=== PATIENT | male | born 1940 | race Caucasian/White ===

== ENCOUNTER → 2025-02-07 | Outpatient (CLI) | payer MEDICARE, SELFPAY ==
--- NOTE | 2025-02-07 06:45 | ECHOCS_ITS ---
Reason For Study Reason For Study: Syncope Procedure This was a 2D Doppler, Color Flow transthoracic echocardiogram. The study was technically difficult. Contrast injection was performed. Exam performed in department. Left Ventricle Normal LV size. Mild concentric left ventricular hypertrophy. The LV systolic function is normal. EF is 70 %. Stage 1 diastolic dysfunction. Right Ventricle Normal right ventricle. Atria The left and right atria are normal. Hypermobile interatrial septum. Bubble contrast study negative for PFO/ASD. Mitral Valve Trivial mitral valve insufficiency. Tricuspid Valve Trivial tricuspid valve insufficiency. Right ventricular systolic pressure estimated to be 39 mmHg. Aortic Valve Trileaflet aortic valve. Mildly calcified leaflets. 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 Trivial aortic valve insufficiency. Pulmonic Valve The pulmonic valve is not well visualized. Great Vessels The aortic root is not well visualized. Pericardium/Pleural No pericardial effusion. Medication 22 gauge I.V. with prn adaptor inserted into right arm. Diluted definity 2ml given slow IV push to enhance endocardial definition. Performed a rapid injection of agitated mix of 9 cc saline and 1cc air to assess for atrial septal defect. MMode/2D Measurements & Calculations LVIDd: 4.0 cm IVSd: 1.4 cm LVOT diam: 1.9 cm LVIDs: 2.4 cm LVPWd: 0.95 cm RVDd: 3.5 cm FS: 40.1 % LVOT area: 3.0 cm2 LAV(MOD-bp): 41.7 ml LVAd ap4: 29.4 cm2 SV(MOD-sp4): 63.6 ml LAV(MOD-bp) Indexed: 23.2 ml/m2 LVLd ap4: 8.4 cm SI(MOD-sp4): 35.4 ml/m2 LAV(MOD-sp2): 40.2 ml EDV(MOD-sp4): 86.0 ml LAV(MOD-sp4): 38.7 ml EDV(sp4-el): 87.8 ml LVAs ap4: 13.2 cm2 LVLs ap4: 6.3 cm ESV(MOD-sp4): 22.4 ml ESV(sp4-el): 23.5 ml EF(MOD-sp4): 74.0 % EF(sp4-el): 73.2 % SV(sp4-el): 64.3 ml LA A4 area: 15.9 cm2 LA dimension(2D): 3.5 cm RA A4 area: 14.6 cm2 TAPSE: 2.2 cm Time Measurements MV dec time: 0.21 sec Doppler Measurements & Calculations MV E max george: 64.6 cm/sec Lat Peak E' George: 9.4 cm/sec Med Peak E' George: 11.5 cm/sec MV A max george: 115.8 cm/sec E/E' lat: 6.9 E/E' med: 5.6 MV E/A: 0.56 MV V2 max: 131.5 cm/sec MV P1/2t max george: 76.7 cm/sec Ao V2 max: 157.2 cm/sec MV max P.9 mmHg MV P1/2t: 70.6 msec Ao max P.9 mmHg MV V2 mean: 67.4 cm/sec MV dec slope: 318.0 cm/sec2 Ao V2 mean: 102.6 cm/sec MV mean P.2 mmHg MVA(P1/2t): 3.1 cm2 Ao mean P.8 mmHg MV V2 VTI: 19.8 cm Ao V2 VTI: 30.2 cm MVA(VTI): 3.0 cm2 AV (velocity ratio): 0.66 SENAIT(I,D): 2.0 cm2 SENAIT(V,D): 2.0 cm2 LV V1 max: 104.5 cm/sec SV(LVOT): 59.5 ml PA V2 max: 125.6 cm/sec LV V1 max P.4 mmHg LV V1 mean P.1 mmHg LV V1 mean: 66.0 cm/sec LV V1 VTI: 20.0 cm TR max george: 289.8 cm/sec TR max P.6 mmHg ECHO/Echo Complete W/ Contrast Interpretation Summary Mild concentric left ventricular hypertrophy. The LV systolic function is normal. EF is 70 %. Stage 1 diastolic dysfunction. Hypermobile interatrial septum. Bubble contrast study negative for PFO/ASD. 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 Right ventricular systolic pressure estimated to be 39 mmHg. Ordering Physician: Francois Pittman Referring Physician: Francois Pittman Performed By: Aidan Flores RCS
--- NOTE | 2025-02-07 15:46 | STRESSREP ---
Stress Test Report Date: 02/07/2025 Procedure: Pharmacologic stress nuclear imaging study Indications: Dyspnea Consent: Per the patient Procedure: The patient underwent pharmacologic (Regadenoson 0.4mg ) evaluation with a peak heart rate of 101 beats per minute (73%predicted maximal heart rate) and a peak blood pressure of 172/95 mmHg. The baseline ECG demonstrated sinus rhythm. The peak pharmacologic ECG did not show any ischemic changes. There were no cardiac dysrhythmias pretest, during pharmacologic infusion, or recovery. There was no complaint of chest discomfort during pharmacologic infusion or recovery. The patient was injected with 11.2 millicuries of technetium 99m Cardiolite and subsequently rest SPECT Cardiolite nuclear imaging was obtained in the horizontal long, vertical long, and short axis views. The patient underwent pharmacologic (Regadenoson) evaluation. The patient was injected with 35.6 millicuries of technetium 99m Cardiolite and subsequently stress SPECT Cardiolite nuclear imaging was obtained in the horizontal long, vertical long, and short axis views. A gated Cardiolite study at peak stress was obtained. The examination was stopped secondary to completion of protocol. Rest and stress SPECT Cardiolite nuclear imaging status post realignment, normalization, and attenuation correction demonstrate no fixed or reversible perfusion defects. There is end systolic thickening and brightening. The gated Cardiolite study demonstrates myocardial thickening and inward wall motion. The reported LVEF is 91%. Impression: 1. Pharmacologic (Regadenoson) evaluation 2. Peak pharmacologic ECG with no ischemic changes. 3. There were no cardiac dysrhythmias pretest, during pharmacologic infusion, or recovery. 5. Rest and stress SPECT Cardiolite nuclear imaging demonstrate relative uniform tracer uptake and myocardial perfusion appearing within normal limits. 6. The gated Cardiolite study reports an LVEF of 91%. This note was generated with [employer] software. It may contain incorrect words, spelling, and punctuation that were not noted in checking the note before signing.
== END | disposition home or self-care (01) ==
PROVIDERS: Referring Provider Internal Medicine Cardiovascular Disease; Visit Provider Internal Medicine Cardiovascular Disease
DX: R06.00 Dyspnea, unspecified (principal); N18.30 Chronic kidney disease, stage 3 unspecified; I95.1 Orthostatic hypotension; I12.9 Hypertensive chronic kidney disease with stage 1 through stage 4 chronic kidney disease, or unspecified chronic kidney disease; I49.3 Ventricular premature depolarization
CPT/HCPCS: 78452; 93017; 93306; A9500; Q9957; A4216; C8929; J2785

== ENCOUNTER 2025-04-26 08:04 | Inpatient (IN) | payer MEDICARE, SELFPAY ==
[2025-04-26] VITALS (20 sets, daily range): BP systolic 140–177; BP diastolic 71–108; PULSE 78–98; RESP 13–27; TEMP 35.5–36.7; O2SAT 91–98; BMI 19.9; BMI 18.8
--- NOTE | 2025-04-26 08:06 | ED.RN ---
cancel; stroke alert
--- NOTE | 2025-04-26 08:08 | EKG12_ITS ---
Test Reason : ALT LOC Blood Pressure : */* mmHG Vent. Rate : 86 BPM Atrial Rate : 86 BPM P-R Int : 148 ms QRS Dur : 76 ms QT Int : 364 ms P-R-T Axes : 64 -12 53 degrees QTcB Int : 435 ms Normal sinus rhythm Nonspecific ST abnormality Abnormal ECG Confirmed by STEVE CHENG MD ([id number]), field map editor YANCY GIL ([id number]) on 04/29/2025 9:13:57 AM Referred By: Confirmed By: STEVE CHENG MD
--- NOTE | 2025-04-26 08:08 | RAD_ITS ---
PROCEDURE: CHEST 1 VIEW (PORTABLE) 04/26/2025 REASON FOR EXAM: TACHYPNEA TECHNIQUE: Frontal view of the chest. COMPARISON: None FINDINGS: Hardware: EKG electrodes are seen. Heart: The heart size is upper limits of normal. Lungs: The lungs are clear. Bones: Degenerative changes are identified within the thoracic spine. Other: RAD/Chest 1 View (Portable) IMPRESSION: No Acute Findings. Reading Location: [place] [address]
--- NOTE | 2025-04-26 08:09 | CT_ITS ---
PROCEDURE: BRAIN/HEAD WITHOUT CONTRAST 04/26/2025 REASON FOR EXAM: ALTERED MENTAL STATUS, QUESTION SEIZURE ACTIVITY TECHNIQUE: BRAIN/HEAD WITHOUT CONTRAST Coronal and Sagittal reconstruction series were provided. One or more dose reduction techniques were used (e.g., Automated exposure control, adjustment of the mA and/or kV according to patient size, use of iterative reconstruction technique. RADIATION DOSE SUMMARY: CTDlvol: 44.99 mGy DLP: 616 mGycm COMPARISON: None FINDINGS: Brain: Low density in the periventricular white matter suggests mild chronic small vessel ischemic changes. Atherosclerotic calcification of the cavernous portions of the internal carotid arteries bilaterally. CSF Spaces: Mild generalized cerebral atrophy Sinuses/Mastoids: Clear at visualized levels Bones: CT/Brain/Head without Contrast IMPRESSION: CHRONIC CHANGES. NO ACUTE FINDINGS. Reading Location: [place] [id number]
[2025-04-26] MEDS: 0.9% Normal Saline (1000mL) 1,000 ML 1000 ML IV (08:18)
--- NOTE | 2025-04-26 08:22 | EX.ED.CRITCA ---
HPI History of Present Illness Chief Complaint: Alt LOC Detail of Chief Complaint: Prehospital stroke alert. Informant: patient, spouse/S.O. and EMS Onset/Context/Timing Onset: - (Last known well 2199April 25) Context: - (Detailed in the HPI narrative) Timing: - (Uncertain) Quality: Detailed HPI narrative Location: Detailed HPI narrative Mechanism/Context: Yes blunt trauma, Yes fall and Yes same level fall Current Severity: Difficult to determine because of dry mouth and difficulty speaking Maximum Severity: Difficult to determine because patient mouth is dry and his tongue is a lit Worsened by: Possibly head trauma Relieved by: Nothing Associated Symptoms Length of loss of consciousness: Unknown Narrative Narrative: Patient is an 84-year-old male. He lives with his . He has been having problems with dizziness since October. He had a cardiac workup which was negative and included a 30-day Holter monitor and echo. He had an MRI which apparently revealed 2 strokes. They believe this was the cause of his falls in October and November. Last evening he went to use the restroom. He fell. When entered the room he told her that he messed the floor. She informed him that they would clean it up in the morning. This morning he is less responsive. She states he has been eating well. Patient was asked yes/no questions and he answered no to all of the following, headache, change in vision, chest pain, shortness of breath, abdominal pain, nausea or vomiting. He also answered no to urologic symptoms. He denies pain in his back, neck, and extremities. Patient is presently on cholesterol medication and metoprolol for. The metoprolol is for blood pressure not rhythm. He used a scopolamine patch for the first time yesterday. He was placed on a scopolamine patch because of excessive drooling. Prior similar symptoms: No Recent Illness/Hospitalization: No PFSH [facility] Medical History (Updated 04/26/25 @ 10:[address] Wing Simmons MD) CVA (cerebral vascular accident) Medical History unable to obtain unable to obtain Allergy/AdvReac Type Severity Reaction Status Date / Time doxycycline Allergy Unknown PT UNABLE Verified 04/26/25 08:08 TO RESPOND-NEEDS F/U oxycodone Allergy Unknown PT UNABLE Verified 04/26/25 08:08 TO RESPOND-NEEDS F/U Social History (Updated 04/26/25 @ 08:[address] Wing Simmons MD) household members: spouse Smoking Status: Never smoker ROS ROS ED Constitutional Constitutional ED: Denies chills or fever(s) Eyes Eyes: Denies blurry vision or change in vision ENT ENT ED: Denies rhinorrhea or sore throat Cardiovascular Cardiovascular: Denies chest pain or palpitations Respiratory/Chest Respiratory/Chest: Denies cough or dyspnea Gastrointestinal Gastrointestinal: Denies abdominal pain, melena or vomiting Musculoskeletal Musculoskeletal: Denies back pain Neurologic Neurologic: Denies headache(s) Hematologic/Lymphatic Hematologic/Lymphatic: Denies easy bleeding or easy bruising EXAM Physical Exam Const Vital Signs: 04/26/25 08:04 04/26/25 08:12 04/26/25 08:30 Temperature 97.7 F L 97.7 F L Temperature Source Axillary Axillary Pulse Rate 86 86 Respiratory Rate 20 H 16 Blood Pressure 161/91 H 164/97 H Blood Pressure Mean 114 115 Pulse Ox 96 95 Oxygen Delivery Method Room Air Room Air 04/26/25 08:30 04/26/25 08:45 04/26/25 08:45 Temperature 95.9 F L 96.4 F L Temperature Source Core Core Pulse Rate 84 86 Respiratory Rate 13 25 H Blood Pressure 164/97 H 168/87 H 168/87 H Blood Pressure Mean 115 107 107 Pulse Ox 96 93 Oxygen Delivery Method 04/26/25 09:00 04/26/25 09:12 04/26/25 09:15 Temperature 96.8 F L 96.8 F L 96.9 F L Temperature Source Core Core Core Pulse Rate 84 86 88 Respiratory Rate 18 16 20 H Blood Pressure 140/84 H 163/87 H Blood Pressure Mean 91 112 Pulse Ox 93 98 92 Oxygen Delivery Method Room Air 04/26/25 09:16 04/26/25 09:30 04/26/25 09:45 Temperature 96.9 F L 97.0 F L 97.2 F L Temperature Source Core Core Core Pulse Rate 85 80 83 Respiratory Rate 16 15 27 H Blood Pressure 163/87 H 155/87 H 151/99 H Blood Pressure Mean 108 107 117 Pulse Ox 91 91 92 Oxygen Delivery Method 04/26/25 10:00 04/26/25 10:00 Temperature 97.4 F L 97.7 F L Temperature Source Core Core Pulse Rate 79 89 Respiratory Rate 14 18 Blood Pressure 160/71 H 166/81 H Blood Pressure Mean 98 109 Pulse Ox 92 93 Oxygen Delivery Method Room Air Positive well developed; Negative for well nourished Constitutional Narrative: Patient appears ill. Patient vitals indicated normal heart rate, respiratory rate and pulse ox. Blood pressure is pending. Axillary temperature was 97.7. I was told by nurse that temperature was 95.7. She was asked to place a warm blanket on him. General Appearance ED: well developed, NAD and pallor HEENT normocephalic and atraumatic; Negative for cyanosis of lips/distal nose or tenderness Eyes PERRL and EOMs intact bilaterally Eyes Narrative: There is no subconjunctival hemorrhage. General Eye ED: Negative for pale conjunctiva or scleral icterus Neck full ROM, no lymphadenopathy, supple and no JVD Neck Narrative: There is no posterior midline pain. Chest Wall Chest Narrative: Appears normal without evidence of trauma. There is no crepitus. Resp Resp Narrative: Patient respiratory rate is slightly elevated. Breath sounds are diminished bilaterally. There is bibasilar rales. This may be due to poor inspiratory volume. There is no rhonchi or wheezing noted. Cardio regular rate, regular rhythm, S1 normal heart sound, S2 normal heart sound and no murmurs GI non-tender, non-distended and no masses Auscultation: hypoactive bowel sounds Palpation: soft Narrative: External normal Neuro oriented x3, CN's II-XII intact bilaterally and no sensory deficits noted Neuro Narrative: He is awake but not alert. He has a very soft voice and is having difficulty phonating. I suspect this is due to the fact that his oral mucosa is very dry and this may be due to the scopolamine patch. Gait was not assessed. When patient was met in the ambulance bay. Since patient is following commands has no obvious focal neurologic symptoms and the fact that he has dry mouth and what may have been twitching versus seizure-like activity the stroke team was canceled because in my opinion this is a metabolic infectious or head bleed due to fall earlier this morning when he was in the restroom. Skin General Skin Exam: pallor Lesions: no lesions Rashes: no rashes MDM MDM MDM Narrative Medical decision making narrative: Concern patient may have had a seizure based on 's description of the stiffness of his arms with movement and abnormal movement of his legs. This occurred earlier this morning. This was not relayed to the EMS. He may have a metabolic cause need to assess electrolytes specifically sodium and calcium. Also need to consider infectious workup. Because of the head trauma CT of the head was obtained. He may have had a seizure due to his prior strokes which were felt to have occurred in October and November of this year. History & Record Review Discussion w/independent historian: Significant other (Informed of results and concern this is all due to the scopolamine patch. Since he is agitated he did receive IV Ativan. Hospitalist was paged for admission) Lab Data Attestation: I reviewed the patient's lab results. Lab results narrative: White count is normal. Comprehensive metabolic panel reveals an elevated BUN/creatinine at 37 and 1.72 with an estimated GFR of 39 and a BUN to creatinine ratio of 21:1. Glucose slightly elevated 113 with a normal CO2 anion gap. Liver enzymes are normal. UA is unremarkable. Macro was positive for protein and blood. Micro was negative. There are no prior labs for comparison. Labs: Laboratory Results - last 24 hr 04/26/25 04/26/25 08:15 08:24 WBC 7.9 RBC 4.84 Hgb 14.4 Hct 42.3 MCV 87.4 MCH 29.8 MCHC 34.0 RDW Std Deviation 41.0 RDW Coeff of Tim 12.9 Plt Count 217 MPV 10.4 Immature Gran % (Auto) 0.400 Neut % (Auto) 64.0 Lymph % (Auto) 21.8 [place] % (Auto) 11.0 H Eos % (Auto) 2.3 Baso % (Auto) 0.5 Absolute Neuts (auto) 5.1 Absolute Lymphs (auto) 1.73 Nucleated RBC % 0 PT 14.2 INR 1.1 APTT 24.5 Sodium 140 Potassium 4.1 Chloride 104 Carbon Dioxide 23.3 Anion Gap 13 BUN 37 H Creatinine 1.72 H Estim Creat Clear Calc 29.55 L Est GFR (MDRD) Non-Af 39 L BUN/Creatinine Ratio 21.4 H Glucose 113 H Lactic Acid 1.1 Calcium 9.7 Total Bilirubin 0.60 AST 24 ALT 19 Alkaline Phosphatase 71 Total Protein 7.2 Albumin 4.1 Globulin 3.2 Albumin/Globulin Ratio 1.3 Urine Color Yellow Urine Clarity Clear Urine pH 6.5 Ur Specific [place] 1.015 Urine Protein 30 H Urine Glucose (UA) Normal Urine Ketones Negative Urine Occult Blood 10 H Urine Nitrite Negative Urine Bilirubin Negative Urine Urobilinogen Normal Ur Leukocyte Esterase Negative Urine RBC 0 SEEN Urine WBC 0 SEEN Ur Squamous Epith Cells 0 SEEN Urine Bacteria 0 SEEN Urine Mucus 0 SEEN ABG Data ABG results: ABG 04/26/25 08:19 Specimen Type ART Sample Site L Brach pH 7.48 H Bicarbonate Actual 28.6 H Total CO2 30 Base Excess 5 H O2 Saturation 95 O2 % 2.0 ABG pCO2 38.2 ABG pO2 70 L O2 Delivery Device Cannula Vent Mode Not entered Radiography Chest X-Ray - ED: 1 View and Read by ED Physician (There are no acute findings. Cardiac silhouette and size normal. Lung parenchyma reveals chronic changes. Osseous structures reveal no obvious acute abnormality. There is evidence of degenerative disc disease.) Diagnostic Testing: Clinical Impression(s) from Imaging Studies Chest X-Ray 04/26/25 08:08 IMPRESSION: No Acute Findings. Reading Location: [facility]--[address] 04/26/25 08:09 IMPRESSION: CHRONIC CHANGES. NO ACUTE FINDINGS. Reading Location: [facility]--1 CT was reviewed by me after interpretation by radiologist. There is no acute findings i.e. subdural hematoma, epidural hematoma, traumatic subarachnoid hemorrhage or intraparenchymal contusion. There is no obvious stroke noted either. There is no air-fluid levels noted in the sinuses or evidence of fracture. Management Discussion w/another healthcare provider: Hospitalist (I spoke with Dr. Rachel the hospitalist. PCU admit. He will see patient on the unit.) Discharge Plan Triage Chief Complaint: Alt LOC ED Provider: Wing Simmons Dx/Rx/DC Orders Clinical Impression: Acute alteration in mental status, Anticholinergic syndrome, Elevated blood pressure reading with diagnosis of hypertension, Agitation, Metabolic alkalemia, Chronic kidney insufficiency, History of stroke in adulthood Primary Care Provider: Chaitanya Hdez Referrals: Chaitanya Hdez DO [Primary Care Provider] - Print Language: Vietnamese Disposition Disposition: [facility]
[2025-04-26 08:23] LABS: Base Excess 5 mmol/L (-2 to +2); FI02 2.0; PO2 70 mmHG (75-100); SITE L Brach; SO2 95 % (95-99)
[2025-04-26 08:30] LABS: Hematocrit 42.3 % (40-54); Hemoglobin 14.4 g/dL (13.0-16.5); Immature Granulocytes Count 0.030 X10^3/uL (0.0-0.0); Mean Corp Hgb Conc 34.0 g/dL (32-36); Mean Corpuscular Volume 87.4 fL (80-94); Mean Platelet Vol. 10.4 fl (6.2-12.0); NRBC Flagged by Analyzer 0 % (0-5); Platelet Count 217 K/mm3 (150-450); RBC Distribution Width CV 12.9 % (11.6-14.6); RBC Distribution Width SD 41.0 fl (35.1-43.9); Red Blood Count 4.84 M/mm3 (4.6-6.2); White Blood Count 7.9 K/mm3 (4.4-11.0)
[2025-04-26 08:30] LABS: Mucous, Urine 0 SEEN /hpf (<or=2+); Red Blood Cells-Urine 0 SEEN /hpf (0-5); Squamous Epithelial Cells - UA 0 SEEN /hpf (0-5)
[2025-04-26 08:33] LABS: Color, Urine Yellow (Yellow); Glucose, Dipstick Normal (Normal); Ketone-Dipstick Negative (Negative); Leukocyte Esterase-Dipstick Negative /ul (Negative); Nitrite-Dipstick Negative (Negative); Occult Blood-Urine 10 /ul (Negative); Protein-Dipstick 30 mg/dl (Negative); Specific Gravity, Urine 1.015 (1.002-1.030); Urine Bilirubin Dipstick Negative (Negative)
[2025-04-26 08:38] LABS: Prothrombin Time (Protime)PT. 14.2 SECONDS (11.7-14.9)
[2025-04-26 08:39] LABS: Partial Thromboplast Time 24.5 Seconds (24.1-36.2)
[2025-04-26 09:10] LABS: AST(SGOT) 24 U/L (<=37); Alanine Aminotransfer ALT/SGPT 19 U/L (<=46); Albumin, Serum 4.1 g/dL (3.4-4.8); Alkaline Phosphatase 71 U/L (40-129); Anion Gap 13 (5-15); BUN 37 mg/dL (4-19); BUN/Creat Ratio 21.4 RATIO (10-20); Calcium,Total 9.7 mg/dL (7.6-11.0); Carbon Dioxide 23.3 mmol/L (21.0-32.0); Chloride 104 mmol/L (98-108); Estimated Creatinine Clearance 29.55 ml/min (50-250); Globulin 3.2 g/dL (2.2-4.2); Glucose 113 mg/dL (70-99); Potassium 4.1 mmol/L (3.3-5.1)
--- NOTE | 2025-04-26 10:43 | PCM.HP.STD ---
HPI - General General Date of Admission: 04/26/25 Date of Service: 04/26/25 Chief Complaint: Altered mental status/speech abnormality today in the morning HPI Narrative JAZLYN CHRISTINE, is a 84 M who is brought to ED with prehospital stroke for altered mental status, unable to speak, incoherent and snoring respirations since morning. Patient has been dizzy since October and prescribed scopolamine patch reported last night. Patient could not understand speech, could not verbalize/vocalize, insensible/incomprehensible words. He also restless. Last night he went to the restroom, had accident/incontinent and fell down. In the morning he was also less responsive. As per he had 1 CT scan in February and 1 MRI in December which did not in our system. MRI revealed 2 strokes probably the cause of his fall in November/December. He said no headache change in vision chest pain shortness of breath abdominal pain or vomiting. He is not able to follow command regarding lifting the hands or legs or answered question of NIHSS but a stroke alert was called off. [facility] Medical History CVA (cerebral vascular accident) Medical History unable to obtain Allergy/AdvReac Type Severity Reaction Status Date / Time doxycycline Allergy Unknown PT UNABLE Verified 04/26/25 08:08 TO RESPOND-NEEDS F/U oxycodone Allergy Unknown PT UNABLE Verified 04/26/25 08:08 TO RESPOND-NEEDS F/U Social History household members: spouse Smoking Status: Never smoker ROS ROS Narrative 14 system ROS unobtainable due to altered mental status Review of Systems ROS Unobtainable: due to encephalopathy and due to mental status Vital Signs Vital Signs Vital Signs: 04/26/25 08:04 04/26/25 08:12 04/26/25 08:30 Temperature 97.7 F L 97.7 F L Temperature Source Axillary Axillary Pulse Rate 86 86 Respiratory Rate 20 H 16 Blood Pressure 161/91 H 164/97 H Blood Pressure Mean 114 115 Pulse Ox 96 95 Oxygen Delivery Method Room Air Room Air 04/26/25 08:30 04/26/25 08:45 04/26/25 08:45 Temperature 95.9 F L 96.4 F L Temperature Source Core Core Pulse Rate 84 86 Respiratory Rate 13 25 H Blood Pressure 164/97 H 168/87 H 168/87 H Blood Pressure Mean 115 107 107 Pulse Ox 96 93 Oxygen Delivery Method 04/26/25 09:00 04/26/25 09:12 04/26/25 09:15 Temperature 96.8 F L 96.8 F L 96.9 F L Temperature Source Core Core Core Pulse Rate 84 86 88 Respiratory Rate 18 16 20 H Blood Pressure 140/84 H 163/87 H Blood Pressure Mean 91 112 Pulse Ox 93 98 92 Oxygen Delivery Method Room Air 04/26/25 09:16 04/26/25 09:30 04/26/25 09:45 Temperature 96.9 F L 97.0 F L 97.2 F L Temperature Source Core Core Core Pulse Rate 85 80 83 Respiratory Rate 16 15 27 H Blood Pressure 163/87 H 155/87 H 151/99 H Blood Pressure Mean 108 107 117 Pulse Ox 91 91 92 Oxygen Delivery Method 04/26/25 10:00 04/26/25 10:00 Temperature 97.4 F L 97.7 F L Temperature Source Core Core Pulse Rate 79 89 Respiratory Rate 14 18 Blood Pressure 160/71 H 166/81 H Blood Pressure Mean 98 109 Pulse Ox 92 93 Oxygen Delivery Method Room Air Weight Weight: 139 lb 1.787 oz Body Mass Index (BMI) 19.9 Physical Exam Narrative General: Awake, restless, disoriented to time place and person. Mildly agitated HEENT: Atraumatic, PERRLA, EOMI, Normocephalic. Oral: Oral mucosa very dry. Neck: Supple, No JVD, Negative Carotid Bruits Chest wall/Lungs: Air entry diminished in bilateral lung bases. Mild coarse crepitations Cardiovascular: Regular rate and rhythm, Normal S1,S2, No M/G/R Abdomen: Bowel Sounds Present, Soft, Non Tender, Non-Distended : No dysuria. No renal angle tenderness. No suprapubic tenderness. Extremities: No edema, Capillary Refill Less than 3 Seconds Skin: No rashes, No breakdown Musculoskeletal: No Tenderness to Palpation of Joints or Extremities. 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 Detailed neuroexam unobtainable. Language deficits. Dysarthria Psych/Mental Status: Flat affect Results Lab / Micro Data 04/26/25 08:15 04/26/25 08:15 Labs: Laboratory Results - last 24 hr 04/26/25 08:15: WBC 7.9, RBC 4.84, Hgb 14.4, Hct 42.3, MCV 87.4, MCH 29.8, MCHC 34.0, RDW Std Deviation 41.0, RDW Coeff of Tim 12.9, Plt Count 217, MPV 10.4, Immature Gran % (Auto) 0.400, Neut % (Auto) 64.0, Lymph % (Auto) 21.8, Pierce % (Auto) 11.0 H, Eos % (Auto) 2.3, Baso % (Auto) 0.5, Absolute Neuts (auto) 5.1, Absolute Lymphs (auto) 1.73, Nucleated RBC % 0, PT 14.2, INR 1.1, APTT 24.5, Sodium 140, Potassium 4.1, Chloride 104, Carbon Dioxide 23.3, Anion Gap 13, BUN 37 H, Creatinine 1.72 H, Estim Creat Clear Calc 29.55 L, Est GFR (MDRD) Non-Af 39 L, BUN/Creatinine Ratio 21.4 H, Glucose 113 H, Lactic Acid 1.1, Calcium 9.7, Total Bilirubin 0.60, AST 24, ALT 19, Alkaline Phosphatase 71, Total Protein 7.2, Albumin 4.1, Globulin 3.2, Albumin/Globulin Ratio 1.3 04/26/25 08:24: Urine Color Yellow, Urine Clarity Clear, Urine pH 6.5, Ur Specific [place] 1.015, Urine Protein 30 H, Urine Glucose (UA) Normal, Urine Ketones Negative, Urine Occult Blood 10 H, Urine Nitrite Negative, Urine Bilirubin Negative, Urine Urobilinogen Normal, Ur Leukocyte Esterase Negative, Urine RBC 0 SEEN, Urine WBC 0 SEEN, Ur Squamous Epith Cells 0 SEEN, Urine Bacteria 0 SEEN, Urine Mucus 0 SEEN ABG Data ABG results: ABG 04/26/25 08:19 Specimen Type ART Sample Site L Brach pH 7.48 H Bicarbonate Actual 28.6 H Total CO2 30 Base Excess 5 H O2 Saturation 95 O2 % 2.0 ABG pCO2 38.2 ABG pO2 70 L O2 Delivery Device Cannula Vent Mode Not entered Imaging Radiology Impression Chest X-Ray 04/26/25 08:08 IMPRESSION: No Acute Findings. Reading Location: [facility] 04/26/25 08:09 IMPRESSION: CHRONIC CHANGES. NO ACUTE FINDINGS. Reading Location: [facility] Assessment & Plan Assessment/Plan (1) Altered mental status: PLAN: Plan This is a 84-year-old gentleman being admitted chiefly for altered mental status/language deficit and dysarthria 1. Mental status/language deficit both receptive and motor and dysarthria: Exact etiology unclear but possible metabolic encephalopathy/seizure or stroke. CT head does not show acute change. Usually he does not think it is stroke but most likely due to scopolamine adverse effect. MRI brain ordered. NIH stroke scale until MRI rules out a stroke. PT OT and speech evaluation. Twelve-lead EKG shows NSR 86 bpm. QTc 435 ms. TSH and A1c ordered for tomorrow a.m. 2. Hypertension: Patient's showed me metoprolol succinate, midodrine. 3. Dyslipidemia: Atorvastatin 40 mg daily. Fasting lipid profile tomorrow. 4. Recently stroke in January 04: Surprisingly, patient not on aspirin or Plavix with history of stroke in December 2024. Rectal aspirin and statin ordered. 5. Kidney dysfunction: BUN/creatinine 37/1.72, estimated creatinine clearance about 30 mL/min. Unclear whether it is acute or chronic. 6. Hyperglycemia: Glucose 130. A1c tomorrow a.m. DVT prophylaxis: Lovenox 30 mg subcu daily Living will/advanced directive/end of life care: Patient does have living will or advanced directive. His , blossom is power of trust and estates attorney for healthcare. After discussion of benefits/risks procedures involved with full code, DNR CC arrest and DNR CC, the patient side opted for DNR CC arrest with no intubation. Patient doesn't want artificial life support including intubation, tube feed, ventilator and/chest compression, central venous catheter, vasopressor and DC shock if needed Total time spent in [id number] encounter in discussion of advanced directive 17 minutes. Laboratory Results 04/26/25 08:15: WBC 7.9, RBC 4.84, Hgb 14.4, Hct 42.3, MCV 87.4, MCH 29.8, MCHC 34.0, RDW Std Deviation 41.0, RDW Coeff of Tim 12.9, Plt Count 217, MPV 10.4, Immature Gran % (Auto) 0.400, Neut % (Auto) 64.0, Lymph % (Auto) 21.8, Pierce % (Auto) 11.0 H, Eos % (Auto) 2.3, Baso % (Auto) 0.5, Absolute Neuts (auto) 5.1, Absolute Lymphs (auto) 1.73, Nucleated RBC % 0, PT 14.2, INR 1.1, APTT 24.5, Sodium 140, Potassium 4.1, Chloride 104, Carbon Dioxide 23.3, Anion Gap 13, BUN 37 H, Creatinine 1.72 H, Estim Creat Clear Calc 29.55 L, Est GFR (MDRD) Non-Af 39 L, BUN/Creatinine Ratio 21.4 H, Glucose 113 H, Lactic Acid 1.1, Calcium 9.7, Magnesium Pending, Total Bilirubin 0.60, AST 24, ALT 19, Alkaline Phosphatase 71, Total Protein 7.2, Albumin 4.1, Globulin 3.2, Albumin/Globulin Ratio 1.3 04/26/25 08:19: Specimen Type ART, Sample Site L Brach, pH 7.48 H, Bicarbonate Actual 28.6 H, Total CO2 30, Base Excess 5 H, O2 Saturation 95, O2 % 2.0, ABG pCO2 38.2, ABG pO2 70 L, O2 Delivery Device Cannula, Vent Mode Not entered 04/26/25 08:24: Urine Color Yellow, Urine Clarity Clear, Urine pH 6.5, Ur Specific [place] 1.015, Urine Protein 30 H, Urine Glucose (UA) Normal, Urine Ketones Negative, Urine Occult Blood 10 H, Urine Nitrite Negative, Urine Bilirubin Negative, Urine Urobilinogen Normal, Ur Leukocyte Esterase Negative, Urine RBC 0 SEEN, Urine WBC 0 SEEN, Ur Squamous Epith Cells 0 SEEN, Urine Bacteria 0 SEEN, Urine Mucus 0 SEEN Charges/Coding Visit Charges Inpatient E&M: 52805 Init Hosp L3 Procedures Hospitalists Procedures: 45116 Advncd Care Plan 30 Min
--- NOTE | 2025-04-26 11:28 | MRI_ITS ---
PROCEDURE: BRAIN WITHOUT CONTRAST 04/26/2025 REASON FOR EXAM: CHANGE IN MENTAL STATUS/SPEECH ABNORMALITY TECHNIQUE: BRAIN WITHOUT CONTRAST Multiplanar and multisequence images were obtained. COMPARISON: April 26, 2025 CT FINDINGS: Several of the sequences show severe motion artifact. Brain: Grossly, no hemorrhage identified. T2 prolongation in the periventricular white matter of the frontal and parietal lobes. No restricted diffusion seen. No extra-axial fluid collection, midline shift or mass effect. Ventricles: Vdys-ix-hoxrxgof volume loss. Major Intracranial Vessels: Limited by motion. No gross abnormality. Sinuses: Clear. Mastoids: Clear Lens implants are present. MRI/Brain without Contrast IMPRESSION: Motion artifact. No evidence of ischemia at this time. Chronic microvascular ischemic changes, volume loss. Reading Location: [id number]
[2025-04-26] MEDS: Lorazepam 2 MG/ML WCH Syringe 0.5 MG IV (11:31)
--- NOTE | 2025-04-26 11:43 | CDU_ITS ---
Reason For Study Reason For Study: CVA Rt. Velocities/BP Lt. Velocities/BP Prox CCA 94.1/12.7 cm/sec. Prox CCA 93.0/12.7 cm/sec. Mid CCA 77.6/11.7 cm/sec. Mid CCA 91.9/14.9 cm/sec. Dist CCA 61.1/10.6 cm/sec. Dist CCA 68.8/14.9 cm/sec. Prox ICA 52.3/11.7 cm/sec. Prox ICA 67.7/17.1 cm/sec. Mid ICA 39.9/12.2 cm/sec. Mid ICA 61.1/18.2 cm/sec. Dist ICA 43.5/9.5 cm/sec. Dist ICA 52.3/14.9 cm/sec. Rt. ICA/CCA = 0.7. Lt. ICA/CCA = 0.7. Prox ECA 87.5/9.5 cm/sec. Prox ECA 112.5/6.6 cm/sec. Rt. Vert. 22.5/4.8 cm/sec. Lt. Vert. 46.8/6.6 cm/sec. Right Extracranial There is intimal thickening but no significant atherosclerotic plaque noted in the right common carotid artery. There is heterogeneous, irregular atherosclerotic plaque noted in the right internal carotid artery. There is heterogeneous, irregular atherosclerotic plaque noted in the right external carotid artery. Antegrade flow is noted in the right vertebral artery. Non vascularized anechoic structures noted throughout muscle fascia of Rt Neck. Left Extracranial There is homogeneous, smooth atherosclerotic plaque noted in the left common carotid artery. There is heterogeneous, irregular atherosclerotic plaque noted in the left internal carotid artery. There is intimal thickening but no significant atherosclerotic plaque noted in the left external carotid artery. Antegrade flow is noted in the left vertebral artery. Procedure Carotid Duplex [id number]. This is a Carotid Duplex examination using B-mode, color flow and specral Doppler. The exam was of fair technical quality due to patient involuntary movement. Exam performed portable in patient room. VL/Carotid Duplex Ultrasound Interpretation Summary Mild (<50%) stenosis right extracranial internal carotid. Mild (<50%) stenosis left extracranial internal carotid. Flow within the vertebral arteries is antegrade bilaterally. Multiple, non-vascular, anechoic structures are noted in the muscle and fascia of the right neck. Clinical correlation is advised. Ordering Physician: Ugo Perera Referring Physician: Chaitanya Hdez Performed By: Jacobo Ventura RVT
[2025-04-26 11:54] LABS: Magnesium 2.1 mg/dL (1.5-2.2)
[2025-04-26] MEDS: 0.9% Normal Saline (1000mL) 1,000 ML 100 ML IV (15:57)
[2025-04-26] MEDS: 0.9% Saline Lock 10 ML Syringe IV (22:10)
[2025-04-27] VITALS (28 sets, daily range): BP systolic 63–174; BP diastolic 40–114; PULSE 52–115; RESP 10–28; TEMP 36.3–37.2; O2SAT 88–99; BMI 22.6
[2025-04-27 04:45] LABS: Hematocrit 43.1 % (40-54); Hemoglobin 14.8 g/dL (13.0-16.5); Immature Granulocytes Count 0.030 X10^3/uL (0.0-0.0); Mean Corp Hgb Conc 34.3 g/dL (32-36); Mean Corpuscular Volume 86.4 fL (80-94); Mean Platelet Vol. 10.7 fl (6.2-12.0); NRBC Flagged by Analyzer 0 % (0-5); Platelet Count 223 K/mm3 (150-450); RBC Distribution Width CV 12.7 % (11.6-14.6); RBC Distribution Width SD 39.7 fl (35.1-43.9); Red Blood Count 4.99 M/mm3 (4.6-6.2); White Blood Count 9.8 K/mm3 (4.4-11.0)
[2025-04-27 06:37] LABS: Cholesterol 134 mg/dL (<=200); Low Density Lipoprotein Calc. 59 mg/dL; Triglycerides 68 mg/dL; Very Low Density Lipoprotein 14 mg/dL (5-40); cholesterol:hdl ratio screen 2.20
[2025-04-27 07:30] LABS: Anion Gap 17 (5-15); BUN 24 mg/dL (4-19); BUN/Creat Ratio 16.5 RATIO (10-20); Calcium,Total 9.3 mg/dL (7.6-11.0); Carbon Dioxide 18.0 mmol/L (21.0-32.0); Chloride 104 mmol/L (98-108); Estimated Creatinine Clearance 36.70 ml/min (50-250); Glucose 133 mg/dL (70-99); Potassium 3.6 mmol/L (3.3-5.1)
--- NOTE | 2025-04-27 10:23 | NEURO.CONS ---
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 On history, symptoms very likely from the scopolamine as patient is improving. On history it seems that there may be a progressive movement issue that needs to be evaluated and use of the anticholinergic medication may have exacerbated this. Exam is largely non-focal without rigidity or signficiant tremor. Diagnosis: iatrogenic delirium from scopolamine Plan: continue delirium precautions can use 0.5mg BID of scheduled Klonopin to help with agitation I personally attended this patient and spent a total time of 45minutes evaluating this patient including clinical assessment, review of chart, medical history imaging, and determining appropriate treatment and workup. HPI Consult Data Date of Consult: 04/28/25 HPI Narrative HPI Narrative: LUL CHRISTINE, is a 84 M who is brought to ED with prehospital stroke for altered mental status, unable to speak, incoherent and snoring respirations since morning. Patient has been dizzy since October and prescribed scopolamine patch reported last night. Patient could not understand speech, could not verbalize/vocalize, insensible/incomprehensible words. He also restless. Last night he went to the restroom, had accident/incontinent and fell down. In the morning he was also less responsive. As per he had 1 CT scan in February and 1 MRI in December which did not in our system. MRI revealed 2 strokes probably the cause of his fall in November/December. He said no headache change in vision chest pain shortness of breath abdominal pain or vomiting. He is not able to follow command regarding lifting the hands or legs or answered question of NIHSS but a stroke alert was called off. Neurologic History Pt states he feels ok and not in any pain. Pt states he is not aware where he is right now. No dizziness right now but it will come and go and will feel like dysequilibrium. Patient still confused compared to normal. night he had difficulty having a bowel movement and patient had fallen. He slept for a while and was yelling and upset and his speech seemed garbled. He Unclear if he hit his head. Normally does not have issues in the bathroom. He shuffles and does walk slower. Had 2 falls in Oct and November. Patient tried using the patch night and it was the very first time that it happened. He tried the patch for drooling. Patient was agitated all night and had no sleep. Nurse who had him yesterday states he was nonverbal but wide awake and staring catatonic and was jerking and have myoclonic movements. Eyes stayed open during this time but able to follow commands during the event. Has been having visual hallucinations He has a ho r hip replacement and HTN/HLD. He has been having dizziness since Oct and have been working him up on that. No history of memory issues or dementia. Of note, patient snores a lot and talks in his sleep. Neurologic Exam -? NEURO: -? Mental Status: The patient is somnolent, .not aware to place or time, aware to and person. Normal fund of knowledge. Poor attention and difficulty following ocmplex multistep commands -? Language: speech is slurred .? Naming, repetition, fluency, and comprehension intact. -? Cranial Nerves: PERRL 4mm/brisk. EOMI, visual porras full, no facial asymmetry, facial sensation intact, hearing intact, tongue midline, no evidence of atrophy or fibrillations. Tremor in the LUE -? Motor: No pronator drift or satelliting. Upper and lower extremities equal bilaterally. -? Detailed strength exam as performed by the nurse/RONIT and witnessed by the physician: R L SA 5 5 EE EF WE WF Belt Repairer 5 5 HF KE KF DF PF -? Tone: high tone but no cogwheeling in b/l UE and LE -? Sensation- Intact to light touch bilaterally -? Coordination: No dysmetria on [id number]-laxbca b/l -? [facility]- [facility] Medical History CVA (cerebral vascular accident) Medical History unable to obtain Home Medications ?Medication ?Instructions ?Recorded ?Last Taken ?Type metoprolol succinate 25 mg 25 mg PO DAILY heart 04/26/25 04/25/25 History tablet,extended release 24 hr rosuvastatin 5 mg tablet 5 mg PO DAILY cholesterol 04/26/25 04/25/25 History Allergy/AdvReac Type Severity Reaction Status Date / Time doxycycline Allergy Unknown PT UNABLE Verified 04/26/25 08:08 TO RESPOND-NEEDS F/U oxycodone Allergy Unknown PT UNABLE Verified 04/26/25 08:08 TO RESPOND-NEEDS F/U Social History household members: spouse Smoking Status: Never smoker Vital Signs Vital Signs Vital Signs: 04/26/25 10:30 04/26/25 11:00 04/26/25 11:34 Temperature 97.6 F L 97.8 F 97.8 F Temperature Source Core Core Pulse Rate 82 85 85 Respiratory Rate 15 17 17 Respiratory Effort Respiratory Depth Respiratory Pattern Blood Pressure 166/81 H 165/84 H 165/84 H Blood Pressure Mean 106 111 111 Blood Pressure Source Blood Pressure Position Blood Pressure Location Pulse Ox 94 94 94 Oxygen Delivery Method 04/26/25 12:00 04/26/25 12:00 04/26/25 16:51 Temperature 97.0 F L Temperature Source Temporal Pulse Rate 82 Respiratory Rate 18 Respiratory Effort Non-Labored Respiratory Depth Normal Respiratory Pattern Normal Blood Pressure 168/83 H Blood Pressure Mean 111 Blood Pressure Source Monitor Blood Pressure Position Semi-Fowlers Blood Pressure Location Right Arm Pulse Ox 95 96 Oxygen Delivery Method Room Air Room Air 04/26/25 17:45 04/26/25 20:20 04/26/25 20:46 Temperature 97.6 F L 98.1 F Temperature Source Temporal Axillary Pulse Rate 78 89 Respiratory Rate 17 18 Respiratory Effort Normal Non-Labored Respiratory Depth Normal Respiratory Pattern Normal Blood Pressure 148/89 H 177/94 H Blood Pressure Mean 108 121 Blood Pressure Source Monitor Monitor Blood Pressure Position Semi-Fowlers Semi-Fowlers Blood Pressure Location Right Arm Right Arm Pulse Ox 96 93 Oxygen Delivery Method Room Air Room Air Room Air 04/26/25 20:57 04/26/25 22:09 04/26/25 22:10 Temperature Temperature Source Pulse Rate 98 98 Respiratory Rate Respiratory Effort Respiratory Depth Respiratory Pattern Blood Pressure 166/108 H 166/108 H Blood Pressure Mean 127 Blood Pressure Source Monitor Blood Pressure Position Semi-Fowlers Blood Pressure Location Right Arm Pulse Ox Oxygen Delivery Method Room Air 04/27/25 00:40 04/27/25 00:59 04/27/25 01:55 Temperature 98.1 F 97.4 F L Temperature Source Temporal Temporal Pulse Rate 97 97 89 Respiratory Rate 16 18 Respiratory Effort Respiratory Depth Respiratory Pattern Blood Pressure 174/81 H 174/81 H 174/84 H Blood Pressure Mean 112 114 Blood Pressure Source Monitor Monitor Blood Pressure Position Semi-Fowlers Semi-Fowlers Blood Pressure Location Right Arm Right Arm Pulse Ox 98 96 Oxygen Delivery Method Room Air Room Air 04/27/25 03:08 04/27/25 03:45 04/27/25 03:48 Temperature 97.5 F L Temperature Source Temporal Pulse Rate 89 93 Respiratory Rate 18 Respiratory Effort Normal Non-Labored Respiratory Depth Normal Respiratory Pattern Normal Blood Pressure 174/84 H 148/70 H Blood Pressure Mean 96 Blood Pressure Source Monitor Blood Pressure Position Semi-Fowlers Blood Pressure Location Right Arm Pulse Ox 96 Oxygen Delivery Method Room Air Room Air 04/27/25 08:00 04/27/25 09:38 Temperature Temperature Source Pulse Rate Respiratory Rate Respiratory Effort Normal Non-Labored Respiratory Depth Normal Respiratory Pattern Normal Blood Pressure Blood Pressure Mean Blood Pressure Source Blood Pressure Position Blood Pressure Location Pulse Ox 96 Oxygen Delivery Method Room Air Room Air Weight Weight: 65.6 kg Body Mass Index (BMI) 22.6 EEG Results Procedure Details EEG Procedure Details: LUL CHRISTINE is a 84 year old M with a past medical history of , who presents for evaluation of Electroencephalogram on DATE at TIME Lab / Micro Data 04/27/25 04:14 04/27/25 04:14 Labs: Laboratory Results - last 24 hr 04/26/25 08:15: Magnesium 2.1 04/27/25 00:29: POC Glucose 108 H 04/27/25 04:14: WBC 9.8, RBC 4.99, Hgb 14.8, Hct 43.1, MCV 86.4, MCH 29.7, MCHC 34.3, RDW Std Deviation 39.7, RDW Coeff of Tim 12.7, Plt Count 223, MPV 10.7, Immature Gran % (Auto) 0.300, Neut % (Auto) 78.4 H, Lymph % (Auto) 11.5 L, Cowley % (Auto) 9.4, Eos % (Auto) 0.1, Baso % (Auto) 0.3, Absolute Neuts (auto) 7.7, Absolute Lymphs (auto) 1.12, Nucleated RBC % 0, Sodium 139, Potassium 3.6, Chloride 104, Carbon Dioxide 18.0 L, Anion Gap 17 H, BUN 24 H, Creatinine 1.44 H, Estim Creat Clear Calc 36.70 L, Est GFR (MDRD) Non-Af 49 L, BUN/Creatinine Ratio 16.5, Glucose 133 H, Hemoglobin A1c 6.2 H, Calcium 9.3, Triglycerides 68, Cholesterol 134, LDL Cholesterol, Calc 59, VLDL Cholesterol 14, HDL Cholesterol 61, Cholesterol/HDL Ratio 2.20, TSH 0.374 04/27/25 06:16: POC Glucose 145 H Imaging Radiology Impression Brain MRI 04/26/25 11:28 IMPRESSION: Motion artifact. No evidence of ischemia at this time. Chronic microvascular ischemic changes, volume loss. Reading Location: [id number] Active Medications Active Medications Active Medications: Current Medications Generic Name Dose Route Start Last Admin Trade Name Freq PRN Reason Stop Dose Admin Acetaminophen 650 mg 04/26/25 13:48 Acetaminophen 325 Mg Tablet PO Q6H PRN PRN Pain 1-10 Or Fever>100.7 Atorvastatin Calcium 40 mg 04/26/25 22:00 04/26/25 20:54 Atorvastatin Calcium 40 Mg Tablet PO Not Given QHS EMMANUEL Enoxaparin Sodium 40 mg 04/27/25 10:00 Enoxaparin 40 Mg/0.4 Ml Syringe SC DAILY EMMANUEL Hydralazine HCl 5 mg 04/27/25 08:38 Hydralazine 20 Mg/Ml Vial IV Q4H PRN PRN SBP more than 160 mmHg Protocol Sodium Chloride 250 mls @ 15 mls/hr 04/26/25 12:10 IV .[id number] PRN Saline Flush Sodium Chloride 250 mls @ 15 mls/hr 04/26/25 12:10 IV .[id number] PRN Additional IVPB Infusion Labetalol HCl 20 mg 04/27/25 08:38 Labetalol 20 Mg/4 Ml Vial IV Q4H PRN PRN SBP>180 mmhg Ondansetron HCl 4 mg 04/26/25 13:48 Ondansetron 4 Mg/2 Ml Vial IV Q8H PRN PRN NAUSEA/VOMITING Risperidone 0.25 mg 04/27/25 10:00 Risperidone 0.25 Mg Tablet PO BID [facility] Protocol Senna/Docusate Sodium 2 tablet 04/26/25 22:00 04/26/25 20:54 Senna/Docusate Sodium 1 Tablet PO Not Given BID [facility] Sodium Chloride 10 - 40 ml 04/26/25 12:10 04/26/25 22:10 0.9% Saline Lock 10 Ml Syringe IV 10 ml UD PRN Administration SALINE FLUSH NIHSS NIHSS Nursing Documentation NIHSS Nursing Documentation: NIHSS: Ischemic Stroke/TIA Start: 04/26/25 11:44 Text: For ICU Patients: NIH sroke scale at Status: Complete presentation and every 2 hours or with change in RN caregiver Freq: [id number] Protocol: Activity Type Activity Date Activity User E-sign Co-sign Detail Recorded Client Recorded Date Recorded By Document 04/26/25 12:00 ML [id number] 04/26/25 12:47 ML 04/26/25 12:00 NIH Stroke Scale [NIHSS] A score of 0 is normal or asymptomatic . Total possible score is 42. Inpatient: RN or Physician to activate a stroke alert for onset of new stroke symptoms or with NIHSS increase >/= 3 points. Following change in neurological status, NIHSS will be performed per physician order or more frequently PRN. -1a. Level of Consciousness 0 - Alert; keenly responsive -1b. LOC Questions 2 - Answers NEITHER question correctly -1c. LOC Commands 2 - Performs NEITHER task correctly -2. Best Gaze 0 - Normal -3. Visual 0 - No visual loss -4. Facial Palsy 0 - Normal symmetrical movements -5a. Left Arm 3 - No effort against gravity ; arm falls -5b. Right Arm 3 - No effort against gravity ; arm falls -6a. Left Leg 3 - No effort against gravity ; leg falls to bed immediately -6b. Right Leg 3 - No effort against gravity ; leg falls to bed immediately -7. Limb Ataxia 2 - Present in 2 limbs -8. Sensory 2 - Severe to total sensory loss; -9. Best Language 2 - Severe aphasia; -10. Dysarthria 2 - Severe dysarthria; -11. Extinction and Inattention 1 - Visual, tactile, auditory, spatial, or personal inattention; -Total 25 Query Text:A score of 0 is normal or asymptomatic. Total possible score is 42 . ED: Notify Physician for NIHSS increase by > / = 3 points. Inpatient: RN or Physician to activate a stroke alert for NIHSS increase of > / = 3 points. Coma Scale [Assess] -Eye Opening Spontaneous -Motor Withdraws to Pain -Verbal Incomprehensibl e [Total] -Coma Scale Total 10
--- NOTE | 2025-04-27 10:50 | CASEMGMT ---
SHANICE MORAES Face to Face with patient for initial transition planning/care coordination assessment. SHANICE CM introduced self and role at [facility]. Patient lying in bed, alert and confused, at bedside. willing to participate in assessment and is able to answer all questions appropriately. Care providers, pharmacy, and demographics verified. Strata: 2 PCP: Lemuel Specialists: Dr. Cleary, farm truck driver [place]; Valerio, customs compliance analyst Preferred Pharmacy: [facility] [place] Insurance: [employer] Prescription Benefit: yes Living Will/HPOA: yes, Beth Ngo LNOK: Living Arrangements: Patient lives with in a single story home with 2 steps and railing to enter the home. Patient was independent at home. Transportation: self, DME/HHC: Patient has cane and walker at home. No previous HHC or SNF. Patient was attending outpatient therapy at [facility]. is unsure of needs at discharge. Therapy evals pending, patient hallucinating and unable to participate. RN ALEISHA discussed possible SNF vs HHC pending progress with therapy. states she has no further needs or concerns at this time. CM to follow for discharge planning needs that may arise. Disposition Plan: TBD, anticipate SNF vs HHC pending progress with therapy and course of treatment. Lia AGOSTO, RN, CM
[2025-04-27] MEDS: proMETHazine 25 MG/ML Syringe 12.5 MG IM (13:04)
--- NOTE | 2025-04-27 13:08 | CASEMGMT ---
Social Work Per physician, pt negative for stroke. PHQ9 not completed. Olaf Klein, DA
[2025-04-27] MEDS: dexMEDEtomidine 400 MCG in 0.9% Normal Saline (100mL Bag) 96 ML 8.2 MCG CONT INF (14:36)
--- OUTSIDE RECORDS SUMMARY | 2025-04-27 14:45 | XMS RPT_ITS | CCD ---
Author Organization [facility] Care Team Providers Care Licensing Engineer Name Role Phone EDWINA CHEN DO Primary Care Physician [phone] Prabha PT, Johana Unavailable Unavailable EDWINA CHEN DO Primary Care Unavailable EDWINA CHEN DO Attending Unavailable EDWINA CHEN DO Attending Unavailable EDWINA CHEN DO Primary Care Unavailable Lisandro Virk Attending Unavailable Iesha Lu Primary Care Unavailable Iesha Lu Primary Care Unavailable Carol Ann Sandoval Attending Unavailable Carol Ann Sandoval Referring Unavailable Dr. Carol Ann Sandoval MD Attending Provider [phone] Dr. Carol Ann Sandoval MD Referring Provider [phone] Dr. Iesha Lu DO Primary Care Provider Dr. Lisandro Virk MD Attending Provider IESHA LU DO Primary Care Physician Angel Villalobos DO Primary Care Provider Iesha Lu DO Unavailable IESHA LU DO Attending Unavailable EDWINA CHEN DO Primary Care Unavailable IESHA LU DO Primary Care Unavailable IESHA LU DO Attending Unavailable IESHA LU DO Attending Unavailable EDWINA CHEN DO Primary Care Unavailable EDWINA CHEN DO Attending Unavailable EDWINA CHEN DO Primary Care Unavailable EDWINA CHEN DO Attending Unavailable EDWINA CHEN DO Primary Care Unavailable EDWINA CHEN DO Primary Care Unavailable EDWINA CHEN DO Attending Unavailable EDWINA CHEN DO Attending Unavailable EDWINA CHEN DO Primary Care Unavailable JAIME SHAW, DR MAHARAJ Attending Unavailab le EDWINA CHEN DO Primary Care Unavailable IESHA LU DO Primary Care Unavailable IESHA LU DO Attending Unavailable Troy SHAW, Dr. Dimas Emergency Provider Trever SHAW, Dr. Arizmendi Admit Provider Trever SHAW, Dr. Arizmendi Attending Provider Allergies Allergy Classification Reported Allergen(s) Allergy Type Date of Onset Reaction(s) Facility (10 sources) Doxycycline; Translations: [doxycycline] Drug Allergy 5 PT UNABLE TO RESPOND-NEEDS F/U [facility] (9 sources) Tetracycline (class of antibiotic); Translations: [tetracyclines] Drug allergy Rash [facility] (1 source) oxyCODONE Drug Allergy 5 PT UNABLE TO RESPOND-NEEDS F/U [facility] Medications Current Medications Medication Drug Class(es) Dates Sig (Normalized) Sig (Original) amLODIPine 5 mg oral tablet (4 sources) Dihydropyridine Calcium Channel Sole Start: 07-05-2024 amLODIPine 5 mg oral tablet Dose : 5 mg = 1 tab(s), Oral, qDay, # 90 tab(s), 3 Refill(s), Pharmacy: [facility]/pharmacy #[id number], 169, cm, 07/05/24 14:31:00 EDT, Height, kg, 07/05/24 14:31:00 EDT, Dosing Weight Start Date: 07/05/24 Status: Ordered Start: 06-23-2023 amLODIPine 5 m g oral tablet Dose : 5 mg = 1 tab(s), Oral, qDay, # 90 tab(s), 3 Refill(s), Pharmacy: [facility]/pharmacy #[id number], 168, cm, 06/23/23 8:01:00 EDT, Height, kg, 06/23/23 8:01:00 EDT, Dosing Weight Start Date: 06/23/23 Status: Ordered Start: 03-08-2022 amLODIPine 5 m g oral tablet Dose : 5 mg = 1 tab(s), Oral, qDay, # 90 tab(s), 3 Refill(s), Pharmacy: [facility]/pharmacy #[id number], 170, cm, 03/08/22 8:38:00 EDT, Height, kg, 03/08/22 8:38:00 EDT, Dosing Weight Start Date: 03/08/22 Status: Ordered glycopyrrolate 1 mg oral tablet (1 source) Start: 12-22-2023 End: 03-21-2024 glycopyrrolate 1 mg oral tablet Dose : 1 mg = 1 tab(s), Oral, qDay, PRN drooling, X 30 day(s), # 30 tab(s), 2 Refill(s), 03/21/24 10:11:00 AM EDT, Pharmacy: [facility]/pharmacy #[id number], Drooling from left side of mouth, 170, cm, 12/22/23 9:30:00 EDT, Height, kg, 12/22/23 9:30:00 EDT, Dosing Weight Start Date: 12/22/23 Stop Date: 03/21/24 Status: Ordered hydroCHLOROthiazide 12.5 mg oral tablet (1 source) Thiazide Diuretic Start: 03-08-2022 hydroCHLOROthiazide 12.5 mg oral tablet Dose : 12.5 mg = 1 tab(s), Oral, qDay, # 90 tab(s), 3 Refill(s), Pharmacy: [facility]/pharmacy #[id number], 170, cm, 03/08/22 8:38:00 EDT, Height, kg, 03/08/22 8:38:00 EDT, Dosing Weight Start Date: 03/08/22 Status: Ordered losartan potassium 25 mg oral tablet (6 sources) Angiotensin 2 Receptor Sole Start: 01-02-2025 losartan 25 mg oral tablet Dose : 25 mg = 1 tab(s), Oral, qDay, # 30 tab(s), 0 Refill(s) Start Date: 01/02/25 Status: Ordered Quantity: 30.0 Unit: tab(s) Repeat number: 1 Start: 07-05-2024 losartan 25 mg oral tablet Dose : 25 mg = 1 tab(s), Oral, qDay, # 90 tab(s), 3 Refill(s), Pharmacy: [facility]/pharmacy #[id number], 169, cm, 07/05/24 14:31:00 EDT, Height, kg, 07/05/24 14:31:00 EDT, Dosing Weight Start Date: 07/05/24 Status: Ordered Quantity: 90.0 Unit: tab(s) Repeat number: 4 Start: 06-23-2023 losartan 50 mg oral tablet Dose : 50 mg = 1 tab(s), Oral, qDay, # 90 tab(s), 3 Refill(s), [id number] 168, cm, 06/23/23 8:01:00 EDT, Height, kg, 06/23/23 8:01:00 EDT, Dosing Weight Start Date: 06/23/23 Status: Ordered Start: 03-08-2022 losartan 50 mg oral tablet Dose : 50 mg = 1 tab(s), Oral, qDay, # 90 tab(s), 3 Refill(s), [id number], 170, cm, 03/08/22 8:38:00 EDT, Height, kg, 03/08/22 8:38:00 EDT, Dosing Weight Start Date: 03/08/22 Status: Ordered 24 hr metoprolol succinate 25 mg extended release oral tablet (3 sources) beta-Adrenergic Sole Start: 02-11-2025 metoprolol succinate 25 mg oral TABLET extended release Dose : 25 mg = 1 tab(s), Oral, qDay, Do not crush or chew (controlled release), # 90 tab(s), 1 Refill(s), [id number], 169, cm, 01/03/25 10:33:00 EDT, Height, kg, 01/03/25 10:33:00 EDT, Dosing Weight Start Date: 02/11/25 Status: Ordered Quantity: 90.0 Unit: tab(s) Repeat number: 2 midodrine hydrochloride 5 mg oral tablet (4 sources) alpha-Adrenergic Agonist Start: 01-02-2025 midodrine 5 mg oral tablet Dose : 5 mg = 1 tab(s), Oral, TID, PRN sBP Start Date: 01/02/25 Status: Ordered Quantity: 90.0 Unit: tab(s) Repeat number: 7 polyethylene glycol [id number] mg powder for oral solution (9 sources) Osmotic Laxative Start: 06-27-2020 take 17 doses by mouth twice daily as needed for constipation MiraLax oral powder for reconstitution Dose : 17 gram(s) =, Oral, BID, PRN Constipation, # 255 gram(s), 1 Refill(s), Pharmacy: [facility]/pharmacy #[id number], Constipation in male, 170.25, cm, 06/27/20 8:28:00 EDT, Height, kg, 06/27/20 8:28:00 EDT, Dosing Weight Start Date: 06/27/20 Status: Ordered Quantity: 255.0 Unit: g Repeat number: 2 Indications: Constipation, unspecified; potassium chloride 8 meq extended release oral tablet (5 sources) Start: 07-05-2024 potassium chloride 8 mEq (600 mg) oral tablet, extended release Dose : 8 mEq = 1 tab(s), Oral, qDay, # 90 tab(s), 3 Refill(s), [id number], 169, cm, 07/05/24 14:31:00 EDT, Height, kg, 07/05/24 14:31:00 EDT, Dosing Weight Start Date: 07/05/24 Status: Ordered Quantity: 90.0 Unit: tab(s) Repeat number: 4 Start: 06-23-2023 potassium chlo ride 8 mEq (600 mg) oral tablet, extended release Dose : 8 mEq = 1 tab(s), Oral, qDay, # 90 tab(s), 3 Refill(s), [id number], 168, cm, 06/23/23 8:01:00 EDT, Height, kg, 06/23/23 8:01:00 EDT, Dosing Weight Start Date: 06/23/23 Status: Ordered Start: 03-08-2022 potassium chlo ride 8 mEq (600 mg) oral tablet, extended release Dose : 8 mEq = 1 tab(s), Oral, qDay, # 90 tab(s), 3 Refill(s), Pharmacy: [facility] #[id number], 170, cm, 03/08/22 8:38:00 EDT, Height, kg, 03/08/22 8:38:00 EDT, Dosing Weight Start Date: 03/08/22 Status: Ordered rosuvastatin calcium 5 mg oral tablet (3 sources) HMG-CoA Reductase Inhibitor Start: 03-26-2025 rosuvastatin 5 mg oral tablet Dose : 5 mg = 1 tab(s), Oral, Daily, # 30 tab(s), 0 Refill(s), Pharmacy: [facility]/pharm[facility] #[id number], Cerebral ischemia, 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 2024 Pure hypercholesterolemia, 169, cm, 03/26/25 10:28:00 EDT, Height, kg, 03/26/25 10:28:00 EDT, Dosing Weight Start Date: 03/26/25 Status: Ordered Quantity: 30.0 Unit: tab(s) Repeat number: 1 Indications: Cerebral ischemia; Pure hypercholesterolemia, unspecified; sildenafil 20 mg oral tablet (9 sources) Phosphodiesterase 5 Inhibitor Start: 07-05-2024 sildenafil 20 mg oral tablet Dose : 60 mg = 3 tab(s), Oral, Daily, PRN for ED, # 40 tab(s), 2 Refill(s), Pharmacy: [facility] #[id number], 169, cm, 07/05/24 14:31:00 EDT, Height, kg, 07/05/24 14:31:00 EDT, Dosing Weight Start Date: 07/05/24 Status: Ordered Quantity: 40.0 Unit: tab(s) Repeat number: 3 Start: 06-23-2023 sildenafil 20 mg oral tablet Dose : 60 mg = 3 tab(s), Oral, Daily, PRN for ED, # 40 tab(s), 2 Refill(s), Pharmacy: [facility] #[id number], 168, cm, 06/23/23 8:01:00 EDT, Height, kg, 06/23/23 8:01:00 EDT, Dosing Weight Start Date: 06/23/23 Status: Ordered Start: 03-08-2022 sildenafil 20 mg oral tablet Dose : 60 mg = 3 tab(s), Oral, Daily, PRN for ED, # 40 tab(s), 2 Refill(s), Pharmacy: [facility] #[id number], 170, cm, 03/08/22 8:38:00 EDT, Height, kg, 03/08/22 8:38:00 EDT, Dosing Weight Start Date: 03/08/22 Status: Ordered Problems Active Problems Problem Classification Problem Date Documented Date Episodic/Chronic Cardiac dysrhythmias (10 sources) Multiple premature ventricular complexes; Translations: [Nonsustained ventricular tachycardia ] Onset: 01-02-2025 Chronic Chronic kidney disease (14 sources) Chronic kidney disease stage 4; Translations: [Chronic kidney disease stage 3] 2022 Chronic Chronic kidney disease (3 sources) Chronic kidney disease; Translations: [Chronic kidney disease, stage 3 unspecified] Onset: Conditions associated with dizziness or vertigo (8 sources) Lightheadedness; Translations: [Dizziness and giddiness] 04-03-2024 Episodic Congestive heart failure; nonhypertensive (3 sources) Chronic diastolic heart failure 03-29-2025 Chronic Disorders of lipid metabolism (2 sources) Hyperlipidemia 06-27-2020 Chronic Essential hypertension (13 sources) Hypertensive disorder; Translations: [Essential (primary) hypertension] Onset: 06-26-2019 Chronic Fluid and electrolyte disorders (2 sources) Metabolic alkalemia; Translations: [Alkalosis] 04-26-2025 Episodic Hypertension with complications and secondary hypertension (2 sources) Chronic kidney disease due to hypertension; Translations: [Hypertensive chronic kidney disease with stage 1 through stage 4 chronic kidney disease, or unspecified chronic kidney disease] Onset: 01-26-2021 Chronic Other and ill-defined cerebrovascular disease (3 sources) Chronic cerebral ischemia 03-26-2025 Chronic Other circulatory disease (1 source) Drug-induced hypotension 10-30-2024 Episodic Other circulatory disease (2 sources) History of cerebrovascular accident; Translations: [Personal history of transient ischemic attack (TIA), and cerebral infarction without residual deficits] 04-26-2025 Episodic Other connective tissue disease (9 sources) H/O: osteoarthritis 06-26-2019 Episodic Other connective tissue disease (4 sources) Poor posture 12-03-2024 Episodic Other connective tissue disease (4 sources) Recurrent falls 12-03-2024 Episodic Other connective tissue disease (3 sources) Muscle weakness of limb 03-26-2025 Episodic Other gastrointestinal disorders (9 sources) Constipation 06-27-2020 Episodic Other hereditary and degenerative nervous system conditions (3 sources) Resting tremor 03-26-2025 Chronic Other lower respiratory disease (1 source) Dyspnea, unspecified; Translations: [Dyspnea, unspecified] Onset: Episodic Other male genital disorders (9 sources) Impotence 06-26-2019 Chronic Other nervous system disorders (9 sources) Paresthesia of right lower limb 07-15-2020 Episodic Other nervous system disorders (5 sources) Shuffling gait; Translations: [Other abnormalities of gait and mobility] 03-26-2025 Episodic Other nervous system disorders (2 sources) Tremor; Translations: [Tremor, unspecified] 04-03-2025 Episodic Other upper respiratory disease (6 sources) Hoarse 04-03-2024 Episodic Poisoning by other medications and drugs (1 source) Poisoning by drug AND/OR medicinal substance; Translations: [Poisoning by other parasympatholytics [anticholinergics and antimuscarinics] and spasmolytics, accidental (unintentional), initial encounter] 04-26-2025 Episodic Residual codes; unclassified (2 sources) Restlessness and agitation; Translations: [Restlessness and agitation] 04-26-2025 Chronic Residual codes; unclassified (5 sources) Memory impairment 10-30-2024 Episodic Residual codes; unclassified (3 sources) Past history of procedure 03-26-2025 Episodic Residual codes; unclassified (1 source) Altered mental status; Translations: [Altered mental status, unspecified] 04-26-2025 Episodic Unclassified (9 sources) History of total replacement of right hip joint 01-07-2020 Unclassified (8 sources) Dribbling from left side of mouth 06-23-2023 Unclassified (5 sources) Patient encounter status 2022 Past or Other Problems Problem Classification Problem Date Documented Da te Episodic/Chronic Other circulatory disease (5 sources) Orthostatic hypotension; Translations: [Orthostatic hypotension] Onset: 01-03-2025 12-12-2024 Episodic Other circulatory disease (2 sources) Orthostatic hypotension; Translations: [Orthostatic hypotension] Onset: 01-03-2025 Episodic Syncope (8 sources) Syncope and collapse; Translations: [Syncope and collapse] Onset: 01-03-2025 10-30-2024 Episodic Results Test Name Value Interpretation Reference Range Facility Absolute lymphocyte countOrd ered By: Wing Simmons on 04-26-2025 Lymphocytes Auto (Unsp spec) [#/Vol] 1.73 10*3/uL 0.83-4.51 [facility] Absolute neutrophil countOrd ered By: Wing Simmons on 04-26-2025 Neutrophils (Bld) [#/Vol] 5.1 10*3/uL 2.0-7.7 [facility] Activated partial thrombopla stin time (aPTT) in platelet poor plasma by coagulation aOrdered By: Wing Simmons on 04-26-2025 aPTT Coag (PPP) [Time] 24.5 s 24.1-36.2 [facility] Anion gap in Serum or Plasma Ordered By: Wing Simmons on 04-26-2025 Anion gap [Moles/Vol] 13 mmol/L 5-15 [facility] Automated lymphocyte count a s percentage of total leukocytesOrdered By: Wing Simmons on 04-26-2025 Lymphocytes/100 WBC Auto (Unsp spec) 21.8 % 19-41 [facility] BUN/creatinine ratioOrdered By: Wingeliu Harrello on 04-26-2025 Urea nitrogen/Creatinine [Mass ratio] 21.4 mg/mg High 10-20 [facility] Basophil percentageOrdered B y: Wing Harrello on 04-26-2025 Basophils/100 WBC (Bld) 0.5 % 0-1 [facility] Bilirubin Test strip Ql (U)O rdered By: Wing Simmons on 04-26-2025 Bilirubin Ql (U) Negative Negative [facility] Bilirubin, totalOrdered By: Wingeliu Simmons on 04-26-2025 Bilirubin [Mass/Vol] 0.60 mg/dL 0.00-1.30 [facility] Blood base excess determinat ionOrdered By: Wing Simmons on 04-26-2025 Base excess Calc (BldV) [Moles/Vol] 5 mmol/L High -2-2 [facility] Blood bicarbonate measuremen tOrdered By: Wing Simmons on 04-26-2025 HCO3 (Bld) [Moles/Vol] 28.6 mmol/L High 22-26 [facility] Carbon dioxide, total [Moles /volume] in Central venous bloodOrdered By: Wing Simmons on 04-26-2025 CO2 [Moles/Vol] 23.3 mmol/L 21.0-32.0 [facility] Chloride assayOrdered By: Riley Simmons on 04-26-2025 Chloride [Moles/Vol] 104 mmol/L 98-108 [facility] Eosinophil percentageOrdered By: Wing Simmons on 04-26-2025 Eosinophils/100 WBC (Bld) 2.3 % 0-5 [facility] Erythrocyte distribution wid th ratioOrdered By: Wing Simmons on 04-26-2025 Erythrocyte distribution width (RBC) [Ratio] 12.9 % 11.6-14.6 [facility] Erythrocyte distribution wid th standard deviationOrdered By: Wingeliu Simmons on 04-26-2025 Erythrocyte distribution width (RBC) [Ratio] 41.0 fl 35.1-43.9 [facility] Glomerular filtration rate ( GFR) estimation/1.73 sq m using serum, plasma, or whole bOrdered By: Wingeliu Simmons on 04-26-2025 GFR/1.73 sq M.predicted among non-blacks MDRD (S/P/Bld) [Vol rate/Area] 39 mL/min/{1.73_m2} Low >60 [facility] Comment on above: mL/min/1.73m2 CKD-EP I Creatinine Equation (2020) Hematocrit Auto (Bld) [Volum e fraction]Ordered By: Wing Simmons on 04-26-2025 Hematocrit (Bld) [Volume fraction] 42.3 % 40-54 [facility] Hemoglobin measurementOrdere d By: Wing Simmons on 04-26-2025 Hemoglobin (Bld) [Mass/Vol] 14.4 g/dL 13.0-16.5 [facility] Immature granulocytes/100 WB C Auto (Bld)Ordered By: Wing Simmons on 04-26-2025 Immature granulocytes/100 WBC (Bld) 0.400 % 0.0-0.9 [facility] Comment on above: IG% - Immature Granu locytes (promyelocytes, myelocytes and metamyelocytes) > 1% indicates that a LEFT SHIFT is Present. International normalized rat io (INR) calculationOrdered By: Wingeliu Simmons on 04-26-2025 INR Coag (Bld) [Relative time] 1.1 {INR} [facility] Ketones Test strip Ql (U)Ord ered By: Wing Simmons 04-26-2025 Ketones Ql (U) Negative Negative [facility] Laboratory - Chemistry and C hemistry - challengeOrdered By: Wingeliu Simmons 04-26-2025 AST [Catalytic activity/Vol] 24 U/L <38 [facility] Lactic acid measurementOrder ed By: Wing Simmons on 04-26-2025 Lactate [Moles/Vol] 1.1 mmol/L 0.0-2.0 [facility] MCV (mean corpuscular volume ) determinationOrdered By: Wing Simmons on 04-26-2025 MCV (RBC) [Entitic vol] 87.4 fL 80-94 [facility] Mean corpuscular hemoglobin (MCH) determinationOrdered By: Wing Simmons on 04-26-2025 MCH (RBC) [Entitic mass] 29.8 pg 27.0-32.0 [facility] Mean corpuscular hemoglobin concentration (MCHC) determinationOrdered By: Wing Simmons on 04-26-2025 MCHC (RBC) [Mass/Vol] 34.0 g/dL 32-36 [facility] Mean platelet volume determi nationOrdered By: Wing Simmons on 04-26-2025 Platelet mean volume (Bld) [Entitic vol] 10.4 fL 6.2-12.0 [facility] Measurement, pHOrdered By: Xenia Simmons on 04-26-2025 pH (Unsp spec) 7.48 [pH] High 7.35-7.45 [facility] Microscopic analysis of urin e for red blood cells (RBC)Ordered By: Wing Simmons on 04-26-2025 Microscopic analysis of urine for red blood cells (RBC) 0 SEEN /hpf 0-5 [facility] Monocyte percentageOrdered B y: Wing Simmons on 04-26-2025 Monocytes/100 WBC (Bld) 11.0 % High 0-10 [facility] Mucus LM Ql (Urine sed)Order ed By: Wing Simmons on 04-26-2025 Mucus Ql (Urine sed) 0 SEEN /hpf [facility] Neutrophil percentageOrdered By: Wing Simmons on 04-26-2025 Neutrophils/100 WBC (Bld) 64.0 % 47-70 [facility] Nitrite Test strip Ql (U)Ord ered By: Wing Simmons on 04-26-2025 Nitrite Ql (U) Negative Negative [facility] No Panel InformationOrdered By: Wing Simmons on 04-26-2025 Blood Gas Sample Site L Brach [facility] Blood Gas Specimen Type ART [facility] Blood Gas Vent Mode Not entered [facility] Oxygen Delivery Device Cannula [facility] Nucleated red blood cell per centageOrdered By: Wing Simmons on 04-26-2025 Nucleated RBC/100 WBC (Bld) [Ratio] 0 % 0-5 [facility] Platelet countOrdered By: Riley Simmons on 04-26-2025 Platelets (Bld) [#/Vol] 217 10*3/uL 150-450 [facility] Potassium measurement (mass/ volume)Ordered By: Wing Simmons on 04-26-2025 Potassium (Unsp spec) [Mass/Vol] 4.1 mmol/L 3.3-5.1 [facility] Protein Test strip Ql (U)Ord ered By: Wing Simmons on 04-26-2025 Protein Ql (U) 30 mg/dl High Negative [facility] Prothrombin timeOrdered By: Wing Simmons on 04-26-2025 PT Coag (PPP) [Time] 14.2 s 11.7-14.9 [facility] RBC Auto (Bld) [#/Vol]Ordere d By: Wing Simmons on 04-26-2025 RBC (Bld) [#/Vol] 4.84 10*6/uL 4.6-6.2 [facility] Serum creatinine measurement (mass/volume)Ordered By: Wing Simmons on 04-26-2025 Creatinine [Mass/Vol] 1.72 mg/dL High 0.70-1.20 [facility] Serum globulin measurementOr dered By: Wing Simmons on 04-26-2025 Globulin (S) [Mass/Vol] 3.2 g/dL 2.2-4.2 [facility] Serum glucose measurement (m ass/volume)Ordered By: Wing Simmons on 04-26-2025 Glucose [Mass/Vol] 113 mg/dL High 70-99 [facility] Serum or plasma alanine yo otransferase (ALT) measurementOrdered By: Wing Simmons on 04-26-2025 ALT [Catalytic activity/Vol] 19 U/L <47 [facility] Serum or plasma albumin anna urement (mass/volume)Ordered By: Wing Simmons on 04-26-2025 Albumin [Mass/Vol] 4.1 g/dL 3.4-4.8 [facility] Serum or plasma albumin/glob ulin mass ratioOrdered By: Wing Simmons on 04-26-2025 Albumin/Globulin [Mass ratio] 1.3 {ratio} 0.9-2.4 [facility] Serum or plasma alkaline dutch sphatase measurementOrdered By: Wing Simmons on 04-26-2025 ALP [Catalytic activity/Vol] 71 U/L 40-129 [facility] Serum or plasma calcium anna urement (mass/volume)Ordered By: Wing Simmons on 04-26-2025 Calcium [Mass/Vol] 9.7 mg/dL 7.6-11.0 [facility] Serum or plasma urea nitroge n measurement (mass/volume)Ordered By: Wing Simmons on 04-26-2025 Urea nitrogen [Mass/Vol] 37 mg/dL High 4-19 [facility] Sodium levelOrdered By: Wing Simmons on 04-26-2025 Sodium [Moles/Vol] 140 mmol/L 133-145 [facility] Squamous epithelial cells de tection in urine sediment by light microscopyOrdered By: Wing Simmons 04-26-2025 Epithelial cells.squamous LM Ql (Urine sed) 0 SEEN /hpf 0-5 [facility] Total carbon dioxide measure mentOrdered By: Wing Simmons on 04-26-2025 CO2 [Moles/Vol] 30 mmol/L [facility] Total proteinOrdered By: Wing Simmons on 04-26-2025 Protein [Mass/Vol] 7.2 g/dL 5.9-8.4 [facility] Urine clarityOrdered By: Wing Simmons 04-26-2025 Clarity (U) Clear Clear [facility] Urine color determinationOrd ered By: Wing Simmons on 04-26-2025 Color (U) Yellow Yellow [facility] Urine glucose detectionOrder ed By: Wing Simmons on 04-26-2025 Glucose Ql (U) Normal mg/dl Normal [facility] Urine leukocyte esterase det ection by dipstickOrdered By: Wing Simmons on 04-26-2025 Leukocyte esterase Test strip Ql (U) Negative Negative [facility] Urine pHOrdered By: Wing nowak on 04-26-2025 pH (U) 6.5 [pH] 5.0 - 8.0 [facility] Urine sediment bacteria coun t by microscopy (number/high power field)Ordered By: Wing Simmons on 04-26-2025 Bacteria LM.HPF (Urine sed) [#/Area] 0 /[HPF] None Seen [facility] Urine specific gravity measu rementOrdered By: Wingeliu Simmons on 04-26-2025 Specific gravity (U) [Rel density] 1.015 1.002-1.030 [facility] Urine urobilinogen measureme ntOrdered By: Wingeliu Simmons on 04-26-2025 Urobilinogen Ql (U) Normal mg/dl Normal [facility] White blood cell (WBC) count Ordered By: Wingeliu Simmons on 04-26-2025 WBC (Bld) [#/Vol] 7.9 10*3/uL 4.4-11.0 [facility] White blood cell countOrdere d By: Wing Simmons on 04-26-2025 White blood cell count 0 SEEN /hpf 0-5 [facility] BD BONE DENSITY DEXA AXIAL S [facility] 04-01-2025 BD BONE DENSITY DEXA AXIAL [facility] ORIGINAL EXAMINATION: BONE DENSITOMETRY 04/01/2025 10:15 am TECHNIQUE: A bone density dual x-ray absorptiometry (DEXA) scan was performed of the axial (e.g. hips, spine) and/or appendicular (e.g. radius) skeleton as appropriate. COMPARISON: None HISTORY: ORDERING SYSTEM PROVIDED HISTORY: Reason for Exam: Osteoporosis Screening FINDINGS: T Score Left Femoral Neck: -2.8 Left Femoral Neck: 0.545 (g/cm2) T Score Left Hip: -1.7 Left Hip: 0.775 (g/cm2) T Score Lumbar Spine: -0.6 Lumbar Spine: 1.028 (g/cmd2) IMPRESSION: Osteoporosis by WHO criteria. World Health Organization criteria: (Comparing with young normal sex matched population) - Normal: T-score at or above -1 SD (standard deviation) - Osteopenia: T-score between -1 and -2.5 SD - Osteoporosis: T-score at or below -2.5 SD The NOF recommends that FDA-approved medical therapies be considered in post-menopausal women and men age >/= 50 years with a: * Hip or vertebral fracture, or * T-score of /= 20% for major osteoporotic fractures or * >/= 3% for hip fractures All treatment decisions require clinical judgement and consideration of individual patient factors, including patient preferences, comorbidities, previous drug use, risk factors not captured in the FRAX registered model (e.g., frailty, falls, vitamin D deficiency, increased bone turnover, interval significant decline in bone density) and possible under- or over-estimation of fracture risk by FRAX. Interpreted by: Radha Sharif DO Preliminary Report By: Radha Sharif DO Electronically signed By Radha Sharif DO Dictated Date: 04/01/2025 11:27:21 AM Prelim Date: 04/01/2025 11:27:47 AM Sign Date: 04/01/2025 11:27:47 AM Ordering Provider: IESHA LU [facility] CT SPINE CERVICAL W/ CONTRAS Ton 03-29-2025 CT SPINE CERVICAL W/ CONTRAST ORIGINAL EXAMINATION: CT OF THE CERVICAL SPINE WITH CONTRAST 03/29/2025 12:46 pm TECHNIQUE: CT of the cervical was performed with the administration of intravenous contrast. Multiplanar reformatted images are provided for review. Automated exposure control, iterative reconstruction, and/or weight based adjustment of the mA/kV was utilized to reduce the radiation dose to as low as reasonably achievable. COMPARISON: None. HISTORY: ORDERING SYSTEM PROVIDED HISTORY: Reason for Exam: Metastatic disease evaluation hoarseness, swelling rt submandibular area. Hx of skin ca FINDINGS: BONES/ALIGNMENT: There is normal alignment of the spine. The vertebral body heights are maintained. No destructive osseous lesion is seen. No lytic or blastic bone lesion. 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 No herniated disc or significant canal or foraminal narrowing. SOFT TISSUES: There is no prevertebral soft tissue swelling. Subcentimeter left thyroid nodules. No definite neck mass or adenopathy. No AA of abnormal contrast enhancement. IMPRESSION: Cervical spondylosis. No neck mass or adenopathy. Left thyroid nodules. The examination was not optimized for soft tissue evaluation. Interpreted by: Xiang Huff Preliminary Report By: Xiang Huff Electronically signed By Xiang Huff Dictated Date: 03/29/2025 12:56:54 PM Prelim Date: 03/29/2025 12:59:08 PM Sign Date: 03/29/2025 12:59:08 PM Ordering Provider: IESHA LU [facility] .GFRon 03-26-2025 Estimated Glomerular Filtration Rate 37 ml/min/1.73sqm [facility] Comment on above: Result Comment: Stages of Chronic Kidney Disease (CKD) Stage Description eGFR(ml/min/1.73 sq.m.) CKD 1 Normal kidney function or >=90 normal kindney function with possible kidney damage (ex. Proteinuria) CKD 2 Kidney damage with mild loss 60-89 of kidney function CKD 3a Mild to moderate loss of kidney 45-59 function CKD 3b Moderate to severe loss of 30-44 of kindey function CKD 4 Severe loss of kidney function 15-29 CKD 5 Kidney failure <15 Note: (go live 2024) the eGFR calculation was updated to the 2020 CKD-EPI creatinine equation without a race factor to calculate the eGFR results. Performed By: #### B MP, GFR #### [address] [address] BMPon 03-26-2025 BUN/Creatinine Ratio 19 ratio Normal 7-27 [facility] Comment on above: Performed By: #### B MP, GFR #### [address] [address] Calcium [Mass/Vol] 9.4 mg/dL Normal 8.4-10.2 [facility] Comment on above: Performed By: #### B MP, GFR #### [address] [address] Chloride [Moles/Vol] 103 mmol/L Normal 98-107 [facility] Comment on above: Performed By: #### B MP, GFR #### [address] [address] CO2 [Moles/Vol] 30 mmol/L Normal 23-31 [facility] Comment on above: Performed By: #### B MP, GFR #### [address] [address] Creatinine [Mass/Vol] 1.81 mg/dL High 0.67-1.17 [facility] Comment on above: Performed By: #### B MP, GFR #### [address] [address] Electrolyte Balance 6.0 mEq/L Normal 4.0-15.0 [facility] Comment on above: Performed By: #### B MP, GFR #### [address] [address] Glucose [Mass/Vol] 104 mg/dL Normal 83-110 [facility] Comment on above: Performed By: #### B MP, GFR #### [address] [address] Potassium [Moles/Vol] 4.3 mmol/L Normal 3.5-5.1 [facility] Comment on above: Performed By: #### B MP, GFR #### [address] [address] Sodium [Moles/Vol] 139 mmol/L Normal 136-145 [facility] Comment on above: Performed By: #### B MP, GFR #### [address] [address] Urea nitrogen [Mass/Vol] 34 mg/dL High 7-18 [facility] Comment on above: Performed By: #### B MP, GFR #### [address] [address] LABORATORYOrdered By: SYSTEM SYSTEM on 03-26-2025 Calcium [Mass/Vol] 9.4 mg/dL Normal 8.4 - 10. 2 mg/dL AO ADM SS Chloride [Moles/Vol] 103 mmol/L Normal 98 - 10 7 mmol/L AO ADM SS CO2 [Moles/Vol] 30 mmol/L Normal 23 - 31 mmol/L AO ADM SS Creatinine [Mass/Vol] 1.81 mg/dL High 0.67 - 1.17 mg/dL AO ADM SS Electrolyte Balance 6.0 mEq/L Normal 4.0 - 15 .0 mEq/L AO ADM SS Estimated Glomerular Filtration Rate 37 ml/min/1.73sqm Invalid Interpretation Code AO Chemistry S Comment on above: Interpretive Data: Stages of Chronic Kidney Disease (CKD) Stage Description eGFR(ml/min/1.73 sq.m.) CKD 1 Normal kidney function or >=90 normal kindney function with possible kidney damage (ex. Proteinuria) CKD 2 Kidney damage with mild loss 60-89 of kidney function CKD 3a Mild to moderate loss of kidney 45-59 function CKD 3b Moderate to severe loss of 30-44 of kindey function CKD 4 Severe loss of kidney function 15-29 CKD 5 Kidney failure <15 Note: (go live 2024) the eGFR calculation was updated to the 2020 CKD-EPI creatinine equation without a race factor to calculate the eGFR results. Glucose [Mass/Vol] 104 mg/dL Normal 83 - 110 mg/dL AO ADM SS Potassium [Moles/Vol] 4.3 mmol/L Normal 3.5 - 5.1 mmol/L AO ADM SS Sodium [Moles/Vol] 139 mmol/L Normal 136 - 145 mmol/L AO ADM SS Urea nitrogen [Mass/Vol] 34 mg/dL High 7 - 18 mg/d L AO ADM SS Urea nitrogen/Creatinine [Mass ratio] 19 ratio Normal 7 - 27 ratio AO ADM SS Cardiovascular stress test r eportOrdered By: Lisandro Virk on 02-07-[address] [facility] [address] [place] [address] MR#: [id number] Acct: [id number] Name: JAZLYN NGO Rep #: [id number] : 1940 84 From: Lisandro Virk MD Primary Care: Dr. Iesha Lu DO Statu s: REG CLI Referring Dr: Carol Ann Sandoval MD Sex: M C Stress Test Report Date: 02/07/2025 Procedure: Pharmacologic stress nuclear imaging study Indications: Dyspnea Consent: Per the patient Procedure: The patient underwent pharmacologic (Regadenoson 0.4mg ) evaluation with a peak heart rate of 101 beats per minute (73%predicted maximal heart rate) and a peak blood pressure of 172/95 mmHg. The baseline ECG demonstrated sinus rhythm. The peak pharmacologic ECG did not show any ischemic changes. There were no cardiac dysrhythmias pretest, during pharmacologic infusion, or recovery. There was no complaint of chest discomfort during pharmacologic infusion or recovery. The patient was injected with 11.2 millicuries of technetium 99m Cardiolite and subsequently rest SPECT Cardiolite nuclear imaging was obtained in the horizontal long, vertical long, and short axis views. The patient underwent pharmacologic (Regadenoson) evaluation. The patient was injected with 35.6 millicuries of technetium 99m Cardiolite and subsequently stress SPECT Cardiolite nuclear imaging was obtained in the horizontal long, vertical long, and short axis views. A gated Cardiolite study at peak stress was obtained. The examination was stopped secondary to completion of protocol. Rest and stress SPECT Cardiolite nuclear imaging status post realignment, normalization, and attenuation correction demonstrate no fixed or reversible perfusion defects. There is end systolic thickening and brightening. The gatedCardiolite study demonstrates myocardial thickening and inward wall motion. Thereported LVEF is 91%. Impression: 1. Pharmacologic (Regadenoson) evaluation 2. Peak pharmacologic ECG with no ischemic changes. 3. There were no cardiac dysrhythmias pretest, during pharmacologic infusion, or recovery. 5. Rest and stress SPECT Cardiolite nuclear imaging demonstrate relative uniform tracer uptake and myocardial perfusion appearing within normal limits. 6. The gated Cardiolite study reports an LVEF of 91%. This note was generated with Urban Ladderation software. It may contain incorrectwords, spelling, and punctuation that were not noted in checking the note beforesigning. 02/07/25 1557 Date _ Lisandro Virk MD CC: Dr. Carol Ann Sandoval MD; Dr. Iesha Lu, ~ Date Dictated: 02/07/251545 Date Transcribed: 02/07/251545 Juvenile Detention Officer: PARKER Zee [facility] Work Phone: Echo Complete W/ Contraston 02-07-2025 Echo Complete W/ Contrast [facility] [place] [address] Echo Complete W/ Contrast 02/07/25 0827 MR#: [id number] Acct: [id number] Name: JAZLYN NGO Rep #: [id number] : 1940 84 From: Lisandro Virk MD Attending Dr: Dr. Carol Ann Sandoval MD Status: R EG CLI Ordering Dr: Carol Ann Sandoval MD Date: 02/07/25 Location: CVS Sex: M C Admitted: Reason For Study Reason For Study: Syncope Procedure This was a 2D Doppler, Color Flow transthoracic echocardiogram. The study was technically difficult. Contrast injection was performed. Exam performed in department. Left Ventricle Normal LV size. Mild concentric left ventricular hypertrophy. The LV systolic function is normal. EF is 70 %. Stage 1 diastolic dysfunction. Right Ventricle Normal right ventricle. Atria The left and right atria are normal. Hypermobile interatrial septum. Bubble contrast study negative for PFO/ASD. Mitral Valve Trivial mitral valve insufficiency. Tricuspid Valve Trivial tricuspid valve insufficiency. Right ventricular systolic pressure estimated to be 39 mmHg. Aortic Valve Trileaflet aortic valve. Mildly calcified leaflets. 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 Trivial aortic valve insufficiency. Pulmonic Valve The pulmonic valve is not well visualized. Great Vessels The aortic root is not well visualized. Pericardium/Pleural No pericardial effusion. Medication 22 gauge I.V. with prn adaptor inserted into right arm. Diluted definity 2ml given slow IV push to enhance endocardial definition. Performed a rapid injection of agitated mix of 9 cc saline and 1cc air to assess for atrial septal defect. MMode/2D Measurements Calculations LVIDd: 4.0 cm IVSd: 1.4 cm LVOT diam: 1.9 cm LVIDs: 2.4 cm LVPWd: 0.95 cm RVDd: 3.5 cm FS: 40.1 % LVOT area: 3.0 cm2 __ LAV(MOD-bp): 41.7 ml LVAd ap4: 29.4 cm2 SV(MOD-sp4): 63.6 ml LAV(MOD-bp) Indexed: 23.2 ml/m2 LVLd ap4: 8.4 cm SI(MOD-sp4): 35.4 ml/m2 LAV(MOD-sp2): 40.2 ml EDV(MOD-sp4): 86.0 ml LAV(MOD-sp4): 38.7 ml EDV(sp4-el): 87.8 ml LVAs ap4: 13.2 cm2 LVLs ap4: 6.3 cm ESV(MOD-sp4): 22.4 ml ESV(sp4-el): 23.5 ml EF(MOD-sp4): 74.0 % EF(sp4-el): 73.2 % __ SV(sp4-el): 64.3 ml LA A4 area: 15.9 cm2 LA dimension(2D): 3.5 cm __ RA A4 area: 14.6 cm2 TAPSE: 2.2 cm Time Measurements MV dec time: 0.21 sec Doppler Measurements Calculations MV E max george: 64.6 cm/sec Lat Peak E' George: 9.4 cm/sec Med Peak E' George: 11.5 cm/sec MV A max george: 115.8 cm/sec E/E' lat: 6.9 E/E' med: 5.6 MV E/A: 0.56 __ MV V2 max: 131.5 cm/sec MV P1/2t max george: 76.7 cm/sec Ao V2 max: 157.2 cm/sec MV max P.9 mmHg MV P1/2t: 70.6 msec Ao max P.9 mmHg MV V2 mean: 67.4 cm/sec MV dec slope: 318.0 cm/sec2 Ao V2 mean: 102.6 cm/sec MV mean P.2 mmHg MVA(P1/2t): 3.1 cm2 Ao mean P.8 mmHg MV V2 VTI: 19.8 cm Ao V2 VTI: 30.2 cm MVA(VTI): 3.0 cm2 AV (velocity ratio): 0.66 SENAIT(I,D): 2.0 cm2 SENAIT(V,D): 2.0 cm2 __ LV V1 max: 104.5 cm/sec SV(LVOT): 59.5 ml PA V2 max: 125.6 cm/sec LV V1 max P.4 mmHg LV V1 mean P.1 mmHg LV V1 mean: 66.0 cm/sec LV V1 VTI: 20.0 cm __ TR max george: 289.8 cm/sec TR max P.6 mmHg ECHO/Echo Complete W/ Contrast Interpretation Summary Mild concentric left ventricular hypertrophy. The LV systolic function is normal. EF is 70 %. Stage 1 diastolic dysfunction. Hypermobile interatrial septum. Bubble contrast study negative for PFO/ASD. 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 Right ventricular systolic pressure estimated to be 39 mmHg. __ Ordering Physician: Carol Ann Sandoval Referring Physician: Carol Ann Sandoval Performed By: Aidan Flores RCS 02/07/25 1236 Date Lisandro Virk MD CC: Dr. Carol Ann Sandoval MD; Dr. Iesha Lu DO Date Dictated: 02/07/25826 Date Transcribed: 02/07/251235 Juvenile Detention Officer: Signed Normal [facility] Echocardiogram study reportO rdered By: Lisandro Virk on 02-07-2025 Study report [facility] [address] [place] [address] Echo Complete W/ Contrast 02/07/25826 MR#: [id number] Acct: [id number] Name: JAZLYN NGO Rep #:[id number] : 1940 84 From: Lisandro Virk MD Attending Dr: Dr. Carol Ann Sandoval MD Status: REG CLI Ordering Dr: Carol Ann Sandoval MD Date: 02/07/25 Location: [facility] Sex: M C Admitted: Reason For Study Reason For Study: Syncope Procedure This was a 2D Doppler, Color Flow transthoracic echocardiogram. The study was technically difficult. Contrast injection was performed. Exam performed in department. Left Ventricle Normal LV size. Mild concentric left ventricular hypertrophy. The LV systolic function is normal. EF is 70 %. Stage 1 diastolic dysfunction. Right Ventricle Normal right ventricle. Atria The left and right atria are normal. Hypermobile interatrial septum. Bubble contrast study negative for PFO/ASD. Mitral Valve Trivial mitral valve insufficiency. Tricuspid Valve Trivial tricuspid valve insufficiency. Right ventricular systolic pressure estimated to be 39 mmHg. Aortic Valve Trileaflet aortic valve. Mildly calcified leaflets. 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 Trivial aortic valve insufficiency. Pulmonic Valve The pulmonic valve is not well visualized. Great Vessels The aortic root is not well visualized. Pericardium/Pleural No pericardial effusion. Medication 22 gauge I.V. with prn adaptor inserted into right arm. Diluted definity 2ml given slow IV push to enhance endocardial definition. Performed a rapid injection of agitated mix of 9 cc saline and 1cc air to assess for atrial septal defect. MMode/2D Measurements & Calculations LVIDd: 4.0 cm IVSd: 1.4 cm LVOT diam: 1.9 cm LVIDs: 2.4 cm LVPWd: 0.95 cm RVDd: 3.5 cm FS: 40.1 % LVOT area: 3.0 cm2 ____ LAV(MOD-bp): 41.7 ml LVAd ap4: 29.4 cm2 SV(MOD-sp4): 63.6 ml LAV(MOD-bp) Indexed: 23.2 ml/m2 LVLd ap4: 8.4 cm SI(MOD-sp4): 35.4 ml/m2 LAV(MOD-sp2): 40.2 ml EDV(MOD-sp4): 86.0 ml LAV(MOD-sp4): 38.7 ml EDV(sp4-el): 87.8 ml LVAs ap4: 13.2 cm2 LVLs ap4: 6.3 cm ESV(MOD-sp4): 22.4 ml ESV(sp4-el): 23.5 ml EF(MOD-sp4): 74.0 % EF(sp4-el): 73.2 % __ SV(sp4-el): 64.3 ml LA A4 area: 15.9 cm2 LA dimension(2D): 3.5 cm RA A4 area: 14.6 cm2 TAPSE: 2.2 cm Time Measurements MV dec time: 0.21 sec Doppler Measurements & Calculations MV E max george: 64.6 cm/sec Lat Peak E' George: 9.4 cm/sec Med Peak E' George: 11.5 cm/sec MV A max george: 115.8 cm/sec E/E' lat: 6.9 E/E' med: 5.6 MV E/A: 0.56 ____ MV V2 max: 131.5 cm/sec MV P1/2t max george: 76.7 cm/sec Ao V2 max: 157.2 cm/sec MV max P.9 mmHg MV P1/2t: 70.6 msec Ao max P.9 mmHg MV V2 mean: 67.4 cm/sec MV dec slope: 318.0 cm/sec2 Ao V2 mean: 102.6 cm/sec MV mean P.2 mmHg MVA(P1/2t): 3.1 cm2 Ao mean P.8 mmHg MV V2 VTI: 19.8 cm Ao V2 VTI: 30.2 cm MVA(VTI): 3.0 cm2 AV (velocity ratio): 0.66 SENAIT(I,D): 2.0 cm2 SENAIT(V,D): 2.0 cm2 ____ LV V1 max: 104.5 cm/sec SV(LVOT): 59.5 ml PA V2 max: 125.6 cm/sec LV V1 max P.4 mmHg LV V1 mean P.1 mmHg LV V1 mean: 66.0 cm/sec LV V1 VTI: 20.0 cm ____ TR max george: 289.8 cm/sec TR max P.6 mmHg ECHO/Echo Complete W/ Contrast Interpretation Summary Mild concentric left ventricular hypertrophy. The LV systolic function is normal. EF is 70 %. Stage 1 diastolic dysfunction. Hypermobile interatrial septum. Bubble contrast study negative for PFO/ASD. 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 Right ventricular systolic pressure estimated to be 39 mmHg. __ Ordering Physician: Carol Ann Sandoval Referring Physician: Carol Ann Sandoval Performed By: Aidan Flores RCS 02/07/25 1236 Date _ Lisandro Virk MD CC: Dr. Carol Ann Sandoval MD; Dr. Iesha Lu DO ~ Date Dictated: 02/07/25826 Date Transcribed: 02/07/25 123 Juvenile Detention Officer: Signed [facility] Work Phone: Stress Reporton 02-07-[address] [facility] [address] [place] [address] MR#: [id number] Acct: [id number] Name: JAZLYN NGO Rep #: [id number] : 1940 84 From: Lisandro Virk MD Primary Care: Dr. Iesha Lu DO Status: REG CLI Referring Dr: Carol Ann Sandoval MD Sex: M C Stress Test Report Date: 02/07/2025 Procedure: Pharmacologic stress nuclear imaging study Indications: Dyspnea Consent: Per the patient Procedure: The patient underwent pharmacologic (Regadenoson 0.4mg ) evaluation with a peak heart rate of 101 beats per minute (73%predicted maximal heart rate) and a peak blood pressure of 172/95 mmHg. The baseline ECG demonstrated sinus rhythm. The peak pharmacologic ECG did not show any ischemic changes. There were no cardiac dysrhythmias pretest, during pharmacologic infusion, or recovery. There was no complaint of chest discomfort during pharmacologic infusion or recovery. The patient was injected with 11.2 millicuries of technetium 99m Cardiolite and subsequently rest SPECT Cardiolite nuclear imaging was obtained in the horizontal long, vertical long, and short axis views. The patient underwent pharmacologic (Regadenoson) evaluation. The patient was injected with 35.6 millicuries of technetium 99m Cardiolite and subsequently stress SPECT Cardiolite nuclear imaging was obtained in the horizontal long, vertical long, and short axis views. A gated Cardiolite study at peak stress was obtained. The examination was stopped secondary to completion of protocol. Rest and stress SPECT Cardiolite nuclear imaging status post realignment, normalization, and attenuation correction demonstrate no fixed or reversible perfusion defects. There is end systolic thickening and brightening. The gated Cardiolite study demonstrates myocardial thickening and inward wall motion. The reported LVEF is 91%. Impression: 1. Pharmacologic (Regadenoson) evaluation 2. Peak pharmacologic ECG with no ischemic changes. 3. There were no cardiac dysrhythmias pretest, during pharmacologic infusion, or recovery. 5. Rest and stress SPECT Cardiolite nuclear imaging demonstrate relative uniform tracer uptake and myocardial perfusion appearing within normal limits. 6. The gated Cardiolite study reports an LVEF of 91%. This note was generated with [employer] Ladderation software. It may contain incorrect words, spelling, and punctuation that were not noted in checking the note before signing. 02/07/25 1557 Date Lisandro Virk MD CC: Dr. Carol Ann Sandoval MD; Dr. Iesha Lu DO Date Dictated: 02/07/25 154 Date Transcribed: 02/07/251545 Juvenile Detention Officer: PARKER Signed [facility] .GFRon 01-03-2025 Estimated Glomerular Filtration Rate 34 ml/min/1.73sqm [facility] Comment on above: Result Comment: Stages of Chronic Kidney Disease (CKD) Stage Description eGFR(ml/min/1.73 sq.m.) CKD 1 Normal kidney function or >=90 normal kindney function with possible kidney damage (ex. Proteinuria) CKD 2 Kidney damage with mild loss 60-89 of kidney function CKD 3a Mild to moderate loss of kidney 45-59 function CKD 3b Moderate to severe loss of 30-44 of kindey function CKD 4 Severe loss of kidney function 15-29 CKD 5 Kidney failure <15 Note: (go live 2024) the eGFR calculation was updated to the 2020 CKD-EPI creatinine equation without a race factor to calculate the eGFR results. Performed By: #### B MP, GFR #### [address] [address] BMPon 01-03-2025 BUN/Creatinine Ratio 18 ratio Normal 7-27 [facility] Comment on above: Performed By: #### B MP, GFR #### [address] [address] Calcium [Mass/Vol] 9.3 mg/dL Normal 8.4-10.2 [facility] Comment on above: Performed By: #### B MP, GFR #### [address] [address] Chloride [Moles/Vol] 106 mmol/L Normal 98-107 [facility] Comment on above: Performed By: #### B MP, GFR #### [address] [address] CO2 [Moles/Vol] 26 mmol/L Normal 23-31 [facility] Comment on above: Performed By: #### B MP, GFR #### [address] [address] Creatinine [Mass/Vol] 1.95 mg/dL High 0.67-1.17 [facility] Comment on above: Performed By: #### B MP, GFR #### [address] [address] Electrolyte Balance 9.0 mEq/L Normal 4.0-15.0 [facility] Comment on above: Performed By: #### B MP, GFR #### [place] [address] [place], [place] [address] Glucose [Mass/Vol] 104 mg/dL Normal 83-110 [facility] Comment on above: Performed By: #### B MP, GFR #### [place] [address] [place], [place] [address] Potassium [Moles/Vol] 4.3 mmol/L Normal 3.5-5.1 [facility] Comment on above: Performed By: #### B MP, GFR #### [address] [address] Sodium [Moles/Vol] 141 mmol/L Normal 136-145 [facility] Comment on above: Performed By: #### B MP, GFR #### [address] [address] Urea nitrogen [Mass/Vol] 35 mg/dL High 7-18 [facility] Comment on above: Performed By: #### B MP, GFR #### [address] [address] CORTon 01-03-2025 Cortisol Level 23.5 mcg/dL Normal [facility] Comment on above: Result Comment: Rolando isol AM Reference Range 6.5-26.0 mcg/dL Cortisol PM Reference Range 3.5-15.0 mcg/dL Performed By: #### B MP, GFR #### [address] [address] LABORATORYOrdered By: SYSTEM SYSTEM on 01-03-2025 Calcium [Mass/Vol] 9.3 mg/dL Normal 8.4 - 10. 2 mg/dL AO ADM SS Chloride [Moles/Vol] 106 mmol/L Normal 98 - 10 7 mmol/L AO ADM SS CO2 [Moles/Vol] 26 mmol/L Normal 23 - 31 mmol/L AO ADM SS Cortisol [Mass/Vol] 23.5 ug/dL Invalid Interpretation Code AH ADM SS Comment on above: Interpretive Data: C ortisol AM Reference Range 6.5-26.0 mcg/dL Cortisol PM Reference Range 3.5-15.0 mcg/dL Creatinine [Mass/Vol] 1.95 mg/dL High 0.67 - 1.17 mg/dL AO ADM SS Electrolyte Balance 9.0 mEq/L Normal 4.0 - 15 .0 mEq/L AO ADM SS Estimated Glomerular Filtration Rate 34 ml/min/1.73sqm Invalid Interpretation Code AO Chemistry S Comment on above: Interpretive Data: Stages of Chronic Kidney Disease (CKD) Stage Description eGFR(ml/min/1.73 sq.m.) CKD 1 Normal kidney function or >=90 normal kindney function with possible kidney damage (ex. Proteinuria) CKD 2 Kidney damage with mild loss 60-89 of kidney function CKD 3a Mild to moderate loss of kidney 45-59 function CKD 3b Moderate to severe loss of 30-44 of kindey function CKD 4 Severe loss of kidney function 15-29 CKD 5 Kidney failure <15 Note: (go live 2024) the eGFR calculation was updated to the 2020 CKD-EPI creatinine equation without a race factor to calculate the eGFR results. Glucose [Mass/Vol] 104 mg/dL Normal 83 - 110 mg/dL AO ADM SS Magnesium [Mass/Vol] 2.0 mg/dL Normal 1.8 - 2 .4 mg/dL AO ADM SS Natriuretic peptide.B prohormone N-Terminal [Mass/Vol] 402 pg/mL Normal 0 - 450 pg/mL AO ADM SS Comment on above: Interpretive Data: N T-proBNP results of less than 300 pg/mL effectively rules out acute congestive heart failure with 99% negative predictive value. Potassium [Moles/Vol] 4.3 mmol/L Normal 3.5 - 5.1 mmol/L AO ADM SS Sodium [Moles/Vol] 141 mmol/L Normal 136 - 145 mmol/L AO ADM SS TSH Qn 0.50 m[IU]/L Normal 0.36 - 3.74 mcIU/mL AO ADM SS Urea nitrogen [Mass/Vol] 35 mg/dL High 7 - 18 mg/d L AO ADM SS Urea nitrogen/Creatinine [Mass ratio] 18 ratio Normal 7 - 27 ratio AO ADM SS LABORATORYOrdered By: Kathrine Casarez on 01-03-2025 Cholesterol [Mass/Vol] 219 mg/dL High 0 - 2 00 mg/dL AO ADM SS Comment on above: Interpretive Data: C holesterol Reference Interval: Less than 200 Desirable 200-239 Borderline high risk 240 and above High risk Cholesterol in HDL [Mass/Vol] 72 mg/dL High 40 - 60 mg/dL AO ADM SS Cholesterol in LDL [Mass/Vol] 131 mg/dL High 0 - 130 mg/dL AO ADM SS Triglyceride [Mass/Vol] 78 mg/dL Normal 0 - 150 mg/dL AO ADM SS Comment on above: Interpretive Data: T riglyceride Reference Interval: Less than 150 Normal 150-199 Borderline high risk 200-499 High risk 500 or higher Very high risk LIPIDon 01-03-2025 Cholesterol [Mass/Vol] 219 mg/dL High 0-200 [facility] Comment on above: Result Comment: Chol esterol Reference Interval: Less than 200 Desirable 200-239 Borderline high risk 240 and above High risk Performed By: #### B MP, GFR #### [address] [address] Cholesterol in HDL [Mass/Vol] 72 mg/dL High 40-60 [facility] Comment on above: Performed By: #### B MP, GFR #### [address] [address] Cholesterol in LDL [Mass/Vol] 131 mg/dL High 0-130 [facility] Comment on above: Performed By: #### B MP, GFR #### [address] [address] Triglyceride [Mass/Vol] 78 mg/dL Normal 0-150 [facility] Comment on above: Result Comment: Trig lyceride Reference Interval: Less than 150 Normal 150-199 Borderline high risk 200-499 High risk 500 or higher Very high risk Performed By: #### B MP, GFR #### [address] [address] MGon 01-03-2025 Magnesium [Mass/Vol] 2.0 mg/dL Normal 1.8-2.4 [facility] Comment on above: Performed By: #### B MP, GFR #### [address] [address] PBNPon 01-03-2025 Natriuretic peptide B (Bld) [Mass/Vol] 402 pg/mL Normal 0-450 [facility] Comment on above: Result Comment: NT-p roBNP results of less than 300 pg/mL effectively rules out acute congestive heart failure with 99% negative predictive value. Performed By: #### B MP, GFR #### [address] [address] TSHRon 01-03-2025 TSH Qn 0.50 m[IU]/L Normal 0.36-3.74 [facility] Comment on above: Performed By: #### B MP, GFR #### [place] [address] MRI BRAIN W/O CONTRASTon MRI BRAIN W/O CONTRAST ORIGINAL HISTORY: Memory impairment COMPARISON: Head CT 04 July 2020 TECHNIQUE: 1. Sagittal T1-weighted images. 2. Axial T2-weighted and T2*-weighted images. 3. Axial FLAIR images. 4. Axial diffusion-weighted images with ADC map. 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 The ventricles and sulci are otherwise mildly enlarged. There are no abnormal intra or extra-axial fluid collections. There are mild scattered punctate and nodular T2 hyperintensities in the cerebral white matter. There is no abnormal restriction of diffusion. The paranasal sinuses are clear. 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 Interpreted by: Umair Bob MD Preliminary Report By: Umair Bob MD Electronically signed By Umair Bob MD Dictated Date: 12/14/2024 2:24:39 PM Prelim Date: 12/14/2024 2:26:21 PM Sign Date: 12/14/2024 2:26:21 PM Ordering Provider: EDWINA Putnam [facility] Thomas 11-26-2024 U Ratio Alb/Cre 84 mg/G High 0-30 [facility] Comment on above: Performed By: #### B MP, GFR #### [address] [address] .Auto Diffon 10-31-2024 Basophil, Absolute 0.1 10 3/mcL Normal 0.0-0.2 [facility] Comment on above: Performed By: #### C MP, GFR, CBC, ADIFF, ANEU, VIDH, TSH #### [place] [address] #### B12 #### [address] [address] Basophils/100 WBC (Bld) 0.9 % Normal 0.0-2.5 [facility] Comment on above: Performed By: #### C MP, GFR, CBC, ADIFF, ANEU, VIDH, TSH #### [address] [address] #### B12 #### [address] [address] Eosinophil, Absolute 0.2 10 3/mcL Normal 0.0-0.7 [facility] Comment on above: Performed By: #### C MP, GFR, CBC, ADIFF, ANEU, VIDH, TSH #### [address] [address] #### B12 #### [address] [address] Eosinophils/100 WBC (Bld) 3.3 % Normal 0.0-7.0 [facility] Comment on above: Performed By: #### C MP, GFR, CBC, ADIFF, ANEU, VIDH, TSH #### [place] [address] #### B12 #### [address] [address] Lymphocyte, Absolute 1.7 10 3/mcL Normal 0.9-4.3 [facility] Comment on above: Performed By: #### C MP, GFR, CBC, ADIFF, ANEU, VIDH, TSH #### [place] [address] #### B12 #### [address] [address] Lymphocytes/100 WBC (Bld) 27.2 % Normal 20.0-40.0 [facility] Comment on above: Performed By: #### C MP, GFR, CBC, ADIFF, ANEU, VIDH, TSH #### [place] [address] #### B12 #### [address] [address] Monocyte, Absolute 0.9 10 3/mcL Normal 0.1-1.4 [facility] Comment on above: Performed By: #### C MP, GFR, CBC, ADIFF, ANEU, VIDH, TSH #### [address] [address] #### B12 #### [address] [address] Monocytes/100 WBC (Bld) 14.4 % High 2.0-13.0 [facility] Comment on above: Performed By: #### C MP, GFR, CBC, ADIFF, ANEU, VIDH, TSH #### [address] [address] #### B12 #### [address] [address] Neutrophils/100 WBC (Bld) 54.2 % Normal 50.0-75.0 [facility] Comment on above: Performed By: #### C MP, GFR, CBC, ADIFF, ANEU, VIDH, TSH #### [address] [address] #### B12 #### [address] [address] .GFRon 10-31-2024 Estimated Glomerular Filtration Rate 36 ml/min/1.73sqm Normal [facility] Comment on above: Result Comment: Stages of Chronic Kidney Disease (CKD) Stage Description eGFR(ml/min/1.73 sq.m.) CKD 1 Normal kidney function or >=90 normal kindney function with possible kidney damage (ex. Proteinuria) CKD 2 Kidney damage with mild loss 60-89 of kidney function CKD 3a Mild to moderate loss of kidney 45-59 function CKD 3b Moderate to severe loss of 30-44 of kindey function CKD 4 Severe loss of kidney function 15-29 CKD 5 Kidney failure <15 Note: (go live 2024) the eGFR calculation was updated to the 2020 CKD-EPI creatinine equation without a race factor to calculate the eGFR results. Performed By: #### C MP, GFR, CBC, ADIFF, ANEU, VIDH, TSH #### [address] [address] #### B12 #### [address] [address] .NEUABSon 10-31-2024 Neutrophil, Absolute 3.4 10 3/mcL Normal 2.3-8.1 [facility] Comment on above: Performed By: #### C MP, GFR, CBC, ADIFF, ANEU, VIDH, TSH #### [address] [address] #### B12 #### [address] [address] B12on 10-31-2024 Cobalamin (Vitamin B12) [Mass/Vol] 442 pg/mL Normal 211-911 [facility] Comment on above: Performed By: #### C MP, GFR, CBC, ADIFF, ANEU, VIDH, TSH #### [place] [address] #### B12 #### [place] [address] CBCon 10-31-2024 Erythrocyte distribution width (RBC) [Ratio] 13.7 % Normal 11.5-15.5 [facility] Comment on above: Performed By: #### C MP, GFR, CBC, ADIFF, ANEU, VIDH, TSH #### [address] [address] #### B12 #### [place] [address] Hematocrit (Bld) [Volume fraction] 47.4 % Normal 40.0-52.0 [facility] Comment on above: Performed By: #### C MP, GFR, CBC, ADIFF, ANEU, VIDH, TSH #### [address] [address] #### B12 #### [place] [address] Hgb 15.8 G/dL Normal 13.0-17.5 [facility] Comment on above: Performed By: #### C MP, GFR, CBC, ADIFF, ANEU, VIDH, TSH #### [place] [address] #### B12 #### [place] [address] MCH (RBC) [Entitic mass] 30.1 pg Normal 27.0-33.0 [facility] Comment on above: Performed By: #### C MP, GFR, CBC, ADIFF, ANEU, VIDH, TSH #### [place] [address] #### B12 #### [place] [address] MCHC 33.4 G/dL Normal 32.0-36.0 [facility] Comment on above: Performed By: #### C MP, GFR, CBC, ADIFF, ANEU, VIDH, TSH #### [place] [address] #### B12 #### [place] [address] MCV (RBC) [Entitic vol] 90.0 fL Normal 81.0-100.0 [facility] Comment on above: Performed By: #### C MP, GFR, CBC, ADIFF, ANEU, VIDH, TSH #### [place] [address] #### B12 #### [place] [address] Platelet 274 10 3/mcL Normal 150-450 [facility] Comment on above: Performed By: #### C MP, GFR, CBC, ADIFF, ANEU, VIDH, TSH #### [place] [address] #### B12 #### [place] [address] Platelet mean volume (Bld) [Entitic vol] 8.2 fL Normal 6.4-10.5 [facility] Comment on above: Performed By: #### C MP, GFR, CBC, ADIFF, ANEU, VIDH, TSH #### [place] [address] #### B12 #### [place] [address] RBC 5.27 10 6/mcL Normal 4.50-6.00 [facility] Comment on above: Performed By: #### C MP, GFR, CBC, ADIFF, ANEU, VIDH, TSH #### [place] [address] #### B12 #### [place] [address] WBC 6.3 10 3/mcL Normal 4.5-10.8 [facility] Comment on above: Performed By: #### C MP, GFR, CBC, ADIFF, ANEU, VIDH, TSH #### [place] [address] #### B12 #### [place] [address] CMPon 10-31-2024 Albumin Level 3.9 G/dL Normal 3.4-4.8 [facility] Comment on above: Performed By: #### C MP, GFR, CBC, ADIFF, ANEU, VIDH, TSH #### [place] [address] #### B12 #### [place] [address] Albumin/Globulin [Mass ratio] 1.0 {ratio} Low 1.1-2.5 [facility] Comment on above: Performed By: #### C MP, GFR, CBC, ADIFF, ANEU, VIDH, TSH #### [place] [address] #### B12 #### [place] [address] ALP [Catalytic activity/Vol] 100 U/L Normal 40-135 [facility] Comment on above: Performed By: #### C MP, GFR, CBC, ADIFF, ANEU, VIDH, TSH #### [place] [address] #### B12 #### [address] [address] ALT [Catalytic activity/Vol] 23 U/L Normal 16-63 [facility] Comment on above: Performed By: #### C MP, GFR, CBC, ADIFF, ANEU, VIDH, TSH #### [place] [address] #### B12 #### [place] [address] AST [Catalytic activity/Vol] 18 U/L Normal 10-40 [facility] Comment on above: Performed By: #### C MP, GFR, CBC, ADIFF, ANEU, VIDH, TSH #### [place] [address] #### B12 #### [place] [address] Bili Total 0.6 mg/dL Normal 0.2-1.0 [facility] Comment on above: Result Comment: Use of this assay is not recommended for patients undergoing treatment with eltrombopag due to the potential for falsely elevated results. Performed By: #### C MP, GFR, CBC, ADIFF, ANEU, VIDH, TSH #### [place] [address] #### B12 #### [place] [address] BUN/Creatinine Ratio 19 ratio Normal 7-27 [facility] Comment on above: Performed By: #### C MP, GFR, CBC, ADIFF, ANEU, VIDH, TSH #### [place] [address] #### B12 #### [place] [address] Calcium [Mass/Vol] 9.8 mg/dL Normal 8.4-10.2 [facility] Comment on above: Performed By: #### C MP, GFR, CBC, ADIFF, ANEU, VIDH, TSH #### [place] [address] #### B12 #### [address] [address] Chloride [Moles/Vol] 103 mmol/L Normal 98-107 [facility] Comment on above: Performed By: #### C MP, GFR, CBC, ADIFF, ANEU, VIDH, TSH #### [address] [address] #### B12 #### [address] [address] CO2 [Moles/Vol] 27 mmol/L Normal 23-31 [facility] Comment on above: Performed By: #### C MP, GFR, CBC, ADIFF, ANEU, VIDH, TSH #### [place] [address] #### B12 #### [address] [address] Creatinine [Mass/Vol] 1.85 mg/dL High 0.70-1.30 [facility] Comment on above: Result Comment: Test ing performed on Siemens Dimension EXL analyzer using a modified kinetic Kenyon technique. Performed By: #### C MP, GFR, CBC, ADIFF, ANEU, VIDH, TSH #### [place] [address] #### B12 #### [address] [address] Electrolyte Balance 9.0 mEq/L Normal 4.0-15.0 [facility] Comment on above: Performed By: #### C MP, GFR, CBC, ADIFF, ANEU, VIDH, TSH #### [place] [address] #### B12 #### [place] [address] Globulin 4.1 G/dL High 1.5-3.8 [facility] Comment on above: Performed By: #### C MP, GFR, CBC, ADIFF, ANEU, VIDH, TSH #### [place] [address] #### B12 #### [address] [address] Glucose [Mass/Vol] 111 mg/dL High 83-110 [facility] Comment on above: Performed By: #### C MP, GFR, CBC, ADIFF, ANEU, VIDH, TSH #### [address] [address] #### B12 #### [address] [address] Potassium [Moles/Vol] 4.7 mmol/L Normal 3.5-5.1 [facility] Comment on above: Performed By: #### C MP, GFR, CBC, ADIFF, ANEU, VIDH, TSH #### [address] [address] #### B12 #### [address] [address] Sodium [Moles/Vol] 139 mmol/L Normal 136-145 [facility] Comment on above: Performed By: #### C MP, GFR, CBC, ADIFF, ANEU, VIDH, TSH #### [address] [address] #### B12 #### [address] [address] Total Protein 8.0 G/dL Normal 6.4-8.2 [facility] Comment on above: Performed By: #### C MP, GFR, CBC, ADIFF, ANEU, VIDH, TSH #### [address] [address] #### B12 #### [address] [address] Urea nitrogen [Mass/Vol] 36 mg/dL High 7-18 [facility] Comment on above: Performed By: #### C MP, GFR, CBC, ADIFF, ANEU, VIDH, TSH #### [address] [address] #### B12 #### [address] [address] LABORATORYOrdered By: Anne Marie Lerner on 10-31-2024 Albumin DL <= 20 mg/L (U) [Mass/Vol] 147.2 mg/L Invalid Interpretation Code AO ADM SS Albumin/Creatinine DL <= 20 mg/L (U) [Mass ratio] 1 mcg/mg Normal 0 - 30 mcg/mg AO Chemistry S Creatinine (U) [Mass/Vol] 174.8 mg/dL Invalid Interpretation Code AO ADM SS LABORATORYOrdered By: SYSTEM SYSTEM on 10-31-2024 25-hydroxyvitamin D3 [Mass/Vol] 36.8 ng/mL Invalid Interpretation Code AO ADM SS Comment on above: Interpretive Data: I nterpretive Values Based on Total 25(OH) Vitamin D: Deficient <20 ng/mL Insufficient 20 - <30 ng/mL Sufficient 30-100 ng/mL Albumin BCP dye [Mass/Vol] 3.9 G/dL Normal 3.4 - 4.8 G/dL AO ADM SS Albumin/Globulin [Mass ratio] 1.0 {ratio} Low 1.1 - 2.5 ratio AO ADM SS ALP [Catalytic activity/Vol] 100 U/L Normal 40 - 135 U/L AO ADM SS ALT With P-5'-P [Catalytic activity/Vol] 23 U/L Normal 16 - 63 U/L AO ADM SS AST With P-5'-P [Catalytic activity/Vol] 18 U/L Normal 10 - 40 U/L AO ADM SS Basophils (Bld) [#/Vol] 0.1 103/mcL Normal 0.0 - 0.2 10^3/mcL AO Workflow SS Basophils/100 WBC (Bld) 0.9 % Normal 0.0 - 2.5 % AO Workflow SS Bilirubin [Mass/Vol] 0.6 mg/dL Normal 0.2 - 1 .0 mg/dL AO ADM SS Comment on above: Interpretive Data: U se of this assay is not recommended for patients undergoing treatment with eltrombopag due to the potential for falsely elevated results. Calcium [Mass/Vol] 9.8 mg/dL Normal 8.4 - 10. 2 mg/dL AO ADM SS Chloride [Moles/Vol] 103 mmol/L Normal 98 - 10 7 mmol/L AO ADM SS CO2 [Moles/Vol] 27 mmol/L Normal 23 - 31 mmol/L AO ADM SS Cobalamin (Vitamin B12) [Mass/Vol] 442 pg/mL Normal 211 - 911 pg/mL AH ADM SS Creatinine [Mass/Vol] 1.85 mg/dL High 0.70 - 1.30 mg/dL AO ADM SS Comment on above: Interpretive Data: T esting performed on Siemens Dimension EXL analyzer using a modified kinetic Kenyon technique. Electrolyte Balance 9.0 mEq/L Normal 4.0 - 15 .0 mEq/L AO ADM SS Eosinophil, Absolute 0.2 103/mcL Normal 0.0 - 0 .7 10^3/mcL AO Workflow SS Eosinophils/100 WBC (Bld) 3.3 % Normal 0.0 - 7.0 % AO Workflow SS Erythrocyte distribution width (RBC) [Ratio] 13.7 % Normal 11.5 - 15.5 % AO Workflow SS Estimated Glomerular Filtration Rate 36 ml/min/1.73sqm Invalid Interpretation Code AO Chemistry S Comment on above: Interpretive Data: Stages of Chronic Kidney Disease (CKD) Stage Description eGFR(ml/min/1.73 sq.m.) CKD 1 Normal kidney function or >=90 normal kindney function with possible kidney damage (ex. Proteinuria) CKD 2 Kidney damage with mild loss 60-89 of kidney function CKD 3a Mild to moderate loss of kidney 45-59 function CKD 3b Moderate to severe loss of 30-44 of kindey function CKD 4 Severe loss of kidney function 15-29 CKD 5 Kidney failure <15 Note: (go live 2024) the eGFR calculation was updated to the 2020 CKD-EPI creatinine equation without a race factor to calculate the eGFR results. Globulin 4.1 G/dL High 1.5 - 3.8 G/dL AO ADM SS Glucose [Mass/Vol] 111 mg/dL High 83 - 110 mg/dL AO ADM SS Hematocrit (Bld) [Volume fraction] 47.4 % Normal 40.0 - 52.0 % AO Workflow SS Hemoglobin (Bld) [Mass/Vol] 15.8 G/dL Normal 13.0 - 17.5 G/dL AO Workflow SS Lymphocytes (Bld) [#/Vol] 1.7 103/mcL Normal 0.9 - 4.3 10^3/mcL AO Workflow SS Lymphocytes/100 WBC (Bld) 27.2 % Normal 20.0 - 40.0 % AO Workflow SS MCH (RBC) [Entitic mass] 30.1 pg Normal 27. 0 - 33.0 pg AO Workflow SS MCHC 33.4 G/dL Normal 32.0 - 36.0 G/dL AO Workflow SS MCV (RBC) [Entitic vol] 90.0 fL Normal 81.0 - 100.0 fL AO Workflow SS Monocytes (Bld) [#/Vol] 0.9 103/mcL Normal 0.1 - 1.4 10^3/mcL AO Workflow SS Monocytes/100 WBC (Bld) 14.4 % High 2.0 - 13.0 % AO Workflow SS Neutrophils (Bld) [#/Vol] 3.4 103/mcL Normal 2.3 - 8.1 10^3/mcL AO Workflow SS Neutrophils/100 WBC (Bld) 54.2 % Normal 50.0 - 75.0 % AO Workflow SS Platelet mean volume (Bld) [Entitic vol] 8.2 fL Normal 6.4 - 10.5 fL AO Workflow SS Platelets (Bld) [#/Vol] 274 103/mcL Normal 150 - 450 10^3/mcL AO Workflow SS Potassium [Moles/Vol] 4.7 mmol/L Normal 3.5 - 5.1 mmol/L AO ADM SS Protein [Mass/Vol] 8.0 G/dL Normal 6.4 - 8.2 G/dL AO ADM SS RBC (Bld) [#/Vol] 5.27 106/mcL Normal 4.50 - 6.0 0 10^6/mcL AO Workflow SS Sodium [Moles/Vol] 139 mmol/L Normal 136 - 145 mmol/L AO ADM SS TSH Qn 0.50 m[IU]/L Normal 0.36 - 3.74 mcIU/mL AO ADM SS Urea nitrogen [Mass/Vol] 36 mg/dL High 7 - 18 mg/d L AO ADM SS Urea nitrogen/Creatinine [Mass ratio] 19 ratio Normal 7 - 27 ratio AO ADM SS WBC (Bld) [#/Vol] 6.3 103/mcL Normal 4.5 - 10.8 10^3/mcL AO Workflow SS MALBRon 10-31-2024 U Creatinine 174.8 mg/dL Normal [facility] Comment on above: Performed By: #### B MP, GFR #### [facility] [address] [place], [place] [address] U Microalb 147.2 mg/L Normal [facility] Comment on above: Performed By: #### B MP, GFR #### [address] [address] TSHon 10-31-2024 TSH Qn 0.50 m[IU]/L Normal 0.36-3.74 [facility] Comment on above: Performed By: #### C MP, GFR, CBC, ADIFF, ANEU, VIDH, TSH #### [place] [address] #### B12 #### [place] [address] VIDHon 10-31-2024 Vit. D 25-Hydroxy 36.8 ng/mL Normal [facility] Comment on above: Result Comment: Inte rpretive Values Based on Total 25(OH) Vitamin D: Deficient <20 ng/mL Insufficient 20 - <30 ng/mL Sufficient 30-100 ng/mL Performed By: #### C MP, GFR, CBC, ADIFF, ANEU, VIDH, TSH #### [place] [address] #### B12 #### [place] [address] .GFRon 07-06-2024 GFR 37 ml/min/1.73sqm Normal [facility] Comment on above: Result Comment: GFR Population mean for , Non- Americans Ages 20-29 = 116 mL/min/1.73 sq.m. Ages 30-39 = 107 mL/min/1.73 sq.m. Ages 40-49 = 99 mL/min/1.73 sq.m. Ages 50-59 = 93 mL/min/1.73 sq.m. Ages 60-69 = 85 mL/min/1.73 sq.m. Ages 70+ = 75 mL/min/1.73 sq.m. Chronic Kidney Disease: Less than 60 mL/min/1.73 square meters End Stage Renal Disease: Less than 15 mL/min/1.73 square meters Performed By: #### C MP, GFR, CBC, ADIFF, ANEU, VIDH, TSH #### [place] [id number] #### B12 #### [address] [address] GFR Non- 31 ml/min/1.73sqm Normal [facility] Comment on above: Result Comment: GFR Population mean for , Non- Americans Ages 20-29 = 116 mL/min/1.73 sq.m. Ages 30-39 = 107 mL/min/1.73 sq.m. Ages 40-49 = 99 mL/min/1.73 sq.m. Ages 50-59 = 93 mL/min/1.73 sq.m. Ages 60-69 = 85 mL/min/1.73 sq.m. Ages 70+ = 75 mL/min/1.73 sq.m. Chronic Kidney Disease: Less than 60 mL/min/1.73 square meters End Stage Renal Disease: Less than 15 mL/min/1.73 square meters Performed By: #### C MP, GFR, CBC, ADIFF, ANEU, VIDH, TSH #### [place] [address] #### B12 #### [address] [address] [facility] 07-06-2024 Albumin Level 3.9 G/dL Normal 3.4-4.8 [facility] Comment on above: Performed By: #### C MP, GFR, CBC, ADIFF, ANEU, VIDH, TSH #### [address] [address] #### B12 #### [address] [address] Albumin/Globulin [Mass ratio] 1.1 {ratio} Normal 1.1-2.5 [facility] Comment on above: Performed By: #### C MP, GFR, CBC, ADIFF, ANEU, VIDH, TSH #### [address] [address] #### B12 #### [address] [address] ALP [Catalytic activity/Vol] 81 U/L Normal 40-135 [facility] Comment on above: Performed By: #### C MP, GFR, CBC, ADIFF, ANEU, VIDH, TSH #### [address] [address] #### B12 #### [address] [address] ALT [Catalytic activity/Vol] 18 U/L Normal 16-63 [facility] Comment on above: Performed By: #### C MP, GFR, CBC, ADIFF, ANEU, VIDH, TSH #### [place] [address] #### B12 #### [place] [address] AST [Catalytic activity/Vol] 12 U/L Normal 10-40 [facility] Comment on above: Performed By: #### C MP, GFR, CBC, ADIFF, ANEU, VIDH, TSH #### [place] [address] #### B12 #### [place] [address] Bili Total 0.8 mg/dL Normal 0.2-1.0 [facility] Comment on above: Result Comment: Use of this assay is not recommended for patients undergoing treatment with eltrombopag due to the potential for falsely elevated results. Performed By: #### C MP, GFR, CBC, ADIFF, ANEU, VIDH, TSH #### [place] [address] #### B12 #### [place] [address] BUN/Creatinine Ratio 24 ratio Normal 7-27 [facility] Comment on above: Performed By: #### C MP, GFR, CBC, ADIFF, ANEU, VIDH, TSH #### [place] [address] #### B12 #### [place] [address] Calcium [Mass/Vol] 9.5 mg/dL Normal 8.4-10.2 [facility] Comment on above: Performed By: #### C MP, GFR, CBC, ADIFF, ANEU, VIDH, TSH #### [place] [address] #### B12 #### [address] [address] Chloride [Moles/Vol] 104 mmol/L Normal 98-107 [facility] Comment on above: Performed By: #### C MP, GFR, CBC, ADIFF, ANEU, VIDH, TSH #### [place] [address] #### B12 #### [place] [address] CO2 [Moles/Vol] 28 mmol/L Normal 23-31 [facility] Comment on above: Performed By: #### C MP, GFR, CBC, ADIFF, ANEU, VIDH, TSH #### [place] [address] #### B12 #### [place] [address] Creatinine [Mass/Vol] 2.09 mg/dL High 0.70-1.30 [facility] Comment on above: Result Comment: Test ing performed on Siemens Dimension EXL analyzer using a modified kinetic Kenyon technique. Performed By: #### C MP, GFR, CBC, ADIFF, ANEU, VIDH, TSH #### [place] [address] #### B12 #### [place] [address] Electrolyte Balance 10.0 mEq/L Normal 4.0-15.0 [facility] Comment on above: Performed By: #### C MP, GFR, CBC, ADIFF, ANEU, VIDH, TSH #### [place] [address] #### B12 #### [place] [address] Globulin 3.6 G/dL Normal [facility] Comment on above: Performed By: #### C MP, GFR, CBC, ADIFF, ANEU, VIDH, TSH #### [address] [address] #### B12 #### [address] [address] Glucose [Mass/Vol] 105 mg/dL Normal 83-110 [facility] Comment on above: Performed By: #### C MP, GFR, CBC, ADIFF, ANEU, VIDH, TSH #### [address] [address] #### B12 #### [address] [address] Potassium [Moles/Vol] 5.2 mmol/L High 3.5-5.1 [facility] Comment on above: Performed By: #### C MP, GFR, CBC, ADIFF, ANEU, VIDH, TSH #### [address] [address] #### B12 #### [address] [address] Sodium [Moles/Vol] 142 mmol/L Normal 136-145 [facility] Comment on above: Performed By: #### C MP, GFR, CBC, ADIFF, ANEU, VIDH, TSH #### [address] [address] #### B12 #### [address] [address] Total Protein 7.5 G/dL Normal 6.4-8.2 [facility] Comment on above: Performed By: #### C MP, GFR, CBC, ADIFF, ANEU, VIDH, TSH #### [address] [address] #### B12 #### [address] [address] Urea nitrogen [Mass/Vol] 50 mg/dL High 7-18 [facility] Comment on above: Performed By: #### C MP, GFR, CBC, ADIFF, ANEU, VIDH, TSH #### [place] [address] #### B12 #### [place] [address] LABORATORYOrdered By: SYSTEM SYSTEM on 07-06-2024 Albumin BCP dye [Mass/Vol] 3.9 G/dL Normal 3.4 - 4.8 G/dL AO ADM SS Albumin/Globulin [Mass ratio] 1.1 {ratio} Normal 1.1 - 2.5 ratio AO ADM SS ALP [Catalytic activity/Vol] 81 U/L Normal 40 - 135 U/L AO ADM SS ALT With P-5'-P [Catalytic activity/Vol] 18 U/L Normal 16 - 63 U/L AO ADM SS AST With P-5'-P [Catalytic activity/Vol] 12 U/L Normal 10 - 40 U/L AO ADM SS Bilirubin [Mass/Vol] 0.8 mg/dL Normal 0.2 - 1 .0 mg/dL AO ADM SS Comment on above: Interpretive Data: U se of this assay is not recommended for patients undergoing treatment with eltrombopag due to the potential for falsely elevated results. Calcium [Mass/Vol] 9.5 mg/dL Normal 8.4 - 10. 2 mg/dL AO ADM SS Chloride [Moles/Vol] 104 mmol/L Normal 98 - 10 7 mmol/L AO ADM SS CO2 [Moles/Vol] 28 mmol/L Normal 23 - 31 mmol/L AO ADM SS Creatinine [Mass/Vol] 2.09 mg/dL High 0.70 - 1.30 mg/dL AO ADM SS Comment on above: Interpretive Data: T esting performed on Siemens Dimension EXL analyzer using a modified kinetic [place] technique. Electrolyte Balance 10.0 mEq/L Normal 4.0 - 15 .0 mEq/L AO ADM SS GFR/1.73 sq M.predicted among blacks MDRD (S/P/Bld) [Vol rate/Area] 37 ml/min/1.73sqm Invalid Interpretation Code AO Chemistry S Comment on above: Interpretive Data: GFR Population mean for , Non- Americans Ages 20-29 = 116 mL/min/1.73 sq.m. Ages 30-39 = 107 mL/min/1.73 sq.m. Ages 40-49 = 99 mL/min/1.73 sq.m. Ages 50-59 = 93 mL/min/1.73 sq.m. Ages 60-69 = 85 mL/min/1.73 sq.m. Ages 70+ = 75 mL/min/1.73 sq.m. Chronic Kidney Disease: Less than 60 mL/min/1.73 square meters End Stage Renal Disease: Less than 15 mL/min/1.73 square meters GFR/1.73 sq M.predicted among non-blacks MDRD (S/P/Bld) [Vol rate/Area] 31 ml/min/1.73sqm Invalid Interpretation Code AO Chemistry S Comment on above: Interpretive Data: GFR Population mean for , Non- Americans Ages 20-29 = 116 mL/min/1.73 sq.m. Ages 30-39 = 107 mL/min/1.73 sq.m. Ages 40-49 = 99 mL/min/1.73 sq.m. Ages 50-59 = 93 mL/min/1.73 sq.m. Ages 60-69 = 85 mL/min/1.73 sq.m. Ages 70+ = 75 mL/min/1.73 sq.m. Chronic Kidney Disease: Less than 60 mL/min/1.73 square meters End Stage Renal Disease: Less than 15 mL/min/1.73 square meters Globulin 3.6 G/dL Invalid Interpretation Code AO ADM SS Glucose [Mass/Vol] 105 mg/dL Normal 83 - 110 mg/dL AO ADM SS Potassium [Moles/Vol] 5.2 mmol/L High 3.5 - 5.1 mmol/L AO ADM SS Protein [Mass/Vol] 7.5 G/dL Normal 6.4 - 8.2 G/dL AO ADM SS Sodium [Moles/Vol] 142 mmol/L Normal 136 - 145 mmol/L AO ADM SS Urea nitrogen [Mass/Vol] 50 mg/dL High 7 - 18 mg/d L AO ADM SS Urea nitrogen/Creatinine [Mass ratio] 24 ratio Normal 7 - 27 ratio AO ADM SS .GFRon 12-22-2023 GFR Non- 34 ml/min/1.73sqm Normal [facility] ([place]) Comment on above: Result Comment: GFR Population mean for , Non- Americans Ages 20-29 = 116 mL/min/1.73 sq.m. Ages 30-39 = 107 mL/min/1.73 sq.m. Ages 40-49 = 99 mL/min/1.73 sq.m. Ages 50-59 = 93 mL/min/1.73 sq.m. Ages 60-69 = 85 mL/min/1.73 sq.m. Ages 70+ = 75 mL/min/1.73 sq.m. Chronic Kidney Disease: Less than 60 mL/min/1.73 square meters End Stage Renal Disease: Less than 15 mL/min/1.73 square meters Performed By: #### B MP, GFR #### [address] [address] GFR 41 ml/min/1.73sqm Normal [facility] ([place]) Comment on above: Result Comment: GFR Population mean for , Non- Americans Ages 20-29 = 116 mL/min/1.73 sq.m. Ages 30-39 = 107 mL/min/1.73 sq.m. Ages 40-49 = 99 mL/min/1.73 sq.m. Ages 50-59 = 93 mL/min/1.73 sq.m. Ages 60-69 = 85 mL/min/1.73 sq.m. Ages 70+ = 75 mL/min/1.73 sq.m. Chronic Kidney Disease: Less than 60 mL/min/1.73 square meters End Stage Renal Disease: Less than 15 mL/min/1.73 square meters Performed By: #### B MP, GFR #### [address] [address] BMPon 12-22-2023 BUN/Creatinine Ratio 17 ratio Normal 7-27 [facility] ([place]) Comment on above: Performed By: #### B MP, GFR #### [address] [address] Calcium [Mass/Vol] 9.5 mg/dL Normal 8.4-10.2 [facility] ([place]) Comment on above: Performed By: #### B MP, GFR #### [address] [address] Chloride [Moles/Vol] 105 mmol/L Normal 98-107 [facility] ([place]) Comment on above: Performed By: #### B MP, GFR #### [address] [address] CO2 [Moles/Vol] 26 mmol/L Normal 23-31 [facility] ([place]) Comment on above: Performed By: #### B MP, GFR #### [address] [address] Creatinine [Mass/Vol] 1.92 mg/dL High 0.70-1.30 [facility] ([place]) Comment on above: Performed By: #### B MP, GFR #### [address] [address] Electrolyte Balance 11.0 mEq/L Normal 4.0-15.0 [facility] ([place]) Comment on above: Performed By: #### B MP, GFR #### [address] [address] Glucose [Mass/Vol] 103 mg/dL Normal 83-110 [facility] ([place]) Comment on above: Performed By: #### B MP, GFR #### [address] [address] Potassium [Moles/Vol] 5.1 mmol/L Normal 3.5-5.1 [facility] ([place]) Comment on above: Performed By: #### B MP, GFR #### [address] [address] Sodium [Moles/Vol] 142 mmol/L Normal 136-145 [facility] ([place]) Comment on above: Performed By: #### B MP, GFR #### [address] [address] Urea nitrogen [Mass/Vol] 33 mg/dL High 7-18 [facility] ([place]) Comment on above: Performed By: #### B MP, GFR #### [address] [address] LABORATORYOrdered By: SYSTEM SYSTEM on 12-22-2023 Calcium [Mass/Vol] 9.5 mg/dL Normal 8.4 - 10. 2 mg/dL AO ADM SS Chloride [Moles/Vol] 105 mmol/L Normal 98 - 10 7 mmol/L AO ADM SS CO2 [Moles/Vol] 26 mmol/L Normal 23 - 31 mmol/L AO ADM SS Creatinine [Mass/Vol] 1.92 mg/dL High 0.70 - 1.30 mg/dL AO ADM SS Electrolyte Balance 11.0 mEq/L Normal 4.0 - 15 .0 mEq/L AO ADM SS GFR/1.73 sq M.predicted among blacks MDRD (S/P/Bld) [Vol rate/Area] 41 ml/min/1.73sqm Invalid Interpretation Code AO Chemistry S Comment on above: Interpretive Data: GFR Population mean for , Non- Americans Ages 20-29 = 116 mL/min/1.73 sq.m. Ages 30-39 = 107 mL/min/1.73 sq.m. Ages 40-49 = 99 mL/min/1.73 sq.m. Ages 50-59 = 93 mL/min/1.73 sq.m. Ages 60-69 = 85 mL/min/1.73 sq.m. Ages 70+ = 75 mL/min/1.73 sq.m. Chronic Kidney Disease: Less than 60 mL/min/1.73 square meters End Stage Renal Disease: Less than 15 mL/min/1.73 square meters GFR/1.73 sq M.predicted among non-blacks MDRD (S/P/Bld) [Vol rate/Area] 34 ml/min/1.73sqm Invalid Interpretation Code AO Chemistry S Comment on above: Interpretive Data: GFR Population mean for , Non- Americans Ages 20-29 = 116 mL/min/1.73 sq.m. Ages 30-39 = 107 mL/min/1.73 sq.m. Ages 40-49 = 99 mL/min/1.73 sq.m. Ages 50-59 = 93 mL/min/1.73 sq.m. Ages 60-69 = 85 mL/min/1.73 sq.m. Ages 70+ = 75 mL/min/1.73 sq.m. Chronic Kidney Disease: Less than 60 mL/min/1.73 square meters End Stage Renal Disease: Less than 15 mL/min/1.73 square meters Glucose [Mass/Vol] 103 mg/dL Normal 83 - 110 mg/dL AO ADM SS Potassium [Moles/Vol] 5.1 mmol/L Normal 3.5 - 5.1 mmol/L AO ADM SS Sodium [Moles/Vol] 142 mmol/L Normal 136 - 145 mmol/L AO ADM SS Urea nitrogen [Mass/Vol] 33 mg/dL High 7 - 18 mg/d L AO ADM SS Urea nitrogen/Creatinine [Mass ratio] 17 ratio Normal 7 - 27 ratio AO ADM SS .Auto Diffon 06-23-2023 Basophil, Absolute 0.1 10 3/mcL Normal 0.0-0.2 [facility] ([place]) Comment on above: Performed By: #### A ROME, ADIFF, LIPID, CBC, GFR, CMP #### [address] [address] Basophils/100 WBC (Bld) 1.0 % Normal 0.0-2.5 A [facility] ([place]) Comment on above: Performed By: #### A ROME, ADIFF, LIPID, CBC, GFR, CMP #### [address] [address] Eosinophil, Absolute 0.2 10 3/mcL Normal 0.0-0.4 [facility] ([place]) Comment on above: Performed By: #### A ROME, ADIFF, LIPID, CBC, GFR, CMP #### [address] [address] Eosinophils/100 WBC (Bld) 2.9 % Normal 0.0-7.0 [facility] ([place]) Comment on above: Performed By: #### A ROME, ADIFF, LIPID, CBC, GFR, CMP #### [address] [address] Lymphocyte, Absolute 1.7 10 3/mcL Normal 0.8-3.9 [facility] ([place]) Comment on above: Performed By: #### A ROME, ADIFF, LIPID, CBC, GFR, CMP #### [address] [address] Lymphocytes/100 WBC (Bld) 20.5 % Normal 10.0-50.0 [facility] ([place]) Comment on above: Performed By: #### A ROME, ADIFF, LIPID, CBC, GFR, CMP #### [address] [address] Monocyte, Absolute 1.1 10 3/mcL High 0.2-1.0 [facility] ([place]) Comment on above: Performed By: #### A ROME, ADIFF, LIPID, CBC, GFR, CMP #### [address] [address] Monocytes/100 WBC (Bld) 13.7 % High 1.7-13.0 [facility] ([place]) Comment on above: Performed By: #### A ROME, ADIFF, LIPID, CBC, GFR, CMP #### [address] [address] Neutrophils/100 WBC (Bld) 61.9 % Normal 37.0-80.0 [facility] ([place]) Comment on above: Performed By: #### A ROME, ADIFF, LIPID, CBC, GFR, CMP #### [address] [address] .GFRon 06-23-2023 GFR 42 ml/min/1.73sqm Normal [facility] ([place]) Comment on above: Result Comment: GFR Population mean for , Non- Americans Ages 20-29 = 116 mL/min/1.73 sq.m. Ages 30-39 = 107 mL/min/1.73 sq.m. Ages 40-49 = 99 mL/min/1.73 sq.m. Ages 50-59 = 93 mL/min/1.73 sq.m. Ages 60-69 = 85 mL/min/1.73 sq.m. Ages 70+ = 75 mL/min/1.73 sq.m. Chronic Kidney Disease: Less than 60 mL/min/1.73 square meters End Stage Renal Disease: Less than 15 mL/min/1.73 square meters Performed By: #### A ROME, ADIFF, LIPID, CBC, GFR, CMP #### [address] [address] GFR Non- 34 ml/min/1.73sqm Normal [facility] ([place]) Comment on above: Result Comment: GFR Population mean for , Non- Americans Ages 20-29 = 116 mL/min/1.73 sq.m. Ages 30-39 = 107 mL/min/1.73 sq.m. Ages 40-49 = 99 mL/min/1.73 sq.m. Ages 50-59 = 93 mL/min/1.73 sq.m. Ages 60-69 = 85 mL/min/1.73 sq.m. Ages 70+ = 75 mL/min/1.73 sq.m. Chronic Kidney Disease: Less than 60 mL/min/1.73 square meters End Stage Renal Disease: Less than 15 mL/min/1.73 square meters Performed By: #### A ROME, ADIFF, LIPID, CBC, GFR, CMP #### [place] [id number] .NEUABSon 06-23-2023 Neutrophil, Absolute 5.0 10 3/mcL Normal 2.9-6.2 [facility] ([place]) Comment on above: Performed By: #### A ROME, ADIFF, LIPID, CBC, GFR, CMP #### [address] [address] CBCon 06-23-2023 Erythrocyte distribution width (RBC) [Ratio] 13.9 % Normal 11.5-14.5 [facility] ([place]) Comment on above: Performed By: #### A ROME, ADIFF, LIPID, CBC, GFR, CMP #### [place] [id number] Hematocrit (Bld) [Volume fraction] 46.0 % Normal 42.0-52.0 [facility] ([place]) Comment on above: Performed By: #### A ROME, ADIFF, LIPID, CBC, GFR, CMP #### [place] [id number] Hgb 15.5 G/dL Normal 14.0-18.0 [facility] ([place]) Comment on above: Performed By: #### A ROME, ADIFF, LIPID, CBC, GFR, CMP #### [place] [phone] MCH (RBC) [Entitic mass] 30.1 pg Normal 27.0-31.2 [facility] ([place]) Comment on above: Performed By: #### A ROME, ADIFF, LIPID, CBC, GFR, CMP #### [address] [address] MCHC 33.7 G/dL Normal 31.8-35.4 [facility] ([place]) Comment on above: Performed By: #### A ROME, ADIFF, LIPID, CBC, GFR, CMP #### [address] [address] MCV (RBC) [Entitic vol] 89.2 fL Normal 80.0-94.0 A [facility] ([place]) Comment on above: Performed By: #### A ROME, ADIFF, LIPID, CBC, GFR, CMP #### [address] [address] Platelet 273 10 3/mcL Normal 130-400 [facility] ([place]) Comment on above: Performed By: #### A ROME, ADIFF, LIPID, CBC, GFR, CMP #### [address] [address] Platelet mean volume (Bld) [Entitic vol] 8.6 fL Normal 7.4-10.4 [facility] ([place]) Comment on above: Performed By: #### A ROME, ADIFF, LIPID, CBC, GFR, CMP #### [place] [phone] RBC 5.15 10 6/mcL Normal 4.04-6.13 [facility] ([place]) Comment on above: Performed By: #### A ROME, ADIFF, LIPID, CBC, GFR, CMP #### [address] [address] WBC 8.1 10 3/mcL Normal 4.6-10.8 [facility] ([place]) Comment on above: Performed By: #### A ROME, ADIFF, LIPID, CBC, GFR, CMP #### [place] [phone] CMPon 06-23-2023 Albumin Level 4.0 G/dL Normal 3.4-4.8 [facility] ([place]) Comment on above: Performed By: #### A ROME, ADIFF, LIPID, CBC, GFR, CMP #### [address] [address] Albumin/Globulin [Mass ratio] 1.0 {ratio} Low 1.1-2.5 [facility] ([place]) Comment on above: Performed By: #### A ROME, ADIFF, LIPID, CBC, GFR, CMP #### [address] [address] ALP [Catalytic activity/Vol] 87 U/L Normal 40-135 [facility] ([place]) Comment on above: Performed By: #### A ROME, ADIFF, LIPID, CBC, GFR, CMP #### [address] [address] ALT [Catalytic activity/Vol] 20 U/L Normal 16-63 [facility] ([place]) Comment on above: Performed By: #### A ROME, ADIFF, LIPID, CBC, GFR, CMP #### [address] [address] AST [Catalytic activity/Vol] 12 U/L Normal 10-40 [facility] ([place]) Comment on above: Performed By: #### A ROME, ADIFF, LIPID, CBC, GFR, CMP #### [address] [address] Bili Total 0.5 mg/dL Normal 0.2-1.0 [facility] ([place]) Comment on above: Result Comment: Use of this assay is not recommended for patients undergoing treatment with eltrombopag due to the potential for falsely elevated results. Performed By: #### A ROME, ADIFF, LIPID, CBC, GFR, CMP #### [address] [address] BUN/Creatinine Ratio 19 ratio Normal 7-27 [facility] ([place]) Comment on above: Performed By: #### A ROME, ADIFF, LIPID, CBC, GFR, CMP #### [address] [address] Calcium [Mass/Vol] 9.6 mg/dL Normal 8.4-10.2 [facility] ([place]) Comment on above: Performed By: #### A ROME, ADIFF, LIPID, CBC, GFR, CMP #### [address] [address] Chloride [Moles/Vol] 105 mmol/L Normal 98-107 [facility] ([place]) Comment on above: Performed By: #### A ROME, ADIFF, LIPID, CBC, GFR, CMP #### [address] [address] CO2 [Moles/Vol] 28 mmol/L Normal 23-31 [facility] ([place]) Comment on above: Performed By: #### A ROME, ADIFF, LIPID, CBC, GFR, CMP #### [address] [address] Creatinine [Mass/Vol] 1.90 mg/dL High 0.70-1.30 [facility] ([place]) Comment on above: Performed By: #### A ROME, ADIFF, LIPID, CBC, GFR, CMP #### [address] [address] Electrolyte Balance 10.0 mEq/L Normal 4.0-15.0 [facility] ([place]) Comment on above: Performed By: #### A ROME, ADIFF, LIPID, CBC, GFR, CMP #### [address] [address] Globulin 4.1 G/dL Normal [facility] ([place]) Comment on above: Performed By: #### A ROME, ADIFF, LIPID, CBC, GFR, CMP #### [address] [address] Glucose [Mass/Vol] 109 mg/dL Normal 83-110 [facility] ([place]) Comment on above: Performed By: #### A ROME, ADIFF, LIPID, CBC, GFR, CMP #### [address] [address] Potassium [Moles/Vol] 4.9 mmol/L Normal 3.5-5.1 [facility] ([place]) Comment on above: Performed By: #### A ROME, ADIFF, LIPID, CBC, GFR, CMP #### [address] [address] Sodium [Moles/Vol] 143 mmol/L Normal 136-145 [facility] ([place]) Comment on above: Performed By: #### A ROME, ADIFF, LIPID, CBC, GFR, CMP #### [address] [address] Total Protein 8.1 G/dL Normal 6.4-8.2 [facility] ([place]) Comment on above: Performed By: #### A ROME, ADIFF, LIPID, CBC, GFR, CMP #### [address] [address] Urea nitrogen [Mass/Vol] 36 mg/dL High 7-18 [facility] ([place]) Comment on above: Performed By: #### A ROME, ADIFF, LIPID, CBC, GFR, CMP #### [address] [address] LABORATORYOrdered By: Gisselle Baumann on 06-23-2023 Albumin DL <= 20 mg/L (U) [Mass/Vol] 8266 mcg/dL Invalid Interpretation Code AO ADM SS Albumin/Creatinine DL <= 20 mg/L (U) [Mass ratio] 44 mcg/mg Invalid Interpretation Code 0 - 30 mcg/mg AO ADM SS Creatinine (U) [Mass/Vol] 189.8 mg/dL Invalid Interpretation Code 39.0 - 259.0 mg/dL AO ADM SS Cholesterol [Mass/Vol] 220 mg/dL Invalid Interpretation Code 0 - 200 mg/dL AO ADM SS Comment on above: Interpretive Data: C holesterol Reference Interval: Less than 200 Desirable 200-239 Borderline high risk 240 and above High risk Cholesterol in HDL [Mass/Vol] 71 mg/dL Invalid Interpretation Code 40 - 60 mg/dL AO ADM SS Cholesterol in LDL [Mass/Vol] 138 mg/dL Invalid Interpretation Code 0 - 130 mg/dL AO ADM SS Triglyceride [Mass/Vol] 56 mg/dL Invalid Interpretation Code 0 - 150 mg/dL AO ADM SS Comment on above: Interpretive Data: T riglyceride Reference Interval: Less than 150 Normal 150-199 Borderline high risk 200-499 High risk 500 or higher Very high risk LABORATORYOrdered By: SYSTEM SYSTEM on 06-23-2023 Albumin BCP dye [Mass/Vol] 4.0 G/dL Invalid Interpretation Code 3.4 - 4.8 G/dL AO ADM SS Albumin/Globulin [Mass ratio] 1.0 {ratio} Invalid Interpretation Code 1.1 - 2.5 ratio AO ADM SS ALP [Catalytic activity/Vol] 87 U/L Invalid Interpretation Code 40 - 135 U/L AO ADM SS ALT With P-5'-P [Catalytic activity/Vol] 20 U/L Invalid Interpretation Code 16 - 63 U/L AO ADM SS AST With P-5'-P [Catalytic activity/Vol] 12 U/L Invalid Interpretation Code 10 - 40 U/L AO ADM SS Basophil, Absolute 0.1 103/mcL Invalid Interpretation Code 0.0 - 0.2 10^3/mcL AO Workflow SS Basophils/100 WBC (Bld) 1.0 % Invalid Interpretation Code 0.0 - 2.5 % AO Workflow SS Bilirubin [Mass/Vol] 0.5 mg/dL Invalid Interpretation Code 0.2 - 1.0 mg/dL AO ADM SS Comment on above: Interpretive Data: U se of this assay is not recommended for patients undergoing treatment with eltrombopag due to the potential for falsely elevated results. Calcium [Mass/Vol] 9.6 mg/dL Invalid Interpretation Code 8.4 - 10.2 mg/dL AO ADM SS Chloride [Moles/Vol] 105 mmol/L Invalid Interpretation Code 98 - 107 mmol/L AO ADM SS CO2 [Moles/Vol] 28 mmol/L Invalid Interpretation Code 23 - 31 mmol/L AO ADM SS Creatinine [Mass/Vol] 1.90 mg/dL Invalid Interpretation Code 0.70 - 1.30 mg/dL AO ADM SS Electrolyte Balance 10.0 mEq/L Invalid Interpretation Code 4.0 - 15.0 mEq/L AO ADM SS Eosinophil, Absolute 0.2 103/mcL Invalid Interpretation Code 0.0 - 0.4 10^3/mcL AO Workflow SS Eosinophils/100 WBC (Bld) 2.9 % Invalid Interpretation Code 0.0 - 7.0 % AO Workflow SS Erythrocyte distribution width (RBC) [Ratio] 13.9 % Invalid Interpretation Code 11.5 - 14.5 % AO Workflow SS GFR/1.73 sq M.predicted among blacks MDRD (S/P/Bld) [Vol rate/Area] 42 ml/min/1.73sqm Invalid Interpretation Code AO Chemistry S Comment on above: Interpretive Data: GFR Population mean for , Non- Americans Ages 20-29 = 116 mL/min/1.73 sq.m. Ages 30-39 = 107 mL/min/1.73 sq.m. Ages 40-49 = 99 mL/min/1.73 sq.m. Ages 50-59 = 93 mL/min/1.73 sq.m. Ages 60-69 = 85 mL/min/1.73 sq.m. Ages 70+ = 75 mL/min/1.73 sq.m. Chronic Kidney Disease: Less than 60 mL/min/1.73 square meters End Stage Renal Disease: Less than 15 mL/min/1.73 square meters GFR/1.73 sq M.predicted among non-blacks MDRD (S/P/Bld) [Vol rate/Area] 34 ml/min/1.73sqm Invalid Interpretation Code AO Chemistry S Comment on above: Interpretive Data: GFR Population mean for , Non- Americans Ages 20-29 = 116 mL/min/1.73 sq.m. Ages 30-39 = 107 mL/min/1.73 sq.m. Ages 40-49 = 99 mL/min/1.73 sq.m. Ages 50-59 = 93 mL/min/1.73 sq.m. Ages 60-69 = 85 mL/min/1.73 sq.m. Ages 70+ = 75 mL/min/1.73 sq.m. Chronic Kidney Disease: Less than 60 mL/min/1.73 square meters End Stage Renal Disease: Less than 15 mL/min/1.73 square meters Globulin 4.1 G/dL Invalid Interpretation Code AO ADM SS Glucose [Mass/Vol] 109 mg/dL Invalid Interpretation Code 83 - 110 mg/dL AO ADM SS Hematocrit (Bld) [Volume fraction] 46.0 % Invalid Interpretation Code 42.0 - 52.0 % AO Workflow SS Hemoglobin (Bld) [Mass/Vol] 15.5 G/dL Invalid Interpretation Code 14.0 - 18.0 G/dL AO Workflow SS Lymphocyte, Absolute 1.7 103/mcL Invalid Interpretation Code 0.8 - 3.9 10^3/mcL AO Workflow SS Lymphocytes/100 WBC (Bld) 20.5 % Invalid Interpretation Code 10.0 - 50.0 % AO Workflow SS MCH (RBC) [Entitic mass] 30.1 pg Invalid Interpretation Code 27.0 - 31.2 pg AO Workflow SS MCHC 33.7 G/dL Invalid Interpretation Code 31.8 - 35.4 G/dL AO Workflow SS MCV (RBC) [Entitic vol] 89.2 fL Invalid Interpretation Code 80.0 - 94.0 fL AO Workflow SS Monocyte, Absolute 1.1 103/mcL Invalid Interpretation Code 0.2 - 1.0 10^3/mcL AO Workflow SS Monocytes/100 WBC (Bld) 13.7 % Invalid Interpretation Code 1.7 - 13.0 % AO Workflow SS Neutrophil, Absolute 5.0 103/mcL Invalid Interpretation Code 2.9 - 6.2 10^3/mcL AO Workflow SS Neutrophils/100 WBC (Bld) 61.9 % Invalid Interpretation Code 37.0 - 80.0 % AO Workflow SS Platelet mean volume (Bld) [Entitic vol] 8.6 fL Invalid Interpretation Code 7.4 - 10.4 fL AO Workflow SS Platelets (Bld) [#/Vol] 273 103/mcL Invalid Interpretation Code 130 - 400 10^3/mcL AO Workflow SS Potassium [Moles/Vol] 4.9 mmol/L Invalid Interpretation Code 3.5 - 5.1 mmol/L AO ADM SS Protein [Mass/Vol] 8.1 G/dL Invalid Interpretation Code 6.4 - 8.2 G/dL AO ADM SS RBC (Bld) [#/Vol] 5.15 106/mcL Invalid Interpretation Code 4.04 - 6.13 10^6/mcL AO Workflow SS Sodium [Moles/Vol] 143 mmol/L Invalid Interpretation Code 136 - 145 mmol/L AO ADM SS Urea nitrogen [Mass/Vol] 36 mg/dL Invalid Interpretation Code 7 - 18 mg/dL AO ADM SS Urea nitrogen/Creatinine [Mass ratio] 19 ratio Invalid Interpretation Code 7 - 27 ratio AO ADM SS WBC (Bld) [#/Vol] 8.1 103/mcL Invalid Interpretation Code 4.6 - 10.8 10^3/mcL AO Workflow SS LIPIDon 10-12-2023 Cholesterol [Mass/Vol] 220 mg/dL High 0-200 [facility] ([place]) Comment on above: Result Comment: Chol esterol Reference Interval: Less than 200 Desirable 200-239 Borderline high risk 240 and above High risk Performed By: #### A ROME, ADIFF, LIPID, CBC, GFR, CMP #### [address] [address] Cholesterol in HDL [Mass/Vol] 71 mg/dL High 40-60 [facility] ([place]) Comment on above: Performed By: #### A ROME, ADIFF, LIPID, CBC, GFR, CMP #### [address] [address] Cholesterol in LDL [Mass/Vol] 138 mg/dL High 0-130 [facility] ([place]) Comment on above: Performed By: #### A ROME, ADIFF, LIPID, CBC, GFR, CMP #### [address] [address] Triglyceride [Mass/Vol] 56 mg/dL Normal 0-150 A [facility] ([place]) Comment on above: Result Comment: Trig lyceride Reference Interval: Less than 150 Normal 150-199 Borderline high risk 200-499 High risk 500 or higher Very high risk Performed By: #### A ROME, ADIFF, LIPID, CBC, GFR, CMP #### [address] [address] MALBRon 06-23-2023 U Creatinine 189.8 mg/dL Normal 39.0-259.0 [facility] ([place]) Comment on above: Performed By: #### M ALBR #### [address] [address] U Microalb 8266 mcg/dL Normal [facility] ([place]) Comment on above: Performed By: #### M ALBR #### [address] [address] U Ratio Alb/Cre 44 mcg/mg High 0-30 [facility] ([place]) Comment on above: Performed By: #### M ALBR #### [address] [address] LABORATORYOrdered By: Anne Marie Lerner on 03-08-2022 Calcium [Mass/Vol] 9.4 mg/dL Invalid Interpretation Code 8.4 - 10.2 mg/dL AO ADM SS Chloride [Moles/Vol] 102 mmol/L Invalid Interpretation Code 98 - 107 mmol/L AO ADM SS CO2 [Moles/Vol] 27 mmol/L Invalid Interpretation Code 23 - 31 mmol/L AO ADM SS Creatinine [Mass/Vol] 2.19 mg/dL Invalid Interpretation Code 0.70 - 1.30 mg/dL AO ADM SS Electrolyte Balance 11.0 mEq/L Invalid Interpretation Code 4.0 - 15.0 mEq/L AO ADM SS Glucose [Mass/Vol] 128 mg/dL Invalid Interpretation Code 83 - 110 mg/dL AO ADM SS Potassium [Moles/Vol] 4.0 mmol/L Invalid Interpretation Code 3.5 - 5.1 mmol/L AO ADM SS Sodium [Moles/Vol] 140 mmol/L Invalid Interpretation Code 136 - 145 mmol/L AO ADM SS Urea nitrogen [Mass/Vol] 46 mg/dL Invalid Interpretation Code 7 - 18 mg/dL AO ADM SS Urea nitrogen/Creatinine [Mass ratio] 21 ratio Invalid Interpretation Code 7 - 27 ratio AO ADM SS LABORATORYOrdered By: SYSTEM SYSTEM on 03-08-2022 GFR 35 ml/min/1.73sqm Invalid Interpretation Code AO Chemistry S GFR Non- 29 ml/min/1.73sqm Inval id Interpretation Code AO Chemistry S Vital Signs Date Time Vital Sign Value Performing Clinician Gómez barton 04-26-2025 11:34-0400 Body temperature 97.8 [degF] Dr. Carol Ann Sandoval MD Work Phone: [facility] 04-26-2025 11:34-0400 Diastolic blood pressure 84 mm[Hg] Dr. Carol Ann Sandoval MD Work Phone: [facility] 04-26-2025 11:34-0400 Heart rate 85 /min Dr. Carol Ann Sandoval MD Work Phone: [facility] 04-26-2025 11:34-0400 Respiratory rate 17 /min Dr. Carol Ann Sandoval MD Work Phone: [facility] 04-26-2025 11:34-0400 SaO2% (BldA) [Mass fraction] 94 % Dr. Carol Ann Sandoval MD Work Phone: [facility] 04-26-2025 11:34-0400 Systolic blood pressure 165 mm[Hg] Dr. Carol Ann Sandoval MD Work Phone: [facility] 04-26-2025 08:04-0400 Body height 177.[address] Carol Ann Sandoval MD Work Phone: [facility] 04-26-2025 08:04-0400 Body mass index (BMI) [Ratio] 19.9 kg/m2 Dr. Carol Ann Sandoval MD Work Phone: [facility] 04-26-2025 08:04-0400 Body weight 63.[address] Carol Ann Sandoval MD Work Phone: [facility] Encounters Encounter Date Encounter Type Care Provider Facility Start: 04-26-2025 Evaluation and management of inpatient Dr. Ugo Perera MD -Progressive Care Unit Work Phone: Start: 04-03-2025 End: 04-03-2025 Transcribe Orders Iesha Lu DO Work Phone: Referring Physician Comment on above: Shuffling gait (Prim makenna Dx); Tremor; Lightheadedness Start: 04-01-2025 ambulatory IESHA E LU DO Faci lity:[facility] Start: 04-01-2025 End: 04-01-2025 ambulatory IESHA E LU DO Facility:[facility] [place] Start: 04-01-2025 End: 04-01-2025 Patient encounter procedure IESHA Carie LU DO [facility] Start: 03-29-2025 End: 03-29-2025 ambulatory IESHA E LU DO Facility:[facility] [place] Start: 03-29-2025 End: 03-29-2025 Patient encounter procedure IESHA Carie LU DO [facility] Start: 03-26-2025 End: 03-30-2025 ambulatory IESHA MEDRANOINS [facility] [place] Start: 03-26-2025 End: 03-30-2025 Encounter for general adult medical examination without abnormal findings IESHA LU DO Facility:[facility] Start: 03-26-2025 End: 03-30-2025 Outreach Lab IESHA LU DO [facility] Start: 02-07-2025 ambulatory Lisandro Virk Facility:[facility] Start: 02-07-2025 Non-patient / Non-visit Dr. Lisandro jaramillo MD -[facility] Start: 02-07-2025 End: 02-07-[address] Carol Ann Sandoval MD Work Phone: [facility] Work Phone: Start: 02-07-2025 End: 02-07-[address] Carol Ann Sandoval MD -Cardiovascular Services Work Phone: Start: 02-07-2025 End: 02-07-2025 ambulatory Iesha Lu Facility:[facility] Start: 01-03-2025 End: 01-03-[address] CAROL ANN SANDOVAL MD Facility:[facility] Start: 01-03-2025 End: 01-03-[address] CAROL ANN SANDOVAL MD [facility] Start: 12-14-2024 End: 12-14-2024 ambulatory EDWINA HERNANDEZSAY Facility[facility] Start: 12-06-2024 End: 2024 ambulatory EDWINA APRIL DO Facility[facility] Start: 10-31-2024 End: 10-31-2024 ambulatory EWDINA HERNANDEZSAY [facility] Start: 10-31-2024 End: 10-31-2024 Patient encounter procedure EDWINA CHEN DO [facility] Start: 07-06-2024 End: 07-06-2024 ambulatory EDWINA CHEN DO Facility[facility] Start: 07-06-2024 End: 07-06-2024 Patient encounter procedure EDWINA CHEN DO [facility] Start: 12-22-2023 End: 12-23-2023 ambulatory EDWINA CHEN DO Facility:[facility] Start: 12-22-2023 End: 12-22-2023 Patient encounter procedure EDWINA CHEN DO [facility] Start: 06-23-2023 End: 06-24-2023 ambulatory EDWINA CHEN DO Facility:[facility] Start: 06-23-2023 End: 06-23-2023 Patient encounter procedure EDWINA CHEN DO [facility] Start: 03-08-2022 End: 03-08-2022 Patient encounter procedure EDWINA CHEN DO [facility] Procedures Date Procedure Procedure Detail Performing Clinician Start: 04-26-2025 Urnls dip stick/tabl et reagent auto microscopy Dr. Carol Ann Sandoval MD Work Phone: Start: 04-26-2025 Carbon dioxide measu rement, partial pressure Dr. Carol Ann Sandoval MD Work Phone: Start: 04-26-2025 Gases blood o2 satur ation only direct anna Dr. Carol Ann Sandoval MD Work Phone: Start: 04-26-2025 Measurement of parti al pressure of oxygen in blood Dr. Carol Ann Sandoval MD Work Phone: Start: 04-26-[address] Carol Ann Sandoval MD Work Phone: Start: 04-26-[address] Carol Ann Sandoval MD Work Phone: Start: 04-26-2025 CT of head without contrast Dr. Carol Ann Sandoval MD Work Phone: Start: 04-26-2025 Plain chest X-ray Dr. Cristi Sandoval MD Work Phone: Start: 02-07-2025 Cardiovascular stres s test using pharmacologic stress agent Dr. Carol Ann Sandoval MD Work Phone: Start: 09-01-2020 Colonoscopy EDWINA US DO Start: 10-02-2019 Arthroplasty of righ t hip joint EDWINA CHEN DO Dental surgical procedure RO NABEEL CHEN DO Mohs surgery EDWINA CHEN DO Comment on above: right side of nose a nd top of head. Plan of Treatment Date Care Activity Detail Author Start: 05-13-2025 [facility] Start: 04-26-2025 Bacteria identified in Blood by Culture Blood Culture [facility] Start: 04-26-2025 MRI of brain without contrast Brain without Contrast [facility] Start: 04-26-2025 Verification routine [facility] Start: 04-26-2025 Hospital admission, emergency, from emergency room, medical nature [facility] Start: 04-26-2025 Admission procedure [facility] Start: 04-26-2025 End: 04-26-2025 [facility] Start: 09-12-2024 Advance Directive Discussion Advance Directive Discussion [facility] Start: 2017 RSV Vaccine (1 - 1-dose 75+ series) RSV Vaccine (1 - 1-dose 75+ series) [facility] Start: 1992 Pneumococcal Vaccine: 50+ (1 of 1 - PCV) Pneumococcal Vaccine: 50+ (1 of 1 - PCV) [facility] Start: 1992 Shingrix Vaccine (1 of 2) Shingrix Vaccine (1 of 2) [facility] Start: 12-08-1987 Diabetes Screening Diabetes Screening [facility] Start: 1961 Urine microalbumin profile DTaP,Tdap,Td Vaccine (1 - Tdap) [facility] Start: 1960 Anxiety Screening Anxiety Screening [facility] Start: 1960 Depression Screening Depression Screening [facility] Magnesium measurement [facility] Immunizations Immunization Date Immunization Notes Care Provider Cody croft 08-20-2021 SARS-CoV-2 (COVID-19 ) Ad26 vaccine, recombinant EDWINA CHEN DO Elisa Hall [facility] Isabel 11-20-2020 SARS-CoV-2 (COVID-19 ) Ad26 vaccine, recombinant EDWINA APRIL DO [facility] Comment on above: Result Comment: 2022: [id number] Payers Date Payer Category Payer Private Health Insurance [id number] 2025 Self-pay 2024 Medicare (Managed Care) PRIMETIM [id number] 2023 Unknown [id number] 2018 Unknown [id number] 1940 Unknown [id number] 2..[id number]. 2.627 1942 Unknown [id number] 2..[id number]. 2.627 1942 Unknown [id number] 2.16.840.1.272347.3.579. 2.627 1942 Unknown [id number] 2.16.840.1.776526.3.579. 2.627 1942 Unknown [id number] 2.16.840.1.433388.3.579. 2.627 1942 Unknown [id number] 2.16.840.1.708615.3.579. 2.627 1942 Unknown [id number] 2.16.840.1.640973.3.579. 2.627 1942 Unknown [id number] 2.16.840.1.461632.3.579. 2.627 1942 Unknown [id number] 2.16.840.1.001572.3.579. 2.627 1942 Unknown [id number] 2.16.840.1.889072.3.579. 2.627 1942 Unknown [id number] 2.16.840.1.664797.3.579. 2.627 Unknown [id number] 2.16.840.1.875198.3.579. 2.462 Unknown [id number] 2.16.840.1.370858.3.579. 2.462 Social History Date Type Detail Facility Start: 09-14-2019 Tobacco smoking status Ex-smoker (fi nding) [facility] Tobacco smoking status Never [facility] Start: 1940 Sex Assigned At Male A [facility] Sexual Orientation [facility] Start: 03-07-2019 Sex Male (finding) [facility] Work Phone: Start: 1940 Sex assigned at Not on file [facility] Gender identity Not on file [facility] in Start: 04-26-2025 Tobacco smoking stat us NHIS Never smoked tobacco (finding) [facility] Mental Status Date Assessment Result Facility 04-26-2025 Cognitive function Voice/Name [facility] Work Phone: Clinical Notes 03-29-2025 to 04-26-2025 Note Date & Type Note Facility 04-26-2025 Discharge summary [facility] 04-26-2025 Radiology Diagnostic study note [facility] Imaging Services [address] [place] [address] Brain/Head without Contrast MR#: [id number] Acct: [id number] Name: JAZLYN NGO Rep #: [id number] : 1940 M 84 From: Rich Nichols MD PCP: Dr. Iesha Lu DO Status: REG ER Study:Brain/Head without Contrast Date of Exa m: 04/26/25 Exam# [id number] Ordering Dr: Riley Simmons MD PROCEDURE: BRAIN/HEAD WITHOUT CONTRAST 04/26/2025 REASON FOR EXAM: ALTERED MENTAL STATUS, QUESTION SEIZURE ACTIVITY TECHNIQUE: BRAIN/HEAD WITHOUT CONTRAST Coronal and Sagittal reconstruction series were provided. One or more dose reduction techniques were used (e.g., Automated exposure control, adjustment of the mA and/or kV according to patient size, use of iterative reconstruction technique. RADIATION DOSE SUMMARY: CTDlvol: 44.99 mGy DLP: 616 mGycm COMPARISON: None FINDINGS: Brain: Low density in the periventricular white matter suggests mild chronic small vessel ischemic changes. Atherosclerotic calcification of the cavernous portions of the internal carotid arteries bilaterally. CSF Spaces: Mild generalized cerebral atrophy Sinuses/Mastoids: Clear at visualized levels Bones: CT/Brain/Head without Contrast IMPRESSION: CHRONIC CHANGES. NO ACUTE FINDINGS. Reading Location: [place] [address] CC: Dr. Iesha Lu DO; Dr. Wing Simmons MD ~ Juvenile Detention Officer: Signed [facility] 04-26-2025 Radiology Diagnostic study note [facility] Imaging Services [address] [place] [address] Chest 1 View (Portable) MR#: [id number] Acct: [id number] Name: JAZLYN NGO Rep #: [id number] : 1940 M 84 From: Rich Nichols MD PCP: Dr. Iesha Lu DO Status: REG ER Study:Chest 1 View (Portable) Date of Exam: 04/26/25 Exam# [id number] Ordering Dr: Riley Simmons MD PROCEDURE: CHEST 1 VIEW (PORTABLE) 04/26/2025 REASON FOR EXAM: TACHYPNEA TECHNIQUE: Frontal view of the chest. COMPARISON: None FINDINGS: Hardware: EKG electrodes are seen. Heart: The heart size is upper limits of normal. Lungs: The lungs are clear. Bones: Degenerative changes are identified within the thoracic spine. Other: RAD/Chest 1 View (Portable) IMPRESSION: No Acute Findings. Reading Location: [facility]- CC: Dr. Iesha Lu DO; Dr. Wing Simmons MD ~ Juvenile Detention Officer: Signed [facility] 04-01-2025 Note Exam Date Time Procedure Performing Provider Status 04/01/25 10:15 AM BD Bone Density DEXA Axial Skeleton RADHA SHARIF DO; Auth (Verified) [id number] ORIGINAL EXAMINATION: BONE DENSITOMETRY 04/01/2025 10:15 am TECHNIQUE: A bone density dual x-ray absorptiometry (DEXA) scan was performed of the axial (e.g. hips, spine) and/or appendicular (e.g. radius) skeleton as appropriate. COMPARISON: None HISTORY: ORDERING SYSTEM PROVIDED HISTORY: Reason for Exam: Osteoporosis Screening FINDINGS: T Score Left Femoral Neck: -2.8 Left Femoral Neck: 0.545 (g/cm2) T Score Left Hip: -1.7 Left Hip: 0.775 (g/cm2) T Score Lumbar Spine: -0.6 Lumbar Spine: 1.028 (g/cmd2) IMPRESSION: Osteoporosis by WHO criteria. World Health Organization criteria: (Comparing with young normal sex matched population) - Normal: T-score at or above -1 SD (standard deviation) - Osteopenia: T-score between -1 and -2.5 SD - Osteoporosis: T-score at or below -2.5 SD The NOF recommends that FDA-approved medical therapies be considered in post-menopausal women and men age >/= 50 years with a: * Hip or vertebral fracture, or * T-score of /= 20% for major osteoporotic fractures or * >/= 3% for hip fractures All treatment decisions require clinical judgement and consideration of individual patient factors, including patient preferences, comorbidities, previous drug use, risk factors not captured in the FRAX registered model (e.g., frailty, falls, vitamin D deficiency, increased bone turnover, interval significant decline in bone density) and possible under- or over-estimation of fracture risk by FRAX. Interpreted by: Radha Sharif DO Preliminary Report By: Radha Sharif DO Electronically signed By Radha Sharif DO Dictated Date: 04/01/2025 11:27:21 AM Prelim Date: 04/01/2025 11:27:47 AM Sign Date: 04/01/2025 11:27:47 AM Ordering Provider: [facility]07-18-2025 Note* Exam Date Time Procedure Performing Provider Status 03/29/25 12:[address] Spine Cervical w/Contrast Carie HUFF MD; Auth (Verified) [id number] ORIGINAL EXAMINATION: CT OF THE CERVICAL SPINE WITH CONTRAST 03/29/2025 12:46 pm TECHNIQUE: CT of the cervical was performed with the administration of intravenous contrast. Multiplanar reformatted images are provided for review. Automated exposure control, iterative reconstruction, and/or weight based adjustment of the mA/kV was utilized to reduce the radiation dose to as low as reasonably achievable. COMPARISON: None. HISTORY: ORDERING SYSTEM PROVIDED HISTORY: Reason for Exam: Metastatic disease evaluation hoarseness, swelling rt submandibular area. Hx of skin ca FINDINGS: BONES/ALIGNMENT: There is normal alignment of the spine. The vertebral body heights are maintained. No destructive osseous lesion is seen. No lytic or blastic bone lesion. 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 No herniated disc or significant canal or foraminal narrowing. SOFT TISSUES: There is no prevertebral soft tissue swelling. Subcentimeter left thyroid nodules. No definite neck mass or adenopathy. No AA of abnormal contrast enhancement. IMPRESSION: Cervical spondylosis. No neck mass or adenopathy. Left thyroid nodules. The examination was not optimized for soft tissue evaluation. Interpreted by: Xiang Huff Preliminary Report By: Xiang Huff Electronically signed By Xiang Huff Dictated Date: 03/29/2025 12:56:54 PM Prelim Date: 03/29/2025 12:59:08 PM Sign Date: 03/29/2025 12:59:08 PM Ordering Provider: IESHA LU [facility] summary Author Wing Simmons [facility] Note Date/Time April 26, 2025 10 :49am [facility] Medical Records Department [address] [place] [address] Emergency Department Summary 04/26/25 MR#: [id number] Acct: [id number] Name: JAZLYN NGO Rep #:[id number] : 1940 84 From: Wing Simmons MD PCP: Dr. Iesha Lu DO Status:REG ER Location: ED ADDENDUM by Dr. Wing Simmons MD on 04/26/25 at 1049 EKG reveals a normal sinus rhythm rate 86. There is nonseptic changes which is artifact due to his tremors. LA interval is 148 ms. QRS duration 76 ms. QT duration 304 ms. [place] is normal. 04/26/25 1049<Electronically signed by Wing Simmons MD> Cosigner Signature (if applicable): cc: Dr. Iesha Lu DO ~* Signed HPI History of Present Illness Chief Complaint: Alt LOC Detail of Chief Complaint: Prehospital stroke alert. Informant: patient, spouse/S.O. and EMS Onset/Context/Timing Onset: - (Last known well 2199April 25) Context: - (Detailed in the HPI narrative) Timing: - (Uncertain) Quality: Detailed HPI narrative Location: Detailed HPI narrative Mechanism/Context: Yes blunt trauma, Yes fall and Yes same level fall Current Severity: Difficult to determine because of dry mouth and difficulty speaking Maximum Severity: Difficult to determine because patient mouth is dry and his tongue is a lit Worsened by: Possibly head trauma Relieved by: Nothing Associated Symptoms Length of loss of consciousness: Unknown Narrative Narrative: Patient is an 84-year-old male. He lives with his . He has been having problems with dizziness since October. He had a cardiac workup which was negative and included a 30-day Holter monitor and echo. He had an MRI which apparently revealed 2 strokes. They believe this was the cause of his falls in October and November. Last evening he went to use the restroom. He fell. When entered the room he told her that he messed the floor. She informed him that they would clean it up in the morning. This morning he is less responsive. She states he has been eating well. Patient was asked yes/no questions and he answered no to all of the following, headache, change in vision, chest pain, shortness of breath, abdominal pain, nausea or vomiting. He also answered no to urologic symptoms. He denies pain in his back, neck, and extremities. Patient is presently on cholesterol medication and metoprolol for. The metoprolol is for blood pressure not rhythm. He used a scopolamine patch for the first time yesterday. He was placed on a scopolamine patch because of excessive drooling. Prior similar symptoms: No Recent Illness/Hospitalization: No PFSH PFS Medical History (Updated 04/26/25 @ 10:[address] Wing Simmons MD) CVA (cerebral vascular accident) Medical History unable to obtain unable to obtain Allergy/AdvReac Type Severity Reaction Status Date / Time doxycycline Allergy Unknown PT UNABLE Verified 04/26/25 08:08 TO RESPOND-NEEDS F/U oxycodone Allergy Unknown PT UNABLE Verified 04/26/25 08:08 TO RESPOND-NEEDS F/U Social History (Updated 04/26/25 @ 08:[address] Wing Simmons MD) household members: spouse Smoking Status: Never smoker ROS ROS ED Constitutional Constitutional ED: Denies chills or fever(s) Eyes Eyes: Denies blurry vision or change in vision ENT ENT ED: Denies rhinorrhea or sore throat Cardiovascular Cardiovascular: Denies chest pain or palpitations Respiratory/Chest Respiratory/Chest: Denies cough or dyspnea Gastrointestinal Gastrointestinal: Denies abdominal pain, melena or vomiting Musculoskeletal Musculoskeletal: Denies back pain Neurologic Neurologic: Denies headache(s) Hematologic/Lymphatic Hematologic/Lymphatic: Denies easy bleeding or easy bruising EXAM Physical Exam Const Vital Signs: 04/26/25 08:04 04/26/25 08:12 04/26/25 08:30 Temperature 97.7 F L 97.7 F L Temperature Source Axillary Axillary Pulse Rate 86 86 Respiratory Rate 20 H 16 Blood Pressure 161/91 H 164/97 H Blood Pressure Mean 114 115 Pulse Ox 96 95 Oxygen Delivery Method Room Air Room Air 04/26/25 08:30 04/26/25 08:45 04/26/25 08:45 Temperature 95.9 F L 96.4 F L Temperature Source Core Core Pulse Rate 84 86 Respiratory Rate 13 25 H Blood Pressure 164/97 H 168/87 H 168/87 H Blood Pressure Mean 115 107 107 Pulse Ox 96 93 Oxygen Delivery Method 04/26/25 09:00 04/26/25 09:12 04/26/25 09:15 Temperature 96.8 F L 96.8 F L 96.9 F L Temperature Source Core Core Core Pulse Rate 84 86 88 Respiratory Rate 18 16 20 H Blood Pressure 140/84 H 163/87 H Blood Pressure Mean 91 112 Pulse Ox 93 98 92 Oxygen Delivery Method Room Air 04/26/25 09:16 04/26/25 09:30 04/26/25 09:45 Temperature 96.9 F L 97.0 F L 97.2 F L Temperature Source Core Core Core Pulse Rate 85 80 83 Respiratory Rate 16 15 27 H Blood Pressure 163/87 H 155/87 H 151/99 H Blood Pressure Mean 108 107 117 Pulse Ox 91 91 92 Oxygen Delivery Method 04/26/25 10:00 04/26/25 10:00 Temperature 97.4 F L 97.7 F L Temperature Source Core Core Pulse Rate 79 89 Respiratory Rate 14 18 Blood Pressure 160/71 H 166/81 H Blood Pressure Mean 98 109 Pulse Ox 92 93 Oxygen Delivery Method Room Air Positive well developed; Negative for well nourished Constitutional Narrative: Patient appears ill. Patient vitals indicated normal heart rate, respiratory rate and pulse ox. Blood pressure is pending. Axillary temperature was 97.7. I was told by nurse that temperature was 95.7. She was asked to place a warm blanket on him. General Appearance ED: well developed, NAD and pallor HEENT normocephalic and atraumatic; Negative for cyanosis of lips/distal nose or tenderness Eyes PERRL and EOMs intact bilaterally Eyes Narrative: There is no subconjunctival hemorrhage. General Eye ED: Negative for pale conjunctiva or scleral icterus Neck full ROM, no lymphadenopathy, supple and no JVD Neck Narrative: There is no posterior midline pain. Chest Wall Chest Narrative: Appears normal without evidence of trauma. There is no crepitus. Resp Resp Narrative: Patient respiratory rate is slightly elevated. Breath sounds are diminished bilaterally. There is bibasilar rales. This may be due to poor inspiratory volume. There is no rhonchi or wheezing noted. Cardio regular rate, regular rhythm, S1 normal heart sound, S2 normal heart sound and no murmurs GI non-tender, non-distended and no masses Auscultation: hypoactive bowel sounds Palpation: soft Narrative: External normal Neuro oriented x3, CN's II-XII intact bilaterally and no sensory deficits noted Neuro Narrative: He is awake but not alert. He has a very soft voice and is having difficulty phonating. I suspect this is due to the fact that his oral mucosa is very dry and this may be due to the scopolamine patch. Gait was not assessed. When patient was met in the ambulance bay. Since patient is following commands has no obvious focal neurologic symptoms and the fact that he has dry mouth and what may have been twitching versus seizure-like activity the stroke team was canceled because in my opinion this is a metabolic infectious or head bleed due to fall earlier this morning when he was in the restroom. Skin General Skin Exam: pallor Lesions: no lesions Rashes: no rashes MDM MDM MDM Narrative Medical decision making narrative: Concern patient may have had a seizure based on 's description of the stiffness of his arms with movement and abnormal movement of his legs. This occurred earlier this morning. This was not relayed to the EMS. He may have a metabolic cause need to assess electrolytes specifically sodium and calcium. Also need to consider infectious workup. Because of the head trauma CT of the head was obtained. He may have had a seizure due to his prior strokes which were felt to have occurred in October and November of this year. History & Record Review Discussion w/independent historian: Significant other (Informed of results and concern this is all due to the scopolamine patch. Since he is agitated he did receive IV Ativan. Hospitalist was paged for admission) Lab Data Attestation: I reviewed the patient's lab results. Lab results narrative: White count is normal. Comprehensive metabolic panel reveals an elevated BUN/creatinine at 37 and 1.72 with an estimated GFR of 39 and a BUN to creatinine ratio of 21:1. Glucose slightly elevated 113 with a normal CO2 aniongap. Liver enzymes are normal. UA is unremarkable. Macro was positive for protein and blood. Micro was negative. There are no prior labs for comparison. Labs: Laboratory Results - last 24 hr 04/26/25 04/26/25 08:15 08:24 WBC 7.9 RBC 4.84 Hgb 14.4 Hct 42.3 MCV 87.4 MCH 29.8 MCHC 34.0 RDW Std Deviation 41.0 RDW Coeff of Tim 12.9 Plt Count 217 MPV 10.4 Immature Gran % (Auto) 0.400 Neut % (Auto) 64.0 Lymph % (Auto) 21.8 [place] % (Auto) 11.0 H Eos % (Auto) 2.3 Baso % (Auto) 0.5 Absolute Neuts (auto) 5.1 Absolute Lymphs (auto) 1.73 Nucleated RBC % 0 PT 14.2 INR 1.1 APTT 24.5 Sodium 140 Potassium 4.1 Chloride 104 Carbon Dioxide 23.3 Anion Gap 13 BUN 37 H Creatinine 1.72 H Estim Creat Clear Calc 29.55 L Est GFR (MDRD) Non-Af 39 L BUN/Creatinine Ratio 21.4 H Glucose 113 H Lactic Acid 1.1 Calcium 9.7 Total Bilirubin 0.60 AST 24 ALT 19 Alkaline Phosphatase 71 Total Protein 7.2 Albumin 4.1 Globulin 3.2 Albumin/Globulin Ratio 1.3 Urine Color Yellow Urine Clarity Clear Urine pH 6.5 Ur Specific [place] 1.015 Urine Protein 30 H Urine Glucose (UA) Normal Urine Ketones Negative Urine Occult Blood 10 H Urine Nitrite Negative Urine Bilirubin Negative Urine Urobilinogen Normal Ur Leukocyte Esterase Negative Urine RBC 0 SEEN Urine WBC 0 SEEN Ur Squamous Epith Cells 0 SEEN Urine Bacteria 0 SEEN Urine Mucus 0 SEEN ABG Data ABG results: ABG 04/26/25 08:19 Specimen Type ART Sample Site L Brach pH 7.48 H Bicarbonate Actual 28.6 H Total CO2 30 Base Excess 5 H O2 Saturation 95 O2 % 2.0 ABG pCO2 38.2 ABG pO2 70 L O2 Delivery Device Cannula Vent Mode Not entered Radiography Chest X-Ray - ED: 1 View and Read by ED Physician (There are no acute findings. Cardiac silhouette and size normal. Lung parenchyma reveals chronic changes. Osseous structures reveal no obvious acute abnormality. There is evidence of degenerative disc disease.) Diagnostic Testing: Clinical Impression(s) from Imaging Studies Chest X-Ray 04/26/25 08:08 IMPRESSION: No Acute Findings. Reading Location: [facility] 04/26/25 08:09 IMPRESSION: CHRONIC CHANGES. NO ACUTE FINDINGS. Reading Location: [facility] CT was reviewed by me after interpretation by radiologist. There is no acute findings i.e. subdural hematoma, epidural hematoma, traumatic subarachnoid hemorrhage or intraparenchymal contusion. There is no obvious stroke noted either. There is no air-fluid levels noted in the sinuses or evidence of fracture. Management Discussion w/another healthcare provider: Hospitalist (I spoke with Dr. Rachel thehospitalist. PCU admit. He will see patient on the unit.) Discharge Plan Triage Chief Complaint: Alt LOC ED Provider: Wing Simmons Dx/Rx/DC Orders Clinical Impression: Acute alteration in mental status, Anticholinergic syndrome, Elevated blood pressure reading with diagnosis of hypertension, Agitation, Metabolic alkalemia,Chronic kidney insufficiency, History of stroke in adulthood Primary Care Provider: Iesha Lu Referrals: Iehsa Lu DO [Primary Care Provider] - Print Language: Japanese Disposition Disposition: Acute Care Hospital [facility] What to do if you have Problems For any increased pain, shortness of breath, bleeding, nausea or vomiting, chestpain, or any unexpected problems, contact your Primary Care Provider. Call [facility] ([phone]) or report to the closest Emergency Room. Call 911 if necessary. 04/26/25 1047 <Electronically signed by Wnig Simmons MD> Cosigner Signature (if applicable): CC: Dr. Iesha Lu DO ~ Signed [facility] Work Phone: Evaluation + Plan note No data available for this section [facility] evaluation + Plan note Future Appointments Appointment Date:06/21/2024 09:30:00 AM Scheduled Provider:EDWINA CHEN DO Location:[facility] Appointment Type:PC OV [facility] Evaluation + Plan note Future Appointments Appointment Date:01/03/2025 10:30:00 AM Scheduled Provider:EDWINA CHEN DO Location[facility] Appointment Type:PC OV Future Scheduled Tests Laboratory* Albumin/Creatinine Ratio, Random Urine 07/05/24 [facility] Evaluation + Plan note Future Appointments Appointment Date:01/03/2025 10:30:00 AM Scheduled Provider:EDWINA CHEN DO Location:[facility] Appointment Type:PC Wellness [facility] Enhanced Future Scheduled Tests Laboratory* Albumin/Creatinine Ratio, Random Urine 07/05/24 Radiology* MRI Brain w/o Contrast 10/30/24 [facility] Evaluation + Plan note Future Appointments Appointment Date:03/08/2025 10:30:00 AM Scheduled Provider:IESHA LU DO Location:[facility] Appointment Type:PC OV Future Scheduled Tests Laboratory* Albumin/Creatinine Ratio, Random Urine 07/05/24 Radiology* NM Myocardial Spect Rest/Stress 01/02/25 [facility] evaluation + Plan note Future Appointments Appointment Date:04/01/2025 10:00:00 AM Scheduled Provider: Location:[facility] Appointment Type:BD Bone Density DEXA Axial Skeleton Appointment Date:04/01/2025 03:00:00 PM Scheduled Provider:Viraj Sylvester PT Location:[facility] Appointment Type:PT Outpatient Evaluation Appointment Date:05/07/2025 10:00:00 AM Scheduled Provider:IESHA LU DO Location:[facility] Appointment Type:PC OV Follow Up Future Scheduled Tests Laboratory* Lipid Profile 06/26/25 * Albumin/Creatinine Ratio, Random Urine 07/05/24 * Complete Metabolic Panel 06/26/25 * N-Terminal proBNP 09/29/25 Radiology* BD Bone Density DEXA Axial Skeleton Adult (21 yrs or older) 04/01/25 * NM Myocardial Spect Rest/Stress 01/02/25 [facility] Evaluation + Plan note Future Appointments Appointment Date:04/08/2025 08:30:00 AM Scheduled Provider:Viraj Sylvester PT Location:[facility] Appointment Type:PT Treatment [facility] Appointment Date:04/16/2025 09:30:00 AM Scheduled Provider:Viraj Sylvester PT Location:[facility] Appointment Type:PT Treatment [facility] Appointment Date:04/23/2025 09:30:00 AM Scheduled Provider:Viraj Sylvester PT Location:[facility] Appointment Type:PT [facility] Appointment Date:04/30/2025 01:30:00 PM Scheduled Provider:Viraj Sylvester PT Location:[facility] Appointment Type:PT [facility] Appointment Date:05/07/2025 10:00:00 AM Scheduled Provider:IESHA LU DO Location:[facility] Appointment Type:PC OV Follow Up Future Scheduled Tests Laboratory* Lipid Profile 06/26/25 * Albumin/Creatinine Ratio, Random Urine 07/05/24 * Complete Metabolic Panel 06/26/25 * N-Terminal proBNP 09/29/25 Radiology* NM Myocardial Spect Rest/Stress 01/02/25 [facility] Evaluation noteNo assessment information available [facility] Work Phone: Evaluation note* Diagnosis Shuffling gait- Primary Abnormality of gait Tremor Abnormal involuntary movements Lightheadedness Dizziness and giddiness documented in this [facility] Diagnosis Onset Date Resolution Status Admit Date Agitation acute April 26, 10:44am Elevated blood pressure read ing with diagnosis of hypertension acute A ugust 2024 10:44am History of stroke in adulthood acute April 26, 2025 10:44am Metabolic alkalemia acute Augus t 2024 10:44am Chronic kidney insufficiency chronic April 26, 2025 10:44am [facility] Work Phone: Hospital Discharge instructions No data available for this section [facility] Progress note No data available for this section [facility] Reason for referral (narrative)No reason for referral [facility] Work Phone: Summary Purpose Family History No Family History Records Found Advance Directives Advance Directive Response Recorded Date/ Time Do you have a Healthcare Power of Ice Seller? No April 26, 2025 8:04am Chief Complaint and Reason for Visit Chief Complaint Admit Date LEXISCAN SYNCOPE February 07, 2025 6:44a m Chief Complaint Admit Date LEXISCAN SYNCOPE February 07, 2025 6:44a m AMS April 26, 2025 10 :44am Reason for Visit Admit Date Agitation April 26, 2025 10 :44am Elevated blood pressure read ing with diagnosis of hypertension April 26, 2025 10:44am History of stroke in adulthood April 262024 10:44am Metabolic alkalemia April 26, 2025 10 :44am Chronic kidney insufficiency April 10:44am Additional Source Comments Care Team (unrecognized sect ion and content) Personnel Name: EDWINA CHEN DO Address: Address: [address] [place] [phone] [place] Name: PrabhaHayden PT Patient Care team informatio n (unrecognized section and content) Team Status: Active Member Role Status Dates Dr. Iesha Lu DO Primary Care Provider Active Team Status: Inactive Member Role Status Dates Dr. Carol Ann Sandoval MD Attending Provider Active Start: February 07, 2025 End: February 07, 2025 Dr. Carol Ann Sandoval MD Referring Provider Active Start: February 07, 2025 End: February 07, 2025 Dr. Iesha Lu DO Primary Care Provider Active Start: February 07, 2025 End: February 07, 2025 Team Status: Active Member Role Status Dates Dr. Iesha Lu DO Primary Care Provider Active Start: February 07, 2025 Dr. 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 Iesha Lu DO Primary Care Provider Active Team Status: Inactive Member Role/Relationship Status Dates Dr. Carol Ann Sandoval MD Attending Provider Active Start: February 07, 2025 End: February 07, 2025 Dr. Carol Ann Sandoval MD Referring Provider Active Start: February 07, 2025 End: February 07, 2025 Dr. Iesha Lu DO Primary Care Provider Active Start: February 07, 2025 End: February 07, 2025 Team Status: Active Member Role/Relationship Status Dates Dr. Iesha Lu DO Primary Care Provider Active Start: February 07, 2025 Dr. Lisandro Virk MD Attending Provider Active Start: February 07, 2025 Team Status: Active Member Role/Relationship Status Dates Dr. Iesha Lu DO Primary Care Provider Active Start: April 26, 2025 Dr. Wing Simmons MD Emergency Provider Active Sta rt: April 26, 2025 Dr. Ugo Perera MD Admit Provider Active Sta rt: April 26, 2025 Dr. Ugo Perera MD Attending Provider Active Start: April 26, 2025 (unrecognized sect ion and content) No Status Records FoundNo Status Records FoundNo Status Records Found INFORMATION SOURCE (unrecogn ized section and content) DATE CREATED AUTHOR 12/23/2023 [facility] ([place]) DATE CREATED AUTHOR AUTHOR'S ORGANIZ ATION 02/14/2025 [facility] DATE CREATED AUTHOR AUTHOR'S ORGANIZ ATION 04/07/2025 [facility] Goals (unrecognized section and content) Goals may be documented in a n alternate section Source Comments (unrecognize d section and content) In the event this informatio n is protected by the Federal Confidentiality of Alcohol and Drug Abuse Patient Records regulations: The Federal rules restrict any use of the information to criminally investigate or prosecute any alcohol or drug abuse patient.[facility] FOR RECORDS PERTAINING TO PATIENTS WHO ARE OR HAVE BEEN ENROLLED IN A CHEMICAL DEPENDENCY/SUBSTANCEABUSE PROGRAM, SOME INFORMATION MAY BE OMITTED. This clinical summary was aggregated from multiple sources. Caution should be exercised in using it in the provision of clinical care. This summary normalizes information from multiple sources, and as a consequence, information in this document may materially change the coding, format and clinical context of patient data. In addition, data may be omitted in some cases. CLINICAL DECISIONS SHOULD BE BASED ON THE PRIMARY CLINICAL RECORDS. [facility]. provides no warranty or guarantee of the accuracy or completeness of information in this document.
--- NOTE | 2025-04-27 14:56 | PCM.PN.HOSP ---
Reason for Visit Chief Complaint: Altered mental status/speech abnormality today in the morning Objective Data Objective Data Vital Signs: Vital Signs Temp Pulse Resp BP Pulse Ox O2 Del Method 97.5 F L 93 18 148/70 H 96 Room Air 04/27/25 03:45 04/27/25 03:45 04/27/25 03:45 04/27/25 03:45 04/27/25 03:45 04/27/25 08:00 Oxygen Delivery Method Room Air Weight: 144 lb 9.972 oz Body Mass Index (BMI) 22.6 Intake & Output: Intake and Output for Last 24 Hours 04/25/25 04/26/25 04/27/25 23:59 23:59 23:59 Intake Total 1000 / 1000 1000 / 1000 Output Total 1600 / 1600 250 / 250 Balance -600 / -600 750 / 750 Lab / Micro Data 04/27/25 04:14 04/27/25 04:14 Labs: Laboratory Results - last 24 hr 04/26/25 08:15: Magnesium 2.1 04/27/25 00:29: POC Glucose 108 H 04/27/25 04:14: WBC 9.8, RBC 4.99, Hgb 14.8, Hct 43.1, MCV 86.4, MCH 29.7, MCHC 34.3, RDW Std Deviation 39.7, RDW Coeff of Tim 12.7, Plt Count 223, MPV 10.7, Immature Gran % (Auto) 0.300, Neut % (Auto) 78.4 H, Lymph % (Auto) 11.5 L, [place] % (Auto) 9.4, Eos % (Auto) 0.1, Baso % (Auto) 0.3, Absolute Neuts (auto) 7.7, Absolute Lymphs (auto) 1.12, Nucleated RBC % 0, Sodium 139, Potassium 3.6, Chloride 104, Carbon Dioxide 18.0 L, Anion Gap 17 H, BUN 24 H, Creatinine 1.44 H, Estim Creat Clear Calc 36.70 L, Est GFR (MDRD) Non-Af 49 L, BUN/Creatinine Ratio 16.5, Glucose 133 H, Hemoglobin A1c 6.2 H, Calcium 9.3, Triglycerides 68, Cholesterol 134, LDL Cholesterol, Calc 59, VLDL Cholesterol 14, HDL Cholesterol 61, Cholesterol/HDL Ratio 2.20, TSH 0.374 04/27/25 06:16: POC Glucose 145 H Radiography Diagnostic Testing: Radiology Impression Brain MRI 04/26/25 11:28 IMPRESSION: Motion artifact. No evidence of ischemia at this time. Chronic microvascular ischemic changes, volume loss. Reading Location: [id number] Physical Exam Narrative Seen and examined twice in the morning and then afternoon Patient was restless and agitated pulled his Betancourt catheter yesterday. No fever. Dry mouth and his speech is better. Patient is more comprehendible with regards to his speech. Still disoriented to time and place. Still sees his 74 but his home address correct. In the afternoon around 1:45 PM: Patient was very agitated, thrashing his all 4 extremities and rotating on the bed. Physical exam General: Awake, restless, disoriented to time place. Mildly agitated and restless HEENT: Atraumatic, PERRLA, EOMI, Normocephalic. Oral: Oral mucosa very dry. Neck: Supple, No JVD, Negative Carotid Bruits Chest wall/Lungs: Air entry diminished in bilateral lung bases. Mild coarse crepitations Cardiovascular: Regular rate and rhythm, Normal S1,S2, No M/G/R Abdomen: Bowel Sounds Present, Soft, Non Tender, Non-Distended : No dysuria. No renal angle tenderness. No suprapubic tenderness. Extremities: No edema, Capillary Refill Less than 3 Seconds Skin: No rashes, No breakdown Musculoskeletal: No Tenderness to Palpation of Joints or Extremities. 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 Thrashing movement does not look like seizure. Language deficit and dysarthria improved. No stroke Psych/Mental Status: Flat affect Assessment & Plan Assessment/Plan (1) Altered mental status: PLAN: Plan This is a 84-year-old gentleman being admitted chiefly for altered mental status/language deficit and dysarthria 1. Mental status/language deficit both receptive and motor and dysarthria: Exact etiology unclear but possible metabolic encephalopathy/seizure or stroke. CT head does not show acute change. Usually he does not think it is stroke but most likely due to scopolamine adverse effect. MRI brain ordered. NIH stroke scale until MRI rules out a stroke. PT OT and speech evaluation. Twelve-lead EKG shows NSR 86 bpm. QTc 435 ms. TSH and A1c ordered for tomorrow a.m. 04/27/still disoriented to time and place. Could not sleep last night. Started on low-dose risperidone 0.25 mg twice daily. MRI brain does not show acute infarct with no evidence of ischemia. Motion artifact. Chronic microvascular changes with mild volume loss. EEG ordered. Teleneurology consult. the patient last evening was little agitated but in the morning his agitation got worse and in afternoon worse. About 1:03 PM, 2 mg IV Haldol and 12.5 mg IM Phenergan was given. Prior to that Risperdal 2.5 mg twice daily was started. Patient not able to take oral therefore Klonopin not given. He is not oriented, follows command or redirectable, agitated and extremities gets rigid with thrashing of all 4 extremities. He is being transferred to ICU to start on Precedex drip. Discussed with Dr. Rodriguez 2 times. She recommended Klonopin 0.5 mg twice daily scheduled agent once it is safe to give oral. 2. Hypertension: Patient's showed me metoprolol succinate, midodrine. 3. Dyslipidemia: Atorvastatin 40 mg daily. Fasting lipid profile tomorrow. 4. Recently stroke in January 04: Surprisingly, patient not on aspirin or Plavix with history of stroke in December 2024. Rectal aspirin and statin ordered. 5. Kidney dysfunction: BUN/creatinine 37/1.72, estimated creatinine clearance about 30 mL/min. Unclear whether it is acute or chronic. 6. Hyperglycemia: Glucose 130. A1c tomorrow a.m. DVT prophylaxis: Lovenox 30 mg subcu daily Living will/advanced directive/end of life care: Patient does have living will or advanced directive. His , blossom is power of bankruptcy attorney for healthcare. After discussion of benefits/risks procedures involved with full code, DNR CC arrest and DNR CC, the patient side opted for DNR CC arrest with no intubation. Patient doesn't want artificial life support including intubation, tube feed, ventilator and/chest compression, central venous catheter, vasopressor and DC shock if needed Total time spent in [id number] encounter in discussion of advanced directive 17 minutes. Laboratory Results 04/26/25 08:19: Specimen Type ART, Sample Site L Brach, pH 7.48 H, Bicarbonate Actual 28.6 H, Total CO2 30, Base Excess 5 H, O2 Saturation 95, O2 % 2.0, ABG pCO2 38.2, ABG pO2 70 L, O2 Delivery Device Cannula, Vent Mode Not entered 04/26/25 08:24: Urine Color Yellow, Urine Clarity Clear, Urine pH 6.5, Ur Specific [place] 1.015, Urine Protein 30 H, Urine Glucose (UA) Normal, Urine Ketones Negative, Urine Occult Blood 10 H, Urine Nitrite Negative, Urine Bilirubin Negative, Urine Urobilinogen Normal, Ur Leukocyte Esterase Negative, Urine RBC 0 SEEN, Urine WBC 0 SEEN, Ur Squamous Epith Cells 0 SEEN, Urine Bacteria 0 SEEN, Urine Mucus 0 SEEN Laboratory Results 04/27/25 00:29: POC Glucose 108 H 04/27/25 04:14: WBC 9.8, RBC 4.99, Hgb 14.8, Hct 43.1, MCV 86.4, MCH 29.7, MCHC 34.3, RDW Std Deviation 39.7, RDW Coeff of Tim 12.7, Plt Count 223, MPV 10.7, Immature Gran % (Auto) 0.300, Neut % (Auto) 78.4 H, Lymph % (Auto) 11.5 L, [place] % (Auto) 9.4, Eos % (Auto) 0.1, Baso % (Auto) 0.3, Absolute Neuts (auto) 7.7, Absolute Lymphs (auto) 1.12, Nucleated RBC % 0, Sodium 139, Potassium 3.6, Chloride 104, Carbon Dioxide 18.0 L, Anion Gap 17 H, BUN 24 H, Creatinine 1.44 H, Estim Creat Clear Calc 36.70 L, Est GFR (MDRD) Non-Af 49 L, BUN/Creatinine Ratio 16.5, Glucose 133 H, Hemoglobin A1c 6.2 H, Calcium 9.3, Triglycerides 68, Cholesterol 134, LDL Cholesterol, Calc 59, VLDL Cholesterol 14, HDL Cholesterol 61, Cholesterol/HDL Ratio 2.20, TSH 0.374 04/27/25 06:16: POC Glucose 145 H Clinical Impression(s) from Imaging Studies Chest X-Ray 04/26/25 08:08 IMPRESSION: No Acute Findings. Reading Location: [facility] 04/26/25 08:09 IMPRESSION: CHRONIC CHANGES. NO ACUTE FINDINGS. Reading Location: [facility] Brain MRI 04/26/25 11:28 IMPRESSION: Motion artifact. No evidence of ischemia at this time. Chronic microvascular ischemic changes, volume loss. Charges/Coding Addendum Addendum: Total time of the visit including total time spent in counseling or coordination of care, (more than 50% of the total time, spent in obtaining medical information from nurses and other ancillary care providers ,explaining to the patient about labs, imaging, diagnosis and management of active complex medical conditions), involuntary musculoskeletal movement, agitation, examined twice, review of labs and imaging and discussion with patient's and neurologist is 45 minutes. Patient transferred to ICU Visit Charges Inpatient E&M: 13771 Subs Hosp L3 NIHSS NIHSS Nursing Documentation NIHSS Nursing Documentation: NIHSS: Ischemic Stroke/TIA Start: 04/26/25 11:44 Text: For ICU Patients: NIH sroke scale at Status: Complete presentation and every 2 hours or with change in RN caregiver Freq: [id number] Protocol: Activity Type Activity Date Activity User E-sign Co-sign Detail Recorded Client Recorded Date Recorded By Document 04/26/25 12:00 ML [id number] 04/26/25 12:47 ML 04/26/25 12:00 NIH Stroke Scale [NIHSS] A score of 0 is normal or asymptomatic . Total possible score is 42. Inpatient: RN or Physician to activate a stroke alert for onset of new stroke symptoms or with NIHSS increase >/= 3 points. Following change in neurological status, NIHSS will be performed per physician order or more frequently PRN. -1a. Level of Consciousness 0 - Alert; keenly responsive -1b. LOC Questions 2 - Answers NEITHER question correctly -1c. LOC Commands 2 - Performs NEITHER task correctly -2. Best Gaze 0 - Normal -3. Visual 0 - No visual loss -4. Facial Palsy 0 - Normal symmetrical movements -5a. Left Arm 3 - No effort against gravity ; arm falls -5b. Right Arm 3 - No effort against gravity ; arm falls -6a. Left Leg 3 - No effort against gravity ; leg falls to bed immediately -6b. Right Leg 3 - No effort against gravity ; leg falls to bed immediately -7. Limb Ataxia 2 - Present in 2 limbs -8. Sensory 2 - Severe to total sensory loss; -9. Best Language 2 - Severe aphasia; -10. Dysarthria 2 - Severe dysarthria; -11. Extinction and Inattention 1 - Visual, tactile, auditory, spatial, or personal inattention; -Total 25 Query Text:A score of 0 is normal or asymptomatic. Total possible score is 42 . ED: Notify Physician for NIHSS increase by > / = 3 points. Inpatient: RN or Physician to activate a stroke alert for NIHSS increase of > / = 3 points. Coma Scale [Assess] -Eye Opening Spontaneous -Motor Withdraws to Pain -Verbal Incomprehensibl e [Total] -Coma Scale Total 10
--- OUTSIDE RECORDS SUMMARY | 2025-04-27 15:57 | XMS RPT_ITS | CCD ---
Author Organization [facility] Care Team Providers Care Svp Monetization Name Role Phone EDWINA CHEN DO Primary Care Physician Prabha PT, Johana Unavailable Unavailable EDWINA CHEN DO Primary Care Unavailable EDWINA CHEN DO Attending Unavailable EDWINA CHEN DO Attending Unavailable EDWINA CHEN DO Primary Care Unavailable Lisandro Virk Attending Unavailable Iesha Lu Primary Care Unavailable Iesha Lu Primary Care Unavailable Carol Ann Sandoval Attending Unavailable Carol Ann Sandoval Referring Unavailable Dr. Carol Ann Sandoval MD Attending Provider [phone] Dr. Carol Ann Sandoval MD Referring Provider [phone] Dr. Iesha Lu DO Primary Care Provider [phone] Dr. Lisandro Virk MD Attending Provider IESHA [...] Provider Trever SHAW, Dr. Arizmendi Admit Provider [phone] Trever SHAW, Dr. Arizmendi Attending Provider Allergies Allergy Classification Reported Allergen(s) Allergy Type Date of Onset Reaction(s) Facility (10 sources) Doxycycline; Translations: [doxycycline] Drug Allergy 5 PT UNABLE TO RESPOND-NEEDS F/U [facility] (9 sources) Tetracycline (class of antibiotic); Translations: [tetracyclines] Drug allergy Rash [facility] (1 source) oxyCODONE Drug Allergy 5 PT UNABLE TO RESPOND-NEEDS F/U [facility] Medications Current Medications Medication Drug Class(es) Dates Sig (Normalized) Sig (Original) amLODIPine 5 mg oral tablet (4 sources) Dihydropyridine Calcium Channel Sole Start: 07-05-2024 amLODIPine 5 mg oral tablet Dose : 5 mg = 1 tab(s), Oral, qDay, # 90 tab(s), 3 Refill(s), Pharmacy: [facility]/pharmacy #[id number], 169, cm, 07/05/24 14:31:00 EDT, Height, kg, 07/05/24 14:31:00 EDT, Dosing Weight Start Date: 07/05/24 Status: Ordered Start: 06-23-2023 amLODIPine 5 m g oral tablet Dose : 5 mg = 1 tab(s), Oral, qDay, # 90 tab(s), 3 Refill(s), Pharmacy: [facility]/pharmacy #[id number], 168, cm, 06/23/23 8:01:00 EDT, Height, kg, 06/23/23 8:01:00 EDT, Dosing Weight Start Date: 06/23/23 Status: Ordered Start: 03-08-2022 amLODIPine 5 m g oral tablet Dose : 5 mg = 1 tab(s), Oral, qDay, # 90 tab(s), 3 Refill(s), Pharmacy: [facility]/pharmacy #[id number], 170, cm, 03/08/22 8:38:00 EDT, Height, kg, 03/08/22 8:38:00 EDT, Dosing Weight Start Date: 03/08/22 Status: Ordered glycopyrrolate 1 mg oral tablet (1 source) Start: 12-22-2023 End: 03-21-2024 glycopyrrolate 1 mg oral tablet Dose : 1 mg = 1 tab(s), Oral, qDay, PRN drooling, X 30 day(s), # 30 tab(s), 2 Refill(s), 03/21/24 10:11:00 AM EDT, Pharmacy: [facility]/pharmacy #[id number], Drooling from left side of mouth, 170, cm, 12/22/23 9:30:00 EDT, Height, kg, 12/22/23 9:30:00 EDT, Dosing Weight Start Date: 12/22/23 Stop Date: 03/21/24 Status: Ordered hydroCHLOROthiazide 12.5 mg oral tablet (1 source) Thiazide Diuretic Start: 03-08-2022 hydroCHLOROthiazide 12.5 mg oral tablet Dose : 12.5 mg = 1 tab(s), Oral, qDay, # 90 tab(s), 3 Refill(s), Pharmacy: [facility]/pharmacy #[id number], 170, cm, 03/08/22 8:38:00 EDT, Height, [...] qDay, # 90 tab(s), 3 Refill(s), Pharmacy: [facility]/pharmacy #[id number], 169, cm, 07/05/24 14:31:00 EDT, Height, kg, 07/05/24 14:31:00 EDT, Dosing Weight Start Date: 07/05/24 Status: Ordered Quantity: 90.0 Unit: tab(s) Repeat number: 4 Start: 06-23-2023 losartan 50 mg oral tablet Dose : 50 mg = 1 tab(s), Oral, qDay, # 90 tab(s), 3 Refill(s), [id number] 168, cm, 06/23/23 8:01:00 EDT, Height, kg, 06/23/23 8:01:00 EDT, Dosing Weight Start Date: 06/23/23 Status: Ordered Start: 03-08-2022 losartan 50 mg oral tablet Dose : 50 mg = 1 tab(s), Oral, qDay, # 90 tab(s), 3 Refill(s), [id number], 170, cm, 03/08/22 8:38:00 EDT, [...] release), # 90 tab(s), 1 Refill(s), [id number], 169, cm, 01/03/25 10:33:00 EDT, [...] tab(s) Repeat number: 7 polyethylene glycol 3350 12435 mg powder for oral solution (9 sources) Osmotic Laxative Start: 06-27-2020 take 17 doses by mouth twice daily as needed for constipation MiraLax oral powder for reconstitution Dose : 17 gram(s) =, Oral, BID, PRN Constipation, # 255 gram(s), 1 Refill(s), Pharmacy: [facility]/pharmacy #[id number], Constipation in male, 170.25, cm, 06/27/20 [...] qDay, # 90 tab(s), 3 Refill(s), [id number], 169, cm, 07/05/24 14:31:00 EDT, Height, kg, 07/05/24 14:31:00 EDT, Dosing Weight Start Date: 07/05/24 Status: Ordered Quantity: 90.0 Unit: tab(s) Repeat number: 4 Start: 06-23-2023 potassium chlo ride 8 mEq (600 mg) oral tablet, extended release Dose : 8 mEq = 1 tab(s), Oral, qDay, # 90 tab(s), 3 Refill(s), [id number], 168, cm, 06/23/23 8:01:00 EDT, Height, kg, 06/23/23 8:01:00 EDT, Dosing Weight Start Date: 06/23/23 Status: Ordered Start: 03-08-2022 potassium chlo ride 8 mEq (600 mg) oral tablet, extended release Dose : 8 mEq = 1 tab(s), Oral, qDay, # 90 tab(s), 3 Refill(s), Pharmacy: [facility]/pharmacy #[id number], 170, cm, 03/08/22 8:38:00 EDT, Height, kg, 03/08/22 8:38:00 EDT, Dosing Weight Start Date: 03/08/22 Status: Ordered rosuvastatin calcium 5 mg oral tablet (3 sources) HMG-CoA Reductase Inhibitor Start: 03-26-2025 rosuvastatin 5 mg oral tablet Dose : 5 mg = 1 tab(s), Oral, Daily, # 30 tab(s), 0 Refill(s), Pharmacy: [facility]/pharmacy #[id number], Cerebral ischemia, 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 [...] ED, # 40 tab(s), 2 Refill(s), Pharmacy: [facility]/pharmacy #[id number], 169, cm, 07/05/24 14:31:00 EDT, Height, kg, 07/05/24 14:31:00 EDT, Dosing Weight Start Date: 07/05/24 Status: Ordered Quantity: 40.0 Unit: tab(s) Repeat number: 3 Start: 06-23-2023 sildenafil 20 mg oral tablet Dose : 60 mg = 3 tab(s), Oral, Daily, PRN for ED, # 40 tab(s), 2 Refill(s), Pharmacy: [facility]/pharmacy #[id number], 168, cm, 06/23/23 8:01:00 EDT, Height, kg, 06/23/23 8:01:00 EDT, Dosing Weight Start Date: 06/23/23 Status: Ordered Start: 03-08-2022 sildenafil 20 mg oral tablet Dose : 60 mg = 3 tab(s), Oral, Daily, PRN for ED, # 40 tab(s), 2 Refill(s), Pharmacy: [facility]/pharmacy #[id number], 170, cm, 03/08/22 8:38:00 EDT, Height, [...] Auto (Unsp spec) [#/Vol] 1.73 10*3/uL 0.83-4.51 [facility] Absolute neutrophil countOrd ered By: Wing Simmons on 04-26-2025 Neutrophils (Bld) [#/Vol] 5.1 10*3/uL 2.0-7.7 [facility] Activated partial thrombopla stin time (aPTT) in platelet poor plasma by coagulation aOrdered By: Wing Simmons on 04-26-2025 aPTT Coag (PPP) [Time] 24.5 s 24.1-36.2 [facility] Anion gap in Serum or Plasma Ordered By: Wing Simmons on 04-26-2025 Anion gap [Moles/Vol] 13 mmol/L 5-15 [facility] Automated lymphocyte count a s percentage of total leukocytesOrdered By: Wing Simmons on 04-26-2025 Lymphocytes/100 WBC Auto (Unsp spec) 21.8 % 19-41 [facility] BUN/creatinine ratioOrdered By: Wingeliu Harrello on 04-26-2025 Urea nitrogen/Creatinine [Mass ratio] 21.4 mg/mg High 10-20 [facility] Basophil percentageOrdered B y: Wing Harrello on 04-26-2025 Basophils/100 WBC (Bld) 0.5 % 0-1 [facility] Bilirubin Test strip Ql (U)O rdered By: Wing Simmons on 04-26-2025 Bilirubin Ql (U) Negative Negative [facility] Bilirubin, totalOrdered By: Wingeliu Simmons on 04-26-2025 Bilirubin [Mass/Vol] 0.60 mg/dL 0.00-1.30 [facility] Blood base excess determinat ionOrdered By: Wing Simmons on 04-26-2025 Base excess Calc (BldV) [Moles/Vol] 5 mmol/L High -2-2 [facility] Blood bicarbonate measuremen tOrdered By: Wing Simmons on 04-26-2025 HCO3 (Bld) [Moles/Vol] 28.6 mmol/L High 22-26 [facility] Carbon dioxide, total [Moles /volume] in Central venous bloodOrdered By: Wing Simmons on 04-26-2025 CO2 [Moles/Vol] 23.3 mmol/L 21.0-32.0 [facility] Chloride assayOrdered By: Riley Simmons on 04-26-2025 Chloride [Moles/Vol] 104 mmol/L 98-108 [facility] Eosinophil percentageOrdered By: Wing Simmons on 04-26-2025 Eosinophils/100 WBC (Bld) 2.3 % 0-5 [facility] Erythrocyte distribution wid th ratioOrdered By: Wing Simmons on 04-26-2025 Erythrocyte distribution width (RBC) [Ratio] 12.9 % 11.6-14.6 [facility] Erythrocyte distribution wid th standard deviationOrdered By: Wingeliu Simmons on 04-26-2025 Erythrocyte distribution width (RBC) [Ratio] 41.0 fl 35.1-43.9 [facility] Glomerular filtration rate ( GFR) estimation/1.73 sq m using serum, plasma, or whole bOrdered By: Wingeliu Simmons on 04-26-2025 GFR/1.73 sq M.predicted among non-blacks MDRD (S/P/Bld) [Vol rate/Area] 39 mL/min/{1.73_m2} Low >60 [facility] Comment on above: mL/min/1.73m2 CKD-EP I Creatinine Equation (2020) Hematocrit Auto (Bld) [Volum e fraction]Ordered By: Wing Simmons on 04-26-2025 Hematocrit (Bld) [Volume fraction] 42.3 % 40-54 [facility] Hemoglobin measurementOrdere d By: Wing Simmons on 04-26-2025 Hemoglobin (Bld) [Mass/Vol] 14.4 g/dL 13.0-16.5 [facility] Immature granulocytes/100 WB C Auto (Bld)Ordered By: Wing Simmons on 04-26-2025 Immature granulocytes/100 WBC (Bld) 0.400 % 0.0-0.9 [facility] Comment on above: IG% - Immature Granu locytes (promyelocytes, myelocytes and metamyelocytes) > 1% indicates that a LEFT SHIFT is Present. International normalized rat io (INR) calculationOrdered By: Wingeliu Simmons on 04-26-2025 INR Coag (Bld) [Relative time] 1.1 {INR} [facility] Ketones Test strip Ql (U)Ord ered By: Wing Simmons 04-26-2025 Ketones Ql (U) Negative Negative [facility] Laboratory - Chemistry and C hemistry - challengeOrdered By: Wingeliu Simmons 04-26-2025 AST [Catalytic activity/Vol] 24 U/L <38 [facility] Lactic acid measurementOrder ed By: Wing Simmons on 04-26-2025 Lactate [Moles/Vol] 1.1 mmol/L 0.0-2.0 [facility] MCV (mean corpuscular volume ) determinationOrdered By: Wing Simmons on 04-26-2025 MCV (RBC) [Entitic vol] 87.4 fL 80-94 [facility] Mean corpuscular hemoglobin (MCH) determinationOrdered By: Wing Simmons on 04-26-2025 MCH (RBC) [Entitic mass] 29.8 pg 27.0-32.0 [facility] Mean corpuscular hemoglobin concentration (MCHC) determinationOrdered By: Wing Simmons on 04-26-2025 MCHC (RBC) [Mass/Vol] 34.0 g/dL 32-36 [facility] Mean platelet volume determi nationOrdered By: Wing Simmons on 04-26-2025 Platelet mean volume (Bld) [Entitic vol] 10.4 fL 6.2-12.0 [facility] Measurement, pHOrdered By: Xenia Simmons on 04-26-2025 pH (Unsp spec) 7.48 [pH] High 7.35-7.45 [facility] Microscopic analysis of urin e for red blood cells (RBC)Ordered By: Wing Simmons on 04-26-2025 Microscopic analysis of urine for red blood cells (RBC) 0 SEEN /hpf 0-5 [facility] Monocyte percentageOrdered B y: Wing Simmons on 04-26-2025 Monocytes/100 WBC (Bld) 11.0 % High 0-10 [facility] Mucus LM Ql (Urine sed)Order ed By: Wing Simmons on 04-26-2025 Mucus Ql (Urine sed) 0 SEEN /hpf [facility] Neutrophil percentageOrdered By: Wing Simmons on 04-26-2025 Neutrophils/100 WBC (Bld) 64.0 % 47-70 [facility] Nitrite Test strip Ql (U)Ord ered By: Wing Simmons on 04-26-2025 Nitrite Ql (U) Negative Negative [facility] No Panel InformationOrdered By: Wing Simmons on 04-26-2025 Blood Gas Sample Site L Brach [facility] Blood Gas Specimen Type ART [facility] Blood Gas Vent Mode Not entered [facility] Oxygen Delivery Device Cannula [facility] Nucleated red blood cell per centageOrdered By: Wing Simmons on 04-26-2025 Nucleated RBC/100 WBC (Bld) [Ratio] 0 % 0-5 [facility] Platelet countOrdered By: Riley Simmons on 04-26-2025 Platelets (Bld) [#/Vol] 217 10*3/uL 150-450 [facility] Potassium measurement (mass/ volume)Ordered By: Wing Simmons on 04-26-2025 Potassium (Unsp spec) [Mass/Vol] 4.1 mmol/L 3.3-5.1 [facility] Protein Test strip Ql (U)Ord ered By: Wing Simmons on 04-26-2025 Protein Ql (U) 30 mg/dl High Negative [facility] Prothrombin timeOrdered By: Wing Simmons on 04-26-2025 PT Coag (PPP) [Time] 14.2 s 11.7-14.9 [facility] RBC Auto (Bld) [#/Vol]Ordere d By: Wing Simmons on 04-26-2025 RBC (Bld) [#/Vol] 4.84 10*6/uL 4.6-6.2 [facility] Serum creatinine measurement (mass/volume)Ordered By: Wing Simmons on 04-26-2025 Creatinine [Mass/Vol] 1.72 mg/dL High 0.70-1.20 [facility] Serum globulin measurementOr dered By: Wing Simmons on 04-26-2025 Globulin (S) [Mass/Vol] 3.2 g/dL 2.2-4.2 [facility] Serum glucose measurement (m ass/volume)Ordered By: Wing Simmons on 04-26-2025 Glucose [Mass/Vol] 113 mg/dL High 70-99 [facility] Serum or plasma alanine yo otransferase (ALT) measurementOrdered By: Wing Simmons on 04-26-2025 ALT [Catalytic activity/Vol] 19 U/L <47 [facility] Serum or plasma albumin anna urement (mass/volume)Ordered By: Wing Simmons on 04-26-2025 Albumin [Mass/Vol] 4.1 g/dL 3.4-4.8 [facility] Serum or plasma albumin/glob ulin mass ratioOrdered By: Wing Simmons on 04-26-2025 Albumin/Globulin [Mass ratio] 1.3 {ratio} 0.9-2.4 [facility] Serum or plasma alkaline dutch sphatase measurementOrdered By: Wing Simmons on 04-26-2025 ALP [Catalytic activity/Vol] 71 U/L 40-129 [facility] Serum or plasma calcium anna urement (mass/volume)Ordered By: Wing Simmons on 04-26-2025 Calcium [Mass/Vol] 9.7 mg/dL 7.6-11.0 [facility] Serum or plasma urea nitroge n measurement (mass/volume)Ordered By: Wing Simmnos on 04-26-2025 Urea nitrogen [Mass/Vol] 37 mg/dL High 4-19 [facility] Sodium levelOrdered By: Wing Simmons on 04-26-2025 Sodium [Moles/Vol] 140 mmol/L 133-145 [facility] Squamous epithelial cells de tection in urine sediment by light microscopyOrdered By: Wing Simmons 04-26-2025 Epithelial cells.squamous LM Ql (Urine sed) 0 SEEN /hpf 0-5 [facility] Total carbon dioxide measure mentOrdered By: Wing Simmons on 04-26-2025 CO2 [Moles/Vol] 30 mmol/L [facility] Total proteinOrdered By: Wing Simmons on 04-26-2025 Protein [Mass/Vol] 7.2 g/dL 5.9-8.4 [facility] Urine clarityOrdered By: Wing Simmons 04-26-2025 Clarity (U) Clear Clear [facility] Urine color determinationOrd ered By: Wing Simmons on 04-26-2025 Color (U) Yellow Yellow [facility] Urine glucose detectionOrder ed By: Wing Simmons on 04-26-2025 Glucose Ql (U) Normal mg/dl Normal [facility] Urine leukocyte esterase det ection by dipstickOrdered By: Wing Simmons on 04-26-2025 Leukocyte esterase Test strip Ql (U) Negative Negative [facility] Urine pHOrdered By: Wing nowak on 04-26-2025 pH (U) 6.5 [pH] 5.0 - 8.0 [facility] Urine sediment bacteria coun t by microscopy (number/high power field)Ordered By: Wing Simmons on 04-26-2025 Bacteria LM.HPF (Urine sed) [#/Area] 0 /[HPF] None Seen [facility] Urine specific gravity measu rementOrdered By: Wingeliu Simmons on 04-26-2025 Specific gravity (U) [Rel density] 1.015 1.002-1.030 [facility] Urine urobilinogen measureme ntOrdered By: Wingeliu Simmons on 04-26-2025 Urobilinogen Ql (U) Normal mg/dl Normal [facility] White blood cell (WBC) count Ordered By: Wingeliu Simmons on 04-26-2025 WBC (Bld) [#/Vol] 7.9 10*3/uL 4.4-11.0 [facility] White blood cell countOrdere d By: Wing Simmons on 04-26-2025 White blood cell count 0 SEEN /hpf 0-5 [facility] BD BONE DENSITY DEXA AXIAL S [facility] 04-01-2025 BD BONE DENSITY DEXA AXIAL SKELETON [...] 04/01/2025 11:27:47 AM Ordering Provider: IESHA LU [facility] CT SPINE CERVICAL W/ CONTRAS Ton 03-29-2025 [...] 03/29/2025 12:59:08 PM Ordering Provider: IESHA LU [facility] .GFRon 03-26-2025 Estimated Glomerular Filtration Rate 37 ml/min/1.73sqm [facility] Comment on above: Result Comment: Stages of [...] Performed By: #### B MP, GFR #### [address] [address] BMPon 03-26-2025 BUN/Creatinine Ratio 19 ratio Normal 7-27 [facility] Comment on above: Performed By: #### B MP, GFR #### [address] [address] Calcium [Mass/Vol] 9.4 mg/dL Normal 8.4-10.2 [facility] Comment on above: Performed By: #### B MP, GFR #### [address] [address] Chloride [Moles/Vol] 103 mmol/L Normal 98-107 [facility] Comment on above: Performed By: #### B MP, GFR #### [address] [address] CO2 [Moles/Vol] 30 mmol/L Normal 23-31 [facility] Comment on above: Performed By: #### B MP, GFR #### [address] [address] Creatinine [Mass/Vol] 1.81 mg/dL High 0.67-1.17 [facility] Comment on above: Performed By: #### B MP, GFR #### [address] [address] Electrolyte Balance 6.0 mEq/L Normal 4.0-15.0 [facility] Comment on above: Performed By: #### B MP, GFR #### [address] [address] Glucose [Mass/Vol] 104 mg/dL Normal 83-110 [facility] Comment on above: Performed By: #### B MP, GFR #### [address] [address] Potassium [Moles/Vol] 4.3 mmol/L Normal 3.5-5.1 [facility] Comment on above: Performed By: #### B MP, GFR #### [address] [address] Sodium [Moles/Vol] 139 mmol/L Normal 136-145 [facility] Comment on above: Performed By: #### B MP, GFR #### [address] [address] Urea nitrogen [Mass/Vol] 34 mg/dL High 7-18 [facility] Comment on above: Performed By: #### B MP, GFR #### [address] [address] LABORATORYOrdered By: SYSTEM SYSTEM on 03-26-2025 Calcium [...] By: Lisandro Virk on 02-07-2025 Study report [facility] [address] [place] [address] MR#: [id number] Acct: [id number] Name: JAZLYN NGO Rep #: [id number] [...] of 91%. This note was generated with [employer] software. It may contain incorrectwords, spelling, and punctuation that were not noted in checking the note beforesigning. 02/07/25 1557 Date _ Lisandro Virk MD CC: Dr. Carol Ann Sandoval MD; Dr. Iesha Lu, ~ Date Dictated: 02/07/251545 Date Transcribed: 02/07/251545 Screw Machine Tender: PARKER Zee [facility] Work Phone: Echo Complete W/ Contraston 02-07-2025 Echo Complete W/ Contrast [facility] [place] [address] Echo Complete W/ Contrast 02/07/25 0827 MR#: [id number] Acct: [id number] Name: JAZLYN NGO Rep #: [id number] : 1940 84 From: Lisandro Virk MD [...] DO Date Dictated: 02/07/25826 Date Transcribed: 02/07/251235 Screw Machine Tender: Signed Normal [facility] Echocardiogram study reportO rdered By: Lisandro Virk on 02-07-2025 Study report [facility] [address] [place] [address] Echo Complete W/ Contrast 02/07/25826 MR#: [id number] Acct: [id number] Name: JAZLYN NGO Rep #:[id number] : 1940 84 From: Lisandro Virk MD Attending Dr: Dr. Carol Ann Sandoval MD Status: REG CLI Ordering Dr: Carol Ann Sandoval MD Date: 02/07/25 Location: [facility] Sex: M C Admitted: Reason For Study [...] Date Dictated: 02/07/25826 Date Transcribed: 02/07/25 123 Screw Machine Tender: Signed [facility] Work Phone: Stress Reporton 02-07-2025 Stress Report [facility] [address] [place] [id number] MR#: [id number] Acct: [id number] Name: JAZLYN NGO Rep #: [id number] : 1940 84 From: Lisandro Virk MD [...] of 91%. This note was generated with [employer] software. It may contain incorrect words, spelling, and punctuation that were not noted in checking the note before signing. 02/07/25 1557 Date Lisandro Virk MD CC: Dr. Carol Ann Sandoval MD; Dr. Iesha Lu DO Date Dictated: 02/07/25 154 Date Transcribed: 02/07/251545 Screw Machine Tender: PARKER Signed [facility] .GFRon 01-03-2025 Estimated Glomerular Filtration Rate 34 ml/min/1.73sqm [facility] Comment on above: Result Comment: Stages of [...] Performed By: #### B MP, GFR #### [address] [address] BMPon 01-03-2025 BUN/Creatinine Ratio 18 ratio Normal 7-27 [facility] Comment on above: Performed By: #### B MP, GFR #### [address] [address] Calcium [Mass/Vol] 9.3 mg/dL Normal 8.4-10.2 [facility] Comment on above: Performed By: #### B MP, GFR #### [address] [address] Chloride [Moles/Vol] 106 mmol/L Normal 98-107 [facility] Comment on above: Performed By: #### B MP, GFR #### [address] [address] CO2 [Moles/Vol] 26 mmol/L Normal 23-31 [facility] Comment on above: Performed By: #### B MP, GFR #### [address] [address] Creatinine [Mass/Vol] 1.95 mg/dL High 0.67-1.17 [facility] Comment on above: Performed By: #### B MP, GFR #### [address] [address] Electrolyte Balance 9.0 mEq/L Normal 4.0-15.0 [facility] Comment on above: Performed By: #### B MP, GFR #### [address] [place] [address] [place], [place] [address] Glucose [Mass/Vol] 104 mg/dL Normal 83-110 [facility] Comment on above: Performed By: #### B MP, GFR #### [id number] [place], [place] [address] Potassium [Moles/Vol] 4.3 mmol/L Normal 3.5-5.1 [facility] Comment on above: Performed By: #### B MP, GFR #### [address] [address] Sodium [Moles/Vol] 141 mmol/L Normal 136-145 [facility] Comment on above: Performed By: #### B MP, GFR #### [address] [address] Urea nitrogen [Mass/Vol] 35 mg/dL High 7-18 [facility] Comment on above: Performed By: #### B MP, GFR #### [address] [address] CORTon 01-03-2025 Cortisol Level 23.5 mcg/dL Normal [facility] Comment on above: Result Comment: Rolando isol AM Reference Range 6.5-26.0 mcg/dL Cortisol PM Reference Range 3.5-15.0 mcg/dL Performed By: #### B MP, GFR #### [address] [address] LABORATORYOrdered By: SYSTEM SYSTEM on 01-03-2025 Calcium [...] 01-03-2025 Cholesterol [Mass/Vol] 219 mg/dL High 0-200 [facility] Comment on above: Result Comment: Chol esterol Reference Interval: Less than 200 Desirable 200-239 Borderline high risk 240 and above High risk Performed By: #### B MP, GFR #### [address] [address] Cholesterol in HDL [Mass/Vol] 72 mg/dL High 40-60 [facility] Comment on above: Performed By: #### B MP, GFR #### [address] [address] Cholesterol in LDL [Mass/Vol] 131 mg/dL High 0-130 [facility] Comment on above: Performed By: #### B MP, GFR #### [address] [address] Triglyceride [Mass/Vol] 78 mg/dL Normal 0-150 [facility] Comment on above: Result Comment: Trig lyceride Reference Interval: Less than 150 Normal 150-199 Borderline high risk 200-499 High risk 500 or higher Very high risk Performed By: #### B MP, GFR #### [address] [address] MGon 01-03-2025 Magnesium [Mass/Vol] 2.0 mg/dL Normal 1.8-2.4 [facility] Comment on above: Performed By: #### B MP, GFR #### [address] [address] PBNPon 01-03-2025 Natriuretic peptide B (Bld) [Mass/Vol] 402 pg/mL Normal 0-450 [facility] Comment on above: Result Comment: NT-p roBNP results of less than 300 pg/mL effectively rules out acute congestive heart failure with 99% negative predictive value. Performed By: #### B MP, GFR #### [address] [address] TSHRon 01-03-2025 TSH Qn 0.50 m[IU]/L Normal 0.36-3.74 [facility] Comment on above: Performed By: #### B MP, GFR #### [place] [address] MRI BRAIN W/O CONTRASTon MRI BRAIN W/O [...] 12/14/2024 2:26:21 PM Ordering Provider: EDWINA Putnam [facility] Thomas 11-26-2024 U Ratio Alb/Cre 84 mg/G High 0-30 [facility] Comment on above: Performed By: #### B MP, GFR #### [address] [address] .Auto Diffon 10-31-2024 Basophil, Absolute 0.1 10 3/mcL Normal 0.0-0.2 [facility] Comment on above: Performed By: #### C MP, GFR, CBC, ADIFF, ANEU, VIDH, TSH #### [place] [address] #### B12 #### [address] [address] Basophils/100 WBC (Bld) 0.9 % Normal 0.0-2.5 [facility] Comment on above: Performed By: #### C MP, GFR, CBC, ADIFF, ANEU, VIDH, TSH #### [address] [address] #### B12 #### [address] [address] Eosinophil, Absolute 0.2 10 3/mcL Normal 0.0-0.7 [facility] Comment on above: Performed By: #### C MP, GFR, CBC, ADIFF, ANEU, VIDH, TSH #### [address] [address] #### B12 #### [address] [address] Eosinophils/100 WBC (Bld) 3.3 % Normal 0.0-7.0 [facility] Comment on above: Performed By: #### C MP, GFR, CBC, ADIFF, ANEU, VIDH, TSH #### [place] [address] #### B12 #### [address] [address] Lymphocyte, Absolute 1.7 10 3/mcL Normal 0.9-4.3 [facility] Comment on above: Performed By: #### C MP, GFR, CBC, ADIFF, ANEU, VIDH, TSH #### [place] [address] #### B12 #### [address] [address] Lymphocytes/100 WBC (Bld) 27.2 % Normal 20.0-40.0 [facility] Comment on above: Performed By: #### C MP, GFR, CBC, ADIFF, ANEU, VIDH, TSH #### [place] [address] #### B12 #### [address] [address] Monocyte, Absolute 0.9 10 3/mcL Normal 0.1-1.4 [facility] Comment on above: Performed By: #### C MP, GFR, CBC, ADIFF, ANEU, VIDH, TSH #### [address] [address] #### B12 #### [address] [address] Monocytes/100 WBC (Bld) 14.4 % High 2.0-13.0 [facility] Comment on above: Performed By: #### C MP, GFR, CBC, ADIFF, ANEU, VIDH, TSH #### [address] [address] #### B12 #### [address] [address] Neutrophils/100 WBC (Bld) 54.2 % Normal 50.0-75.0 [facility] Comment on above: Performed By: #### C MP, GFR, CBC, ADIFF, ANEU, VIDH, TSH #### [address] [address] #### B12 #### [address] [address] .GFRon 10-31-2024 Estimated Glomerular Filtration Rate 36 ml/min/1.73sqm Normal [facility] Comment on above: Result Comment: Stages of [...] GFR, CBC, ADIFF, ANEU, VIDH, TSH #### [address] [address] #### B12 #### [address] [address] .NEUABSon 10-31-2024 Neutrophil, Absolute 3.4 10 3/mcL Normal 2.3-8.1 [facility] Comment on above: Performed By: #### C MP, GFR, CBC, ADIFF, ANEU, VIDH, TSH #### [address] [address] #### B12 #### [address] [address] B12on 10-31-2024 Cobalamin (Vitamin B12) [Mass/Vol] 442 pg/mL Normal 211-911 [facility] Comment on above: Performed By: #### C MP, GFR, CBC, ADIFF, ANEU, VIDH, TSH #### [place] [address] #### B12 #### [place] [address] CBCon 10-31-2024 Erythrocyte distribution width (RBC) [Ratio] 13.7 % Normal 11.5-15.5 [facility] Comment on above: Performed By: #### C MP, GFR, CBC, ADIFF, ANEU, VIDH, TSH #### [address] [address] #### B12 #### [place] [address] Hematocrit (Bld) [Volume fraction] 47.4 % Normal 40.0-52.0 [facility] Comment on above: Performed By: #### C MP, GFR, CBC, ADIFF, ANEU, VIDH, TSH #### [address] [address] #### B12 #### [place] [address] Hgb 15.8 G/dL Normal 13.0-17.5 [facility] Comment on above: Performed By: #### C MP, GFR, CBC, ADIFF, ANEU, VIDH, TSH #### [place] [address] #### B12 #### [place] [address] MCH (RBC) [Entitic mass] 30.1 pg Normal 27.0-33.0 [facility] Comment on above: Performed By: #### C MP, GFR, CBC, ADIFF, ANEU, VIDH, TSH #### [place] [address] #### B12 #### [place] [address] MCHC 33.4 G/dL Normal 32.0-36.0 [facility] Comment on above: Performed By: #### C MP, GFR, CBC, ADIFF, ANEU, VIDH, TSH #### [place] [address] #### B12 #### [place] [address] MCV (RBC) [Entitic vol] 90.0 fL Normal 81.0-100.0 [facility] Comment on above: Performed By: #### C MP, GFR, CBC, ADIFF, ANEU, VIDH, TSH #### [place] [address] #### B12 #### [place] [address] Platelet 274 10 3/mcL Normal 150-450 [facility] Comment on above: Performed By: #### C MP, GFR, CBC, ADIFF, ANEU, VIDH, TSH #### [place] [address] #### B12 #### [place] [address] Platelet mean volume (Bld) [Entitic vol] 8.2 fL Normal 6.4-10.5 [facility] Comment on above: Performed By: #### C MP, GFR, CBC, ADIFF, ANEU, VIDH, TSH #### [place] [address] #### B12 #### [place] [address] RBC 5.27 10 6/mcL Normal 4.50-6.00 [facility] Comment on above: Performed By: #### C MP, GFR, CBC, ADIFF, ANEU, VIDH, TSH #### [place] [address] #### B12 #### [place] [address] WBC 6.3 10 3/mcL Normal 4.5-10.8 [facility] Comment on above: Performed By: #### C MP, GFR, CBC, ADIFF, ANEU, VIDH, TSH #### [place] [address] #### B12 #### [place] [address] CMPon 10-31-2024 Albumin Level 3.9 G/dL Normal 3.4-4.8 [facility] Comment on above: Performed By: #### C MP, GFR, CBC, ADIFF, ANEU, VIDH, TSH #### [place] [address] #### B12 #### [place] [address] Albumin/Globulin [Mass ratio] 1.0 {ratio} Low 1.1-2.5 [facility] Comment on above: Performed By: #### C MP, GFR, CBC, ADIFF, ANEU, VIDH, TSH #### [place] [address] #### B12 #### [place] [address] ALP [Catalytic activity/Vol] 100 U/L Normal 40-135 [facility] Comment on above: Performed By: #### C MP, GFR, CBC, ADIFF, ANEU, VIDH, TSH #### [place] [address] #### B12 #### [address] [address] ALT [Catalytic activity/Vol] 23 U/L Normal 16-63 [facility] Comment on above: Performed By: #### C MP, GFR, CBC, ADIFF, ANEU, VIDH, TSH #### [place] [address] #### B12 #### [place] [address] AST [Catalytic activity/Vol] 18 U/L Normal 10-40 [facility] Comment on above: Performed By: #### C MP, GFR, CBC, ADIFF, ANEU, VIDH, TSH #### [place] [address] #### B12 #### [place] [address] Bili Total 0.6 mg/dL Normal 0.2-1.0 [facility] Comment on above: Result Comment: Use of this assay is not recommended for patients undergoing treatment with eltrombopag due to the potential for falsely elevated results. Performed By: #### C MP, GFR, CBC, ADIFF, ANEU, VIDH, TSH #### [place] [address] #### B12 #### [place] [address] BUN/Creatinine Ratio 19 ratio Normal 7-27 [facility] Comment on above: Performed By: #### C MP, GFR, CBC, ADIFF, ANEU, VIDH, TSH #### [place] [address] #### B12 #### [place] [address] Calcium [Mass/Vol] 9.8 mg/dL Normal 8.4-10.2 [facility] Comment on above: Performed By: #### C MP, GFR, CBC, ADIFF, ANEU, VIDH, TSH #### [place] [address] #### B12 #### [address] [address] Chloride [Moles/Vol] 103 mmol/L Normal 98-107 [facility] Comment on above: Performed By: #### C MP, GFR, CBC, ADIFF, ANEU, VIDH, TSH #### [address] [address] #### B12 #### [address] [address] CO2 [Moles/Vol] 27 mmol/L Normal 23-31 [facility] Comment on above: Performed By: #### C MP, GFR, CBC, ADIFF, ANEU, VIDH, TSH #### [place] [address] #### B12 #### [address] [address] Creatinine [Mass/Vol] 1.85 mg/dL High 0.70-1.30 [facility] Comment on above: Result Comment: Test ing performed on Siemens Dimension EXL analyzer using a modified kinetic Kenyon technique. Performed By: #### C MP, GFR, CBC, ADIFF, ANEU, VIDH, TSH #### [place] [address] #### B12 #### [address] [address] Electrolyte Balance 9.0 mEq/L Normal 4.0-15.0 [facility] Comment on above: Performed By: #### C MP, GFR, CBC, ADIFF, ANEU, VIDH, TSH #### [place] [address] #### B12 #### [place] [address] Globulin 4.1 G/dL High 1.5-3.8 [facility] Comment on above: Performed By: #### C MP, GFR, CBC, ADIFF, ANEU, VIDH, TSH #### [place] [address] #### B12 #### [address] [address] Glucose [Mass/Vol] 111 mg/dL High 83-110 [facility] Comment on above: Performed By: #### C MP, GFR, CBC, ADIFF, ANEU, VIDH, TSH #### [address] [address] #### B12 #### [address] [address] Potassium [Moles/Vol] 4.7 mmol/L Normal 3.5-5.1 [facility] Comment on above: Performed By: #### C MP, GFR, CBC, ADIFF, ANEU, VIDH, TSH #### [address] [address] #### B12 #### [address] [address] Sodium [Moles/Vol] 139 mmol/L Normal 136-145 [facility] Comment on above: Performed By: #### C MP, GFR, CBC, ADIFF, ANEU, VIDH, TSH #### [address] [address] #### B12 #### [address] [address] Total Protein 8.0 G/dL Normal 6.4-8.2 [facility] Comment on above: Performed By: #### C MP, GFR, CBC, ADIFF, ANEU, VIDH, TSH #### [address] [address] #### B12 #### [address] [address] Urea nitrogen [Mass/Vol] 36 mg/dL High 7-18 [facility] Comment on above: Performed By: #### C MP, GFR, CBC, ADIFF, ANEU, VIDH, TSH #### [address] [address] #### B12 #### [address] [address] LABORATORYOrdered By: Anne Marie Lerner on 10-31-2024 [...] MALBRon 10-31-2024 U Creatinine 174.8 mg/dL Normal [facility] Comment on above: Performed By: #### B MP, GFR #### [facility] [address], [place] [address] U Microalb 147.2 mg/L Normal [facility] Comment on above: Performed By: #### B MP, GFR #### [address] [address] TSHon 10-31-2024 TSH Qn 0.50 m[IU]/L Normal 0.36-3.74 [facility] Comment on above: Performed By: #### C MP, GFR, CBC, ADIFF, ANEU, VIDH, TSH #### [place] [address] #### B12 #### [place] [address] VIDHon 10-31-2024 Vit. D 25-Hydroxy 36.8 ng/mL Normal [facility] Comment on above: Result Comment: Inte rpretive Values Based on Total 25(OH) Vitamin D: Deficient <20 ng/mL Insufficient 20 - <30 ng/mL Sufficient 30-100 ng/mL Performed By: #### C MP, GFR, CBC, ADIFF, ANEU, VIDH, TSH #### [place] [address] #### B12 #### [place] [address] .GFRon 07-06-2024 GFR 37 ml/min/1.73sqm Normal [facility] Comment on above: Result Comment: GFR Population [...] GFR, CBC, ADIFF, ANEU, VIDH, TSH #### [place] [id number] #### B12 #### [address] [address] GFR Non- 31 ml/min/1.73sqm Normal [facility] Comment on above: Result Comment: GFR Population [...] GFR, CBC, ADIFF, ANEU, VIDH, TSH #### [place] [address] #### B12 #### [address] [address] [facility] 07-06-2024 Albumin Level 3.9 G/dL Normal 3.4-4.8 [facility] Comment on above: Performed By: #### C MP, GFR, CBC, ADIFF, ANEU, VIDH, TSH #### [address] [address] #### B12 #### [address] [address] Albumin/Globulin [Mass ratio] 1.1 {ratio} Normal 1.1-2.5 [facility] Comment on above: Performed By: #### C MP, GFR, CBC, ADIFF, ANEU, VIDH, TSH #### [address] [address] #### B12 #### [address] [address] ALP [Catalytic activity/Vol] 81 U/L Normal 40-135 [facility] Comment on above: Performed By: #### C MP, GFR, CBC, ADIFF, ANEU, VIDH, TSH #### [address] [address] #### B12 #### [address] [address] ALT [Catalytic activity/Vol] 18 U/L Normal 16-63 [facility] Comment on above: Performed By: #### C MP, GFR, CBC, ADIFF, ANEU, VIDH, TSH #### [place] [address] #### B12 #### [place] [address] AST [Catalytic activity/Vol] 12 U/L Normal 10-40 [facility] Comment on above: Performed By: #### C MP, GFR, CBC, ADIFF, ANEU, VIDH, TSH #### [place] [address] #### B12 #### [place] [address] Bili Total 0.8 mg/dL Normal 0.2-1.0 [facility] Comment on above: Result Comment: Use of this assay is not recommended for patients undergoing treatment with eltrombopag due to the potential for falsely elevated results. Performed By: #### C MP, GFR, CBC, ADIFF, ANEU, VIDH, TSH #### [place] [address] #### B12 #### [place] [address] BUN/Creatinine Ratio 24 ratio Normal 7-27 [facility] Comment on above: Performed By: #### C MP, GFR, CBC, ADIFF, ANEU, VIDH, TSH #### [place] [address] #### B12 #### [place] [address] Calcium [Mass/Vol] 9.5 mg/dL Normal 8.4-10.2 [facility] Comment on above: Performed By: #### C MP, GFR, CBC, ADIFF, ANEU, VIDH, TSH #### [place] [address] #### B12 #### [address] [address] Chloride [Moles/Vol] 104 mmol/L Normal 98-107 [facility] Comment on above: Performed By: #### C MP, GFR, CBC, ADIFF, ANEU, VIDH, TSH #### [place] [address] #### B12 #### [place] [address] CO2 [Moles/Vol] 28 mmol/L Normal 23-31 [facility] Comment on above: Performed By: #### C MP, GFR, CBC, ADIFF, ANEU, VIDH, TSH #### [place] [address] #### B12 #### [place] [address] Creatinine [Mass/Vol] 2.09 mg/dL High 0.70-1.30 [facility] Comment on above: Result Comment: Test ing performed on Siemens Dimension EXL analyzer using a modified kinetic Kenyon technique. Performed By: #### C MP, GFR, CBC, ADIFF, ANEU, VIDH, TSH #### [place] [address] #### B12 #### [place] [address] Electrolyte Balance 10.0 mEq/L Normal 4.0-15.0 [facility] Comment on above: Performed By: #### C MP, GFR, CBC, ADIFF, ANEU, VIDH, TSH #### [place] [address] #### B12 #### [place] [address] Globulin 3.6 G/dL Normal [facility] Comment on above: Performed By: #### C MP, GFR, CBC, ADIFF, ANEU, VIDH, TSH #### [address] [address] #### B12 #### [address] [address] Glucose [Mass/Vol] 105 mg/dL Normal 83-110 [facility] Comment on above: Performed By: #### C MP, GFR, CBC, ADIFF, ANEU, VIDH, TSH #### [address] [address] #### B12 #### [address] [address] Potassium [Moles/Vol] 5.2 mmol/L High 3.5-5.1 [facility] Comment on above: Performed By: #### C MP, GFR, CBC, ADIFF, ANEU, VIDH, TSH #### [address] [address] #### B12 #### [address] [address] Sodium [Moles/Vol] 142 mmol/L Normal 136-145 [facility] Comment on above: Performed By: #### C MP, GFR, CBC, ADIFF, ANEU, VIDH, TSH #### [address] [address] #### B12 #### [address] [address] Total Protein 7.5 G/dL Normal 6.4-8.2 [facility] Comment on above: Performed By: #### C MP, GFR, CBC, ADIFF, ANEU, VIDH, TSH #### [address] [address] #### B12 #### [address] [address] Urea nitrogen [Mass/Vol] 50 mg/dL High 7-18 [facility] Comment on above: Performed By: #### C MP, GFR, CBC, ADIFF, ANEU, VIDH, TSH #### [place] [address] #### B12 #### [place] [address] LABORATORYOrdered By: SYSTEM SYSTEM on 07-06-2024 Albumin [...] .GFRon 12-22-2023 GFR Non- 34 ml/min/1.73sqm Normal Replaced By [facility] ([place]) Comment on above: Result Comment: GFR Population [...] Performed By: #### B MP, GFR #### [address] [address] GFR 41 ml/min/1.73sqm Normal Replaced By [facility] ([place]) Comment on above: Result Comment: GFR Population [...] Performed By: #### B MP, GFR #### [address] [address] BMPon 12-22-2023 BUN/Creatinine Ratio 17 ratio Normal 7-27 [facility] ([place]) Comment on above: Performed By: #### B MP, GFR #### [address] [address] Calcium [Mass/Vol] 9.5 mg/dL Normal 8.4-10.2 [facility] ([place]) Comment on above: Performed By: #### B MP, GFR #### [address] [address] Chloride [Moles/Vol] 105 mmol/L Normal 98-107 [facility] ([place]) Comment on above: Performed By: #### B MP, GFR #### [address] [address] CO2 [Moles/Vol] 26 mmol/L Normal 23-31 Replaced By [facility] ([place]) Comment on above: Performed By: #### B MP, GFR #### [address] [address] Creatinine [Mass/Vol] 1.92 mg/dL High 0.70-1.30 [facility] ([place]) Comment on above: Performed By: #### B MP, GFR #### [address] [address] Electrolyte Balance 11.0 mEq/L Normal 4.0-15.0 [facility] ([place]) Comment on above: Performed By: #### B MP, GFR #### [address] [address] Glucose [Mass/Vol] 103 mg/dL Normal 83-110 [facility] ([place]) Comment on above: Performed By: #### B MP, GFR #### [address] [address] Potassium [Moles/Vol] 5.1 mmol/L Normal 3.5-5.1 [facility] ([place]) Comment on above: Performed By: #### B MP, GFR #### [address] [address] Sodium [Moles/Vol] 142 mmol/L Normal 136-145 [facility] ([place]) Comment on above: Performed By: #### B MP, GFR #### [address] [address] Urea nitrogen [Mass/Vol] 33 mg/dL High 7-18 Replaced By [facility] ([place]) Comment on above: Performed By: #### B MP, GFR #### [address] [address] LABORATORYOrdered By: SYSTEM SYSTEM on 12-22-2023 Calcium [...] Basophil, Absolute 0.1 10 3/mcL Normal 0.0-0.2 [facility] ([place]) Comment on above: Performed By: #### A ROME, ADIFF, LIPID, CBC, GFR, CMP #### [address] [address] Basophils/100 WBC (Bld) 1.0 % Normal 0.0-2.5 A [facility] ([place]) Comment on above: Performed By: #### A ROME, ADIFF, LIPID, CBC, GFR, CMP #### [address] [address] Eosinophil, Absolute 0.2 10 3/mcL Normal 0.0-0.4 [facility] ([place]) Comment on above: Performed By: #### A ROME, ADIFF, LIPID, CBC, GFR, CMP #### [address] [address] Eosinophils/100 WBC (Bld) 2.9 % Normal 0.0-7.0 Replaced By [facility] ([place]) Comment on above: Performed By: #### A ROME, ADIFF, LIPID, CBC, GFR, CMP #### [address] [address] Lymphocyte, Absolute 1.7 10 3/mcL Normal 0.8-3.9 [facility] ([place]) Comment on above: Performed By: #### A ROME, ADIFF, LIPID, CBC, GFR, CMP #### [address] [address] Lymphocytes/100 WBC (Bld) 20.5 % Normal 10.0-50.0 Replaced By [facility] ([place]) Comment on above: Performed By: #### A ROME, ADIFF, LIPID, CBC, GFR, CMP #### [address] [address] Monocyte, Absolute 1.1 10 3/mcL High 0.2-1.0 [facility] ([place]) Comment on above: Performed By: #### A ROME, ADIFF, LIPID, CBC, GFR, CMP #### [address] [address] Monocytes/100 WBC (Bld) 13.7 % High 1.7-13.0 [facility] ([place]) Comment on above: Performed By: #### A ROME, ADIFF, LIPID, CBC, GFR, CMP #### [address] [address] Neutrophils/100 WBC (Bld) 61.9 % Normal 37.0-80.0 Replaced By [facility] ([place]) Comment on above: Performed By: #### A ROME, ADIFF, LIPID, CBC, GFR, CMP #### [address] [address] .GFRon 06-23-2023 GFR 42 ml/min/1.73sqm Normal Replaced By [facility] ([place]) Comment on above: Result Comment: GFR Population [...] ROME, ADIFF, LIPID, CBC, GFR, CMP #### [address] [address] GFR Non- 34 ml/min/1.73sqm Normal Replaced By [facility] ([place]) Comment on above: Result Comment: GFR Population [...] ROME, ADIFF, LIPID, CBC, GFR, CMP #### [place] [id number] .NEUABSon 06-23-2023 Neutrophil, Absolute 5.0 10 3/mcL Normal 2.9-6.2 [facility] ([place]) Comment on above: Performed By: #### A ROME, ADIFF, LIPID, CBC, GFR, CMP #### [address] [address] CBCon 06-23-2023 Erythrocyte distribution width (RBC) [Ratio] 13.9 % Normal 11.5-14.5 Replaced By [facility] ([place]) Comment on above: Performed By: #### A ROME, ADIFF, LIPID, CBC, GFR, CMP #### [place] [id number] Hematocrit (Bld) [Volume fraction] 46.0 % Normal 42.0-52.0 Replaced By [facility] ([place]) Comment on above: Performed By: #### A ROME, ADIFF, LIPID, CBC, GFR, CMP #### [place] [id number] Hgb 15.5 G/dL Normal 14.0-18.0 Replaced By [facility] ([place]) Comment on above: Performed By: #### A ROME, ADIFF, LIPID, CBC, GFR, CMP #### [place] [id number] MCH (RBC) [Entitic mass] 30.1 pg Normal 27.0-31.2 Replaced By [facility] ([place]) Comment on above: Performed By: #### A ROME, ADIFF, LIPID, CBC, GFR, CMP #### [address] [address] MCHC 33.7 G/dL Normal 31.8-35.4 Replaced By [facility] ([place]) Comment on above: Performed By: #### A ROME, ADIFF, LIPID, CBC, GFR, CMP #### [address] [address] MCV (RBC) [Entitic vol] 89.2 fL Normal 80.0-94.0 A [facility] ([place]) Comment on above: Performed By: #### A ROME, ADIFF, LIPID, CBC, GFR, CMP #### [address] [address] Platelet 273 10 3/mcL Normal 130-400 Replaced By [facility] ([place]) Comment on above: Performed By: #### A ROME, ADIFF, LIPID, CBC, GFR, CMP #### [address] [address] Platelet mean volume (Bld) [Entitic vol] 8.6 fL Normal 7.4-10.4 Replaced By [facility] ([place]) Comment on above: Performed By: #### A ROME, ADIFF, LIPID, CBC, GFR, CMP #### [place] [id number] RBC 5.15 10 6/mcL Normal 4.04-6.13 Replaced By [facility] ([place]) Comment on above: Performed By: #### A ROME, ADIFF, LIPID, CBC, GFR, CMP #### [address] [address] WBC 8.1 10 3/mcL Normal 4.6-10.8 Replaced By [facility] ([place]) Comment on above: Performed By: #### A ROME, ADIFF, LIPID, CBC, GFR, CMP #### [place] [id number] CMPon 06-23-2023 Albumin Level 4.0 G/dL Normal 3.4-4.8 Replaced By [facility] ([place]) Comment on above: Performed By: #### A ROME, ADIFF, LIPID, CBC, GFR, CMP #### [address] [address] Albumin/Globulin [Mass ratio] 1.0 {ratio} Low 1.1-2.5 Replaced By [facility] ([place]) Comment on above: Performed By: #### A ROME, ADIFF, LIPID, CBC, GFR, CMP #### [address] [address] ALP [Catalytic activity/Vol] 87 U/L Normal 40-135 Replaced By [facility] ([place]) Comment on above: Performed By: #### A ROME, ADIFF, LIPID, CBC, GFR, CMP #### [address] [address] ALT [Catalytic activity/Vol] 20 U/L Normal 16-63 Replaced By [facility] ([place]) Comment on above: Performed By: #### A ROME, ADIFF, LIPID, CBC, GFR, CMP #### [address] [address] AST [Catalytic activity/Vol] 12 U/L Normal 10-40 Replaced By [facility] ([place]) Comment on above: Performed By: #### A ROME, ADIFF, LIPID, CBC, GFR, CMP #### [address] [address] Bili Total 0.5 mg/dL Normal 0.2-1.0 Replaced By [facility] ([place]) Comment on above: Result Comment: Use of this assay is not recommended for patients undergoing treatment with eltrombopag due to the potential for falsely elevated results. Performed By: #### A ROME, ADIFF, LIPID, CBC, GFR, CMP #### [address] [address] BUN/Creatinine Ratio 19 ratio Normal 7-27 [facility] ([place]) Comment on above: Performed By: #### A ROME, ADIFF, LIPID, CBC, GFR, CMP #### [address] [address] Calcium [Mass/Vol] 9.6 mg/dL Normal 8.4-10.2 [facility] ([place]) Comment on above: Performed By: #### A ROME, ADIFF, LIPID, CBC, GFR, CMP #### [address] [address] Chloride [Moles/Vol] 105 mmol/L Normal 98-107 [facility] ([place]) Comment on above: Performed By: #### A ROME, ADIFF, LIPID, CBC, GFR, CMP #### [address] [address] CO2 [Moles/Vol] 28 mmol/L Normal 23-31 Replaced By [facility] ([place]) Comment on above: Performed By: #### A ROME, ADIFF, LIPID, CBC, GFR, CMP #### [address] [address] Creatinine [Mass/Vol] 1.90 mg/dL High 0.70-1.30 [facility] ([place]) Comment on above: Performed By: #### A ROME, ADIFF, LIPID, CBC, GFR, CMP #### [address] [address] Electrolyte Balance 10.0 mEq/L Normal 4.0-15.0 [facility] ([place]) Comment on above: Performed By: #### A ROME, ADIFF, LIPID, CBC, GFR, CMP #### [address] [address] Globulin 4.1 G/dL Normal [facility] [facility] (MD) Comment on above: Performed By: #### A ROME, ADIFF, LIPID, CBC, GFR, CMP #### [address] [address] Glucose [Mass/Vol] 109 mg/dL Normal 83-110 [facility] ([place]) Comment on above: Performed By: #### A ROME, ADIFF, LIPID, CBC, GFR, CMP #### [address] [address] Potassium [Moles/Vol] 4.9 mmol/L Normal 3.5-5.1 [facility] (MD) Comment on above: Performed By: #### A ROME, ADIFF, LIPID, CBC, GFR, CMP #### [address] [address] Sodium [Moles/Vol] 143 mmol/L Normal 136-145 [facility] (MD) Comment on above: Performed By: #### A ROME, ADIFF, LIPID, CBC, GFR, CMP #### [address] [address] Total Protein 8.1 G/dL Normal 6.4-8.2 Replaced By [facility] ([place]) Comment on above: Performed By: #### A ROME, ADIFF, LIPID, CBC, GFR, CMP #### [address] [address] Urea nitrogen [Mass/Vol] 36 mg/dL High 7-18 Replaced By [facility] ([place]) Comment on above: Performed By: #### A ROME, ADIFF, LIPID, CBC, GFR, CMP #### [address] [address] LABORATORYOrdered By: Gisselle Baumann on 06-23-2023 Albumin [...] 10-12-2023 Cholesterol [Mass/Vol] 220 mg/dL High 0-200 [facility] (MD) Comment on above: Result Comment: Chol esterol Reference Interval: Less than 200 Desirable 200-239 Borderline high risk 240 and above High risk Performed By: #### A ROME, ADIFF, LIPID, CBC, GFR, CMP #### [address] [address] Cholesterol in HDL [Mass/Vol] 71 mg/dL High 40-60 Replaced By [facility] ([place]) Comment on above: Performed By: #### A ROME, ADIFF, LIPID, CBC, GFR, CMP #### [address] [address] Cholesterol in LDL [Mass/Vol] 138 mg/dL High 0-130 Replaced By [facility] ([place]) Comment on above: Performed By: #### A ROME, ADIFF, LIPID, CBC, GFR, CMP #### [address] [address] Triglyceride [Mass/Vol] 56 mg/dL Normal 0-150 A [facility] (MD) Comment on above: Result Comment: Trig lyceride Reference Interval: Less than 150 Normal 150-199 Borderline high risk 200-499 High risk 500 or higher Very high risk Performed By: #### A ROME, ADIFF, LIPID, CBC, GFR, CMP #### [address] [address] MALBRon 06-23-2023 U Creatinine 189.8 mg/dL Normal 39.0-259.0 Replaced By [facility] ([place]) Comment on above: Performed By: #### M ALBR #### [address] [address] U Microalb 8266 mcg/dL Normal Replaced By [facility] ([place]) Comment on above: Performed By: #### M ALBR #### [address] [address] U Ratio Alb/Cre 44 mcg/mg High 0-30 Replaced By [facility] ([place]) Comment on above: Performed By: #### M ALBR #### [address] [address] LABORATORYOrdered By: Anne Marie Lerner on 03-08-2022 [...] Dr. Carol Ann Sandoval MD Work Phone: [facility] 04-26-2025 11:34-0400 Diastolic blood pressure 84 mm[Hg] Dr. Carol Ann Sandoval MD Work Phone: [facility] 04-26-2025 11:34-0400 Heart rate 85 /min Dr. Carol Ann Sandoval MD Work Phone: [facility] 04-26-2025 11:34-0400 Respiratory rate 17 /min Dr. Carol Ann Sandoval MD Work Phone: [facility] 04-26-2025 11:34-0400 SaO2% (BldA) [Mass fraction] 94 % Dr. Carol Ann Sandoval MD Work Phone: [facility] 04-26-2025 11:34-0400 Systolic blood pressure 165 mm[Hg] Dr. Carol Ann Sandoval MD Work Phone: [facility] 04-26-2025 08:04-0400 Body height 177.[address] Carol Ann Sandoval MD Work Phone: [facility] 04-26-2025 08:04-0400 Body mass index (BMI) [Ratio] 19.9 kg/m2 Dr. Carol Ann Sandoval MD Work Phone: [facility] 04-26-2025 08:04-0400 Body weight 63.[address] Carol Ann Sandoval MD Work Phone: [facility] Encounters Encounter Date Encounter Type Care Provider Facility Start: 04-26-2025 Evaluation and management of inpatient Dr. Ugo Perera MD -Progressive Care Unit Work Phone: Start: 04-03-2025 End: 04-03-2025 Transcribe Orders Iesha Lu DO Work Phone: Referring Physician Comment on above: Shuffling gait (Prim makenna Dx); Tremor; Lightheadedness Start: 04-01-2025 ambulatory IESHA E LU DO Faci lity:[facility] Start: 04-01-2025 End: 04-01-2025 ambulatory IESHA E LU DO Facility:[facility] [place] Start: 04-01-2025 End: 04-01-2025 Patient encounter procedure IESHA Carie LU DO [facility] Start: 03-29-2025 End: 03-29-2025 ambulatory IESHA E LU DO Facility:[facility] Start: 03-29-2025 End: 03-29-2025 Patient encounter procedure IESHA Carie LU DO [facility] Start: 03-26-2025 End: 03-30-2025 ambulatory IESHA MEDRANOINS [facility] Start: 03-26-2025 End: 03-30-2025 Encounter for general adult medical examination without abnormal findings IESHA LU DO Facility:[facility] Start: 03-26-2025 End: 03-30-2025 Outreach Lab IESHA LU DO [facility] Start: 02-07-2025 ambulatory Lisandro Virk Facility:[facility] Start: 02-07-2025 Non-patient / Non-visit Dr. Lisandro jaramillo MD -[facility] Start: 02-07-2025 End: 02-07-[address] Carol Ann Sandoval MD Work Phone: [facility] Work Phone: Start: 02-07-2025 End: 02-07-[address] Carol Ann Sandoval MD -Cardiovascular Services Work Phone: Start: 02-07-2025 End: 02-07-2025 ambulatory Iesha Lu Facility:[facility] Start: 01-03-2025 End: 01-03-[address] CAROL ANN SANDOVAL MD Facility:[facility] Start: 01-03-2025 End: 01-03-[address] CAROL ANN SANDOVAL MD [facility] Start: 12-14-2024 End: 12-14-2024 ambulatory EDWINA HERNANDEZSAY [facility] Start: 12-06-2024 End: 2024 ambulatory EDWINA APRIL DO [facility] Start: 10-31-2024 End: 10-31-2024 ambulatory EDWINA HERNANDEZSAY [facility] Start: 10-31-2024 End: 10-31-2024 Patient encounter procedure EDWINA CHEN DO [facility] Start: 07-06-2024 End: 07-06-2024 ambulatory EDWINA CHEN DO [facility] Start: 07-06-2024 End: 07-06-2024 Patient encounter procedure EDWNIA CHEN DO [facility] Start: 12-22-2023 End: 12-23-2023 ambulatory EDWINA CHEN DO Facility:[facility] Start: 12-22-2023 End: 12-22-2023 Patient encounter procedure EDWINA CHEN DO [facility] Start: 06-23-2023 End: 06-24-2023 ambulatory EDWINA CHEN DO Facility:[facility] Start: 06-23-2023 End: 06-23-2023 Patient encounter procedure EDWINA CHEN DO [facility] Start: 03-08-2022 End: 03-08-2022 Patient encounter procedure EDWINA CHEN DO [facility] Procedures Date Procedure Procedure Detail [...] Start: 04-26-[address] Carol Ann Sandovla MD Work Phone: Start: 04-26-2025 Estimated creatinine [...] Start: 05-13-2025 [facility]enza [facility] Start: 04-26-2025 Bacteria identified in Blood by Culture Blood Culture [facility] Start: 04-26-2025 MRI of brain without contrast Brain without Contrast [facility] Start: 04-26-2025 Verification routine [facility] Start: 04-26-2025 Hospital admission, emergency, from emergency room, medical nature [facility] Start: 04-26-2025 Admission procedure [facility] Start: 04-26-2025 End: 04-26-2025 [facility] Start: 09-12-2024 Advance Directive Discussion Advance Directive Discussion [facility] Start: 2017 RSV Vaccine (1 - 1-dose 75+ series) RSV Vaccine (1 - 1-dose 75+ series) [facility] Start: 1992 Pneumococcal Vaccine: 50+ (1 of 1 - PCV) Pneumococcal Vaccine: 50+ (1 of 1 - PCV) [facility] Start: 1992 Shingrix Vaccine (1 of 2) Shingrix Vaccine (1 of 2) [facility] Start: 12-08-1987 Diabetes Screening Diabetes Screening [facility] Start: 1961 Urine microalbumin profile DTaP,Tdap,Td Vaccine (1 - Tdap) [facility] Start: 1960 Anxiety Screening Anxiety Screening [facility] Start: 1960 Depression Screening Depression Screening [facility] Magnesium measurement [facility] Immunizations Immunization Date Immunization Notes Care Provider Cody croft 08-20-2021 SARS-CoV-2 (COVID-19 ) Ad26 vaccine, recombinant EDWINA CHEN DO [facility]isa [facility] Isabel 11-20-2020 SARS-CoV-2 (COVID-19 ) Ad26 vaccine, recombinant EDWINA APRIL DO [facility] Comment on above: Result Comment: 2022: [id number] Payers Date Payer Category Payer Private Health Insurance [id number] 2025 Self-pay 2024 Medicare (Managed Care) PRIMETIM [id number] 2023 Unknown [id number] 2018 Unknown [id number] 1940 Unknown [id number] 2..[id number]. 2.627 1940 Unknown [id number] 2..840.1.572739.3.579. 2.627 1942 Unknown [id number] 2.16.840.1.316785.3.579. 2.627 1942 Unknown [id number] 2.16.840.1.074715.3.579. 2.627 1942 Unknown [id number] 2.16.840.1.615568.3.579. 2.627 1942 Unknown [id number] 2.16.840.1.831392.3.579. 2.627 1942 Unknown [id number] 2.16.840.1.325699.3.579. 2.627 1942 Unknown [id number] 2.16.840.1.467277.3.579. 2.627 1942 Unknown [id number] 2.16.840.1.390019.3.579. 2.627 1942 Unknown [id number] 2.16.840.1.961989.3.579. 2.627 1942 Unknown [id number] 2.16.840.1.736913.3.579. 2.627 Unknown [id number] 2.16.840.1.602949.3.579. 2.462 Unknown [id number] 2.16.840.1.288690.3.579. 2.462 Social History Date Type Detail Facility Start: 09-14-2019 Tobacco smoking status Ex-smoker (fi nding) [facility] Tobacco smoking status Never [facility] Start: 1940 Sex Assigned At Male [facility] Sexual Orientation [facility] Start: 03-07-2019 Sex Male (finding) [facility] Work Phone: Start: 1940 Sex assigned at Not on file [facility] Gender identity Not on file [facility] in Start: 04-26-2025 Tobacco smoking stat us NHIS Never smoked tobacco (finding) [facility] Mental Status Date Assessment Result Facility 04-26-2025 Cognitive function Voice/Name [facility] Work Phone: Clinical Notes 03-29-2025 to 04-26-2025 Note Date & Type Note Facility 04-26-2025 Discharge summary [facility] 04-26-2025 Radiology Diagnostic study note [facility] Imaging Services [address] [place] [address] Brain/Head without Contrast MR#: [id number] Acct: [id number] Name: JAZLYN NGO Rep #: [id number] : 1940 M 84 From: Rich Nichols MD PCP: Dr. Iesha Lu DO Status: REG ER Study:Brain/Head without Contrast Date of Exa m: 04/26/25 Exam# [id number] Ordering Dr: Riley Simmons MD PROCEDURE: BRAIN/HEAD [...] CHRONIC CHANGES. NO ACUTE FINDINGS. Reading Location: [place] [address] CC: Dr. Iesha Lu DO; Dr. Wing Simmons MD ~ Screw Machine Tender: Signed [facility] 04-26-2025 Radiology Diagnostic study note [facility] Imaging Services [address] [place] [address] Chest 1 View (Portable) MR#: [id number] Acct: [id number] Name: JAZLYN NGO Rep #: [id number] : 1940 M 84 From: Rich Nichols MD PCP: Dr. Iesha Lu DO Status: REG ER Study:Chest 1 View (Portable) Date of Exam: 04/26/25 Exam# [id number] Ordering Dr: Riley Simmons MD PROCEDURE: CHEST 1 VIEW (PORTABLE) 04/26/2025 REASON FOR EXAM: TACHYPNEA TECHNIQUE: Frontal view of the chest. COMPARISON: None FINDINGS: Hardware: EKG electrodes are seen. Heart: The heart size is upper limits of normal. Lungs: The lungs are clear. Bones: Degenerative changes are identified within the thoracic spine. Other: RAD/Chest 1 View (Portable) IMPRESSION: No Acute Findings. Reading Location: [facility]- CC: Dr. Iesha Lu DO; Dr. Wing Simmons MD ~ Screw Machine Tender: Signed [facility] 04-01-2025 Note Exam Date Time Procedure Performing Provider Status 04/01/25 10:15 AM BD Bone Density DEXA Axial Skeleton RADHA SHARIF DO; Auth (Verified) [id number] ORIGINAL EXAMINATION: BONE DENSITOMETRY 04/01/2025 10:15 am [...] Sign Date: 04/01/2025 11:27:47 AM Ordering Provider: [facility]07-18-2025 Note* Exam Date Time Procedure Performing Provider Status 03/29/25 12:[address] Spine Cervical w/Contrast Carie HUFF MD; Auth (Verified) [id number] ORIGINAL EXAMINATION: CT OF THE CERVICAL SPINE [...] 03/29/2025 12:59:08 PM Ordering Provider: IESHA LU [facility] summary Author Wing Simmons [facility] Note Date/Time April 26, 2025 10 :49am [facility] Medical Records Department [address] [place] [address] Emergency Department Summary 04/26/25 MR#: [id number] Acct: [id number] Name: JAZLYN NGO Rep #:[id number] : 1940 84 From: Wing Simmons MD PCP: Dr. Iesha Lu DO Status:REG ER Location: ED ADDENDUM by Dr. Wing Simmons MD on 04/26/25 at 1049 EKG reveals a normal sinus rhythm rate 86. There is nonseptic changes which is artifact due to his tremors. [place] interval is 148 ms. QRS duration 76 ms. QT duration 304 ms. [place] is normal. 04/26/25 1049<Electronically signed by Wing [...] % (Auto) 64.0 Lymph % (Auto) 21.8 [place] % (Auto) 11.0 H Eos % (Auto) [...] Clarity Clear Urine pH 6.5 Ur Specific [place] 1.015 Urine Protein 30 H Urine Glucose [...] 08:08 IMPRESSION: No Acute Findings. Reading Location: [facility] 04/26/25 08:09 IMPRESSION: CHRONIC CHANGES. NO ACUTE FINDINGS. Reading Location: [facility] CT was reviewed by me after [...] adulthood Primary Care Provider: Iesha Lu Referrals: Iesha Lu DO [Primary Care Provider] - Print Language: Kinyarwanda Disposition Disposition: Acute Care Hospital [facility] What to do if you have Problems For any increased pain, shortness of breath, bleeding, nausea or vomiting, chestpain, or any unexpected problems, contact your Primary Care Provider. Call [facility] ([phone]) or report to the closest Emergency Room. Call 911 if necessary. 04/26/25 1047 <Electronically signed by Wing Simmons MD> Cosigner Signature (if applicable): CC: Dr. Iesha Lu DO ~ Signed [facility] Work Phone: Evaluation + Plan note No data available for this section [facility] evaluation + Plan note Future Appointments Appointment Date:06/21/2024 09:30:00 AM Scheduled Provider:EDWINA CHEN DO Location:[facility] Appointment Type:PC OV [facility] Evaluation + Plan note Future Appointments Appointment Date:01/03/2025 10:30:00 AM Scheduled Provider:EDWINA CHEN DO Location[facility] Appointment Type:PC OV Future Scheduled Tests Laboratory* Albumin/Creatinine Ratio, Random Urine 07/05/24 [facility] Evaluation + Plan note Future Appointments Appointment Date:01/03/2025 10:30:00 AM Scheduled Provider:EDWINA CHEN DO Location:[facility] Appointment Type:PC Wellness Primetime Enhanced Future Scheduled Tests Laboratory* Albumin/Creatinine Ratio, Random Urine 07/05/24 Radiology* MRI Brain w/o Contrast 10/30/24 [facility] Evaluation + Plan note Future Appointments Appointment Date:03/08/2025 10:30:00 AM Scheduled Provider:IESHA LU DO Location:[facility] Appointment Type:PC OV Future Scheduled Tests Laboratory* Albumin/Creatinine Ratio, Random Urine 07/05/24 Radiology* NM Myocardial Spect Rest/Stress 01/02/25 [facility] evaluation + Plan note Future Appointments Appointment Date:04/01/2025 10:00:00 AM Scheduled Provider: Location:RAD Appointment Type:BD Bone Density DEXA Axial Skeleton Appointment Date:04/01/2025 03:00:00 PM Scheduled Provider:Viraj Sylvester PT Location:[facility] Appointment Type:PT Outpatient Evaluation Appointment Date:05/07/2025 10:00:00 AM Scheduled Provider:IESHA LU DO Location:[facility] Appointment Type:PC OV Follow Up Future Scheduled Tests Laboratory* Lipid Profile 06/26/25 * Albumin/Creatinine Ratio, Random Urine 07/05/24 * Complete Metabolic Panel 06/26/25 * N-Terminal proBNP 09/29/25 Radiology* BD Bone Density DEXA Axial Skeleton Adult (21 yrs or older) 04/01/25 * NM Myocardial Spect Rest/Stress 01/02/25 [facility] Evaluation + Plan note Future Appointments Appointment Date:04/08/2025 08:30:00 AM Scheduled Provider:Viraj Sylvester PT Location:[facility] Appointment Type:PT Treatment [facility] Appointment Date:04/16/2025 09:30:00 AM Scheduled Provider:Viraj Sylvester PT Location:[facility] Appointment Type:PT Treatment [facility] Appointment Date:04/23/2025 09:30:00 AM Scheduled Provider:Viraj Sylvester PT Location:[facility] Appointment Type:PT [facility] Appointment Date:04/30/2025 01:30:00 PM Scheduled Provider:Viraj Sylvester PT Location:[facility] Appointment Type:PT [facility] Appointment Date:05/07/2025 10:00:00 AM Scheduled Provider:IESHA LU DO Location:[facility] Appointment Type:PC OV Follow Up Future Scheduled Tests Laboratory* Lipid Profile 06/26/25 * Albumin/Creatinine Ratio, Random Urine 07/05/24 * Complete Metabolic Panel 06/26/25 * N-Terminal proBNP 09/29/25 Radiology* NM Myocardial Spect Rest/Stress 01/02/25 [facility] Evaluation noteNo assessment information available [facility] Work Phone: Evaluation note* Diagnosis Shuffling gait- Primary Abnormality of gait Tremor Abnormal involuntary movements Lightheadedness Dizziness and giddiness [facility] Onset Date Resolution Status Admit Date Agitation acute April 26, 10:44am Elevated blood pressure read ing with diagnosis of hypertension acute A ugust 2024 10:44am History of stroke in adulthood acute April 26, 2025 10:44am Metabolic alkalemia acute Augus t 2024 10:44am Chronic kidney insufficiency chronic April 26, 2025 10:44am [facility] Work Phone: Hospital Discharge instructions No data available for this section [facility] Progress note No data available for this section [facility] Reason for referral (narrative)No reason for [facility] Work Phone: Summary Purpose Family History No Family History Records Found Advance Directives Advance Directive Response Recorded Date/ Time Do you have a Healthcare Power of Electromatic Typist? No April 26, 2025 8:04am Chief Complaint [...] Personnel Name: EDWINA CHEN DO Address: Address: [address] [place] [address]- [place] Name: PrabhaHayden PT Patient Care team [...] Attending Provider Active Start: February 07, 2025 Svp Monetization Relationship Specialty Start Date End Date Angel Villalobos DO PCP - General Genetics 02/14/12 Iesha Lu DO [address] [facility] [place] [address] Referring Family Medicine 04/03/25 Team Status: Active [...] Provider Active Start: April 26, 2025 Dr. iWng Simmons MD Emergency Provider Active Sta rt: April 26, 2025 Dr. Ugo Perera MD Admit Provider Active Sta rt: April 26, 2025 Dr. Ugo Perera MD Attending Provider Active Start: April 26, 2025 (unrecognized sect ion and content) No Status Records FoundNo Status Records FoundNo Status Records Found INFORMATION SOURCE (unrecogn ized section and content) DATE CREATED AUTHOR 12/23/2023 [facility] ([place]) DATE CREATED AUTHOR AUTHOR'S ORGANIZ ATION 02/14/2025 [facility] DATE CREATED AUTHOR AUTHOR'S ORGANIZ ATION 04/07/2025 [facility] Goals (unrecognized section and content) Goals may be documented in a n alternate section Source Comments (unrecognize d section and content) In the event this informatio n is protected by the Federal Confidentiality of Alcohol and Drug Abuse Patient Records regulations: The Federal rules restrict any use of the information to criminally investigate or prosecute any alcohol or drug abuse patient.[facility] FOR RECORDS PERTAINING TO PATIENTS WHO ARE [...] BE BASED ON THE PRIMARY CLINICAL RECORDS. [facility] [employer] [facility]. provides no warranty or guarantee of the accuracy or completeness of information in this document.
[2025-04-28] VITALS (32 sets, daily range): BP systolic 114–181; BP diastolic 64–96; PULSE 41–108; RESP 10–19; TEMP 36.1–37.8; O2SAT 91–98; BMI 22.6; BMI 20.6
[2025-04-28] MEDS: dexMEDEtomidine 400 MCG in 0.9% Normal Saline (100mL Bag) 96 ML 9.8 MCG CONT INF (01:45)
[2025-04-28 04:58] LABS: Hematocrit 42.1 % (40-54); Hemoglobin 14.3 g/dL (13.0-16.5); Immature Granulocytes Count 0.030 X10^3/uL (0.0-0.0); Mean Corp Hgb Conc 34.0 g/dL (32-36); Mean Corpuscular Volume 87.7 fL (80-94); Mean Platelet Vol. 10.5 fl (6.2-12.0); NRBC Flagged by Analyzer 0 % (0-5); Platelet Count 213 K/mm3 (150-450); RBC Distribution Width CV 13.1 % (11.6-14.6); RBC Distribution Width SD 42.4 fl (35.1-43.9); Red Blood Count 4.80 M/mm3 (4.6-6.2); White Blood Count 7.4 K/mm3 (4.4-11.0)
[2025-04-28] MEDS: 0.9% Normal Saline (500mL Bag) 500 ML 999 ML IV (05:09)
[2025-04-28 05:22] LABS: Anion Gap 12 (5-15); BUN 28 mg/dL (4-19); BUN/Creat Ratio 18.3 RATIO (10-20); Calcium,Total 9.0 mg/dL (7.6-11.0); Carbon Dioxide 23.1 mmol/L (21.0-32.0); Chloride 106 mmol/L (98-108); Estimated Creatinine Clearance 34.54 ml/min (50-250); Glucose 132 mg/dL (70-99); Potassium 3.9 mmol/L (3.3-5.1)
--- NOTE | 2025-04-28 08:12 | PN.HOSP_ITS ---
Reason for Visit Chief Complaint: Altered mental status/speech abnormality today in the morning Objective Data Objective Data Vital Signs: Vital Signs Temp Pulse Resp BP Pulse Ox O2 Del Method O2 Flow Rate 98.2 F 41 L 10 L 145/72 H 97 Nasal Cannula 2 04/28/25 04:00 04/28/25 06:00 04/28/25 06:00 04/28/25 06:00 04/28/25 07:54 04/28/25 07:54 04/28/25 07:54 Oxygen Flow Rate (L/min) 2 Oxygen Delivery Method Nasal Cannula Weight: 144 lb 9.972 oz Body Mass Index (BMI) 22.6 Intake & Output: Intake and Output for Last 24 Hours 04/26/25 04/27/25 04/28/25 23:59 23:59 23:59 Intake Total 1000 / 1000 1039.87 / 1039.87 599.77 / 599.77 Output Total 1600 / 1600 250 / 250 0 / 0 Balance -600 / -600 789.87 / 789.87 599.77 / 599.77 Lab / Micro Data 04/28/25 04:48 04/28/25 04:48 Labs: Laboratory Results - last 24 hr 04/27/25 17:50: POC Glucose 96 04/28/25 04:48: WBC 7.4, RBC 4.80, Hgb 14.3, Hct 42.1, MCV 87.7, MCH 29.8, MCHC 34.0, RDW Std Deviation 42.4, RDW Coeff of Tim 13.1, Plt Count 213, MPV 10.5, Immature Gran % (Auto) 0.400, Neut % (Auto) 72.0 H, Lymph % (Auto) 15.1 L, [place] % (Auto) 10.9 H, Eos % (Auto) 1.2, Baso % (Auto) 0.4, Absolute Neuts (auto) 5.4, Absolute Lymphs (auto) 1.12, Nucleated RBC % 0, Sodium 141, Potassium 3.9, Chloride 106, Carbon Dioxide 23.1, Anion Gap 12, BUN 28 H, Creatinine 1.53 H, Estim Creat Clear Calc 34.54 L, Est GFR (MDRD) Non-Af 45 L, BUN/Creatinine Ratio 18.3, Glucose 132 H, Calcium 9.0 Physical Exam Narrative Seen and examined Precedex drip is on hold. Patient is more quite but is still confused. He knows it is daytime and in [facility] but does not tell his age, month. He keeps his eyes closed until asked few times to open it. He started choking and tried to give p.o. meds therefore NPO. Speech therapy evaluation ordered from the beginning Physical exam General: Awake, disoriented, confused and delirious HEENT: Atraumatic, PERRLA, EOMI, Normocephalic. Oral: Oral mucosa very dry. Neck: Supple, No JVD, Negative Carotid Bruits Chest wall/Lungs: Air entry diminished in bilateral lung bases. No crepitation Cardiovascular: Regular rate and rhythm, Normal S1,S2, No M/G/R Abdomen: Bowel Sounds Present, Soft, Non Tender, Non-Distended : No dysuria. No renal angle tenderness. No suprapubic tenderness. Extremities: No edema, Capillary Refill Less than 3 Seconds Skin: No rashes, No breakdown Musculoskeletal: No Tenderness to Palpation of Joints or Extremities. 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 Increased muscle tone/rigidity on knee and hip joints. Plantar downgoing. Psych/Mental Status: Flat affect. Anxious Assessment & Plan Assessment/Plan (1) Altered mental status: PLAN: Plan This is a 84-year-old gentleman being admitted chiefly for altered mental status/language deficit and dysarthria 1. Mental status/language deficit both receptive and motor and dysarthria: Exact etiology unclear but possible metabolic encephalopathy/seizure or stroke. CT head does not show acute change. Usually he does not think it is stroke but most likely due to scopolamine adverse effect. MRI brain ordered. NIH stroke scale until MRI rules out a stroke. PT OT and speech evaluation. Twelve-lead EKG shows NSR 86 bpm. QTc 435 ms. TSH and A1c ordered for tomorrow a.m. /16/still disoriented to time and place. Could not sleep last night. Started on low-dose risperidone 0.25 mg twice daily. MRI brain does not show acute infarct with no evidence of ischemia. Motion artifact. Chronic microvascular changes with mild volume loss. EEG ordered. Teleneurology consult. the patient last evening was little agitated but in the morning his agitation got worse and in afternoon worse. About 1:03 PM, 2 mg IV Haldol and 12.5 mg IM Phenergan was given. Prior to that Risperdal 2.5 mg twice daily was started. Patient not able to take oral therefore Klonopin not given. He is not oriented, follows command or redirectable, agitated and extremities gets rigid with thrashing of all 4 extremities. He is being transferred to ICU to start on Precedex drip. Discussed with Dr. Rodriguez 2 times. She recommended Klonopin 0.5 mg twice daily scheduled agent once it is safe to give oral. 04/28: Reviewed with the nurse. Orientation cues. Precedex drip on hold. Haldol and Phenergan ordered as needed for agitation. Speech therapy relation and when safe, Klonopin and Risperdal. Maintenance IV fluid for nutrition ordered 2. Hypertension: Patient's showed me metoprolol succinate, midodrine. 04/28: Blood pressure elevated systolic in 150s. On IV antihypertensive medication 3. Dyslipidemia: Atorvastatin 40 mg daily. 04/28: Fasting profile within normal limit. TSH normal. 4. Recently stroke in January 04: Surprisingly, patient not on aspirin or Plavix with history of stroke in December 2024. Rectal aspirin and statin ordered. 5. Kidney dysfunction: BUN/creatinine 37/1.72, estimated creatinine clearance about 30 mL/min. Unclear whether it is acute or chronic. 6. Hyperglycemia: Glucose 130. A1c 6.2% DVT prophylaxis: Lovenox 30 mg subcu daily Living will/advanced directive/end of life care: Patient does have living will or advanced directive. His , blossom is power of assortment planner for healthcare. After discussion of benefits/risks procedures involved with full code, DNR CC arrest and DNR CC, the patient side opted for DNR CC arrest with no intubation. Patient doesn't want artificial life support including intubation, tube feed, ventilator and/chest compression, central venous catheter, vasopressor and DC shock if needed Total time spent in [id number] encounter in discussion of advanced directive 17 minutes. Laboratory Results 04/26/25 08:19: Specimen Type ART, Sample Site L Brach, pH 7.48 H, Bicarbonate Actual 28.6 H, Total CO2 30, Base Excess 5 H, O2 Saturation 95, O2 % 2.0, ABG pCO2 38.2, ABG pO2 70 L, O2 Delivery Device Cannula, Vent Mode Not entered 04/26/25 08:24: Urine Color Yellow, Urine Clarity Clear, Urine pH 6.5, Ur Specific [place] 1.015, Urine Protein 30 H, Urine Glucose (UA) Normal, Urine Ketones Negative, Urine Occult Blood 10 H, Urine Nitrite Negative, Urine Bilirubin Negative, Urine Urobilinogen Normal, Ur Leukocyte Esterase Negative, Urine RBC 0 SEEN, Urine WBC 0 SEEN, Ur Squamous Epith Cells 0 SEEN, Urine Bacteria 0 SEEN, Urine Mucus 0 SEEN Laboratory Results 04/27/25 00:29: POC Glucose 108 H 04/27/25 04:14: WBC 9.8, RBC 4.99, Hgb 14.8, Hct 43.1, MCV 86.4, MCH 29.7, MCHC 34.3, RDW Std Deviation 39.7, RDW Coeff of Tim 12.7, Plt Count 223, MPV 10.7, Immature Gran % (Auto) 0.300, Neut % (Auto) 78.4 H, Lymph % (Auto) 11.5 L, [place] % (Auto) 9.4, Eos % (Auto) 0.1, Baso % (Auto) 0.3, Absolute Neuts (auto) 7.7, Absolute Lymphs (auto) 1.12, Nucleated RBC % 0, Sodium 139, Potassium 3.6, Chloride 104, Carbon Dioxide 18.0 L, Anion Gap 17 H, BUN 24 H, Creatinine 1.44 H , Estim Creat Clear Calc 36.70 L, Est GFR (MDRD) Non-Af 49 L, BUN/Creatinine Ratio 16.5, Glucose 133 H, Hemoglobin A1c 6.2 H, Calcium 9.3, Triglycerides 68, Cholesterol 134, LDL Cholesterol, Calc 59, VLDL Cholesterol 14, HDL Cholesterol 61, Cholesterol/HDL Ratio 2.20, TSH 0.374 04/27/25 06:16: POC Glucose 145 H Clinical Impression(s) from Imaging Studies Chest X-Ray 04/26/25 08:08 IMPRESSION: No Acute Findings. Reading Location: [facility]-[address] 04/26/25 08:09 IMPRESSION: CHRONIC CHANGES. NO ACUTE FINDINGS. Reading Location: [facility]-IR-1 Brain MRI 04/26/25 11:28 IMPRESSION: Motion artifact. No evidence of ischemia at this time. Chronic microvascular ischemic changes, volume loss. Charges/Coding Visit Charges Inpatient E&M: 95673 Subs Hosp L3 NIHSS NIHSS Nursing Documentation NIHSS Nursing Documentation: NIHSS: Ischemic Stroke/TIA Start: 04/26/25 11:44 Text: For ICU Patients: NIH sroke scale at Status: Complete presentation and every 2 hours or with change in RN caregiver Freq: [id number] Protocol: Activity Type Activity Date Activity User E-sign Co-sign Detail Recorded Client Recorded Date Recorded By Document 04/26/25 12:00 ML [id number] 04/26/25 12:47 ML 04/26/25 12:00 NIH Stroke Scale [NIHSS] A score of 0 is normal or asymptomatic . Total possible score is 42. Inpatient: RN or Physician to activate a stroke alert for onset of new stroke symptoms or with NIHSS increase >/= 3 points. Following change in neurological status, NIHSS will be performed per physician order or more frequently PRN. -1a. Level of Consciousness 0 - Alert; keenly responsive -1b. LOC Questions 2 - Answers NEITHER question correctly -1c. LOC Commands 2 - Performs NEITHER task correctly -2. Best Gaze 0 - Normal -3. Visual 0 - No visual loss -4. Facial Palsy 0 - Normal symmetrical movements -5a. Left Arm 3 - No effort against gravity ; arm falls -5b. Right Arm 3 - No effort against gravity ; arm falls -6a. Left Leg 3 - No effort against gravity ; leg falls to bed immediately -6b. Right Leg 3 - No effort against gravity ; leg falls to bed immediately -7. Limb Ataxia 2 - Present in 2 limbs -8. Sensory 2 - Severe to total sensory loss; -9. Best Language 2 - Severe aphasia; -10. Dysarthria 2 - Severe dysarthria; -11. Extinction and Inattention 1 - Visual, tactile, auditory, spatial, or personal inattention; -Total 25 Query Text:A score of 0 is normal or asymptomatic. Total possible score is 42 . ED: Notify Physician for NIHSS increase by > / = 3 points. Inpatient: RN or Physician to activate a stroke alert for NIHSS increase of > / = 3 points. Coma Scale [Assess] -Eye Opening Spontaneous -Motor Withdraws to Pain -Verbal Incomprehensibl e [Total] -Coma Scale Total 10
[2025-04-28] MEDS: KCL 20MEQ in D5.45NS 20 MEQ/1,000 ML IV.SOLN. 75 MEQ IV (09:19)
[2025-04-28] MEDS: 0.9% Saline Lock 10 ML Syringe IV ×2 (09:20→18:52)
--- NOTE | 2025-04-28 10:37 | NEURO.PNOTE ---
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 On history, symptoms very likely from the scopolamine as patient is improving. On history it seems that there may be a progressive movement issue that needs to be evaluated and use of the anticholinergic medication may have exacerbated this. Exam is largely non-focal without rigidity or signficiant tremor. 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 Subject: Neurology Subjective Yest afternoon with significantly worsening agitation, transferred to ICU for precedex ggt. Pt continued to be agitated into the night but slept on the increased precedex. Weaned off this AM and more awake and aware of what is happening now. NEURO: -? Mental Status: The patient is somnolent but arouses and able to stay awake. Aware to place and situation. Normal fund of knowledge. Poor attention and difficulty following ocmplex multistep commands -? Language: speech is slurred .? Naming, repetition, fluency, and comprehension intact. -? Cranial Nerves: PERRL 4mm/brisk. EOMI, visual porras full, no facial asymmetry, facial sensation intact, hearing intact, tongue midline Tremor b/l UE -? Motor: b/l UE and LE antigravity no clear drift -? Sensation- Intact to light touch bilaterally -? Coordination: unable to test d/t poor following EEG Results Procedure Details EEG Procedure Details: JAZLYN CHRISTINE is a 84 year old M with a past medical history of , who presents for evaluation of Electroencephalogram on DATE at TIME Objective Data Objective Data Vital Signs: Vital Signs Temp Pulse Resp BP Pulse Ox O2 Del Method O2 Flow Rate 37.5 F L 87 15 141/94 H 94 Nasal Cannula 2 04/28/25 08:00 04/28/25 10:00 04/28/25 10:00 04/28/25 10:00 04/28/25 10:00 04/28/25 10:00 04/28/25 10:00 Oxygen Flow Rate (L/min) 2 Oxygen Delivery Method Nasal Cannula Weight: 59.8 kg Body Mass Index (BMI) 20.6 Intake & Output: Intake and Output for Last 24 Hours 04/26/25 04/27/25 04/28/25 23:59 23:59 23:59 Intake Total 1000 / 1000 1039.87 / 1039.87 599.77 / 599.77 Output Total 1600 / 1600 250 / 250 150 / 150 Balance -600 / -600 789.87 / 789.87 449.77 / 449.77 Lab / Micro Data 04/28/25 04:48 04/28/25 04:48 Labs: Laboratory Results - last 24 hr 04/27/25 17:50: POC Glucose 96 04/28/25 04:48: WBC 7.4, RBC 4.80, Hgb 14.3, Hct 42.1, MCV 87.7, MCH 29.8, MCHC 34.0, RDW Std Deviation 42.4, RDW Coeff of Tim 13.1, Plt Count 213, MPV 10.5, Immature Gran % (Auto) 0.400, Neut % (Auto) 72.0 H, Lymph % (Auto) 15.1 L, [place] % (Auto) 10.9 H, Eos % (Auto) 1.2, Baso % (Auto) 0.4, Absolute Neuts (auto) 5.4, Absolute Lymphs (auto) 1.12, Nucleated RBC % 0, Sodium 141, Potassium 3.9, Chloride 106, Carbon Dioxide 23.1, Anion Gap 12, BUN 28 H, Creatinine 1.53 H, Estim Creat Clear Calc 34.54 L, Est GFR (MDRD) Non-Af 45 L, BUN/Creatinine Ratio 18.3, Glucose 132 H, Calcium 9.0 Micro: Microbiology 04/26/25 08:24 Urine, Clean Catch Urine Culture - Preliminary Culture exhibits no growth. NIHSS NIHSS Nursing Documentation NIHSS Nursing Documentation: NIHSS: Ischemic Stroke/TIA Start: 04/26/25 11:44 Text: For ICU Patients: NIH sroke scale at Status: Complete presentation and every 2 hours or with change in RN caregiver Freq: [id number] Protocol: Activity Type Activity Date Activity User E-sign Co-sign Detail Recorded Client Recorded Date Recorded By Document 04/26/25 12:00 ML [id number] 04/26/25 12:47 ML 04/26/25 12:00 NIH Stroke Scale [NIHSS] A score of 0 is normal or asymptomatic . Total possible score is 42. Inpatient: RN or Physician to activate a stroke alert for onset of new stroke symptoms or with NIHSS increase >/= 3 points. Following change in neurological status, NIHSS will be performed per physician order or more frequently PRN. -1a. Level of Consciousness 0 - Alert; keenly responsive -1b. LOC Questions 2 - Answers NEITHER question correctly -1c. LOC Commands 2 - Performs NEITHER task correctly -2. Best Gaze 0 - Normal -3. Visual 0 - No visual loss -4. Facial Palsy 0 - Normal symmetrical movements -5a. Left Arm 3 - No effort against gravity ; arm falls -5b. Right Arm 3 - No effort against gravity ; arm falls -6a. Left Leg 3 - No effort against gravity ; leg falls to bed immediately -6b. Right Leg 3 - No effort against gravity ; leg falls to bed immediately -7. Limb Ataxia 2 - Present in 2 limbs -8. Sensory 2 - Severe to total sensory loss; -9. Best Language 2 - Severe aphasia; -10. Dysarthria 2 - Severe dysarthria; -11. Extinction and Inattention 1 - Visual, tactile, auditory, spatial, or personal inattention; -Total 25 Query Text:A score of 0 is normal or asymptomatic. Total possible score is 42 . ED: Notify Physician for NIHSS increase by > / = 3 points. Inpatient: RN or Physician to activate a stroke alert for NIHSS increase of > / = 3 points. Coma Scale [Assess] -Eye Opening Spontaneous -Motor Withdraws to Pain -Verbal Incomprehensibl e [Total] -Coma Scale Total 10
--- NOTE | 2025-04-28 10:49 | NURSING ---
Bedside swallow eval: pt started coughing with sip of water. Pt alert and answering questions appropriately. Speech eval already ordered. Notified Dr. Perera. IV maintenance fluids started per order. NPO at this time.
[2025-04-28] MEDS: Metoprolol(XL)Succ 25 MG Tablet PO (11:11)
[2025-04-28 17:28] LABS: Mucous, Urine 0 SEEN /hpf (<or=2+)
[2025-04-28] MEDS: 0.9% Normal Saline (1000mL) 1,000 ML 999 ML IV (17:29)
[2025-04-28 17:30] LABS: Color, Urine Yellow (Yellow); Glucose, Dipstick Normal (Normal); Ketone-Dipstick 5 mg/dl (Negative); Leukocyte Esterase-Dipstick Negative /ul (Negative); Nitrite-Dipstick Negative (Negative); Occult Blood-Urine 250 /ul (Negative); Protein-Dipstick 100 mg/dl (Negative); Specific Gravity, Urine 1.015 (1.002-1.030); Urine Bilirubin Dipstick Negative (Negative)
[2025-04-28 17:35] LABS: Red Blood Cells-Urine 50-100 SEEN /hpf (0-5); Squamous Epithelial Cells - UA 0-5 SEEN /hpf (0-5)
[2025-04-28] MEDS: Senna/Docusate Sodium 1 Tablet 2 TABLET PO (21:10)
[2025-04-29] VITALS (9 sets, daily range): BP systolic 125–172; BP diastolic 63–83; PULSE 89–108; RESP 15–18; TEMP 36.4–37; O2SAT 93–98; BMI 20.6; BMI 20.9
[2025-04-29 03:55] LABS: Hematocrit 41.3 % (40-54); Hemoglobin 13.9 g/dL (13.0-16.5); Immature Granulocytes Count 0.050 X10^3/uL (0.0-0.0); Mean Corp Hgb Conc 33.7 g/dL (32-36); Mean Corpuscular Volume 89.0 fL (80-94); Mean Platelet Vol. 10.5 fl (6.2-12.0); NRBC Flagged by Analyzer 0 % (0-5); POSITIVE COUNT YES; RBC Distribution Width CV 13.2 % (11.6-14.6); RBC Distribution Width SD 43.0 fl (35.1-43.9); Red Blood Count 4.64 M/mm3 (4.6-6.2); White Blood Count 11.3 K/mm3 (4.4-11.0)
[2025-04-29 04:33] LABS: Anion Gap 13 (5-15); BUN 25 mg/dL (4-19); BUN/Creat Ratio 15.5 RATIO (10-20); Calcium,Total 8.8 mg/dL (7.6-11.0); Carbon Dioxide 19.4 mmol/L (21.0-32.0); Chloride 109 mmol/L (98-108); Estimated Creatinine Clearance 30.75 ml/min (50-250); Glucose 129 mg/dL (70-99); Potassium 3.8 mmol/L (3.3-5.1)
[2025-04-29 05:00] LABS: Differential Indicated SCAN CRITERIA MET
[2025-04-29 05:01] LABS: Anisocytosis 1+; Differential Comment SCANNED
--- NOTE | 2025-04-29 08:21 | PCM.PN.HOSP ---
Reason for Visit Chief Complaint: Altered mental status/speech abnormality today in the morning Objective Data Objective Data Vital Signs: Vital Signs Temp Pulse Resp BP Pulse Ox O2 Del Method O2 Flow Rate 98.5 F 90 16 125/63 H 94 Nasal Cannula 2 04/29/25 02:00 04/29/25 04:00 04/29/25 02:00 04/29/25 02:00 04/29/25 02:00 04/29/25 02:00 04/29/25 02:00 Oxygen Flow Rate (L/min) 2 Oxygen Delivery Method Nasal Cannula Weight: 133 lb 13.129 oz Body Mass Index (BMI) 20.9 Intake & Output: Intake and Output for Last 24 Hours 04/27/25 04/28/25 04/29/25 23:59 23:59 23:59 Intake Total 1039.87 / 1039.87 2739.77 / 2739.77 Output Total 250 / 250 525 / 525 250 / 250 Balance 789.87 / 789.87 2214.77 / 2214.77 -250 / -250 Lab / Micro Data 04/29/25 03:38 04/29/25 03:38 Labs: Laboratory Results - last 24 hr 04/28/25 12:09: POC Glucose 116 H 04/28/25 17:20: Urine Color Yellow, Urine Clarity Cloudy, Urine pH 6.0, Ur Specific [place] 1.015, Urine Protein 100 H, Urine Glucose (UA) Normal, Urine Ketones 5 H, Urine Occult Blood 250 H, Urine Nitrite Negative, Urine Bilirubin Negative, Urine Urobilinogen Normal, Ur Leukocyte Esterase Negative, Urine RBC 50-100 SEEN, Urine WBC 0 SEEN, Ur Squamous Epith Cells 0-5 SEEN, Urine Bacteria 1+, Urine Mucus 0 SEEN 04/29/25 03:38: WBC 11.3 H, RBC 4.64, Hgb 13.9, Hct 41.3, MCV 89.0, MCH 30.0, MCHC 33.7, RDW Std Deviation 43.0, RDW Coeff of Tim 13.2, Plt Count , MPV 10.5, Immature Gran % (Auto) 0.400, Neut % (Auto) 83.5 H, Lymph % (Auto) 8.8 L, [place] % (Auto) 7.1, Eos % (Auto) 0.0, Baso % (Auto) 0.2, Absolute Neuts (auto) 9.4 H, Absolute Lymphs (auto) 1.00, Nucleated RBC % 0, Differential Comment SCANNED, Platelet Estimate ADEQUATE, Plt Morphology Comment CLUMPED, Anisocytosis 1+, Ovalocytes 1+, Sodium 141, Potassium 3.8, Chloride 109 H, Carbon Dioxide 19.4 L, Anion Gap 13, BUN 25 H, Creatinine 1.59 H, Estim Creat Clear Calc 30.75 L, Est GFR (MDRD) Non-Af 43 L, BUN/Creatinine Ratio 15.5, Glucose 129 H, Calcium 8.8 Micro: Microbiology 04/26/25 08:30 Blood Culture (Wb) - Arm Right Blood Culture - Preliminary No growth in 48 hours. 04/26/25 08:15 Blood Culture (Wb) - Right Forearm Blood Culture - Preliminary No growth in 48 hours. 04/26/25 08:24 Urine, Clean Catch Urine Culture - Preliminary Culture exhibits no growth. Radiography Diagnostic Testing: Radiology Impression Carotid Duplex 04/26/25 11:43 Interpretation Summary Mild (<50%) stenosis right extracranial internal carotid. Mild (<50%) stenosis left extracranial internal carotid. Flow within the vertebral arteries is antegrade bilaterally. Multiple, non-vascular, anechoic structures are noted in the muscle and fascia of the right neck. Clinical correlation is advised. Ordering Physician: Ugo Perera Referring Physician: Chaitanya Hdez Performed By: Jacobo Ventura RVT Physical Exam Narrative Seen and examined Roseanne sinha is on hold for more than 24 hours. Patient is more quite but is still confused with his age and the month. He is oriented to date time and place. He keeps his eyes closed until asked to open eyes he open mouth. Was seen by speech therapist yesterday evening about 4:30 PM. 1 L normal saline bolus, straight cath UA with urine culture and was empirically started on IV ceftriaxone and Flomax. Physical exam General: Awake, disoriented, confused and delirious, inattention/hypoactive but not hyperactive HEENT: Atraumatic, PERRLA, EOMI, Normocephalic. Sticky eyelashes. Conjunctiva clear, not red Oral: Oral mucosa very dry. Neck: Supple, No JVD, Negative Carotid Bruits Chest wall/Lungs: Air entry diminished in bilateral lung bases. No crepitation Cardiovascular: Regular rate and rhythm, Normal S1,S2, No M/G/R Abdomen: Bowel Sounds Present, Soft, Non Tender, Non-Distended : No dysuria. No renal angle tenderness. No suprapubic tenderness. Extremities: No edema, Capillary Refill Less than 3 Seconds Skin: No rashes, No breakdown Musculoskeletal: No Tenderness to Palpation of Joints or Extremities. 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 Increased muscle tone/rigidity on knee and hip joints. Plantar downgoing. Psych/Mental Status: Flat affect. Anxious Assessment & Plan Assessment/Plan (1) Altered mental status: PLAN: Plan This is a 84-year-old gentleman being admitted chiefly for altered mental status/language deficit and dysarthria 1. Mental status/language deficit both receptive and motor and dysarthria: Exact etiology unclear but possible metabolic encephalopathy/seizure or stroke. CT head does not show acute change. Usually he does not think it is stroke but most likely due to scopolamine adverse effect. MRI brain ordered. NIH stroke scale until MRI rules out a stroke. PT OT and speech evaluation. Twelve-lead EKG shows NSR 86 bpm. QTc 435 ms. TSH and A1c ordered for tomorrow a.m. 04/27/still disoriented to time and place. Could not sleep last night. Started on low-dose risperidone 0.25 mg twice daily. MRI brain does not show acute infarct with no evidence of ischemia. Motion artifact. Chronic microvascular changes with mild volume loss. EEG ordered. Teleneurology consult. the patient last evening was little agitated but in the morning his agitation got worse and in afternoon worse. About 1:03 PM, 2 mg IV Haldol and 12.5 mg IM Phenergan was given. Prior to that Risperdal 2.5 mg twice daily was started. Patient not able to take oral therefore Klonopin not given. He is not oriented, follows command or redirectable, agitated and extremities gets rigid with thrashing of all 4 extremities. He is being transferred to ICU to start on Precedex drip. Discussed with Dr. Rodriguez 2 times. She recommended Klonopin 0.5 mg twice daily scheduled agent once it is safe to give oral. 04/28: Reviewed with the nurse. Orientation cues. Precedex drip on hold. Haldol and Phenergan ordered as needed for agitation. Speech therapy relation and when safe, Klonopin and Risperdal. Maintenance IV fluid for nutrition ordered 04/29: Reviewed with the nurse. Patient being transferred to PCU. Advised Klonopin and risperidone as ordered. Neurology follow-up. On pur?ed diet with thin liquid. Neurologist recommended to minimize benzodiazepine. Klonopin 0.5 mg twice daily as needed for agitation. Continue low-dose Risperdal. Anticipate discharge to SNF next few days Urine retention:, Exact etiology unclear. Possible BPH: First urine culture shows no growth. 2 UAs are not indicative of UTI. Blood culture negative for more than 48 hours. Second culture pending. 2. Hypertension: Patient's showed me metoprolol succinate, midodrine. 04/28: Blood pressure elevated systolic in 150s. On IV antihypertensive medication 3. Dyslipidemia: Atorvastatin 40 mg daily. 04/28: Fasting profile within normal limit. TSH normal. 4. Recently stroke in January 04: Surprisingly, patient not on aspirin or Plavix with history of stroke in December 2024. Rectal aspirin and statin ordered. 5. Kidney dysfunction: BUN/creatinine 37/1.72, estimated creatinine clearance about 30 mL/min. Unclear whether it is acute or chronic. 6. Hyperglycemia: Glucose 130. A1c 6.2% DVT prophylaxis: Lovenox 30 mg subcu daily Living will/advanced directive/end of life care: Patient does have living will or advanced directive. His , blossom is power of civil rights attorney for healthcare. After discussion of benefits/risks procedures involved with full code, DNR CC arrest and DNR CC, the patient side opted for DNR CC arrest with no intubation. Patient doesn't want artificial life support including intubation, tube feed, ventilator and/chest compression, central venous catheter, vasopressor and DC shock if needed Laboratory Results 04/26/25 08:19: Specimen Type ART, Sample Site L Brach, pH 7.48 H, Bicarbonate Actual 28.6 H, Total CO2 30, Base Excess 5 H, O2 Saturation 95, O2 % 2.0, ABG pCO2 38.2, ABG pO2 70 L, O2 Delivery Device Cannula, Vent Mode Not entered 04/26/25 08:24: Urine Color Yellow, Urine Clarity Clear, Urine pH 6.5, Ur Specific [place] 1.015, Urine Protein 30 H, Urine Glucose (UA) Normal, Urine Ketones Negative, Urine Occult Blood 10 H, Urine Nitrite Negative, Urine Bilirubin Negative, Urine Urobilinogen Normal, Ur Leukocyte Esterase Negative, Urine RBC 0 SEEN, Urine WBC 0 SEEN, Ur Squamous Epith Cells 0 SEEN, Urine Bacteria 0 SEEN, Urine Mucus 0 SEEN Microbiology Past 72 Hours 04/26/25 08:30 Blood Culture (Wb) - Arm Right Blood Culture - Preliminary No growth in 48 hours. 04/26/25 08:15 Blood Culture (Wb) - Right Forearm Blood Culture - Preliminary No growth in 48 hours. 04/26/25 08:24 Urine, Clean Catch Urine Culture - Preliminary Culture exhibits no growth. Laboratory Results 04/28/25 12:09: POC Glucose 116 H 04/28/25 17:20: Urine Color Yellow, Urine Clarity Cloudy, Urine pH 6.0, Ur Specific [place] 1.015, Urine Protein 100 H, Urine Glucose (UA) Normal, Urine Ketones 5 H, Urine Occult Blood 250 H, Urine Nitrite Negative, Urine Bilirubin Negative, Urine Urobilinogen Normal, Ur Leukocyte Esterase Negative, Urine RBC 50-100 SEEN, Urine WBC 0 SEEN, Ur Squamous Epith Cells 0-5 SEEN, Urine Bacteria 1+, Urine Mucus 0 SEEN 04/29/25 03:38: WBC 11.3 H, RBC 4.64, Hgb 13.9, Hct 41.3, MCV 89.0, MCH 30.0, MCHC 33.7, RDW Std Deviation 43.0, RDW Coeff of Tim 13.2, Plt Count , MPV 10.5, Immature Gran % (Auto) 0.400, Neut % (Auto) 83.5 H, Lymph % (Auto) 8.8 L, [place] % (Auto) 7.1, Eos % (Auto) 0.0, Baso % (Auto) 0.2, Absolute Neuts (auto) 9.4 H, Absolute Lymphs (auto) 1.00, Nucleated RBC % 0, Differential Comment SCANNED, Platelet Estimate ADEQUATE, Plt Morphology Comment CLUMPED, Anisocytosis 1+, Ovalocytes 1+, Sodium 141, Potassium 3.8, Chloride 109 H, Carbon Dioxide 19.4 L, Anion Gap 13, BUN 25 H, Creatinine 1.59 H, Estim Creat Clear Calc 30.75 L, Est GFR (MDRD) Non-Af 43 L, BUN/Creatinine Ratio 15.5, Glucose 129 H, Calcium 8.8 Clinical Impression(s) from Imaging Studies Chest X-Ray 04/26/25 08:08 IMPRESSION: No Acute Findings. Reading Location: [facility] 04/26/25 08:09 IMPRESSION: CHRONIC CHANGES. NO ACUTE FINDINGS. Reading Location: [facility] Brain MRI 04/26/25 11:28 IMPRESSION: Motion artifact. No evidence of ischemia at this time. Chronic microvascular ischemic changes, volume loss. Charges/Coding Visit Charges Inpatient E&M: 89343 Subs Hosp L3 NIHSS NIHSS Nursing Documentation NIHSS Nursing Documentation: NIHSS: Ischemic Stroke/TIA Start: 04/26/25 11:44 Text: For ICU Patients: NIH sroke scale at Status: Complete presentation and every 2 hours or with change in RN caregiver Freq: [id number] Protocol: Activity Type Activity Date Activity User E-sign Co-sign Detail Recorded Client Recorded Date Recorded By Document 04/26/25 12:00 ML [id number] 04/26/25 12:47 ML 04/26/25 12:00 NIH Stroke Scale [NIHSS] A score of 0 is normal or asymptomatic . Total possible score is 42. Inpatient: RN or Physician to activate a stroke alert for onset of new stroke symptoms or with NIHSS increase >/= 3 points. Following change in neurological status, NIHSS will be performed per physician order or more frequently PRN. -1a. Level of Consciousness 0 - Alert; keenly responsive -1b. LOC Questions 2 - Answers NEITHER question correctly -1c. LOC Commands 2 - Performs NEITHER task correctly -2. Best Gaze 0 - Normal -3. Visual 0 - No visual loss -4. Facial Palsy 0 - Normal symmetrical movements -5a. Left Arm 3 - No effort against gravity ; arm falls -5b. Right Arm 3 - No effort against gravity ; arm falls -6a. Left Leg 3 - No effort against gravity ; leg falls to bed immediately -6b. Right Leg 3 - No effort against gravity ; leg falls to bed immediately -7. Limb Ataxia 2 - Present in 2 limbs -8. Sensory 2 - Severe to total sensory loss; -9. Best Language 2 - Severe aphasia; -10. Dysarthria 2 - Severe dysarthria; -11. Extinction and Inattention 1 - Visual, tactile, auditory, spatial, or personal inattention; -Total 25 Query Text:A score of 0 is normal or asymptomatic. Total possible score is 42 . ED: Notify Physician for NIHSS increase by > / = 3 points. Inpatient: RN or Physician to activate a stroke alert for NIHSS increase of > / = 3 points. Coma Scale [Assess] -Eye Opening Spontaneous -Motor Withdraws to Pain -Verbal Incomprehensibl e [Total] -Coma Scale Total 10
[2025-04-29] MEDS: Metoprolol(XL)Succ 25 MG Tablet PO (08:25)
[2025-04-29] MEDS: Senna/Docusate Sodium 1 Tablet 2 TABLET PO ×2 (08:27→22:12)
--- NOTE | 2025-04-29 11:52 | NEURO.PNOTE ---
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 On history, symptoms very likely from the scopolamine as patient is improving. On history it seems that there may be a progressive movement issue and cognitive decline that needs to be evaluated and use of the anticholinergic medication may have exacerbated this. Exam is largely non-focal without rigidity or signficiant tremor. Per discussion with , patient has had cognitive decline for a while now, but it wasn't major issues. His MRI brain does show generalized atrophy. I explained to her that it might be a slower progress back to baseline, which might be a new baseline compared to his baseline prior to coming into the hospital. 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 - Keep curtains/blinds open during the day to allow natural light and closed at night. - Would recommend reorienting/redirecting patient as much as possible, - Aim for consistent staffing, familiar objects, avoiding bright lights and loud noises, etc. PT/OT I personally attended this patient and spent a total time of 35 minutes evaluating this patient including clinical assessment, review of chart, medical history imaging, and determining appropriate treatment and workup. Subject: Neurology Subjective Per nursing staff, he reportedly alert and oriented x 1-2, no longer combative at bedside reports he seems to be doing okay, he ate a littel bit today, he continues to have slow improvement . As far as his mental status, reprots it is okay, he still have some intermittent confusin, haven't noticed worsening at night whatsoever. reports before coming to the hospital, he would have some confusion that has been going on for a while now, he can be confused about the months or the day, some forgetfullnes Exam: He is drowsy laying in bed oriented to self, doesn't' know the year, knows he is at the hospital, recognizes his at bedside raises arm antigravity EEG Results Procedure Details EEG Procedure Details: JAZLYN CHRISTINE is a 84 year old M with a past medical history of , who presents for evaluation of Electroencephalogram on DATE at TIME Objective Data Objective Data Vital Signs: Vital Signs Temp Pulse Resp BP Pulse Ox O2 Del Method O2 Flow Rate 98.3 F 105 H 16 141/79 H 93 Nasal Cannula 2 04/29/25 08:00 04/29/25 08:25 04/29/25 08:00 04/29/25 08:25 04/29/25 08:00 04/29/25 08:00 04/29/25 08:00 Oxygen Flow Rate (L/min) 2 Oxygen Delivery Method Nasal Cannula Weight: 60.7 kg Body Mass Index (BMI) 20.9 Intake & Output: Intake and Output for Last 24 Hours 04/27/25 04/28/25 04/29/25 23:59 23:59 23:59 Intake Total 1039.87 / 1039.87 2739.77 / 2739.77 50 / 50 Output Total 250 / 250 525 / 525 250 / 250 Balance 789.87 / 789.87 2214.77 / 2214.77 -200 / -200 Lab / Micro Data 04/29/25 03:38 04/29/25 03:38 Labs: Laboratory Results - last 24 hr 04/28/25 12:09: POC Glucose 116 H 04/28/25 17:20: Urine Color Yellow, Urine Clarity Cloudy, Urine pH 6.0, Ur Specific [place] 1.015, Urine Protein 100 H, Urine Glucose (UA) Normal, Urine Ketones 5 H, Urine Occult Blood 250 H, Urine Nitrite Negative, Urine Bilirubin Negative, Urine Urobilinogen Normal, Ur Leukocyte Esterase Negative, Urine RBC 50-100 SEEN, Urine WBC 0 SEEN, Ur Squamous Epith Cells 0-5 SEEN, Urine Bacteria 1+, Urine Mucus 0 SEEN 04/29/25 03:38: WBC 11.3 H, RBC 4.64, Hgb 13.9, Hct 41.3, MCV 89.0, MCH 30.0, MCHC 33.7, RDW Std Deviation 43.0, RDW Coeff of Tim 13.2, Plt Count , MPV 10.5, Immature Gran % (Auto) 0.400, Neut % (Auto) 83.5 H, Lymph % (Auto) 8.8 L, [place] % (Auto) 7.1, Eos % (Auto) 0.0, Baso % (Auto) 0.2, Absolute Neuts (auto) 9.4 H, Absolute Lymphs (auto) 1.00, Nucleated RBC % 0, Differential Comment SCANNED, Platelet Estimate ADEQUATE, Plt Morphology Comment CLUMPED, Anisocytosis 1+, Ovalocytes 1+, Sodium 141, Potassium 3.8, Chloride 109 H, Carbon Dioxide 19.4 L, Anion Gap 13, BUN 25 H, Creatinine 1.59 H, Estim Creat Clear Calc 30.75 L, Est GFR (MDRD) Non-Af 43 L, BUN/Creatinine Ratio 15.5, Glucose 129 H, Calcium 8.8 Micro: Microbiology 04/26/25 08:30 Blood Culture (Wb) - Arm Right Blood Culture - Preliminary No growth in 48 hours. 04/26/25 08:15 Blood Culture (Wb) - Right Forearm Blood Culture - Preliminary No growth in 48 hours. 04/26/25 08:24 Urine, Clean Catch Urine Culture - Preliminary Culture exhibits no growth. Radiography Diagnostic Testing: Radiology Impression Carotid Duplex 04/26/25 11:43 Interpretation Summary Mild (<50%) stenosis right extracranial internal carotid. Mild (<50%) stenosis left extracranial internal carotid. Flow within the vertebral arteries is antegrade bilaterally. Multiple, non-vascular, anechoic structures are noted in the muscle and fascia of the right neck. Clinical correlation is advised. Ordering Physician: Ugo Perera Referring Physician: Chaitanya Hdez Performed By: Jacobo Ventura, RVT S NIHSS Nursing Documentation NIHSS Nursing Documentation: NIHSS: Ischemic Stroke/TIA Start: 04/26/25 11:44 Text: For ICU Patients: NIH sroke scale at Status: Complete presentation and every 2 hours or with change in RN caregiver Freq: [id number] Protocol: Activity Type Activity Date Activity User E-sign Co-sign Detail Recorded Client Recorded Date Recorded By Document 04/26/25 12:00 ML [id number] 04/26/25 12:47 ML 04/26/25 12:00 NIH Stroke Scale [NIHSS] A score of 0 is normal or asymptomatic . Total possible score is 42. Inpatient: RN or Physician to activate a stroke alert for onset of new stroke symptoms or with NIHSS increase >/= 3 points. Following change in neurological status, NIHSS will be performed per physician order or more frequently PRN. -1a. Level of Consciousness 0 - Alert; keenly responsive -1b. LOC Questions 2 - Answers NEITHER question correctly -1c. LOC Commands 2 - Performs NEITHER task correctly -2. Best Gaze 0 - Normal -3. Visual 0 - No visual loss -4. Facial Palsy 0 - Normal symmetrical movements -5a. Left Arm 3 - No effort against gravity ; arm falls -5b. Right Arm 3 - No effort against gravity ; arm falls -6a. Left Leg 3 - No effort against gravity ; leg falls to bed immediately -6b. Right Leg 3 - No effort against gravity ; leg falls to bed immediately -7. Limb Ataxia 2 - Present in 2 limbs -8. Sensory 2 - Severe to total sensory loss; -9. Best Language 2 - Severe aphasia; -10. Dysarthria 2 - Severe dysarthria; -11. Extinction and Inattention 1 - Visual, tactile, auditory, spatial, or personal inattention; -Total 25 Query Text:A score of 0 is normal or asymptomatic. Total possible score is 42 . ED: Notify Physician for NIHSS increase by > / = 3 points. Inpatient: RN or Physician to activate a stroke alert for NIHSS increase of > / = 3 points. Coma Scale [Assess] -Eye Opening Spontaneous -Motor Withdraws to Pain -Verbal Incomprehensibl e [Total] -Coma Scale Total 10
[2025-04-30] VITALS (13 sets, daily range): BP systolic 131–176; BP diastolic 67–107; PULSE 88–109; RESP 14–18; TEMP 36.4–37.3; O2SAT 86–97; BMI 20.8
[2025-04-30] MEDS: 0.9% Saline Lock 10 ML Syringe IV ×4 (02:16→17:17)
--- NOTE | 2025-04-30 09:43 | CASEMGMT ---
Discharge Planning A list of?SNF providers including quality and resource use data and consistent with the patient's preferred geographic region, medical needs, and insurance network was created in [employer].? This list was provided to the RN ALEISHA. Guera Villatoro, Discharge Planning Asst.
--- NOTE | 2025-04-30 10:00 | CASEMGMT ---
RN CM in to discuss discharge planning with , patient still confused. RN CM reviewed progress with therapy and recommendation for SNF at discharge, agreeable to SNF for additional therapy. RN CM provided SNF list to to review and provide preferences. voiced understanding and had no further questions. SHANICE CM to follow-up with later this afternoon for preferences. CM will continue to follow this patient and plan for a safe discharge.
[2025-04-30] MEDS: Senna/Docusate Sodium 1 Tablet 2 TABLET PO (10:08)
[2025-04-30] MEDS: Metoprolol(XL)Succ 25 MG Tablet PO (10:09)
--- NOTE | 2025-04-30 10:38 | PCM.PN.HOSP ---
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77 / 2739.77 290 / 290 Output Total 525 / 525 450 / 450 400 / 400 Balance 2214.77 / 2214.77 -160 / -160 -400 / -400 Lab / Micro Data 04/29/25 03:38 04/29/25 03:38 Micro: Microbiology 04/28/25 17:20 Urine, Catheterized Urine Culture - Final Culture exhibits no growth. 04/26/25 08:24 Urine, Clean Catch Urine Culture - Final Culture exhibits no growth. 04/26/25 08:30 Blood Culture (Wb) - Arm Right Blood Culture - Preliminary No growth in 48 hours. 04/26/25 08:15 Blood Culture (Wb) - Right Forearm Blood Culture - Preliminary No growth in 48 hours. Physical Exam Narrative GENERAL: Frail looking HEENT: Atraumatic; normocephalic EYES; Anicteric, Normal Conjunctiva NECK; supple, normal thyroid, RESPIRATORY: Diminished to auscultation CARDIOVASCULAR: Regular S1 S2, GI: soft, normoactive bowel sounds, : No Renal angle tenderness; EXTREMITIES: No edema, no clubbing, MUSCULOSKELETAL: no muscle wasting NEURO: Awake; no lateralizing signs. 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 Suspected offending medication was withdrawn. Patient was seen by neurology CVA was ruled out with a negative MRI. Neurology also recommended minimal use of benzos opiates as well as anticholinergics and low-dose Risperdal as needed at night 2. Physical deconditioning ? Requested for PT OT eval and social media marketing analyst to assist with discharge planning 3. BPH with lower urinary obstructive symptoms including urinary retention - Patient treated with tamsulosin. Urinalysis rule out UTI patient had been started on ceftriaxone discontinued 4. Hypertension ? Blood pressure controlled, home medications continued with dose adjustment as needed 5. Dyslipidemia ?Patient is on statin therapy, continued at home dose 6. 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 Patient started on antiplatelets as well as statin therapy 7. Chronic kidney disease stage IIIa ? Kidney function at baseline 8. DVT prophylaxis ? Subcu Lovenox Time spent in the patient's overall evaluation,decision-making process, review of diagnostic data, adjustment of management, discussion with other providers, nursing nursing and ancillary staff involved in patient's care, family including patient's documentation, 38 minutes Charges/Coding Visit Charges Inpatient E&M: 16483 Subs Hosp L2 NIHSS NIHSS Nursing Documentation NIHSS Nursing Documentation: NIHSS: Ischemic Stroke/TIA Start: 04/26/25 11:44 Text: For ICU Patients: NIH sroke scale at Status: Complete presentation and every 2 hours or with change in RN caregiver Freq: [id number] Protocol: Activity Type Activity Date Activity User E-sign Co-sign Detail Recorded Client Recorded Date Recorded By Document 04/26/25 12:00 ML [id number] 04/26/25 12:47 ML 04/26/25 12:00 NIH Stroke Scale [NIHSS] A score of 0 is normal or asymptomatic . Total possible score is 42. Inpatient: RN or Physician to activate a stroke alert for onset of new stroke symptoms or with NIHSS increase >/= 3 points. Following change in neurological status, NIHSS will be performed per physician order or more frequently PRN. -1a. Level of Consciousness 0 - Alert; keenly responsive -1b. LOC Questions 2 - Answers NEITHER question correctly -1c. LOC Commands 2 - Performs NEITHER task correctly -2. Best Gaze 0 - Normal -3. Visual 0 - No visual loss -4. Facial Palsy 0 - Normal symmetrical movements -5a. Left Arm 3 - No effort against gravity ; arm falls -5b. Right Arm 3 - No effort against gravity ; arm falls -6a. Left Leg 3 - No effort against gravity ; leg falls to bed immediately -6b. Right Leg 3 - No effort against gravity ; leg falls to bed immediately -7. Limb Ataxia 2 - Present in 2 limbs -8. Sensory 2 - Severe to total sensory loss; -9. Best Language 2 - Severe aphasia; -10. Dysarthria 2 - Severe dysarthria; -11. Extinction and Inattention 1 - Visual, tactile, auditory, spatial, or personal inattention; -Total 25 Query Text:A score of 0 is normal or asymptomatic. Total possible score is 42 . ED: Notify Physician for NIHSS increase by > / = 3 points. Inpatient: RN or Physician to activate a stroke alert for NIHSS increase of > / = 3 points. Coma Scale [Assess] -Eye Opening Spontaneous -Motor Withdraws to Pain -Verbal Incomprehensibl e [Total] -Coma Scale Total 10
--- NOTE | 2025-04-30 13:00 | CASEMGMT ---
Addendum entered by Lia Dawson 04/30/25 13:54: RN ALEISHA received response from TCU and they are not able to accept patient. RN ALEISHA updated DC [employer] [facility] Original Note: SHANICE MORAES in to discuss SNF preferences with . 1. [facility]. [facility] 3. [facility] 4. SW. had no further questions or concerns. RN ALEISHA made referral to TCU, awaiting response. CM will continue to follow this patient and plan for a safe discharge.
--- NOTE | 2025-04-30 15:09 | CASEMGMT ---
Addendum entered by Mere London 05/01/25 11:18: [facility] declined. RN CM updated. ESTHER Early Original Note: SW referral sent [facility] ESTHER Early
[2025-05-01] VITALS (9 sets, daily range): BP systolic 124–178; BP diastolic 67–85; PULSE 86–93; RESP 18; TEMP 36.2–36.9; O2SAT 85–96; BMI 20.8; BMI 19.4
[2025-05-01] MEDS: 0.9% Saline Lock 10 ML Syringe IV (04:39)
--- NOTE | 2025-05-01 07:58 | PCM.PN.HOSP ---
Reason for Visit Chief Complaint: Altered mental status/speech abnormality today in the morning Subjective Subjective Patient seen resting comfortably. Per nursing staff he had a relatively uneventful night. Objective Data Objective Data Vital Signs: Vital Signs Temp Pulse Resp BP Pulse Ox O2 Del Method O2 Flow Rate 97.2 F L 89 18 159/80 H 85 Nasal Cannula 2 05/01/25 04:17 05/01/25 07:31 05/01/25 04:17 05/01/25 07:31 05/01/25 07:40 05/01/25 07:40 05/01/25 07:40 Oxygen Flow Rate (L/min) 2 Oxygen Delivery Method Nasal Cannula Weight: 56.2 kg Body Mass Index (BMI) 19.4 Intake & Output: Intake and Output for Last 24 Hours 04/29/25 04/30/25 05/01/25 23:59 23:59 23:59 Intake Total 290 / 290 50 / 50 Output Total 450 / 450 600 / 600 Balance -160 / -160 -550 / -550 Lab / Micro Data 04/29/25 03:38 04/29/25 03:38 Micro: Microbiology 04/28/25 17:20 Urine, Catheterized Urine Culture - Final Culture exhibits no growth. 04/26/25 08:24 Urine, Clean Catch Urine Culture - Final Culture exhibits no growth. 04/26/25 08:30 Blood Culture (Wb) - Arm Right Blood Culture - Preliminary No growth in 48 hours. 04/26/25 08:15 Blood Culture (Wb) - Right Forearm Blood Culture - Preliminary No growth in 48 hours. Physical Exam Narrative GENERAL: Frail looking HEENT: Atraumatic; normocephalic EYES; Anicteric, Normal Conjunctiva NECK; supple, normal thyroid, RESPIRATORY: Diminished to auscultation CARDIOVASCULAR: Regular S1 S2, GI: soft, normoactive bowel sounds, : No Renal angle tenderness; EXTREMITIES: No edema, no clubbing, MUSCULOSKELETAL: no muscle wasting NEURO: Awake; no lateralizing signs. 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 Suspected offending medication was withdrawn. Patient was seen by neurology CVA was ruled out with a negative MRI. Neurology also recommended minimal use of benzos opiates as well as anticholinergics and low-dose Risperdal as needed at night ? 05/01/2025; patient seen appears much more restful compared to previous day. Case discussed with patient's Regarding disposition. Plan is for patient to be transferred to a custodial facility pending acceptance by facility and insurance precertification 2. Physical deconditioning ? Requested for PT OT eval and social media content specialist to assist with discharge planning 3. BPH with lower urinary obstructive symptoms including urinary retention - Patient treated with tamsulosin. Urinalysis rule out UTI patient had been started on ceftriaxone discontinued 4. Hypertension ? Blood pressure controlled, home medications continued with dose adjustment as needed 5. Dyslipidemia ?Patient is on statin therapy, continued at home dose 6. 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 Patient started on antiplatelets as well as statin therapy 7. Chronic kidney disease stage IIIa ? Kidney function at baseline 8. DVT prophylaxis ? Subcu Lovenox Time spent in the patient's overall evaluation,decision-making process, review of diagnostic data, adjustment of management, discussion with other providers, nursing nursing and ancillary staff involved in patient's care, family including patient's documentation, 35 minutes Charges/Coding Visit Charges Inpatient E&M: 31233 Subs Hosp L2 NIHSS NIHSS Nursing Documentation NIHSS Nursing Documentation: NIHSS: Ischemic Stroke/TIA Start: 04/26/25 11:44 Text: For ICU Patients: NIH sroke scale at Status: Complete presentation and every 2 hours or with change in RN caregiver Freq: [id number] Protocol: Activity Type Activity Date Activity User E-sign Co-sign Detail Recorded Client Recorded Date Recorded By Document 04/26/25 12:00 ML [id number] 04/26/25 12:47 ML 04/26/25 12:00 NIH Stroke Scale [NIHSS] A score of 0 is normal or asymptomatic . Total possible score is 42. Inpatient: RN or Physician to activate a stroke alert for onset of new stroke symptoms or with NIHSS increase >/= 3 points. Following change in neurological status, NIHSS will be performed per physician order or more frequently PRN. -1a. Level of Consciousness 0 - Alert; keenly responsive -1b. LOC Questions 2 - Answers NEITHER question correctly -1c. LOC Commands 2 - Performs NEITHER task correctly -2. Best Gaze 0 - Normal -3. Visual 0 - No visual loss -4. Facial Palsy 0 - Normal symmetrical movements -5a. Left Arm 3 - No effort against gravity ; arm falls -5b. Right Arm 3 - No effort against gravity ; arm falls -6a. Left Leg 3 - No effort against gravity ; leg falls to bed immediately -6b. Right Leg 3 - No effort against gravity ; leg falls to bed immediately -7. Limb Ataxia 2 - Present in 2 limbs -8. Sensory 2 - Severe to total sensory loss; -9. Best Language 2 - Severe aphasia; -10. Dysarthria 2 - Severe dysarthria; -11. Extinction and Inattention 1 - Visual, tactile, auditory, spatial, or personal inattention; -Total 25 Query Text:A score of 0 is normal or asymptomatic. Total possible score is 42 . ED: Notify Physician for NIHSS increase by > / = 3 points. Inpatient: RN or Physician to activate a stroke alert for NIHSS increase of > / = 3 points. Coma Scale [Assess] -Eye Opening Spontaneous -Motor Withdraws to Pain -Verbal Incomprehensibl e [Total] -Coma Scale Total 10 Date medically ready for discharge: 05/01/25 Reason for DC delay: SNF/ECF bed availability
--- NOTE | 2025-05-01 11:26 | CASEMGMT ---
SW referrals sent to [facility] and [facility]
--- NOTE | 2025-05-01 11:45 | CASEMGMT ---
RN CM received update that [facility] and [facility] are unable to accept patient. RN CM in to update and that additional referrals were sent to their next preference to [facility] and [facility]. voiced understanding. CM will continue to follow this patient and plan for a safe discharge.
--- NOTE | 2025-05-01 12:04 | CASEMGMT ---
[facility] RN CM updated and pts wishes to proceed with [facility]. [facility] notified they are foc and that we will submit for precert today. Guera Villatoro DC Planning Asst.
--- NOTE | 2025-05-01 12:15 | CASEMGMT ---
SHANICE MORAES updated that [facility] does not have any beds available. [facility] has accepted. SHANICE MORAES updated , Beth, regarding [facility] having no bed and [facility] accepting patient. is agreeable to have patient discharge to [facility]. Per hospitalist patient is medically reasdy and could discharge today. SHANICE MORAES updated that RN ALEISHA will submit for precert and that we could receive it as quickly as this afternoon, voiced understanding. had no further questions or concerns. SHANICE MORAES faxed clinical information to [facility] requesting precert for skilled LOC to [facility]. [facility] CM will continue to follow this patient and plan for a safe discharge.
[2025-05-01] MEDS: Metoprolol(XL)Succ 25 MG Tablet PO (12:32)
[2025-05-01] MEDS: Senna/Docusate Sodium 1 Tablet 2 TABLET PO (12:32)
--- NOTE | 2025-05-01 14:55 | CASEMGMT ---
Addendum entered by Lia Dawson 05/01/25 15:41: SHANICE MORAES called to update that patient precert has be obtained and patient will be discharging today and that DC car rental sales assistant will be calling with transport time. voiced understanding and appreciation. Patient has order for discharge. SHANICE MORAES completed 7000. Patient to discharge to [facility] under skilled LOC. DC car rental sales assistant notified to completed discharge and notify of transport time. Original Note: SHANICE MORAES received call from Marisol from [facility]. Patient has been approved for skilled LOC at [facility] starting . SHANICE MORAES requested Marisol to fax auth to [phone], auth received and placed in chart. Ref#[id number]. SHANICE MORAES updated hospitalist that precert has been obtained, awaiting discharge papers.
--- NOTE | 2025-05-01 15:09 | DS.PCM_ITS ---
Providers Date of Admission: 04/26/25 Date of Discharge: 05/01/25 Primary Care Physician: Dr. 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 Suspected offending medication was withdrawn. Patient was seen by neurology CVA was ruled out with a negative MRI. Neurology also recommended minimal use of benzos opiates as well as anticholinergics and low-dose Risperdal as needed at night ? 05/01/2025; patient seen appears much more restful compared to previous day. Case discussed with patient's Regarding disposition. Plan is for patient to be transferred to a long term facility pending acceptance by facility and insurance precertification [facility] once insurance precertification was obtained 2. Physical deconditioning ? Requested for PT OT eval and nursing home social worker to assist with discharge planning 3. BPH with lower urinary obstructive symptoms including urinary retention - Patient treated with tamsulosin. Urinalysis rule out UTI patient had been started on ceftriaxone discontinued 4. Hypertension ? Blood pressure controlled, home medications continued with dose adjustment as needed 5. Dyslipidemia ?Patient is on statin therapy, continued at home dose 6. 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 Patient started on antiplatelets as well as statin therapy 7. Chronic kidney disease stage IIIa ? Kidney function at baseline 8. DVT prophylaxis ? Subcu Lovenox Time spent in the patient's overall evaluation,decision-making process, review of diagnostic data, adjustment of management, discussion with other providers, nursing nursing and ancillary staff involved in patient's care, family including patient's documentation, 35 minutes Medications at Discharge Home Medications metoprolol succinate 25 mg tablet,extended release 24 hr 25 mg PO DAILY heart 04/26/25 rosuvastatin 5 mg tablet 5 mg PO DAILY cholesterol 04/26/25 Physical Exam Narrative GENERAL: Frail looking HEENT: Atraumatic; normocephalic EYES; Anicteric, Normal Conjunctiva NECK; supple, normal thyroid, RESPIRATORY: Diminished to auscultation CARDIOVASCULAR: Regular S1 S2, GI: soft, normoactive bowel sounds, : No Renal angle tenderness; EXTREMITIES: No edema, no clubbing, MUSCULOSKELETAL: no muscle wasting NEURO: Awake; no lateralizing signs. SKIN: No Rash PSYCH; Flat affect Weight / BMI Weight Weight: 56.2 kg Body Mass Index (BMI) 19.4 ABG / Lab / Microbiology Data 04/29/25 03:38 04/29/25 03:38 Microbiology: Microbiology 04/26/25 08:15 Blood Culture (Wb) - Right Forearm Blood Culture - Final No growth in 5 days. 04/26/25 08:30 Blood Culture (Wb) - Arm Right Blood Culture - Final No growth in 5 days. 04/28/25 17:20 Urine, Catheterized Urine Culture - Final Culture exhibits no growth. 04/26/25 08:24 Urine, Clean Catch Urine Culture - Final Culture exhibits no growth. D/C Instructions DC O2, CPAP, BIPAP Needs Home O2 Discharge instructions: No Meaningful Use Info Meaningful Use Meaningful Use Diagnoses (Choose all that apply): None applicable Discharge Plan Admission Admit Date/Time: 04/26/25 10:44 Attending Provider: Shivam Valera Primary Care Provider: Chaitanya Hdez Consulting Providers: Ugo Perera Discharge Orders/Prescriptions Prescriptions: No Action rosuvastatin 5 mg tablet 5 mg PO DAILY metoprolol succinate 25 mg tablet extended release 24 hr 25 mg PO DAILY Referrals / Follow Up: Chaitanya Hdez DO [Primary Care Provider] - Disposition Disposition (needs filled in before D/C Order can be placed): [facility] Charges/Coding Visit Charges Inpatient E&M: 23627 Disch Hosp >30min
--- NOTE | 2025-05-01 15:24 | TREXTCAR_ITS ---
Diet Diet Order/Speech Therapy: INPATIENT Hospital Diet / Speech Therapy Order(s) 04/30/25 15:20 Diet: Regular - General Food consistency:: Pureed Liquid Consistency:: Regular/Thin Diet Comments: fortified pudding with lunch and dinner; Oral care provided after solids Speech Therapy Comments: Liquids via tsp only. TOTAL FEED. Swallow Guidelines. 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 Suspected offending medication was withdrawn. Patient was seen by neurology CVA was ruled out with a negative MRI. Neurology also recommended minimal use of benzos opiates as well as anticholinergics and low-dose Risperdal as needed at night ? 05/01/2025; patient seen appears much more restful compared to previous day. Case discussed with patient's Regarding disposition. Plan is for patient to be transferred [place] a [place] facility pending acceptance by facility and insurance precertification was discharged to [facility] once insurance precertification was obtained 2. Physical deconditioning ? Requested for PT OT eval and mental health social worker to assist with discharge planning 3. BPH with lower urinary obstructive symptoms including urinary retention - Patient treated with tamsulosin. Urinalysis rule out UTI patient had been started on ceftriaxone discontinued 4. Hypertension ? Blood pressure controlled, home medications continued with dose adjustment as needed 5. Dyslipidemia ?Patient is on statin therapy, continued at home dose 6. 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 Patient started on antiplatelets as well as statin therapy 7. Chronic kidney disease stage IIIa ? Kidney function at baseline 8. DVT prophylaxis ? Subcu Lovenox Time spent in the patient's overall evaluation,decision-making process, review of diagnostic data, adjustment of management, discussion with other providers, nursing nursing and ancillary staff involved in patient's care, family including patient's documentation, 35 minutes Allergies/Procedures Done in Hospital Allergies doxycycline Allergy (Unknown, Verified 04/26/25 08:08) PT UNABLE TO RESPOND-NEEDS F/U oxycodone Allergy (Unknown, Verified 04/26/25 08:08) PT UNABLE TO RESPOND-NEEDS F/U scopolamine Adverse Reaction (Severe, Verified 04/28/25 11:26) mental status changes Type of Care/Length of Stay Estimated LOS: Convalescent Care Less Than 30 days Type of Care Needed: Skilled Rehab Potential: Good Prognosis: Good Additional Orders/Day of Discharge Day of Discharge: 05/01/25 Dietary and Speech Recommendations Dietitian Recommendations/Changes: Adjust to regular diet with modifications per [employer] recommendation. Will order fortified pudding with lunch and dinner. Will continue to monitor weight trends and modify nutrition interventions as needed. Discharge Plan Admission Admit Date/Time: 04/26/25 10:44 Attending Provider: Shivam Valera Primary Care Provider: Chaitanya Hdez Consulting Providers: Ugo Perera Discharge Orders/Prescriptions Prescriptions: New sennosides-docusate sodium [Stimulant Laxative Plus] 8.6-50 mg Tablet 2 tab PO BID Qty: 0 0RF risperidone 0.25 mg Tablet 0.25 mg PO BID Qty: 0 0RF tamsulosin 0.4 mg Capsule 0.4 mg PO DAILY@1730 Qty: 0 0RF acetaminophen 325 mg Tablet 650 mg PO Q6H PRN PRN (Reason: Pain 1-10 Or Fever>100.7) Qty: 0 0RF Continued rosuvastatin 5 mg tablet 5 mg PO DAILY metoprolol succinate 25 mg tablet extended release 24 hr 25 mg PO DAILY Referrals / Follow Up: Chaitanya Hdez DO [Primary Care Provider] - Disposition Disposition (needs filled in before D/C Order can be placed): [facility]
--- NOTE | 2025-05-01 16:04 | NURSING ---
Report called to nurse Winslow for pt to be d/c to [facility].
--- NOTE | 2025-05-01 16:04 | CASEMGMT ---
Discharge Planning Discharge orders, signed med list, copy of auth, and transport time sent to [facility]. Physicians will transport pt by cot at 4:30p. Nursing, SW, and pts (Linda) updated. Guera Villatoro DC Planning Asst.
== END 2025-05-01 17:16 | disposition skilled nursing facility (03) | DRG 92 ==
LOC: ED 10:47 → PCU 04-27 15:54 → ICU 04-27 15:55 → PCU 04-29 09:42
PROVIDERS: Admitting Provider Internal Medicine; Emergency Provider Emergency Medicine; Visit Provider Internal Medicine
DX: G92.8 Other toxic encephalopathy (principal); N13.8 Other obstructive and reflux uropathy; Z66 Do not resuscitate; N18.31 Chronic kidney disease, stage 3a; I12.9 Hypertensive chronic kidney disease with stage 1 through stage 4 chronic kidney disease, or unspecified chronic kidney disease; E78.5 Hyperlipidemia, unspecified; R73.9 Hyperglycemia, unspecified; T44.3X5A Adverse effect of other parasympatholytics [anticholinergics and antimuscarinics] and spasmolytics, initial encounter; N40.1 Benign prostatic hyperplasia with lower urinary tract symptoms; R33.9 Retention of urine, unspecified; R47.1 Dysarthria and anarthria; Z79.899 Other long term (current) drug therapy; Z86.73 Personal history of transient ischemic attack (TIA), and cerebral infarction without residual deficits
CPT/HCPCS: 36415; 36600; 70450; 70551; 71045; 80048; 80053; 80061; 81001; 82803; 82962; 83036; 83605; 83735; 84443; 85025; 85610; 85730; 87040; 87086; 92526; 92610; 93005; 93880; 94668; 94762; 95819; 97110; 97116; 97161; 97166; 97530; 97535; 97803; 99252; 99285; A4216; G0463

== ENCOUNTER → 2025-05-02 05:00 | Outpatient (REF) | payer MEDICARE, SELFPAY ==
--- OUTSIDE RECORDS SUMMARY | 2025-05-02 04:38 | XMS RPT_ITS | CCD ---
Author Organization [facility] Care Team Providers Care [employer] Liaison Officer Name Role Phone EDWINA CHEN DO Primary Care Physician [phone] Prabha ABRAMS, Johana Unavailable Unavailable EDWINA CHEN DO Primary Care Unavailable EDWINA CHEN DO Attending Unavailable EDWINA CHEN DO Attending Unavailable EDWINA CHEN DO Primary Care Unavailable Dr. Carol Ann Pittman MD Attending Provider [phone] Dr. Carol Ann Pittman MD Referring Provider [phone] Dr. Chaitanya Hdez DO Primary Care Provider Dr. Lisandro Virk MD Attending Provider [phone] CHAITANYA HDEZ DO Primary Care Physician Angel Villalobos DO Primary Care Provider Chaitanya Hdez DO Unavailable CHAITANYA HDEZ DO Attending Unavailable EDWINA CHEN DO Primary Care Unavailable CHAITANYA HDEZ DO Primary Care Unavailable CHAITANYA HDEZ DO Attending Unavailable CHAITANYA HDEZ DO Attending Unavailable EDWINA CHEN DO Primary Care Unavailable EDWINA CHEN DO Attending Unavailable EDWINA CHEN DO Primary Care Unavailable EDWINA CHEN DO Attending Unavailable EDWINA CHEN DO Primary Care Unavailable EDWINA CHEN DO Primary Care Unavailable EDWINA CHEN DO Attending Unavailable EDWINA CHEN DO Attending Unavailable EDWINA CHEN DO Primary Care Unavailable DR CAROL ANN PITTMAN MD Attending Unavailab EDWINA Casas DO Primary Care Unavailable CHAITANYA HDEZ DO Primary Care Unavailable CHAITANYA HDEZ DO Attending Unavailable Troy SHAW, Dr. Dimas Emergency Provider Trever SHAW, Dr. Arizmendi Admit Provider Trever SHAW, Dr. Arizmendi Attending Provider Carol Ann Pittman Referring Unavailable Carol Ann Pittman Attending Unavailable Hdez, Chaitanya Primary Care Unavailable Radha Valera Attending Unavailable [facility] Admitting Unavailable [facility] Consulting Unavailable Hdez, Chaitanya Primary Care Unavailable Hdez, Chaitanya Primary Care Unavailable Lisandro Virk Attending Unavailable [facility] Ugo Attending Unavailable Adeli, Amir Consulting Unavailable Zha, Ela Consulting Unavailable Jarek, Rob Consulting Unavailable Beigel, Ute Consulting Unavailable Addy, Obdulia Consulting Unavailable Science Hill, Thanh Consulting Unavailable Hinduja, Roxy Consulting Unavailable Clement, Saida Consulting Unavailable Carito, Dayo Consulting Unavailable Tanya, Lakia Consulting Unavailable Bittar, Lionel Consulting Unavailable Umair Lehman Consulting Unavailable Hudson Fraga Consulting Unavailable Ridha, Mohamed Consulting Unavailable Zaghlouleh, Mhd Nicanor Consulting UnavailCarol Ann Hoyos Consulting Unavailable Davis, Rami Consulting Unavailable Josue, Hua Consulting Unavailable Navi, Arabella Consulting Unavailable Hannawi, Yousef Consulting Unavailable Stack, Lisa Consulting Unavailable Yesy Sheae Consulting Unavailable Kristopher Benito Consulting Unavailable JOSE SANCHEZ Consulting Unavailable Deejay Fernandez Consulting Unavailable Consuelo Mckenna Consulting Unavailable Radha Valera Consulting Unavailable [facility] Attending Unavailable [facility] Admitting Unavailable Adeli, Amir Consulting Unavailable Hdez, Chaitanya Primary Care Unavailable Michael, Ela Consulting Unavailable Rob Tilley Consulting Unavailable BeLaina deearet Consulting Unavailable Addy, Obdulia Consulting Unavailable Science Hill, Thanh Consulting Unavailable Hinduja, Roxy Consulting Unavailable Clement, Saida Consulting Unavailable Carito, Dayo Consulting Unavailable Tanya, Lakia Consulting Unavailable Bittar, Lionel Consulting Unavailable Umair Lehman Consulting Unavailable Hudson Fraga Consulting Unavailable Ridha, Mohamed Consulting Unavailable Zaghlouleh, Mhd Nicanor Consulting UnavailCarol Ann Hoyos Consulting Unavailable Davis, Rami Consulting Unavailable Josue, Hua Consulting Unavailable Navi, Arabella Consulting Unavailable Hannawi, Yousef Consulting Unavailable Stack, Lisa Consulting Unavailable Cole Sheasse Consulting Unavailable Kristopher Benito Consulting Unavailable JOSE SANCHEZ Consulting Unavailable Khandelizabeth, Deejay Consulting Unavailable Consuelo Mckenna Consulting Unavailable Ugo Perera Consulting Unavailable Trever SHAW, Dr. Arizmendi Other Provider Moraima SHAW, Dr. Langley Attending Provider Unavaila sage Perera MD, Dr. Arizmendi Attending Provider Jatin SHAW, Dr. Olmedo Other Provider Michael SHAW, Dr. Mahmood Other Provider Jarek SHAW, Dr. Rivas Other Provider Ute Noriega MD Other Provider Addy SHAW, Dr. Steiner Other Provider Jeannine SHAW, Thanh Other Provider Unavailable Yudy SHAW, Roxy Other Provider Unavailable Dr. Saida Vaughan DO Other Provider Carito SHAW, Dr. Oshea Other Provider Tanya SHAW, Dr. Dorman Other Provider Sherri SHAW, Dr. Flowers Other Provider Dominik SHAW, Dr. Block Other Provider Flakito SHAW, Dr. Treviño Other Provider Adi SHAW, Dr. Fisher Other Provider Lis SHAW, Dr. Corine Vick Other Provider Lamin SHAW, Dr. Parrish Other Provider Ryan SHAW, Dr. Lara Other Provider Josue SHAW, Dr. Sequeira Other Provider Navi SHAW, Dr. Bell Other Provider Unavailable Belkys SHAW, Eri Other Provider Unavailable Lisa Stack MD Other Provider Mindphu MS, Darinel Other Provider Thong SHAW, Kristopher Other Provider JOSE SANCHEZ MD Other Provider Deejay Fernandez MD Other Provider Consuelo Mckenna MD Other Provider Moraima SHAW, Dr. Langley Other Provider Unavailable Allergies Allergy Classification Reported Allergen(s) Allergy Type Date of Onset Reaction(s) Facility (11 sources) Doxycycline; Translations: [doxycycline] Drug Allergy 5 PT UNABLE TO RESPOND-NEEDS F/U [facility] (9 sources) Tetracycline (class of antibiotic); Translations: [tetracyclines] Drug allergy Rash [facility] (2 sources) oxyCODONE Drug Allergy 5 PT UNABLE TO RESPOND-NEEDS F/U [facility] (1 source) Doxycycline Drug Allergy 5 [facility] (1 source) oxyCODONE Drug Allergy 5 [facility] (1 source) Scopolamine Drug Allergy 5 [facility] (1 source) Scopolamine Drug Allergy 5 mental status changes [facility] Medications Current Medications Medication Drug Class(es) Dates Sig (Normalized) Sig (Original) acetaminophen 325 mg oral tablet (1 source) Start: 05-01-2025 take 1-10 tablets by mouth every six hours as needed for pain Acetaminophen 325 mg Tablet Active 650 mg PO EVERY 6 HOURS NEEDED as needed for Pain 1-10 Or Fever>100.7 0 0 May 01, 2025 12:00am amLODIPine 5 mg oral tablet (4 sources) Dihydropyridine Calcium Channel Sole Start: 07-05-2024 amLODIPine 5 mg oral tablet Dose : 5 mg = 1 tab(s), Oral, qDay, # 90 tab(s), 3 Refill(s), Pharmacy: [facility]/pharmacy #[id number], 169, cm, 07/05/24 14:31:00 EDT, Height, kg, 07/05/24 14:31:00 EDT, Dosing Weight Start Date: 07/05/24 Status: Ordered Start: 06-23-2023 amLODIPine 5 m g oral tablet Dose : 5 mg = 1 tab(s), Oral, qDay, # 90 tab(s), 3 Refill(s), Pharmacy: [facility]/pharmacy #[id number], 168, cm, 06/23/23 8:01:00 EDT, Height, kg, 06/23/23 8:01:00 EDT, Dosing Weight Start Date: 06/23/23 Status: Ordered Start: 03-08-2022 amLODIPine 5 m g oral tablet Dose : 5 mg = 1 tab(s), Oral, qDay, # 90 tab(s), 3 Refill(s), Pharmacy: [facility]/pharmacy #[id number], 170, cm, 03/08/22 8:38:00 EDT, Height, kg, 03/08/22 8:38:00 EDT, Dosing Weight Start Date: 03/08/22 Status: Ordered docusate sodium 50 mg / sennosides, shelter 8.6 mg oral tablet (1 source) Start: 05-01-2025 Sennosides-Docusate Sodium (Stimulant Laxative Plus) 8.6-50 mg Tablet Active 2 {tbl} PO TWICE A DAY 0 May 01, 2025 12:00am glycopyrrolate 1 mg oral tablet (1 source) Start: 12-22-2023 End: 03-21-2024 glycopyrrolate 1 mg oral tablet Dose : 1 mg = 1 tab(s), Oral, qDay, PRN drooling, X 30 day(s), # 30 tab(s), 2 Refill(s), 03/21/24 10:11:00 AM EDT, [id number], Drooling from left side of mouth, 170, cm, 12/22/23 9:30:00 EDT, Height, kg, 12/22/23 9:30:00 EDT, Dosing Weight Start Date: 12/22/23 Stop Date: 03/21/24 Status: Ordered hydroCHLOROthiazide 12.5 mg oral tablet (1 source) Thiazide Diuretic Start: 03-08-2022 hydroCHLOROthiazide 12.5 mg oral tablet Dose : 12.5 mg = 1 tab(s), Oral, qDay, # 90 tab(s), 3 Refill(s), Pharmacy: [facility]/pharmacy #[id number], 170, cm, 03/08/22 8:38:00 EDT, Height, [...] qDay, # 90 tab(s), 3 Refill(s), [id number] 169, cm, 07/05/24 14:31:00 EDT, Height, kg, 07/05/24 14:31:00 EDT, Dosing Weight Start Date: 07/05/24 Status: Ordered Quantity: 90.0 Unit: tab(s) Repeat number: 4 Start: 06-23-2023 losartan 50 mg oral tablet Dose : 50 mg = 1 tab(s), Oral, qDay, # 90 tab(s), 3 Refill(s), [id number] 168, cm, 06/23/23 8:01:00 EDT, Height, kg, 06/23/23 8:01:00 EDT, Dosing Weight Start Date: 06/23/23 Status: Ordered Start: 03-08-2022 losartan 50 mg oral tablet Dose : 50 mg = 1 tab(s), Oral, qDay, # 90 tab(s), 3 Refill(s), Pharmacy: [facility]/pharmacy #[id number], 170, cm, 03/08/22 8:38:00 EDT, Height, kg, 03/08/22 8:38:00 EDT, Dosing Weight Start Date: 03/08/22 Status: Ordered 24 hr metoprolol succinate 25 mg extended release oral tablet (4 sources) beta-Adrenergic Sole Start: 04-26-2025 take 1 tablet by mouth once daily Metoprolol Succinate 25 mg tablet extended release 24 hr Active 25 mg PO DAILY April 26, 2025 12:00am heart Start: 02-11-2025 metoprolol suc cinate 25 mg oral TABLET extended release Dose : 25 mg = 1 tab(s), Oral, qDay, Do not crush or chew (controlled release), # 90 tab(s), 1 Refill(s), Pharmacy: [facility]/pharmacy #[id number], 169, cm, 01/03/25 10:33:00 EDT, Height, [...] tab(s) Repeat number: 7 polyethylene glycol 3350 [id number] mg powder for oral solution (9 sources) Osmotic Laxative Start: 06-27-2020 take 17 doses by mouth twice daily as needed for constipation MiraLax oral powder for reconstitution Dose : 17 gram(s) =, Oral, BID, PRN Constipation, # 255 gram(s), 1 Refill(s), Pharmacy: [facility]/pharmacy #[id number], Constipation in male, 170.25, cm, 06/27/20 [...] qDay, # 90 tab(s), 3 Refill(s), Pharmacy: [facility]/pharmacy #[id number], 169, cm, 07/05/24 14:31:00 EDT, Height, kg, 07/05/24 14:31:00 EDT, Dosing Weight Start Date: 07/05/24 Status: Ordered Quantity: 90.0 Unit: tab(s) Repeat number: 4 Start: 06-23-2023 potassium chlo ride 8 mEq (600 mg) oral tablet, extended release Dose : 8 mEq = 1 tab(s), Oral, qDay, # 90 tab(s), 3 Refill(s), Pharmacy: [facility]/pharmacy #[id number], 168, cm, 06/23/23 8:01:00 EDT, Height, kg, 06/23/23 8:01:00 EDT, Dosing Weight Start Date: 06/23/23 Status: Ordered Start: 03-08-2022 potassium chlo ride 8 mEq (600 mg) oral tablet, extended release Dose : 8 mEq = 1 tab(s), Oral, qDay, # 90 tab(s), 3 Refill(s), Pharmacy: [facility]/pharmacy #[id number], 170, cm, 03/08/22 8:38:00 EDT, Height, kg, 03/08/22 8:38:00 EDT, Dosing Weight Start Date: 03/08/22 Status: Ordered risperiDONE 0.25 mg oral tablet (1 source) Atypical Antipsychotic Start: 05-01-2025 take 1 tablet by mouth twice daily Risperidone 0.25 mg Tablet Active 0.25 mg PO TWICE A DAY 0 0 May 01, 2025 12:00am rosuvastatin calcium 5 mg oral tablet (4 sources) HMG-CoA Reductase Inhibitor Start: 04-26-2025 take 1 tablet by mouth once daily Rosuvastatin 5 mg tablet Active 5 mg PO DAILY April 26, 2025 12:00am cholesterol Start: 03-26-2025 rosuvastatin 5 mg oral tablet Dose : 5 mg = 1 tab(s), Oral, Daily, # 30 tab(s), 0 Refill(s), Pharmacy: [facility]/pharmacy #[id number], Cerebral ischemia, 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 [...] ED, # 40 tab(s), 2 Refill(s), [id number] 169, cm, 07/05/24 14:31:00 EDT, Height, kg, 07/05/24 14:31:00 EDT, Dosing Weight Start Date: 07/05/24 Status: Ordered Quantity: 40.0 Unit: tab(s) Repeat number: 3 Start: 06-23-2023 sildenafil 20 mg oral tablet Dose : 60 mg = 3 tab(s), Oral, Daily, PRN for ED, # 40 tab(s), 2 Refill(s), Pharmacy: [facility]/pharmacy #[id number], 168, cm, 06/23/23 8:01:00 EDT, Height, kg, 06/23/23 8:01:00 EDT, Dosing Weight Start Date: 06/23/23 Status: Ordered Start: 03-08-2022 sildenafil 20 mg oral tablet Dose : 60 mg = 3 tab(s), Oral, Daily, PRN for ED, # 40 tab(s), 2 Refill(s), Pharmacy: [facility]/pharmacy #[id number], 170, cm, 03/08/22 8:38:00 EDT, Height, kg, 03/08/22 8:38:00 EDT, Dosing Weight Start Date: 03/08/22 Status: Ordered tamsulosin hydrochloride 0.4 mg oral capsule (1 source) alpha-Adrenergic Sole Start: 05-01-2025 take 1 capsule by mouth once daily Tamsulosin 0.4 mg Capsule Active 0.4 mg PO DAILY@1730 0 0 May 01, 2025 12:00am Problems Active Problems Problem Classification Problem Date Documented Date Episodic/Chronic Cardiac dysrhythmias (10 sources) Multiple premature ventricular complexes; Translations: [Nonsustained ventricular tachycardia ] Onset: 5 01-02-2025 Chronic Chronic kidney disease (16 sources) Chronic kidney disease stage 4; Translations: [Chronic kidney disease stage 3] 2022 Chronic Chronic kidney disease (3 sources) Chronic kidney disease; Translations: [Chronic kidney disease, stage 3 unspecified] Onset: Conditions associated with dizziness or vertigo (8 sources) Lightheadedness; Translations: [Dizziness and giddiness] 07-23-2024 Episodic Congestive heart failure; nonhypertensive (3 sources) Chronic diastolic heart failure 03-29-2025 Chronic Disorders of lipid metabolism (2 sources) Hyperlipidemia 06-27-2020 Chronic Essential hypertension (15 sources) Hypertensive disorder; Translations: [Essential (primary) hypertension] Onset: 5 06-26-2019 Chronic Fluid and electrolyte disorders (4 sources) Metabolic alkalemia; Translations: [Alkalosis] 04-26-2025 Episodic [...] Drug-induced hypotension 10-30-2024 Episodic Other circulatory disease (4 sources) History of cerebrovascular accident; Translations: [Personal [...] Episodic Poisoning by other medications and drugs (2 sources) Poisoning by drug AND/OR medicinal substance; Translations: [Poisoning by other parasympatholytics [anticholinergics and antimuscarinics] and spasmolytics, accidental (unintentional), initial encounter] 04-26-2025 Episodic Residual codes; unclassified (4 sources) Restlessness and agitation; Translations: [Restlessness and agitation] 04-26-2025 Chronic Residual codes; unclassified (5 sources) Memory impairment 10-30-2024 Episodic Residual codes; unclassified (3 sources) Past history of procedure 03-26-2025 Episodic Residual codes; unclassified (4 sources) Altered mental status; Translations: [Altered mental status, unspecified] 04-26-2025 Episodic Residual codes; unclassified (1 source) Altered mental status, unspecified; Translations: [Altered mental status, unspecified] Onset: Episodic Unclassified (9 sources) History of total [...] Range Facility Absolute lymphocyte countOrd ered By: Ugo Perera on 04-29-2025 Lymphocytes Auto (Unsp spec) [#/Vol] 1.00 10*3/uL 0.83-4.51 [facility] Absolute neutrophil countOrd ered By: Ugo Perera on 04-29-2025 Neutrophils (Bld) [#/Vol] 9.4 10*3/uL High 2.0-7.7 [facility] Anion gap in Serum or Plasma Ordered By: Ugo Perera on 04-29-2025 Anion gap [Moles/Vol] 13 mmol/L - [facility] Automated lymphocyte count a s percentage of total leukocytesOrdered By: Ugo Perera on 04-29-2025 Lymphocytes/100 WBC Auto (Unsp spec) 8.8 % Low 19-41 [facility] BUN/creatinine ratioOrdered By: Ugo Perera on 04-29-2025 Urea nitrogen/Creatinine [Mass ratio] 15.5 mg/mg 10- [facility] Basic Metabolic Profile (BMP )on 04-29-2025 BUN/CRE 15.5 RATIO Normal 10-20 [facility] Comment on above: Performed By: #### L [id number] #### [facility] [address] [place], [address] Calcium [Mass/Vol] 8.8 mg/dL Normal 7.6-11.0 [facility] Comment on above: Performed By: #### L [id number] #### [facility] [address] [place], [address] Chloride [Moles/Vol] 109 mmol/L High 98-108 [facility] Comment on above: Performed By: #### L [id number] #### [facility] [address] [place], [address] CO2 [Moles/Vol] 19.4 mmol/L Low 21.0-32.0 [facility] Comment on above: Performed By: #### L [id number] #### [facility] [address] [place], [address] Creatinine [Mass/Vol] 1.59 mg/dL High 0.70-1.20 [facility] Comment on above: Performed By: #### L [id number] #### [facility] [address] [place], [address] ECRCL 30.75 ml/min Low 50-250 [facility] Comment on above: Performed By: #### L [id number] #### [facility] [address] [place], [address] GAP 13 Normal 5-15 [facility] Comment on above: Performed By: #### L [id number] #### [facility] [address] [place], [address] GFR/1.73 sq M.predicted among non-blacks MDRD (S/P/Bld) [Vol rate/Area] 43 mL/min/{1.73_m2} Low >60 [facility] Comment on above: Result Comment: mL/m in/1.73m2 CKD-EPI Creatinine Equation (2020) Performed By: #### L [id number] #### [facility] [address] [place], [address] Glucose [Mass/Vol] 129 mg/dL High 70-99 [facility] Comment on above: Performed By: #### L [id number] #### [facility] [address] [place], [address] Potassium [Moles/Vol] 3.8 mmol/L Normal 3.3-5.1 [facility] Comment on above: Result Comment: Hemo lysis present, Results??could be affected. ?? Performed By: #### L [id number] #### [facility] [address] [place], [address] Sodium [Moles/Vol] 141 mmol/L Normal 133-145 [facility] Comment on above: Performed By: #### L [id number] #### [facility] [address] [place], [address] Urea nitrogen [Mass/Vol] 25 mg/dL High 4-19 [facility] Comment on above: Performed By: #### L [id number] #### [facility] [address] [place], [address] Basophil percentageOrdered B y: Ugo Perera on 04-29-2025 Basophils/100 WBC (Bld) 0.2 % 0-1 [facility] Blood manual differential co mment interpretation (narrative result)Ordered By: Ugo Perera on 04-29-2025 Manual differential comment Musa (Bld) [Interp] SCANNED [facility] CBC W/Diff, Automatedon 04-12 Anisocytosis Ql (Bld) 1+ Normal [facility] Comment on above: Performed By: #### L [id number] #### [facility] [address] [place], [address] OVALOCYTE 1+ Normal [facility] Comment on above: Performed By: #### L [id number] #### [facility] [address] [place], [address] PLT EST ADEQUATE Normal ADEQ [facility] Comment on above: Performed By: #### L [id number] #### [facility] [address] [place], [address] PLT MORPH CLUMPED Normal [facility] Comment on above: Performed By: #### L [id number] #### [facility] [address] [place], [address] SMEAR COMMENT SCANNED Normal [facility] Comment on above: Performed By: #### L [id number] #### [facility] [address] [place], [address] Carbon dioxide, total [Moles /volume] in Central venous bloodOrdered By: Ugo Perera on 04-29-2025 CO2 [Moles/Vol] 19.4 mmol/L Low 21.0-32.0 [facility] Chloride assayOrdered By: Marcel Perera on 04-29-2025 Chloride [Moles/Vol] 109 mmol/L High 98-108 [facility] Electrocardiogram reportOrde red By: Scooter Mckeon on 04-29-2025 EKG study [facility] [address] [place] [address] 12 Lead EKG 04/26/25 0827 MR#: [id number] Acct: [id number] Name: LUL CHRISTINE Rep #:[id number] : 1940 84 From: Scooter Mckeon MD Attending Dr: Dr. Ugo Perera MD Status: ADM IN Ordering Dr: Wing Simmons MD Date: 04/26 Location: ICU Sex: M C Admitted: 04/26/25 Test Reason : ALT LOC Blood Pressure : */* mmHG Vent. Rate : 86 BPM Atrial Rate : 86 BPM P-R Int : 148 ms QRS Dur : 76 ms QT Int : 364 ms P-R-T Axes : 64 -12 53 degrees QTcB Int : 435 ms Normal sinus rhythm Nonspecific ST abnormality Abnormal ECG Confirmed by PROSPER SHAW, SCOOTER ([id number]), editorial clerk YANCY GIL ([id number]) on 04/29/2025 9:13:57 AM Referred By: Confirmed By: SCOOTER MCKEON MD 04/29/2513 Date _ Scooter Mckeon MD CC: Dr. Ugo Perera MD; Dr. Chaitanya Hdez DO; Dr. Wing Simmons MD ~ Signed [facility] Other Eosinophil percentageOrdered By: Ugo Perera on 04-29-2025 Eosinophils/100 WBC (Bld) 0.0 % 0-5 [facility] Erythrocyte distribution wid th ratioOrdered By: Ugo Perera on 04-29-2025 Erythrocyte distribution width (RBC) [Ratio] 13.2 % 11.6-14.6 [facility] Erythrocyte distribution wid th standard deviationOrdered By: Ugo Perera on 04-29-2025 Erythrocyte distribution width (RBC) [Ratio] 43.0 fl 35.1-43.9 [facility] Glomerular filtration rate ( GFR) estimation/1.73 sq m using serum, plasma, or whole bOrdered By: Ugo Perera on 04-29-2025 GFR/1.73 sq M.predicted among non-blacks MDRD (S/P/Bld) [Vol rate/Area] 43 mL/min/{1.73_m2} Low >60 [facility] Comment on above: mL/min/1.73m2 CKD-EP I Creatinine Equation (2020) Hematocrit Auto (Bld) [Volum e fraction]Ordered By: Ugo Perera on 04-29-2025 Hematocrit (Bld) [Volume fraction] 41.3 % 40-54 [facility] Hemoglobin measurementOrdere d By: Ugo Perera on 04-29-2025 Hemoglobin (Bld) [Mass/Vol] 13.9 g/dL 13.0-16.5 [facility] Immature granulocytes/100 WB C Auto (Bld)Ordered By: Ugo Perera on 04-29-2025 Immature granulocytes/100 WBC (Bld) 0.400 % 0.0-0.9 [facility] Comment on above: IG% - Immature Granu locytes (promyelocytes, myelocytes and metamyelocytes) > 1% indicates that a LEFT SHIFT is Present. Laboratory - Hematology and Cell countsOrdered By: Ugo Perera on 04-29-2025 Anisocytosis Ql (Bld) 1+ [facility] MCV (mean corpuscular volume ) determinationOrdered By: Ugo Perera on 04-29-2025 MCV (RBC) [Entitic vol] 89.0 fL 80-94 [facility] Mean corpuscular hemoglobin (MCH) determinationOrdered By: Ugo Perera on 04-29-2025 MCH (RBC) [Entitic mass] 30.0 pg 27.0-32.0 [facility] Mean corpuscular hemoglobin concentration (MCHC) determinationOrdered By: Ugo Perera 04-29-2025 MCHC (RBC) [Mass/Vol] 33.7 g/dL 32-36 [facility] Mean platelet volume determi nationOrdered By: Ugo Perera on 04-29-2025 Platelet mean volume (Bld) [Entitic vol] 10.5 fL 6.2-12.0 [facility] Monocyte percentageOrdered B y: Ugo Perera on 04-29-2025 Monocytes/100 WBC (Bld) 7.1 % 0-10 [facility] Neutrophil percentageOrdered By: Ugo Perera on 04-29-2025 Neutrophils/100 WBC (Bld) 83.5 % High 47-70 [facility] Nucleated red blood cell per centageOrdered By: Ugo Perera on 04-29-2025 Nucleated RBC/100 WBC (Bld) [Ratio] 0 % 0-5 [facility] Ovalocyte detectionOrdered B y: Ugo Perera on 04-29-2025 Ovalocytes LM Ql (Bld) 1+ [facility] Platelet countOrdered By: Marcel Perera on 04-29-2025 Platelet count See comment 150-450 [facility] Comment on above: Please note: For thi s sample, a platelet estimate is provided rather than a platelet count due to platelet clumping. Other parameters associated with this sample are not affected by platelet clumping. If a more accurate platelet count is required, a redraw of the patient will be necessary. Platelet estimateOrdered By: Ugo Perera on 04-29-2025 Platelets LM Ql (Bld) ADEQUATE ADEQ [facility] Platelet morphologyOrdered B y: Ugo Perera on 04-29-2025 Platelet morphology finding Nom (Bld) CLUMPED [facility] [facility] Potassium measurement (mass/ volume)Ordered By: Ugo Perera on 04-29-2025 Potassium (Unsp spec) [Mass/Vol] 3.8 mmol/L 3.3-5.1 [facility] Comment on above: Hemolysis present, R esults could be affected. RBC Auto (Bld) [#/Vol]Ordere d By: Ugo Perera on 04-29-2025 RBC (Bld) [#/Vol] 4.64 10*6/uL 4.6-6.2 [facility] Serum creatinine measurement (mass/volume)Ordered By: Ugo Perera on 04-29-2025 Creatinine [Mass/Vol] 1.59 mg/dL High 0.70-1.20 [facility] Serum glucose measurement (m ass/volume)Ordered By: Ugo Perera on 04-29-2025 Glucose [Mass/Vol] 129 mg/dL High 70-99 [facility] Serum or plasma calcium anna urement (mass/volume)Ordered By: Ugo Perera on 04-29-2025 Calcium [Mass/Vol] 8.8 mg/dL 7.6-11.0 [facility] Serum or plasma urea nitroge n measurement (mass/volume)Ordered By: Ugo Perera on 04-29-2025 Urea nitrogen [Mass/Vol] 25 mg/dL High 4-19 [facility] Sodium levelOrdered By: Nighat Perera on 04-29-2025 Sodium [Moles/Vol] 141 mmol/L 133-145 [facility] Urine Cultureon 04-29-2025 [facility] Culture exhibits no growth. Normal [facility] Comment on above: Performed By: #### L 100.0100 #### [facility] [address] [place], [address] White blood cell (WBC) count Ordered By: Ugo Perera on 04-29-2025 WBC (Bld) [#/Vol] 11.3 10*3/uL High 4.4-11.0 [facility] Basic Metabolic Profile (BMP )on 04-28-2025 BUN/CRE 18.3 RATIO Normal 10-20 [facility] Comment on above: Performed By: #### L 100.0100 #### [facility] [address] [place], [address] Calcium [Mass/Vol] 9.0 mg/dL Normal 7.6-11.0 [facility] Comment on above: Performed By: #### L 100.0100 #### [facility] [address] [place], [address] Chloride [Moles/Vol] 106 mmol/L Normal 98-108 [facility] Comment on above: Performed By: #### L 100.0100 #### [facility] [address] [place], [address] CO2 [Moles/Vol] 23.1 mmol/L Normal 21.0-32.0 [facility] Comment on above: Performed By: #### L 100.0100 #### [facility] [address] [place], [address] Creatinine [Mass/Vol] 1.53 mg/dL High 0.70-1.20 [facility] Comment on above: Performed By: #### L 100.0100 #### [facility] [address] [place], [address] ECRCL 34.54 ml/min Low 50-250 [facility] Comment on above: Performed By: #### L 100.0100 #### [facility] [address] [place], [address] GAP 12 Normal 5-15 [facility] Comment on above: Performed By: #### L 100.0100 #### [facility] [address] [place], [address] GFR/1.73 sq M.predicted among non-blacks MDRD (S/P/Bld) [Vol rate/Area] 45 mL/min/{1.73_m2} Low >60 [facility] Comment on above: Result Comment: mL/m in/1.73m2 CKD-EPI Creatinine Equation (2020) Performed By: #### L 100.0100 #### [facility] [address] [place], [address] Glucose [Mass/Vol] 132 mg/dL High 70-99 [facility] Comment on above: Performed By: #### L 100.0100 #### [facility] [address] [place], [address] Potassium [Moles/Vol] 3.9 mmol/L Normal 3.3-5.1 [facility] Comment on above: Performed By: #### L 100.0100 #### [facility] [address] [place], [address] Sodium [Moles/Vol] 141 mmol/L Normal 133-145 [facility] Comment on above: Performed By: #### L 100.0100 #### [facility] [address] [place], [address] Urea nitrogen [Mass/Vol] 28 mg/dL High 4-19 [facility] Comment on above: Performed By: #### L 100.0100 #### [facility] [address] [place], [address] Bedside Glucoseon 04-28-2025 FINGERSTICK GLU 116 mg/dL High 74-106 [facility] Comment on above: Result Comment: COREY MCGHEE OF PATIENT CARE PER NURSING PROTOCOL Performed By: #### L 501.080 #### [facility] [address] [place], [address] Bilirubin Test strip Ql (U)O rdered By: Ugo Perera on 04-28-2025 Bilirubin Ql (U) Negative Negative [facility] CBC W/Diff, Automatedon 04-12 Absolute Lymph 1.12 X10 3/uL Normal 0.83-4.51 [facility] Comment on above: Performed By: #### L 100.0100 #### [facility] [address] [place], [address] Absolute Neut 5.4 X10 3/uL Normal 2.0-7.7 [facility] Comment on above: Performed By: #### L 100.0100 #### [facility] [address] [place], [address] Basophils/100 WBC (Bld) 0.4 % Normal 0-1 [facility] Comment on above: Performed By: #### L 100.0100 #### [facility] [address] [place], [address] Eosinophils/100 WBC (Bld) 1.2 % Normal 0-5 [facility] Comment on above: Performed By: #### L 100.0100 #### [facility] [address] [place], [address] Erythrocyte distribution width (RBC) [Ratio] 13.1 % Normal 11.6-14.6 [facility] Comment on above: Performed By: #### L 100.0100 #### [facility] [address] [place], [address] Hematocrit (Bld) [Volume fraction] 42.1 % Normal 40-54 [facility] Comment on above: Performed By: #### L 100.0100 #### [facility] [address] [place], [address] Hemoglobin (Bld) [Mass/Vol] 14.3 g/dL Normal 13.0-16.5 [facility] Comment on above: Performed By: #### L 100.0100 #### [facility] [address] [place], [address] IG% 0.400 Normal 0.0-0.9 [facility] Comment on above: Result Comment: IG% - Immature Granulocytes (promyelocytes, myelocytes and metamyelocytes) > 1% indicates that a LEFT SHIFT is Present. Performed By: #### L 100.0100 #### [facility] [address] [place], [address] Lymphocytes/100 WBC (Bld) 15.1 % Low 19-41 [facility] Comment on above: Performed By: #### L 100.0100 #### [facility] [address] [place], [address] MCH (RBC) [Entitic mass] 29.8 pg Normal 27.0-32.0 [facility] Comment on above: Performed By: #### L 100.0100 #### [facility] [address] [place], [address] MCHC (RBC) [Mass/Vol] 34.0 g/dL Normal 32-36 [facility] Comment on above: Performed By: #### L 100.0100 #### [facility] [address] [place], [address] MCV (RBC) [Entitic vol] 87.7 fL Normal 80-94 [facility] Comment on above: Performed By: #### L 100.0100 #### [facility] [address] [place], [address] Monocytes/100 WBC (Bld) 10.9 % High 0-10 [facility] Comment on above: Performed By: #### L 100.0100 #### [facility] [address] [place], [address] Neutrophils/100 WBC (Bld) 72.0 % High 47-70 [facility] Comment on above: Performed By: #### L 100.0100 #### [facility] [address] [place], [address] Nucleated RBC (Bld) [#/Vol] 0 10*3/uL Normal 0-5 [facility] Comment on above: Performed By: #### L 100.0100 #### [facility] [address] [place], [address] Platelet mean volume (Bld) [Entitic vol] 10.5 fL Normal 6.2-12.0 [facility] Comment on above: Performed By: #### L 100.0100 #### [facility] [address] [place], [address] Platelets (Bld) [#/Vol] 213 10*3/uL Normal 150-450 [facility] Comment on above: Performed By: #### L 100.0100 #### [facility] [address] [place], [address] RBC (Bld) [#/Vol] 4.80 10*6/uL Normal 4.6-6.2 [facility] Comment on above: Performed By: #### L 100.0100 #### [facility] [address] [place], [address] RDW SD 42.4 fl Normal 35.1-43.9 [facility] Comment on above: Performed By: #### L 100.0100 #### [facility] [address] [place], [address] WBC (Bld) [#/Vol] 7.4 10*3/uL Normal 4.4-11.0 [facility] Comment on above: Performed By: #### L 100.0100 #### [facility] [address] [place], [address] Culture, Blood (WB)on 2024 CUB Blood cultures x2, from two different sites No growth in 48 hours. Normal [facility] Comment on above: Performed By: #### L 100.0100 #### [facility] [address] [place], [address] Duplex ultrasound of carotid artery reportOrdered By: Hector Blackburn on 04-28-2025 Study report [facility] [address] [place] [address] Carotid Duplex Ultrasound 04/26/25 1253 MR#: [id number] Acct: [id number] Name: LUL CHRISTINE Rep #:[id number] : 1940 84 From: Hector Blackburn MD Attending Dr: Dr. Ugo Perera MD Status: ADM IN Ordering Dr: Ugo Perera MD Date: 04/26/25 Location: ICU Sex: M C Admitted: 04/26/25 Reason For Study Reason For Study: CVA Rt. Velocities/BP Lt. Velocities/BP Prox CCA 94.1/12.7 cm/sec. Prox CCA 93.0/12.7 cm/sec. Mid CCA 77.6/11.7 cm/sec. Mid CCA 91.9/14.9 cm/sec. Dist CCA 61.1/10.6 cm/sec. Dist CCA 68.8/14.9 cm/sec. Prox ICA 52.3/11.7 cm/sec. Prox ICA 67.7/17.1 cm/sec. Mid ICA 39.9/12.2 cm/sec. Mid ICA 61.1/18.2 cm/sec. Dist ICA 43.5/9.5 cm/sec. Dist ICA 52.3/14.9 cm/sec. Rt. ICA/CCA = 0.7. Lt. ICA/CCA = 0.7. Prox ECA 87.5/9.5 cm/sec. Prox ECA 112.5/6.6 cm/sec. Rt. Vert. 22.5/4.8 cm/sec. Lt. Vert. 46.8/6.6 cm/sec. Right Extracranial There is intimal thickening but no significant atherosclerotic plaque noted in the right common carotid artery. There is heterogeneous, irregular atherosclerotic plaque noted in the right internal carotid artery. There is heterogeneous, irregular atherosclerotic plaque noted in the right external carotid artery. Antegrade flow is noted in the right vertebral artery. Non vascularized anechoic structures noted throughout muscle fascia of Rt Neck. Left Extracranial There is homogeneous, smooth atherosclerotic plaque noted in the left common carotid artery. There is heterogeneous, irregular atherosclerotic plaque noted in the left internal carotid artery. There is intimal thickening but no significant atherosclerotic plaque noted in the left external carotid artery. Antegrade flow is noted in the left vertebral artery. Procedure Carotid Duplex 70359. This is a Carotid Duplex examination using B-mode, color flow and specral Doppler. The exam was of fair technical quality due to patient involuntary movement. Exam performed portable in patient room. VL/Carotid Duplex Ultrasound Interpretation Summary Mild (<50%) stenosis right extracranial internal carotid. Mild (<50%) stenosis left extracranial internal carotid. Flow within the vertebral arteries is antegrade bilaterally. Multiple, non-vascular, anechoic structures are noted in the muscle and fascia of the right neck. Clinical correlation is advised. __ Ordering Physician: Ugo Perera Referring Physician: Chaitanya Hdez Performed By: Jacobo Ventura, RVT 04/28/252106 Date _ Hector Blackburn MD CC: Dr. Ugo Perera MD; Dr. Chaitanya Hdez, DO ~ Date Dictated: 04/26/25 1253 Date Transcribed: 04/28/252106 Editor Magazine: Signed [facility] Other [facility] deOrdered By: Ugo Perera on 04-28-2025 Glucose [Mass/Vol] 116 mg/dL High 74-106 [facility] Comment on above: MANAGEMENT OF PATIEN T CARE PER NURSING PROTOCOL Ketones Test strip Ql (U)Ord ered By: Ugo Perera on 04-28-2025 Ketones Ql (U) 5 mg/dl High Negative [facility] Microscopic analysis of urin e for red blood cells (RBC)Ordered By: Ugo Perera on 04-28-2025 Microscopic analysis of urine for red blood cells (RBC) 50-100 SEEN /hpf 0-5 [facility] Mucus LM Ql (Urine sed)Order ed By: Ugo Perera on 04-28-2025 Mucus Ql (Urine sed) 0 SEEN /hpf [facility] Nitrite Test strip Ql (U)Ord ered By: Ugo Perera on 04-28-2025 Nitrite Ql (U) Negative Negative [facility] Protein Test strip Ql (U)Ord ered By: Ugo Perera on 04-28-2025 Protein Ql (U) 100 mg/dl High Negative [facility] Squamous epithelial cells de tection in urine sediment by light microscopyOrdered By: Ugo Perera on 04-28-2025 Epithelial cells.squamous LM Ql (Urine sed) 0-5 SEEN /hpf 0-5 [facility] Urinalysis, Completeon 04-28 BACTERIA 1+ /hpf Normal None Seen [facility] Comment on above: Order Comment: SIVA TER SPECIMEN Performed By: #### L 400.0001 #### [facility] [address] [place], [address] EPI,SQUAMOUS 0-5 SEEN Normal 0-5 [facility] Comment on above: Order Comment: SIVA TER SPECIMEN Performed By: #### L 400.0001 #### [facility] [address] [place], [address] RBC 50-100 SEEN Normal 0-5 [facility] Comment on above: Order Comment: SIVA TER SPECIMEN Performed By: #### L 400.0001 #### [facility] [address] [place], [address] Mucus Ql (Urine sed) 0 SEEN Normal [facility] Comment on above: Order Comment: SIVA TER SPECIMEN Performed By: #### L 400.0001 #### [facility] [address] [place], [address] WBC 0 SEEN Normal 0-5 [facility] Comment on above: Order Comment: SIVA TER SPECIMEN Performed By: #### L 400.0001 #### [facility] [address] [place], [address] Urine Cultureon 04-28-2025 [facility] Comments: on 04/26 U/A sample Culture exhibits no growth. Normal [facility] Comment on above: Performed By: #### L 400.0001 #### [facility] [address] [place], [address] Urine clarityOrdered By: Yarelis Perera on 04-28-2025 Clarity (U) Cloudy Clear [facility] Urine color determinationOrd ered By: Ugo Perera on 04-28-2025 Color (U) Yellow Yellow [facility] Urine cultureOrdered By: Yarelis Perera on 04-28-2025 Bacteria identified Cx Nom (U) Culture exhibits no growth. [facility] Urine glucose detectionOrder ed By: Ugo Perera on 04-28-2025 Glucose Ql (U) Normal mg/dl Normal [facility] Urine leukocyte esterase det ection by dipstickOrdered By: Ugo Perera on 04-28-2025 Leukocyte esterase Test strip Ql (U) Negative Negative [facility] Urine pHOrdered By: Ugo Perera on 04-28-2025 pH (U) 6.0 [pH] 5.0 - 8.0 [facility] Urine sediment bacteria coun t by microscopy (number/high power field)Ordered By: Ugo Perera on 04-28-2025 Bacteria LM.HPF (Urine sed) [#/Area] 1 /[HPF] None Seen [facility] Urine specific gravity measu rementOrdered By: Ugo Perera on 04-28-2025 Specific gravity (U) [Rel density] 1.015 1.002-1.030 [facility] Urine urobilinogen measureme ntOrdered By: Ugo Perera on 04-28-2025 Urobilinogen Ql (U) Normal mg/dl Normal [facility] White blood cell countOrdere d By: Ugo Perera on 04-28-2025 White blood cell count 0 SEEN /hpf 0-5 [facility] Basic Metabolic Profile (BMP )on 04-27-2025 BUN/CRE 16.5 RATIO Normal 10-20 [facility] Comment on above: Order Comment: Comme nts: NPO at [place] prior to lipid panel Performed By: #### L 500.2500, L500.4100, L501.9520 #### [facility] [address] [place], [address] Calcium [Mass/Vol] 9.3 mg/dL Normal 7.6-11.0 [facility] Comment on above: Order Comment: Comme nts: NPO at [place] prior to lipid panel Performed By: #### L 500.2500, L500.4100, L501.9520 #### [facility] [address] [place], [address] Chloride [Moles/Vol] 104 mmol/L Normal 98-108 [facility] Comment on above: Order Comment: Comme nts: NPO at [place] prior to lipid panel Performed By: #### L 500.2500, L500.4100, L501.9520 #### [facility] [address] [place], [address] CO2 [Moles/Vol] 18.0 mmol/L Low 21.0-32.0 [facility] Comment on above: Order Comment: Comme nts: NPO at [place] prior to lipid panel Performed By: #### L 500.2500, L500.4100, L501.9520 #### [facility] [address] [place], [address] Creatinine [Mass/Vol] 1.44 mg/dL High 0.70-1.20 [facility] Comment on above: Order Comment: Comme nts: NPO at [place] prior to lipid panel Performed By: #### L 500.2500, L500.4100, L501.9520 #### [facility] [address] [place], [address] ECRCL 36.70 ml/min Low 50-250 [facility] Comment on above: Order Comment: Comme nts: NPO at [place] prior to lipid panel Performed By: #### L 500.2500, L500.4100, L501.9520 #### [facility] [address] [place], [address] GAP 17 High 5-15 [facility] Comment on above: Order Comment: Comme nts: NPO at [place] prior to lipid panel Performed By: #### L 500.2500, L500.4100, L501.9520 #### [facility] [address] [place], [address] GFR/1.73 sq M.predicted among non-blacks MDRD (S/P/Bld) [Vol rate/Area] 49 mL/min/{1.73_m2} Low >60 [facility] Comment on above: Order Comment: Comme nts: NPO at [place] prior to lipid panel Result Comment: mL/m in/1.73m2 CKD-EPI Creatinine Equation (2020) Performed By: #### L 500.2500, L500.4100, L501.9520 #### [facility] [address] [place], [address] Glucose [Mass/Vol] 133 mg/dL High 70-99 [facility] Comment on above: Order Comment: Comme nts: NPO at [place] prior to lipid panel Performed By: #### L 500.2500, L500.4100, L501.9520 #### [facility] [address] [place], [address] Potassium [Moles/Vol] 3.6 mmol/L Normal 3.3-5.1 [facility] Comment on above: Order Comment: Comme nts: NPO at [place] prior to lipid panel Performed By: #### L 500.2500, L500.4100, L501.9520 #### [facility] [address] [place], [address] Sodium [Moles/Vol] 139 mmol/L Normal 133-145 [facility] Comment on above: Order Comment: Comme nts: NPO at [place] prior to lipid panel Performed By: #### L 500.2500, L500.4100, L501.9520 #### [facility] [address] [place], [address] Urea nitrogen [Mass/Vol] 24 mg/dL High 4-19 [facility] Comment on above: Order Comment: Comme nts: NPO at [place] prior to lipid panel Performed By: #### L 500.2500, L500.4100, L501.9520 #### [facility] [address] [place], [address] Bedside Glucoseon 04-27-2025 FINGERSTICK GLU 96 mg/dL Normal 74-106 [facility] Comment on above: Result Comment: COREY GEMENT OF PATIENT CARE PER NURSING PROTOCOL Performed By: #### L 100.0100 #### [facility] [address] [place], [address] FINGERSTICK GLU 145 mg/dL High 74-106 [facility] Comment on above: Result Comment: COREY GEMENT OF PATIENT CARE PER NURSING PROTOCOL Performed By: #### L 501.080 #### [facility] [address] [place], [address] FINGERSTICK GLU 108 mg/dL High 74-106 [facility] Comment on above: Result Comment: COREY GEMENT OF PATIENT CARE PER NURSING PROTOCOL Performed By: #### L 400.0001 #### [facility] [address] [place], [address] CBC W/Diff, Automatedon 04-12-2024 Absolute Lymph 1.12 X10 3/uL Normal 0.83-4.51 [facility] Comment on above: Performed By: #### L 100.0100 #### [facility] [address] [place], [address] Absolute Neut 7.7 X10 3/uL Normal 2.0-7.7 [facility] Comment on above: Performed By: #### L 100.0100 #### [facility] [address] [place], [address] Basophils/100 WBC (Bld) 0.3 % Normal 0-1 [facility] Comment on above: Performed By: #### L 100.0100 #### [facility] [address] [place], [address] Eosinophils/100 WBC (Bld) 0.1 % Normal 0-5 [facility] Comment on above: Performed By: #### L 100.0100 #### [facility] [address] [place], [address] Erythrocyte distribution width (RBC) [Ratio] 12.7 % Normal 11.6-14.6 [facility] Comment on above: Performed By: #### L 100.0100 #### [facility] [address] [place], [address] Hematocrit (Bld) [Volume fraction] 43.1 % Normal 40-54 [facility] Comment on above: Performed By: #### L 100.0100 #### [facility] [address] [place], [address] Hemoglobin (Bld) [Mass/Vol] 14.8 g/dL Normal 13.0-16.5 [facility] Comment on above: Performed By: #### L 100.0100 #### [facility] [address] [place], [address] IG% 0.300 Normal 0.0-0.9 [facility] Comment on above: Result Comment: IG% - Immature Granulocytes (promyelocytes, myelocytes and metamyelocytes) > 1% indicates that a LEFT SHIFT is Present. Performed By: #### L 100.0100 #### [facility] [address] [place], [address] Lymphocytes/100 WBC (Bld) 11.5 % Low 19-41 [facility] Comment on above: Performed By: #### L 100.0100 #### [facility] [address] [place], [address] MCH (RBC) [Entitic mass] 29.7 pg Normal 27.0-32.0 [facility] Comment on above: Performed By: #### L 100.0100 #### [facility] [address] [place], [address] MCHC (RBC) [Mass/Vol] 34.3 g/dL Normal 32-36 [facility] Comment on above: Performed By: #### L 100.0100 #### [facility] [address] [place], [address] MCV (RBC) [Entitic vol] 86.4 fL Normal 80-94 [facility] Comment on above: Performed By: #### L 100.0100 #### [facility] [address] [place], [address] Monocytes/100 WBC (Bld) 9.4 % Normal 0-10 [facility] Comment on above: Performed By: #### L 100.0100 #### [facility] [address] [place], [address] Neutrophils/100 WBC (Bld) 78.4 % High 47-70 [facility] Comment on above: Performed By: #### L 100.0100 #### [facility] [address] [place], [address] Nucleated RBC (Bld) [#/Vol] 0 10*3/uL Normal 0-5 [facility] Comment on above: Performed By: #### L 100.0100 #### [facility] [address] [place], [address] Platelet mean volume (Bld) [Entitic vol] 10.7 fL Normal 6.2-12.0 [facility] Comment on above: Performed By: #### L 100.0100 #### [facility] [address] [place], [address] Platelets (Bld) [#/Vol] 223 10*3/uL Normal 150-450 [facility] Comment on above: Performed By: #### L 100.0100 #### [facility] [address] [place], [address] RBC (Bld) [#/Vol] 4.99 10*6/uL Normal 4.6-6.2 [facility] Comment on above: Performed By: #### L 100.0100 #### [facility] [address] [place], [address] RDW SD 39.7 fl Normal 35.1-43.9 [facility] Comment on above: Performed By: #### L 100.0100 #### [facility] [address] [place], [address] WBC (Bld) [#/Vol] 9.8 10*3/uL Normal 4.4-11.0 [facility] Comment on above: Performed By: #### L 100.0100 #### [facility] [address] [place], [place], [address] Calculated very low density lipoprotein (VLDL) cholesterol measurementOrdered By: Ugo Perera on 04-27-2025 Calculated very low density lipoprotein (VLDL) cholesterol measurement 14 mg/dL 5-40 [facility] Hemoglobin A1con 04-27-2025 HbA1c (Bld) [Mass fraction] 6.2 % High <=5.6 [facility] Comment on above: Result Comment: Norm al < 5.7 % Prediabetic 5.7 - 6.4 % Diabetic >or= 6.5 % Please note range changes. Performed By: #### L 501.9985 #### [facility] [address] [place], [address] Hemoglobin A1c percentageOrd ered By: Ugo Perera on 04-27-2025 HbA1c (Bld) [Mass fraction] 6.2 % High <5.7 [facility] Comment on above: Normal < 5.7 % Predi abetic 5.7 - 6.4 % Diabetic >or= 6.5 % Please note range changes. LDL calc ser/plasOrdered By: gUo Perera on 04-27-2025 Cholesterol in LDL [Mass/Vol] 59 mg/dL [facility] Comment on above: Lhzjrbdlit=409-285 m g/dL & Higher Crhs=643 mg/dL or greaterFriedwald Equation for LDL-C Lipid Profileon 04-27-2025 CHOL:HDL 2.20 Normal [facility] Comment on above: Order Comment: Comme nts: NPO at [place] prior to lipid panel Performed By: #### L 500.2500, L500.4100, L501.9520 #### [facility] [address] [place], [address] Cholesterol [Mass/Vol] 134 mg/dL Normal <=200 [facility] Comment on above: Order Comment: Comme nts: NPO at [place] prior to lipid panel Result Comment: Chol esterol level, Desirable <200 mg/dL Borderline high cholesterol 200-239 mg/dL High cholesterol >=240 mg/dL Recommendations of the NCEP Adult Treatment Panel for the following risk-cutoff thresholds for the [place] population. Performed By: #### L 500.2500, L500.4100, L501.9520 #### [facility] [address] [place], [address] Cholesterol in HDL [Mass/Vol] 61 mg/dL Normal [facility] Comment on above: Order Comment: Comme nts: NPO at [place] prior to lipid panel Result Comment: [place] Cholesterol Education Program (NCEP) guidelines: <40 mg/dL: Low HDL-cholesterol (major risk factor for CHD) >= 60 mg/dL: High HDL-cholesterol (negative risk factor for CHD) HDL-cholesterol is affected by a number of factors, e.g. smoking, exercise, hormones, sex and age. Performed By: #### L 500.2500, L500.4100, L501.9520 #### [facility] [address] [place], [address] Cholesterol in LDL [Mass/Vol] 59 mg/dL Normal [facility] Comment on above: Order Comment: Comme nts: NPO at [place] prior to lipid panel Result Comment: Bord ioainw=618-186 mg/dL Higher Gdyx=960 mg/dL or greater Friedwald Equation for LDL-C Performed By: #### L 500.2500, L500.4100, L501.9520 #### [facility] [address] [place], [address] Cholesterol in VLDL [Mass/Vol] 14 mg/dL Normal 5-40 [facility] Comment on above: Order Comment: Comme nts: NPO at [place] prior to lipid panel Performed By: #### L 500.2500, L500.4100, L501.9520 #### [facility] [address] [place], [address] Triglyceride [Mass/Vol] 68 mg/dL Normal [facility] Comment on above: Order Comment: Comme nts: NPO at [place] prior to lipid panel Result Comment: The drugs N-Acetylcysteine and Metamizole may falsely depress this assay. Normal range: <150 mg/dL Borderline High: 150-199 mg/dL High: 200-499 mg/dL Very High: >500 mg/dL Performed By: #### L 500.2500, L500.4100, L501.9520 #### [facility] [address] [place], [address] MR/CON.PCM.NEon 04-27-2025 MR/CON.PCM.NE [facility] Medical Records Department [address] [place] [address] Consultation - Neurology 04/27/25 1023 MR#: [id number] Acct: [id number] Name: LUL CHRISTINE Rep #: [id number] : 1940 84 From: Ela Rodriguez MD PCP: Dr. 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 On history, symptoms very likely from the scopolamine as patient is improving. On history it seems that there may be a progressive movement issue that needs to be evaluated and use of the anticholinergic medication may have exacerbated this. Exam is largely non-focal without rigidity or signficiant tremor. Diagnosis: iatrogenic delirium from scopolamine Plan: continue delirium precautions can use 0.5mg BID of scheduled Klonopin to help with agitation I personally attended this patient and spent a total time of 45minutes evaluating this patient including clinical assessment, review of chart, medical history imaging, and determining appropriate treatment and workup. HPI Consult Data Date of Consult: 04/28/25 HPI Narrative HPI Narrative: LUL CHRISTINE, is a 84 M who is brought to ED with prehospital stroke for altered mental status, unable to speak, incoherent and snoring respirations since morning. Patient has been dizzy since October and prescribed scopolamine patch reported last night. Patient could not understand speech, could not verbalize/vocalize, insensible/incompre hensible words. He also restless. Last night he went to the restroom, had accident/incontinen t and fell down. In the morning he was also less responsive. As per he had 1 CT scan in February and 1 MRI in December which did not in our system. MRI revealed 2 strokes probably the cause of his fall in November/December. He said no headache change in vision chest pain shortness of breath abdominal pain or vomiting. He is not able to follow command regarding lifting the hands or legs or answered question of NIHSS but a stroke alert was called off. Neurologic History Pt states he feels ok and not in any pain. Pt states he is not aware where he is right now. No dizziness right now but it will come and go and will feel like dysequilibrium. Patient still confused compared to normal. Th night he had difficulty having a bowel movement and patient had fallen. He slept for a while and was yelling and upset and his speech seemed garbled. He Unclear if he hit his head. Normally does not have issues in the bathroom. He shuffles and does walk slower. Had 2 falls in Oct and November. Patient tried using the patch Th night and it was the very first time that it happened. He tried the patch for drooling. Patient was agitated all night and had no sleep. Nurse who had him yesterday states he was nonverbal but wide awake and staring catatonic and was jerking and have myoclonic movements. Eyes stayed open during this time but able to follow commands during the event. Has been having visual hallucinations He has a ho r hip replacement and HTN/HLD. He has been having dizziness since Oct and have been working him up on that. No history of memory issues or dementia. Of note, patient snores a lot and talks in his sleep. Neurologic Exam -? NEURO: -? Mental Status: The patient is somnolent, .not aware to place or time, aware to and person. Normal fund of knowledge. Poor attention and difficulty following ocmplex multistep commands -? Language: speech is slurred .??? Naming, repetition, fluency, and comprehension intact. -? Cranial Nerves: PERRL 4mm/brisk. EOMI, visual porras full, no facial asymmetry, facial sensation intact, hearing intact, tongue midline, no evidence of atrophy or fibrillations. Tremor in the LUE -? Motor: No pronator drift or satelliting. Upper and lower extremities equal bilaterally. -? Detailed strength exam as performed by the nurse/RONIT and witnessed by the physician: l R L SA 5 5 EE EF WE WF Handkerchief Sample Clerk 5 5 HF KE KF DF PF -? Tone: high tone but no cogwheeling in b/l UE and LE -? Sensation- Intact to light touch bilaterally -? Coordination: No dysmetria on jabtmq-igqb-tkcgmb b/l -? Gait- deferred [facility] Medical History CVA (cerebral vascular accident) Medical History unable to obtain Home Medications ???Medication ???Instructions ???Re (more content not included)... Normal [facility] Screening total cholesterol/ high density lipoprotein (HDL) cholesterol ratioOrdered By: Ugo Perera on 04-27-2025 Cholesterol.total/Choles terol in HDL [Mass ratio] 2.20 {ratio} [facility] Serum or plasma cholesterol in HDL measurement (mass/volume)Ordered By: Ugo Perera on 04-27-2025 Cholesterol in HDL [Mass/Vol] 61 mg/dL >40 [facility] Comment on above: National Cholesterol Education Program (NCEP) guidelines:<40 mg/dL: Low HDL-cholesterol (major risk factor for CHD)>= 60 mg/dL: High HDL-cholesterol (negative risk factor for CHD)HDL-cholesterol is affected by a number of factors, e.g. smoking, exercise, hormones, sex and age. Serum or plasma cholesterol measurement (mass/volume)Ordered By: Ugo Perera on 04-27-2025 Cholesterol [Mass/Vol] 134 mg/dL <201 [facility] Comment on above: Cholesterol level, D esirable <200 mg/dLBorderline high cholesterol 200-239 mg/dLHigh cholesterol >=240 mg/dLRecommendations of the NCEP Adult Treatment Panel for the following risk-cutoff thresholds for the [place] population. TSH DL <= 0.005 mIU/L QnOrde red By: Ugo Perera on 04-27-2025 TSH Qn 0.374 uIU/mL 0.300-4.200 [facility] Thyroid Stim Hormone (TSH)on 04-27-2025 TSH 0.374 uIU/mL Normal 0.300-4.200 [facility] Comment on above: Order Comment: Comme nts: [place]PO at [place] prior to lipid panel Performed By: #### L 500.2500, L500.4100, L501.9520 #### [facility] [address] [place], [address] Triglycerides measurementOrd ered By: Ugo Perera on 04-27-2025 Triglyceride [Mass/Vol] 68 mg/dL <199 [facility] Comment on above: The drugs N-Acetylcy steine and Metamizole may falsely depress this assay. Normal range: <150 mg/dLBorderline High: 150-199 mg/dLHigh: 200-499 mg/dLVery High: >500 mg/dL 12 Lead EKGon 04-26-2025 12 Lead EKG [facility] Cardiovascular Services [address] [place] [address] 12 Lead EKG 04/26/25 0827 MR#: [id number] Acct: [id number] Name: LUL CHRISTINE Rep #: [id number] : 1940 84 From: Scooter Mckeon MD Attending Dr: Dr. Ugo Perera MD Status: ADM IN Ordering Dr: Wing Simmons MD Date: 04/26/25 Location: ICU Sex: M C Admitted: 04/26/25 Test Reason : ALT LOC Blood Pressure : */* mmHG Vent. Rate : 86 BPM Atrial Rate : 86 BPM P-R Int : 148 ms QRS Dur : 76 ms QT Int : 364 ms P-R-T Axes : 64 -12 53 degrees QTcB Int : 435 ms Normal sinus rhythm Nonspecific ST abnormality Abnormal ECG Confirmed by PROSPER SHAW, SCOOTER ([id number]), editorial clerk YANCY GIL ([id number]) on 04/29/2025 9:13:57 AM Referred By: Confirmed By: SCOOTER MCKEON MD 04/29/25912 Date Scooter Mckeon MD CC: Dr. Ugo Perera MD; Dr. Chaitanya Hdez DO; Dr. Wing Simmons MD Signed Normal [facility] Absolute lymphocyte countOrd ered By: Wing Simmons on 04-26-2025 Lymphocytes Auto (Unsp spec) [#/Vol] 1.73 10*3/uL 0.83-4.51 [facility] Absolute neutrophil countOrd ered By: Wing Simmons on 04-26-2025 Neutrophils (Bld) [#/Vol] 5.1 10*3/uL 2.0-7.7 [facility] Activated partial thrombopla stin time (aPTT) in platelet poor plasma by coagulation aOrdered By: Wing Simmons on 04-26-2025 aPTT Coag (PPP) [Time] 24.5 s 24.1-36.2 [facility] Anion gap in Serum or Plasma Ordered By: Wing Simmons on 04-26-2025 Anion gap [Moles/Vol] 13 mmol/L - [facility] Automated lymphocyte count a s percentage of total leukocytesOrdered By: Wing Simmons on 04-26-2025 Lymphocytes/100 WBC Auto (Unsp spec) 21.8 % 19-41 [facility] BUN/creatinine ratioOrdered By: Wing Simmons on 04-26-2025 Urea nitrogen/Creatinine [Mass ratio] 21.4 mg/mg High 10-20 [facility] Basophil percentageOrdered B y: Wing Simmons on 04-26-2025 Basophils/100 WBC (Bld) 0.5 % 0-1 [facility] Bilirubin Test strip Ql (U)O rdered By: Wing Simmons on 04-26-2025 Bilirubin Ql (U) Negative Negative [facility] Bilirubin, totalOrdered By: Wing Simmons on 04-26-2025 Bilirubin [Mass/Vol] 0.60 mg/dL 0.00-1.30 [facility] Blood Gases by CPSon 025 Base excess Calc (Bld) [Moles/Vol] 5 mmol/L High -2 to +2 [facility] Comment on above: Performed By: #### L 9000.0800 #### [facility] [address] [place], [address] Blood Gas Type ART Normal [facility] Comment on above: Performed By: #### L 9000.0800 #### [facility] [address] [place], [address] CO2 [Moles/Vol] 30 mmol/L Normal [facility] Comment on above: Performed By: #### L 9000.0800 #### [facility] [address] [place], [address] FI02 2.0 Normal [facility] Comment on above: Performed By: #### L 9000.0800 #### [facility] [address] [place], [address] HCO3 (Bld) [Moles/Vol] 28.6 mmol/L High 22-26 [facility] Comment on above: Performed By: #### L 9000.0800 #### [facility] [address] [place], [address] Mode Not entered Normal [facility] Comment on above: Performed By: #### L 9000.0800 #### [facility] [address] [place], [address] O2 Delivery Dev Cannula Normal [facility] Comment on above: Performed By: #### L 9000.0800 #### [facility] [address] [place], [address] pCO2 38.2 mmHg Normal 35-45 [facility] Comment on above: Performed By: #### L 9000.0800 #### [facility] [address] [place], [address] pH (Bld) 7.48 [pH] High 7.35-7.45 [facility] Comment on above: Performed By: #### L 9000.0800 #### [facility] [address] [place], [address] PO2 70 mmHG Low 75-100 [facility] Comment on above: Performed By: #### L 9000.0800 #### [facility] [address] [place], [address] SITE L Brach Normal [facility] Comment on above: Performed By: #### L 9000.0800 #### [facility] [address] [place], [address] SO2 95 Normal 95-99 [facility] Comment on above: Performed By: #### L 9000.0800 #### [facility] [address] [place], [address] Blood base excess determinat ionOrdered By: Wing Simmons on 04-26-2025 Base excess Calc (BldV) [Moles/Vol] 5 mmol/L High -2-2 [facility] Blood bicarbonate measuremen tOrdered By: Wing Simmons on 04-26-2025 HCO3 (Bld) [Moles/Vol] 28.6 mmol/L High 22-26 [facility] Blood cultureOrdered By: Wing Simmons on 04-26-2025 Bacteria identified Cx Nom (Bld) No growth in 5 days. [facility] Bacteria identified Cx Nom (Bld) No growth in 5 days. [facility] Brain without Contraston Brain without Contrast [facility] Imaging Services [address] [place], [place] [address] Brain without Contrast MR#: [id number] Acct: [id number] Name: LUL CHRISTINE Rep #: [id number] : 1940 M 84 From: Lul Barrios MD PCP: Dr. Chaitanya Hdez DO Status: ADM IN Study: Brain without Contrast Date of Exam: 04/26/25 Exam# [id number] Ordering Dr: Ugo Perera MD PROCEDURE: BRAIN WITHOUT CONTRAST 04/26/2025 REASON FOR EXAM: CHANGE IN MENTAL STATUS/SPEECH ABNORMALITY TECHNIQUE: BRAIN WITHOUT CONTRAST Multiplanar and multisequence images were obtained. COMPARISON: April 26, 2025 CT FINDINGS: Several of the sequences show severe motion artifact. Brain: Grossly, no hemorrhage identified. T2 prolongation in the periventricular white matter of the frontal and parietal lobes. No restricted diffusion seen. No extra-axial fluid collection, midline shift or mass effect. Ventricles: Rdpz-jf-gltnywmo volume loss. Major Intracranial Vessels: Limited by motion. No gross abnormality. Sinuses: Clear. Mastoids: Clear Lens implants are present. MRI/Brain without Contrast IMPRESSION: Motion artifact. No evidence of ischemia at this time. Chronic microvascular ischemic changes, volume loss. Reading Location: [id number] CC: Dr. Ugo Perera MD; Dr. Chaitanya Hdez DO Editor Magazine: Signed Normal [facility] Brain/Head without Contrasto n 04-26-2025 Brain/Head without Contrast [facility] Imaging Services [address] [place], [place] [address] Brain/Head without Contrast MR#: [id number] Acct: [id number] Name: LUL CHRISTINE Rep #: [id number] : 1940 M 84 From: Riley caputo MD PCP: Dr. Chaitanya Hdez DO Status: REG ER Study: Brain/Head without Contrast Date of Exam: 04/12 02/03 Exam# [id number] Ordering Dr: Wing Simmons MD PROCEDURE: BRAIN/HEAD WITHOUT CONTRAST 04/26/2025 [...] CHRONIC CHANGES. NO ACUTE FINDINGS. Reading Location: [place] [address] CC: Dr. Chaitanya Hdez DO; Dr. Wing Simmons MD Editor Magazine: Signed Normal [facility] CBC W/Diff, Automatedon 04-12 Absolute Lymph 1.73 X10 3/uL Normal 0.83-4.51 [facility] Comment on above: Performed By: #### L 501.080 #### [facility] [address] [place], [place], [address] Absolute Neut 5.1 X10 3/uL Normal 2.0-7.7 [facility] Comment on above: Performed By: #### L 501.080 #### [facility] [address] [place], [address] Basophils/100 WBC (Bld) 0.5 % Normal 0-1 [facility] Comment on above: Performed By: #### L 501.080 #### [facility] [address] [place], [address] Eosinophils/100 WBC (Bld) 2.3 % Normal 0-5 [facility] Comment on above: Performed By: #### L 501.080 #### [facility] [address] [place], [address] Erythrocyte distribution width (RBC) [Ratio] 12.9 % Normal 11.6-14.6 [facility] Comment on above: Performed By: #### L 501.080 #### [facility] [address] [place], [address] Hematocrit (Bld) [Volume fraction] 42.3 % Normal 40-54 [facility] Comment on above: Performed By: #### L 501.080 #### [facility] [address] [place], [address] Hemoglobin (Bld) [Mass/Vol] 14.4 g/dL Normal 13.0-16.5 [facility] Comment on above: Performed By: #### L 501.080 #### [facility] [address] [place], [address] IG% 0.400 Normal 0.0-0.9 [facility] Comment on above: Result Comment: IG% - Immature Granulocytes (promyelocytes, myelocytes and metamyelocytes) > 1% indicates that a LEFT SHIFT is Present. Performed By: #### L 501.080 #### [facility] [address] [place], [address] Lymphocytes/100 WBC (Bld) 21.8 % Normal 19-41 [facility] Comment on above: Performed By: #### L 501.080 #### [facility] [address] [place], [address] MCH (RBC) [Entitic mass] 29.8 pg Normal 27.0-32.0 [facility] Comment on above: Performed By: #### L 501.080 #### [facility] [address] [place], [address] MCHC (RBC) [Mass/Vol] 34.0 g/dL Normal 32-36 [facility] Comment on above: Performed By: #### L 501.080 #### [facility] [address] [place], [address] MCV (RBC) [Entitic vol] 87.4 fL Normal 80-94 [facility] Comment on above: Performed By: #### L 501.080 #### [facility] [address] [place], [address] Monocytes/100 WBC (Bld) 11.0 % High 0-10 [facility] Comment on above: Performed By: #### L 501.080 #### [facility] [address] [place], [address] Neutrophils/100 WBC (Bld) 64.0 % Normal 47-70 [facility] Comment on above: Performed By: #### L 501.080 #### [facility] [address] [place], [address] Nucleated RBC (Bld) [#/Vol] 0 10*3/uL Normal 0-5 [facility] Comment on above: Performed By: #### L 501.080 #### [facility] [address] [place], [address] Platelet mean volume (Bld) [Entitic vol] 10.4 fL Normal 6.2-12.0 [facility] Comment on above: Performed By: #### L 501.080 #### [facility] [address] [place], [address] Platelets (Bld) [#/Vol] 217 10*3/uL Normal 150-450 [facility] Comment on above: Performed By: #### L 501.080 #### [facility] [address] [place], [address] RBC (Bld) [#/Vol] 4.84 10*6/uL Normal 4.6-6.2 [facility] Comment on above: Performed By: #### L 501.080 #### [facility] [address] [place], [address] RDW SD 41.0 fl Normal 35.1-43.9 [facility] Comment on above: Performed By: #### L 501.080 #### [facility] [address] [place], [address] WBC (Bld) [#/Vol] 7.9 10*3/uL Normal 4.4-11.0 [facility] Comment on above: Performed By: #### L 501.080 #### [facility] [address] [place], [address] Carbon dioxide, total [Moles /volume] in Central venous bloodOrdered By: Wing Simmons on 04-26-2025 CO2 [Moles/Vol] 23.3 mmol/L 21.0-32.0 [facility] Carotid Duplex Ultrasoundon 04-26-2025 Carotid Duplex Ultrasound [facility] Cardi[facility] Services [address] [place] [address] Carotid Duplex Ultrasound 04/26/25 1253 MR#: [id number] Acct: [id number] Name: LUL CHRISTINE Rep #: [id number] : 1940 84 From: Hector Blackburn MD Attending Dr: Dr. Ugo Perera MD Status: ADM IN Ordering Dr: Ugo Perera MD Date: 04/26/25 Location: ICU Sex: M C Admitted: 04/26/25 Reason For Study Reason For Study: CVA Rt. Velocities/BP Lt. Velocities/BP Prox CCA 94.1/12.7 cm/sec. Prox CCA 93.0/12.7 cm/sec. Mid CCA 77.6/11.7 cm/sec. Mid CCA 91.9/14.9 cm/sec. Dist CCA 61.1/10.6 cm/sec. Dist CCA 68.8/14.9 cm/sec. Prox ICA 52.3/11.7 cm/sec. Prox ICA 67.7/17.1 cm/sec. Mid ICA 39.9/12.2 cm/sec. Mid ICA 61.1/18.2 cm/sec. Dist ICA 43.5/9.5 cm/sec. Dist ICA 52.3/14.9 cm/sec. Rt. ICA/CCA = 0.7. Lt. ICA/CCA = 0.7. Prox ECA 87.5/9.5 cm/sec. Prox ECA 112.5/6.6 cm/sec. Rt. Vert. 22.5/4.8 cm/sec. Lt. Vert. 46.8/6.6 cm/sec. Right Extracranial There is intimal thickening but no significant atherosclerotic plaque noted in the right common carotid artery. There is heterogeneous, irregular atherosclerotic plaque noted in the right internal carotid artery. There is heterogeneous, irregular atherosclerotic plaque noted in the right external carotid artery. Antegrade flow is noted in the right vertebral artery. Non vascularized anechoic structures noted throughout muscle fascia of Rt Neck. Left Extracranial There is homogeneous, smooth atherosclerotic plaque noted in the left common carotid artery. There is heterogeneous, irregular atherosclerotic plaque noted in the left internal carotid artery. There is intimal thickening but no significant atherosclerotic plaque noted in the left external carotid artery. Antegrade flow is noted in the left vertebral artery. Procedure Carotid Duplex 39110. This is a Carotid Duplex examination using B-mode, color flow and specral Doppler. The exam was of fair technical quality due to patient involuntary movement. Exam performed portable in patient room. VL/Carotid Duplex Ultrasound Interpretation Summary Mild (<50%) stenosis right extracranial internal carotid. Mild (<50%) stenosis left extracranial internal carotid. Flow within the vertebral arteries is antegrade bilaterally. Multiple, non-vascular, anechoic structures are noted in the muscle and fascia of the right neck. Clinical correlation is advised. __ Ordering Physician: Ugo Perera Referring Physician: Chaitanya Hdez Performed By: Jacobo Ventura, RVT 04/28/252106 Date Hector Blackburn MD CC: Dr. Ugo Perera MD; Dr. Chaitanya Hdez, Date Dictated: 04/26/25 1253 Date Transcribed: 04/28/252106 Editor Magazine: Signed Normal [facility] Chest 1 View (Portable)on Chest 1 View (Portable) [facility] Imaging Services [address] [place] [address] Chest 1 View (Portable) MR#: [id number] Acct: [id number] Name: LUL CHRISTINE Rep #: [id number] : 1940 84 From: Riley caputo MD PCP: Dr. Chaitanya Hdez DO Status: REG ER Study: Chest 1 View (Portable) Date of Exam: 04/26/25 Exam# [id number] Ordering Dr: Wing Simmons MD PROCEDURE: CHEST 1 VIEW (PORTABLE) 04/26/2025 REASON FOR EXAM: TACHYPNEA TECHNIQUE: Frontal view of the chest. COMPARISON: None FINDINGS: Hardware: EKG electrodes are seen. Heart: The heart size is upper limits of normal. Lungs: The lungs are clear. Bones: Degenerative changes are identified within the thoracic spine. Other: RAD/Chest 1 View (Portable) IMPRESSION: No Acute Findings. Reading Location: [facility] CC: Dr. Chaitanya Hdez, DO; Dr. Wing Simmons MD Editor Magazine: Signed Normal [facility] Chloride assayOrdered By: Riley Simmons on 04-26-2025 Chloride [Moles/Vol] 104 mmol/L 98-108 [facility] Comprehensive Metabolic Prof ilon 04-26-2025 Albumin [Mass/Vol] 4.1 g/dL Normal 3.4-4.8 [facility] Comment on above: Performed By: #### L 501.080 #### [facility] [address] [place], [address] Albumin/Globulin [Mass ratio] 1.3 {ratio} Normal 0.9-2.4 [facility] Comment on above: Performed By: #### L 501.080 #### [facility] [address] [place], [address] ALK PHOS 71 U/L Normal 40-129 [facility] Comment on above: Performed By: #### L 501.080 #### [facility] [address] [place], [address] ALT [Catalytic activity/Vol] 19 U/L Normal <=46 [facility] Comment on above: Performed By: #### L 501.080 #### [facility] [address] [place], [address] AST [Catalytic activity/Vol] 24 U/L Normal <=37 [facility] Comment on above: Performed By: #### L 501.080 #### [facility] [address] [place], [address] Bilirubin [Mass/Vol] 0.60 mg/dL Normal 0.00-1.30 [facility] Comment on above: Performed By: #### L 501.080 #### [facility] [address] [place], [address] BUN/CRE 21.4 RATIO High 10-20 [facility] Comment on above: Performed By: #### L 501.080 #### [facility] [address] [place], [address] Calcium [Mass/Vol] 9.7 mg/dL Normal 7.6-11.0 [facility] Comment on above: Performed By: #### L 501.080 #### [facility] [address] [place], [address] Chloride [Moles/Vol] 104 mmol/L Normal 98-108 [facility] Comment on above: Performed By: #### L 501.080 #### [facility] [address] [place], [address] CO2 [Moles/Vol] 23.3 mmol/L Normal 21.0-32.0 [facility] Comment on above: Performed By: #### L 501.080 #### [facility] [address] [place], [address] Creatinine [Mass/Vol] 1.72 mg/dL High 0.70-1.20 [facility] Comment on above: Performed By: #### L 501.080 #### [facility] [address] [place], [address] ECRCL 29.55 ml/min Low 50-250 [facility] Comment on above: Performed By: #### L 501.080 #### [facility] [address] [place], [address] GAP 13 Normal 5-15 [facility] Comment on above: Performed By: #### L 501.080 #### [facility] [address] [place], [address] GFR/1.73 sq M.predicted among non-blacks MDRD (S/P/Bld) [Vol rate/Area] 39 mL/min/{1.73_m2} Low >60 [facility] Comment on above: Result Comment: mL/m in/1.73m2 CKD-EPI Creatinine Equation (2020) Performed By: #### L 501.080 #### [facility] [address] [place], [address] Globulin (S) [Mass/Vol] 3.2 g/dL Normal 2.2-4.2 [facility] Comment on above: Performed By: #### L 501.080 #### [facility] [address] [place], [address] Glucose [Mass/Vol] 113 mg/dL High 70-99 [facility] Comment on above: Performed By: #### L 501.080 #### [facility] [address] [place], [address] Potassium [Moles/Vol] 4.1 mmol/L Normal 3.3-5.1 [facility] Comment on above: Performed By: #### L 501.080 #### [facility] [address] [place], [address] Sodium [Moles/Vol] 140 mmol/L Normal 133-145 [facility] Comment on above: Performed By: #### L 501.080 #### [facility] [address] [place], [address] T PROT 7.2 g/dL Normal 5.9-8.4 [facility] Comment on above: Performed By: #### L 501.080 #### [facility] [address] [place], [address] Urea nitrogen [Mass/Vol] 37 mg/dL High 4-19 [facility] Comment on above: Performed By: #### L 501.080 #### [facility] [address] [place], [address] Emergency Department Summary on 04-26-2025 Emergency Department Summary [facility] Medical Records Department [address] [place] [address] Emergency Department Summary 04/26/25 MR#: [id number] Acct: [id number] Name: LUL CHRISTINE Rep #: [id number] : 1940 84 From: Wing Simmons MD PCP: Dr. Chaitanya Hdez DO Status:REG ER Location: ED ADDENDUM by Dr. Wing Simmons MD on 04/26/25 at 1049 EKG reveals a normal sinus rhythm rate 86. There is nonseptic changes which is artifact due to his tremors. FL interval is 148 ms. QRS duration 76 ms. QT duration 304 ms. [place] is normal. 04/26/25 1049 Cosigner Signature (if applicable): cc: Dr. Chaitanya Hdez, * Signed HPI History of Present Illness Chief Complaint: Alt LOC Detail of Chief Complaint: Prehospital stroke alert. Informant: patient, spouse/S.O. and EMS Onset/Context/Timin g Onset: - (Last known well 2199April 25) [...] excessive drooling. Prior similar symptoms: No Recent Illness/Hospitaliza tion: No PFSH PFSH Medical History (Updated 04/26/25 @ 10:47 by [...] Denies back pain Neurologic Neurologic: Denies headache(s) Hematologic/Lymphat ic Hematologic/Lymphat ic: Denies easy bleeding or easy bruising EXAM [...] Core Core Pulse Rate 85 80 83 Resp (more content not included)... Normal [facility] Eosinophil percentageOrdered By: Wingeliu Simmons on 04-26-2025 Eosinophils/100 WBC (Bld) 2.3 % 0-5 [facility] Erythrocyte distribution wid th ratioOrdered By: Wing Simmons on 04-26-2025 Erythrocyte distribution width (RBC) [Ratio] 12.9 % 11.6-14.6 [facility] Erythrocyte distribution wid th standard deviationOrdered By: [facility] on 04-26-2025 Erythrocyte distribution width (RBC) [Ratio] 41.0 fl 35.1-43.9 [facility] Glomerular filtration rate ( GFR) estimation/1.73 sq m using serum, plasma, or whole bOrdered By: Wing Simmons on 04-26-2025 GFR/1.73 sq M.predicted among non-blacks MDRD (S/P/Bld) [Vol rate/Area] 39 mL/min/{1.73_m2} Low >60 [facility] Comment on above: mL/min/1.73m2 CKD-EP I Creatinine Equation (2020) H AND P Exam - [facility] 04-26-2025 H&P Exam - Hospitalist [facility] Medical Records Department [address] [place] [address] H P Exam - Hospitalist 04/26/25 1043 MR#: [id number] Acct: [id number] Name: LUL CHRISTINE Rep #: [id number] : 1940 84 From: Ugo Perera MD PCP: Dr. Chaitanya Hdez, DO Status:ADM IN Location: [facility] [id number] HPI - General General Date of Admission: 04/26/25 Date of Service: 04/26/25 Chief Complaint: Altered mental status/speech abnormality today in the morning HPI Narrative LUL CHRISTINE, is a 84 M who is brought to ED with prehospital stroke for altered mental status, unable to speak, incoherent and snoring respirations since morning. Patient has been dizzy since October and prescribed scopolamine patch reported last night. Patient could not understand speech, could not verbalize/vocalize, insensible/incompre hensible words. He also restless. Last night he went to the restroom, had accident/incontinen t and fell down. In the morning he was also less responsive. As per he had 1 CT scan in February and 1 MRI in December which did not in our system. MRI revealed 2 strokes probably the cause of his fall in November/December. He said no headache change in vision chest pain shortness of breath abdominal pain or vomiting. He is not able to follow command regarding lifting the hands or legs or answered question of NIHSS but a stroke alert was called off. [facility] Medical History CVA (cerebral vascular accident) Medical History unable to obtain Allergy/AdvReac Type Severity Reaction Status Date / Time doxycycline Allergy Unknown PT UNABLE Verified 04/26/25 08:08 TO RESPOND-NEEDS F/U oxycodone Allergy Unknown PT UNABLE Verified 04/26/25 08:08 TO RESPOND-NEEDS F/U Social History household members: spouse Smoking Status: Never smoker ROS ROS Narrative 14 system ROS unobtainable due to altered mental status Review of Systems ROS Unobtainable: due to encephalopathy and due to mental status Vital Signs Vital Signs Vital Signs: 04/26/25 08:04 04/26/25 08:12 04/26/25 [...] 92 93 Oxygen Delivery Method Room Air Weight Weight: 139 lb 1.787 oz Body Mass Index (BMI) 19.9 Physical Exam Narrative General: Awake, restless, disoriented to time place and person. Mildly agitated HEENT: Atraumatic, PERRLA, EOMI, Normocephalic. Oral: Oral mucosa very dry. Neck: Supple, No JVD, Negative Carotid Bruits Chest wall/Lungs: Air entry diminished in bilateral lung bases. Mild coarse crepitations Cardiovascular: Regular rate and rhythm, Normal S1,S2, No M/G/R Abdomen: Bowel Sounds Present, Soft, Non Tender, Non-Distended : No dysuria. No renal angle tenderness. No suprapubic tenderness. Extremities: No edema, Capillary Refill Less than 3 Seconds Skin: No rashes, No breakdown Musculoskeletal: No Tenderness to Palpation of Joints or Extremities. 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 Detailed neuroexam unobtainable. Language deficits. Dysarthria Psych/Mental Status: Flat affect Results Lab / Micro Data 04/26/25 08:15 04/26/25 08:15 Labs: Laboratory Results - last 24 hr 04/26/25 08:15: WBC 7.9, RBC 4.84, Hgb 14.4, Hct 42.3, MCV 87.4, MCH 29.8, MCHC 34.0, RDW Std Deviation 41.0, RDW Coeff of Tim 12.9, Plt (more content not included)... Normal [facility] Hematocrit Auto (Bld) [Volum e fraction][facility] on [facility]25 Hematocrit (Bld) [Volume fraction] 42.3 % 40-54 [facility] Hemoglobin measurementOrdere d By: Wing Simmons on 04-26-2025 Hemoglobin (Bld) [Mass/Vol] 14.4 g/dL 13.0-16.5 [facility] Immature granulocytes/100 WB C Auto (Bld)Ordered By: Wing Simmons on 04-26-2025 Immature granulocytes/100 WBC (Bld) 0.400 % 0.0-0.9 [facility] Comment on above: IG% - Immature Granu locytes (promyelocytes, myelocytes and metamyelocytes) > 1% indicates that a LEFT SHIFT is Present. International normalized rat io (INR) calculationOrdered By: Wing Simmons on 04-26-2025 INR Coag (Bld) [Relative time] 1.1 {INR} [facility] Ketones Test strip Ql (U)Ord ered By: Wingeliu Simmons on 04-26-2025 Ketones Ql (U) Negative Negative [facility] - Chemistry and C hemistry - challengeOrdered By: [facility] on 04-26-2025 AST [Catalytic activity/Vol] 24 U/L <38 [facility] Lactic Acidon 04-26-2025 Lactate [Moles/Vol] 1.1 mmol/L Normal 0.0-2.0 [facility] Comment on above: Order Comment: Y Performed By: #### L 501.080 #### [facility] [address] [place], [address] Lactic acid measurementOrder ed By: Wing Simmons on 04-26-2025 Lactate [Moles/Vol] 1.1 mmol/L 0.0-2.0 [facility] MCV (mean corpuscular volume ) determinationOrdered By: Wing Simmons on 04-26-2025 MCV (RBC) [Entitic vol] 87.4 fL 80-94 [facility] Magnesiumon 04-26-2025 Magnesium [Mass/Vol] 2.1 mg/dL Normal 1.5-2.2 [facility] Comment on above: Performed By: #### L 501.5200 #### [facility] [address] [place], [place], [address] Magnesium measurement (mass/ volume)Ordered By: Ugo Perera on 04-26-2025 Magnesium (Unsp spec) [Mass/Vol] 2.1 mg/dL 1.5-2.2 [facility] Magnetic resonance imaging r eportOrdered By: Lul Barrios on 04-26-2025 Study report [facility] Imaging Services [address] [place], [place] [address] Brain without Contrast MR#: [id number] Acct: [id number] Name: LUL CHRISTINE Rep #: [id number] : 1940 M 84 From: Mayte Barrios MD PCP: Dr. Chaitanya Hdez, DO Status: ADM IN Study:Brain without Contrast Date of Exam: 04/26/25 Exam# [id number] Ordering Dr: Marcel Perera MD PROCEDURE: BRAIN WITHOUT CONTRAST 04/26/2025 REASON FOR EXAM: CHANGE IN MENTAL STATUS/SPEECH ABNORMALITY TECHNIQUE: BRAIN WITHOUT CONTRAST Multiplanar and multisequence images were obtained. COMPARISON: April 26, 2025 CT FINDINGS: Several of the sequences show severe motion artifact. Brain: Grossly, no hemorrhage identified. T2 prolongation in the periventricular white matter of the frontal and parietal lobes. No restricted diffusion seen. No extra-axial fluid collection, midline shift or mass effect. Ventricles: Mfdk-dy-qgihfqiw volume loss. Major Intracranial Vessels: Limited by motion. No gross abnormality. Sinuses: Clear. Mastoids: Clear Lens implants are present. MRI/Brain without Contrast IMPRESSION: Motion artifact. No evidence of ischemia at this time. Chronic microvascular ischemic changes, volume loss. Reading Location: [id number] CC: Dr. Ugo Perera MD; Dr. Chaitanya Hdez DO ~ Editor Magazine: Signed [facility] Mean corpuscular hemoglobin (MCH) determinationOrdered By: Wing Simmons on 04-26-2025 MCH (RBC) [Entitic mass] 29.8 pg 27.0-32.0 [facility] Mean corpuscular hemoglobin concentration (MCHC) determinationOrdered By: Wing Simmons on 04-26-2025 MCHC (RBC) [Mass/Vol] 34.0 g/dL 32-36 [facility] Mean platelet volume determi nationOrdered By: Wing Simmons on 04-26-2025 Platelet mean volume (Bld) [Entitic vol] 10.4 fL 6.2-12.0 [facility] Measurement, pHOrdered By: Xenia Simmons on 04-26-2025 pH (Unsp spec) 7.48 [pH] High 7.35-7.45 [facility] Microscopic analysis of urin e for red blood cells (RBC)Ordered By: Wing Simmons on 04-26-2025 Microscopic analysis of urine for red blood cells (RBC) 0 SEEN /hpf 0-5 [facility] Monocyte percentageOrdered B y: Wing Simmons on 04-26-2025 Monocytes/100 WBC (Bld) 11.0 % High 0-10 [facility] Mucus LM Ql (Urine sed)Order ed By: Wing Simmons on 04-26-2025 Mucus Ql (Urine sed) 0 SEEN /hpf [facility] Neutrophil percentageOrdered By: Wing Simmons on 04-26-2025 Neutrophils/100 WBC (Bld) 64.0 % 47-70 [facility] Nitrite Test strip Ql (U)Ord ered By: Wing Simmons on 04-26-2025 Nitrite Ql (U) Negative Negative [facility] No Panel InformationOrdered By: Wing Simmons on 04-26-2025 Blood Gas Sample Site L Kelly [facility] Blood Gas Specimen Type ART [facility] Blood Gas Vent Mode Not entered [facility] Oxygen Delivery Device Cannula [facility] Nucleated red blood cell per centageOrdered By: Wing Simmons on 04-26-2025 Nucleated RBC/100 WBC (Bld) [Ratio] 0 % 0-5 [facility] Partial Thromboplast Timeon 04-26-2025 aPTT Coag (Bld) [Time] 24.5 s Normal 24.1-36.2 [facility] Comment on above: Performed By: #### L 501.080 #### [facility] [address] [facility] [address] Platelet countOrdered By: Riley Simmons on 04-26-2025 Platelets (Bld) [#/Vol] 217 10*3/uL 150-450 [facility] Potassium measurement (mass/ volume)Ordered By: Wing Simmons on 04-26-2025 Potassium (Unsp spec) [Mass/Vol] 4.1 mmol/L 3.3-5.1 [facility] Protein Test strip Ql (U)Ord ered By: Wing Simmons on 04-26-2025 Protein Ql (U) 30 mg/dl High Negative [facility] Prothrombin Time w/INRon INR Coag (PPP) [Relative time] 1.1 {INR} Normal [facility] Comment on above: Performed By: #### L 501.080 #### [facility] [address] [place], [address] PT Coag (PPP) [Time] 14.2 s Normal 11.7-14.9 [facility] Comment on above: Performed By: #### L 501.080 #### [facility] [address] [place], [address] Prothrombin timeOrdered By: Wing Simmons on 04-26-2025 PT Coag (PPP) [Time] 14.2 s 11.7-14.9 [facility] RBC Auto (Bld) [#/Vol]Ordere d By: Wingeliu Harrello on 04-26-2025 RBC (Bld) [#/Vol] 4.84 10*6/uL 4.6-6.2 [facility] Serum creatinine measurement (mass/volume)Ordered By: Wing Simmons on 04-26-2025 Creatinine [Mass/Vol] 1.72 mg/dL High 0.70-1.20 [facility] Serum globulin measurementOr dered By: Wing Simmons on 04-26-2025 Globulin (S) [Mass/Vol] 3.2 g/dL 2.2-4.2 [facility] Serum glucose measurement (m ass/volume)Ordered By: Wing Simmons on 04-26-2025 Glucose [Mass/Vol] 113 mg/dL High 70-99 [facility] Serum or plasma alanine yo otransferase (ALT) measurementOrdered By: Wingeliu Simmons on 04-26-2025 ALT [Catalytic activity/Vol] 19 U/L <47 [facility] Serum or plasma albumin anna urement (mass/volume)Ordered By: Wingeliu Simmons on 04-26-2025 Albumin [Mass/Vol] 4.1 g/dL 3.4-4.8 [facility] Serum or plasma albumin/glob ulin mass ratioOrdered By: Wingeliu Simmons on 04-26-2025 Albumin/Globulin [Mass ratio] 1.3 {ratio} 0.9-2.4 [facility] Serum or plasma alkaline dutch sphatase measurementOrdered By: Wing Simmons on 04-26-2025 ALP [Catalytic activity/Vol] 71 U/L 40-129 [facility] Serum or plasma calcium anna urement (mass/volume)Ordered By: Wing Simmons on 04-26-2025 Calcium [Mass/Vol] 9.7 mg/dL 7.6-11.0 [facility] Serum or plasma urea nitroge n measurement (mass/volume)Ordered By: Wing Simmons on 04-26-2025 Urea nitrogen [Mass/Vol] 37 mg/dL High 4-19 [facility] Sodium levelOrdered By: Wing Simmons on 04-26-2025 Sodium [Moles/Vol] 140 mmol/L 133-145 [facility] Squamous epithelial cells de tection in urine sediment by light microscopyOrdered By: Wing Simmons on 04-26-2025 Epithelial cells.squamous LM Ql (Urine sed) 0 SEEN /hpf 0-5 [facility] Total carbon dioxide measure mentOrdered By: Wing Simmons on 04-26-2025 CO2 [Moles/Vol] 30 mmol/L [facility] Total proteinOrdered By: Wing Simmons on 04-26-2025 Protein [Mass/Vol] 7.2 g/dL 5.9-8.4 [facility] Urinalysis, Completeon 04-26 BACTERIA 0 SEEN Normal None Seen [facility] Comment on above: Order Comment: SIVA TER SPECIMEN Performed By: #### L 400.0001 #### [facility] [address] [place], [address] EPI,SQUAMOUS 0 SEEN Normal 0-5 [facility] Comment on above: Order Comment: SIVA TER SPECIMEN Performed By: #### L 400.0001 #### [facility] [address] [place], [address] Mucus Ql (Urine sed) 0 SEEN Normal [facility] Comment on above: Order Comment: SIVA TER SPECIMEN Performed By: #### L 400.0001 #### [facility] [address] [place], [address] RBC 0 SEEN Normal 0-5 [facility] Comment on above: Order Comment: SIVA TER SPECIMEN Performed By: #### L 400.0001 #### [facility] [address] [place], [address] WBC 0 SEEN Normal 0-5 [facility] Comment on above: Order Comment: SIVA TER SPECIMEN Performed By: #### L 400.0001 #### [facility] [address] [place], [address] Urine clarityOrdered By: Wing Simmons on 04-26-2025 Clarity (U) Clear Clear [facility] Urine color determinationOrd ered By: Wing Simmons on 04-26-2025 Color (U) Yellow Yellow [facility] Urine cultureOrdered By: Yarelis Perera on 04-26-2025 Bacteria identified Cx Nom (U) Culture exhibits no growth. [facility] Urine glucose detectionOrder ed By: Wing Simmons on 04-26-2025 Glucose Ql (U) Normal mg/dl Normal [facility] Urine leukocyte esterase det ection by dipstickOrdered By: Wing Simmons on 04-26-2025 Leukocyte esterase Test strip Ql (U) Negative Negative [facility] Urine pHOrdered By: Wing nowak on 04-26-2025 pH (U) 6.5 [pH] 5.0 - 8.0 [facility] Urine sediment bacteria coun t by microscopy (number/high power field)Ordered By: Wing Simmons on 04-26-2025 Bacteria LM.HPF (Urine sed) [#/Area] 0 /[HPF] None Seen [facility] Urine specific gravity measu rementOrdered By: Wing Simmons on 04-26-2025 Specific gravity (U) [Rel density] 1.015 1.002-1.030 [facility] Urine urobilinogen measureme ntOrdered By: Wing Simmons on 04-26-2025 Urobilinogen Ql (U) Normal mg/dl Normal [facility] White blood cell (WBC) count Ordered By: Wing Simmons on 04-26-2025 WBC (Bld) [#/Vol] 7.9 10*3/uL 4.4-11.0 [facility] White blood cell countOrdere d By: Wing Simmons on 04-26-2025 White blood cell count 0 SEEN /hpf 0-5 [facility] BD BONE DENSITY DEXA AXIAL S CHRISTINEBANNERon 04-01-2025 BD BONE DENSITY DEXA AXIAL SKELETON [...] fracture risk by FRAX. Interpreted by: Radha Bowen DO Preliminary Report By: Radha Bowen DO Electronically signed By Radha Bowen DO Dictated Date: 04/01/2025 11:27:21 AM Prelim Date: 04/01/2025 11:27:47 AM Sign Date: 04/01/2025 11:27:47 AM Ordering Provider: CHAITANYA HDEZ [facility] CT SPINE CERVICAL W/ CONTRAS Ton [...] for soft tissue evaluation. Interpreted by: Xiang Huffman Preliminary Report By: Xiang Huffman Electronically signed By Xiang Huffman Dictated Date: 03/29/2025 12:56:54 PM Prelim Date: 03/29/2025 12:59:08 PM Sign Date: 03/29/2025 12:59:08 PM Ordering Provider: CHAITANYA HDEZ [facility] .GFRon 03-26-2025 Estimated Glomerular Filtration Rate 37 ml/min/1.73sqm [facility] Comment on above: Result Comment: Stages [...] Performed By: #### B MP, GFR #### [address] [place], [place] [address] BMPon 03-26-2025 BUN/Creatinine Ratio 19 ratio Normal 7-27 [facility] Comment on above: Performed By: #### B MP, GFR #### [address] [place], [place] [address] Calcium [Mass/Vol] 9.4 mg/dL Normal 8.4-10.2 [facility] Comment on above: Performed By: #### B MP, GFR #### [address] [address] Chloride [Moles/Vol] 103 mmol/L Normal 98-107 [facility] Comment on above: Performed By: #### B MP, GFR #### [address] [address] CO2 [Moles/Vol] 30 mmol/L Normal 23-31 [facility] Comment on above: Performed By: #### B MP, GFR #### [address] [address] Creatinine [Mass/Vol] 1.81 mg/dL High 0.67-1.17 [facility] Comment on above: Performed By: #### B MP, GFR #### [address] [address] Electrolyte Balance 6.0 mEq/L Normal 4.0-15.0 [facility] Comment on above: Performed By: #### B MP, GFR #### [address] [address] Glucose [Mass/Vol] 104 mg/dL Normal 83-110 [facility] Comment on above: Performed By: #### B MP, GFR #### [address] [address] Potassium [Moles/Vol] 4.3 mmol/L Normal 3.5-5.1 [facility] Comment on above: Performed By: #### B MP, GFR #### [address] [address] Sodium [Moles/Vol] 139 mmol/L Normal 136-145 [facility] Comment on above: Performed By: #### B MP, GFR #### [address] [address] Urea nitrogen [Mass/Vol] 34 mg/dL High 7-18 [facility] Comment on above: Performed By: #### B MP, GFR #### [address] [address] LABORATORYOrdered By: SYSTEM SYSTEM on 03-26-2025 Calcium [...] By: Lisandro Virk on 02-07-2025 Study report [facility] Services [address] [place] [address] MR#: [id number] Acct: [id number] Name: LUL CHRISTINE Rep #: [id number] : 1940 84 From: Lisandro Virk MD Primary Care: Dr. Chaitanya Hdez DO Statu s: REG CLI Referring Dr: Carol Ann Pittman MD Sex: M C Stress Test Report [...] of 91%. This note was generated with [employer] software. It may contain incorrectwords, spelling, and punctuation that were not noted in checking the note beforesigning. 02/07/25 1557 Date _ Lisandro Moose MD CC: Dr. Carol Ann Pittman MD; Dr. Chaitanya Hdez, DO ~ Date Dictated: 02/07/251545 Date Transcribed: 02/07/251545 Editor Magazine: PARKER Zee [facility] Work Phone: Echo Complete W/ Contraston 02-07-2025 Echo Complete W/ Contrast [facility] [address] [place] [address] Echo Complete W/ Contrast 02/07/25 0827 MR#: [id number] Acct: [id number] Name: LUL CHRISTINE Rep #: [id number] : 1940 84 From: Lisandro Virk MD Attending Dr: Dr. Carol Ann Pittman MD Status: R EG CLI Ordering Dr: Carol Ann Pittman MD Date: 02/07/25 Location: [facility] Sex: M C Admitted: Reason For Study [...] sec Doppler Measurements Calculations MV E max ron: 64.6 cm/sec Lat Peak E' Ron: 9.4 cm/sec Med Peak E' Ron: 11.5 cm/sec MV A max ron: 115.8 cm/sec E/E' lat: 6.9 E/E' med: 5.6 MV E/A: 0.56 __ MV V2 max: 131.5 cm/sec MV P1/2t max ron: 76.7 cm/sec Ao V2 max: 157.2 cm/sec [...] V1 VTI: 20.0 cm __ TR max ron: 289.8 cm/sec TR max P.6 mmHg ECHO/Echo Complete W/ Contrast Interpretation Summary Mild concentric left ventricular hypertrophy. The LV systolic function is normal. EF is 70 %. Stage 1 diastolic dysfunction. Hypermobile interatrial septum. Bubble contrast study negative for PFO/ASD. 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 Right ventricular systolic pressure estimated to be 39 mmHg. __ Ordering Physician: Carol Ann Pittman Referring Physician: Carol Ann Pittman Performed By: Aidan Flores RCS 02/07/25 1236 Date Lisandro Virk MD CC: Dr. Carol Ann Pittman MD; Dr. Chaitanya Hdez DO Date Dictated: 02/07/25826 Date Transcribed: 02/07/25 123 Editor Magazine: Signed [facility] Echocardiogram study reportO rdered By: Lisandro Virk on 02-07-2025 Study report [facility] Services [address] [place] [address] Echo Complete W/ Contrast 02/07/25 0827 MR#: [id number] Acct: [id number] Name: LUL CHRISTINE Rep #:[id number] : 1940 84 From: Lisandro Virk MD Attending Dr: Dr. Carol Ann Pittman MD Status: REG CLI Ordering Dr: Carol Ann Pittman MD Date: 02/07/25 Location: [facility] Sex: M C Admitted: Reason For Study [...] Doppler Measurements & Calculations MV E max ron: 64.6 cm/sec Lat Peak E' Ron: 9.4 cm/sec Med Peak E' Ron: 11.5 cm/sec MV A max ron: 115.8 cm/sec E/E' lat: 6.9 E/E' med: 5.6 MV E/A: 0.56 ____ MV V2 max: 131.5 cm/sec MV P1/2t max ron: 76.7 cm/sec Ao V2 max: 157.2 cm/sec [...] V1 VTI: 20.0 cm ____ TR max ron: 289.8 cm/sec TR max P.6 mmHg ECHO/Echo Complete W/ Contrast Interpretation Summary Mild concentric left ventricular hypertrophy. The LV systolic function is normal. EF is 70 %. Stage 1 diastolic dysfunction. Hypermobile interatrial septum. Bubble contrast study negative for PFO/ASD. 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 Right ventricular systolic pressure estimated to be 39 mmHg. __ Ordering Physician: Carol Ann Pittman Referring Physician: Carol Ann Pittman Performed By: Aidan Flores RCS 02/07/25 1236 Date _ Lisandro Virk MD CC: Dr. Carol Ann Pittman MD; Dr. Chaitanya Hdez DO ~ Date Dictated: 02/07/25826 Date Transcribed: 02/07/25 123 Editor Magazine: Signed [facility] Work Phone: Stress Reporton 02-07-2025 Stress Report [facility] [address] [place] [address] MR#: [id number] Acct: [id number] Name: LUL CHRISTINE Rep #: [id number] : 1940 84 From: Lisandro Virk MD Primary Care: Dr. Chaitanya Hdez, DO Status: REG CLI Referring Dr: Carol Ann Pittman MD Sex: M C Stress Test Report [...] of 91%. This note was generated with [employer] software. It may contain incorrect words, spelling, and punctuation that were not noted in checking the note before signing. 02/07/25 1557 Date Lisandro Virk MD CC: Dr. Carol Ann Pittman MD; Dr. Chaitanya Hdez, DO Date Dictated: 02/07/251545 Date Transcribed: 02/07/251545 Editor Magazine: PARKER Zee Normal [facility] .GFRon 01-03-2025 Estimated Glomerular Filtration Rate 34 ml/min/1.73sqm Normal [facility] Comment on above: Result Comment: Stages [...] Performed By: #### B MP, GFR #### [address] [address] BMPon 01-03-2025 BUN/Creatinine Ratio 18 ratio Normal 7-27 [facility] Comment on above: Performed By: #### B MP, GFR #### [address] [address] Calcium [Mass/Vol] 9.3 mg/dL Normal 8.4-10.2 [facility] Comment on above: Performed By: #### B MP, GFR #### [address] [address] Chloride [Moles/Vol] 106 mmol/L Normal 98-107 [facility] Comment on above: Performed By: #### B MP, GFR #### [address] [address] CO2 [Moles/Vol] 26 mmol/L Normal 23-31 [facility] Comment on above: Performed By: #### B MP, GFR #### [address] [address] Creatinine [Mass/Vol] 1.95 mg/dL High 0.67-1.17 [facility] Comment on above: Performed By: #### B MP, GFR #### [address] [address] Electrolyte Balance 9.0 mEq/L Normal 4.0-15.0 [facility] Comment on above: Performed By: #### B MP, GFR #### [address] [address] Glucose [Mass/Vol] 104 mg/dL Normal 83-110 [facility] Comment on above: Performed By: #### B MP, GFR #### [place] [address]67 Potassium [Moles/Vol] 4.3 mmol/L Normal 3.5-5.1 [facility] Comment on above: Performed By: #### B MP, GFR #### [place] [id number] Sodium [Moles/Vol] 141 mmol/L Normal 136-145 [facility] Comment on above: Performed By: #### B MP, GFR #### [place] [address]67 Urea nitrogen [Mass/Vol] 35 mg/dL High 7-18 [facility] Comment on above: Performed By: #### B MP, GFR #### [address] [address] CORTon 01-03-2025 Cortisol Level 23.5 mcg/dL Normal [facility] Comment on above: Result Comment: Rolando isol AM Reference Range 6.5-26.0 mcg/dL Cortisol PM Reference Range 3.5-15.0 mcg/dL Performed By: #### B MP, GFR #### [address] [address] LABORATORYOrdered By: SYSTEM SYSTEM on 01-03-2025 Calcium [...] 01-03-2025 Cholesterol [Mass/Vol] 219 mg/dL High 0-200 [facility] Comment on above: Result Comment: Chol esterol Reference Interval: Less than 200 Desirable 200-239 Borderline high risk 240 and above High risk Performed By: #### B MP, GFR #### [address] [address] Cholesterol in HDL [Mass/Vol] 72 mg/dL High 40-60 [facility] Comment on above: Performed By: #### B MP, GFR #### [address] [address] Cholesterol in LDL [Mass/Vol] 131 mg/dL High 0-130 [facility] Comment on above: Performed By: #### B MP, GFR #### [address] [address] Triglyceride [Mass/Vol] 78 mg/dL Normal 0-150 [facility] Comment on above: Result Comment: Trig lyceride Reference Interval: Less than 150 Normal 150-199 Borderline high risk 200-499 High risk 500 or higher Very high risk Performed By: #### B MP, GFR #### [address] [address] MGon 01-03-2025 Magnesium [Mass/Vol] 2.0 mg/dL Normal 1.8-2.4 [facility] Comment on above: Performed By: #### B MP, GFR #### [address] [address] PBNPon 01-03-2025 Natriuretic peptide B (Bld) [Mass/Vol] 402 pg/mL Normal 0-450 [facility] Comment on above: Result Comment: NT-p roBNP results of less than 300 pg/mL effectively rules out acute congestive heart failure with 99% negative predictive value. Performed By: #### B MP, GFR #### [address] [address] TSHRon 01-03-2025 TSH Qn 0.50 m[IU]/L Normal 0.36-3.74 [facility] Comment on above: Performed By: #### B MP, GFR #### [place] [address] MRI BRAIN W/O CONTRASTon MRI BRAIN W/O [...] 12/14/2024 2:26:21 PM Ordering Provider: EDWINA Putnam [facility] Thomas 11-26-2024 U Ratio Alb/Cre 84 mg/G High 0-30 [facility] Comment on above: Performed By: #### B MP, GFR #### [address] [address] .Auto Diffon 10-31-2024 Basophil, Absolute 0.1 10 3/mcL Normal 0.0-0.2 [facility] Comment on above: Performed By: #### C MP, GFR, CBC, ADIFF, ANEU, VIDH, TSH #### [place] [address] #### B12 #### [address] [address] Basophils/100 WBC (Bld) 0.9 % Normal 0.0-2.5 A [facility] Comment on above: Performed By: #### C MP, GFR, CBC, ADIFF, ANEU, VIDH, TSH #### [place] [address] #### B12 #### [address] [address] Eosinophil, Absolute 0.2 10 3/mcL Normal 0.0-0.7 [facility] Comment on above: Performed By: #### C MP, GFR, CBC, ADIFF, ANEU, VIDH, TSH #### [place] [address] #### B12 #### [address] [address] Eosinophils/100 WBC (Bld) 3.3 % Normal 0.0-7.0 [facility] Comment on above: Performed By: #### C MP, GFR, CBC, ADIFF, ANEU, VIDH, TSH #### [place] [address] #### B12 #### [address] [address] Lymphocyte, Absolute 1.7 10 3/mcL Normal 0.9-4.3 [facility] Comment on above: Performed By: #### C MP, GFR, CBC, ADIFF, ANEU, VIDH, TSH #### [place] [address] #### B12 #### [address] [address] Lymphocytes/100 WBC (Bld) 27.2 % Normal 20.0-40.0 [facility] Comment on above: Performed By: #### C MP, GFR, CBC, ADIFF, ANEU, VIDH, TSH #### [address] [address] #### B12 #### [address] [address] Monocyte, Absolute 0.9 10 3/mcL Normal 0.1-1.4 [facility] Comment on above: Performed By: #### C MP, GFR, CBC, ADIFF, ANEU, VIDH, TSH #### [place] [address] #### B12 #### [address] [address] Monocytes/100 WBC (Bld) 14.4 % High 2.0-13.0 [facility] Comment on above: Performed By: #### C MP, GFR, CBC, ADIFF, ANEU, VIDH, TSH #### [place] [address] #### B12 #### [address] [address] Neutrophils/100 WBC (Bld) 54.2 % Normal 50.0-75.0 [facility] Comment on above: Performed By: #### C MP, GFR, CBC, ADIFF, ANEU, VIDH, TSH #### [place] [address] #### B12 #### [address] [address] .GFRon 10-31-2024 Estimated Glomerular Filtration Rate 36 ml/min/1.73sqm Normal [facility] Comment on above: Result Comment: Stages [...] GFR, CBC, ADIFF, ANEU, VIDH, TSH #### [address] [address] #### B12 #### [place] [address] .NEUABSon 10-31-2024 Neutrophil, Absolute 3.4 10 3/mcL Normal 2.3-8.1 [facility] Comment on above: Performed By: #### C MP, GFR, CBC, ADIFF, ANEU, VIDH, TSH #### [place] [address] #### B12 #### [place] [address] B12on 10-31-2024 Cobalamin (Vitamin B12) [Mass/Vol] 442 pg/mL Normal 211-911 [facility] Comment on above: Performed By: #### C MP, GFR, CBC, ADIFF, ANEU, VIDH, TSH #### [place] [id number] #### B12 #### [place] [address] CBCon 10-31-2024 Erythrocyte distribution width (RBC) [Ratio] 13.7 % Normal 11.5-15.5 [facility] Comment on above: Performed By: #### C MP, GFR, CBC, ADIFF, ANEU, VIDH, TSH #### [address] [address] #### B12 #### [place] [address] Hematocrit (Bld) [Volume fraction] 47.4 % Normal 40.0-52.0 [facility] Comment on above: Performed By: #### C MP, GFR, CBC, ADIFF, ANEU, VIDH, TSH #### [place] [address] #### B12 #### [place] [address] Hgb 15.8 G/dL Normal 13.0-17.5 [facility] Comment on above: Performed By: #### C MP, GFR, CBC, ADIFF, ANEU, VIDH, TSH #### [place] [address] #### B12 #### [place] [address] MCH (RBC) [Entitic mass] 30.1 pg Normal 27.0-33.0 [facility] Comment on above: Performed By: #### C MP, GFR, CBC, ADIFF, ANEU, VIDH, TSH #### [place] [address] #### B12 #### [place] [address] MCHC 33.4 G/dL Normal 32.0-36.0 [facility] Comment on above: Performed By: #### C MP, GFR, CBC, ADIFF, ANEU, VIDH, TSH #### [place] [address] #### B12 #### [place] [address] MCV (RBC) [Entitic vol] 90.0 fL Normal 81.0-100.0 [facility] Comment on above: Performed By: #### C MP, GFR, CBC, ADIFF, ANEU, VIDH, TSH #### [place] [address] #### B12 #### [place] [address] Platelet 274 10 3/mcL Normal 150-450 [facility] Comment on above: Performed By: #### C MP, GFR, CBC, ADIFF, ANEU, VIDH, TSH #### [place] [address] #### B12 #### [place] [address] Platelet mean volume (Bld) [Entitic vol] 8.2 fL Normal 6.4-10.5 [facility] Comment on above: Performed By: #### C MP, GFR, CBC, ADIFF, ANEU, VIDH, TSH #### [place] [address] #### B12 #### [place] [address] RBC 5.27 10 6/mcL Normal 4.50-6.00 [facility] Comment on above: Performed By: #### C MP, GFR, CBC, ADIFF, ANEU, VIDH, TSH #### [place] [address] #### B12 #### [place] [address] WBC 6.3 10 3/mcL Normal 4.5-10.8 [facility] Comment on above: Performed By: #### C MP, GFR, CBC, ADIFF, ANEU, VIDH, TSH #### [place] [address] #### B12 #### [place] [address] CMPon 10-31-2024 Albumin Level 3.9 G/dL Normal 3.4-4.8 [facility] Comment on above: Performed By: #### C MP, GFR, CBC, ADIFF, ANEU, VIDH, TSH #### [place] [address] #### B12 #### [place] [address] Albumin/Globulin [Mass ratio] 1.0 {ratio} Low 1.1-2.5 [facility] Comment on above: Performed By: #### C MP, GFR, CBC, ADIFF, ANEU, VIDH, TSH #### [address] [address] #### B12 #### [address] [address] ALP [Catalytic activity/Vol] 100 U/L Normal 40-135 [facility] Comment on above: Performed By: #### C MP, GFR, CBC, ADIFF, ANEU, VIDH, TSH #### [address] [address] #### B12 #### [address] [address] ALT [Catalytic activity/Vol] 23 U/L Normal 16-63 [facility] Comment on above: Performed By: #### C MP, GFR, CBC, ADIFF, ANEU, VIDH, TSH #### [address] [address] #### B12 #### [place] [address] AST [Catalytic activity/Vol] 18 U/L Normal 10-40 [facility] Comment on above: Performed By: #### C MP, GFR, CBC, ADIFF, ANEU, VIDH, TSH #### [place] [address] #### B12 #### [address] [address] Bili Total 0.6 mg/dL Normal 0.2-1.0 [facility] Comment on above: Result Comment: Use of this assay is not recommended for patients undergoing treatment with eltrombopag due to the potential for falsely elevated results. Performed By: #### C MP, GFR, CBC, ADIFF, ANEU, VIDH, TSH #### [place] [address] #### B12 #### [address] [address] BUN/Creatinine Ratio 19 ratio Normal 7-27 [facility] Comment on above: Performed By: #### C MP, GFR, CBC, ADIFF, ANEU, VIDH, TSH #### [address] [address] #### B12 #### [address] [address] Calcium [Mass/Vol] 9.8 mg/dL Normal 8.4-10.2 [facility] Comment on above: Performed By: #### C MP, GFR, CBC, ADIFF, ANEU, VIDH, TSH #### [place] [address] #### B12 #### [address] [address] Chloride [Moles/Vol] 103 mmol/L Normal 98-107 [facility] Comment on above: Performed By: #### C MP, GFR, CBC, ADIFF, ANEU, VIDH, TSH #### [address] [address] #### B12 #### [address] [address] CO2 [Moles/Vol] 27 mmol/L Normal 23-31 [facility] Comment on above: Performed By: #### C MP, GFR, CBC, ADIFF, ANEU, VIDH, TSH #### [place] [address] #### B12 #### [address] [address] Creatinine [Mass/Vol] 1.85 mg/dL High 0.70-1.30 [facility] Comment on above: Result Comment: Test ing performed on Siemens Dimension EXL analyzer using a modified kinetic Kenyon technique. Performed By: #### C MP, GFR, CBC, ADIFF, ANEU, VIDH, TSH #### [place] [address] #### B12 #### [address] [address] Electrolyte Balance 9.0 mEq/L Normal 4.0-15.0 [facility] Comment on above: Performed By: #### C MP, GFR, CBC, ADIFF, ANEU, VIDH, TSH #### [address] [address] #### B12 #### [address] [address] Globulin 4.1 G/dL High 1.5-3.8 [facility] Comment on above: Performed By: #### C MP, GFR, CBC, ADIFF, ANEU, VIDH, TSH #### [address] [address] #### B12 #### [address] [address] Glucose [Mass/Vol] 111 mg/dL High 83-110 [facility] Comment on above: Performed By: #### C MP, GFR, CBC, ADIFF, ANEU, VIDH, TSH #### [address] [address] #### B12 #### [address] [address] Potassium [Moles/Vol] 4.7 mmol/L Normal 3.5-5.1 [facility] Comment on above: Performed By: #### C MP, GFR, CBC, ADIFF, ANEU, VIDH, TSH #### [address] [address] #### B12 #### [address] [address] Sodium [Moles/Vol] 139 mmol/L Normal 136-145 [facility] Comment on above: Performed By: #### C MP, GFR, CBC, ADIFF, ANEU, VIDH, TSH #### [address] [address] #### B12 #### [address] [address] Total Protein 8.0 G/dL Normal 6.4-8.2 [facility] Comment on above: Performed By: #### C MP, GFR, CBC, ADIFF, ANEU, VIDH, TSH #### [address] [address] #### B12 #### [address] [address] Urea nitrogen [Mass/Vol] 36 mg/dL High 7-18 [facility] Comment on above: Performed By: #### C MP, GFR, CBC, ADIFF, ANEU, VIDH, TSH #### [facility] [address] [place], [place] [address] #### B12 #### [address] [address] LABORATORYOrdered By: Anne Marie Lerner on 10-31-2024 [...] MALBRon 10-31-2024 U Creatinine 174.8 mg/dL Normal [facility] Comment on above: Performed By: #### B MP, GFR #### [address] [address] U Microalb 147.2 mg/L Normal [facility] Comment on above: Performed By: #### B MP, GFR #### [address] [address] TSHon 10-31-2024 TSH Qn 0.50 m[IU]/L Normal 0.36-3.74 [facility] Comment on above: Performed By: #### C MP, GFR, CBC, ADIFF, ANEU, VIDH, TSH #### [address] [address] #### B12 #### [place] [address] VIDHon 10-31-2024 Vit. D 25-Hydroxy 36.8 ng/mL Normal [facility] Comment on above: Result Comment: Inte rpretive Values Based on Total 25(OH) Vitamin D: Deficient <20 ng/mL Insufficient 20 - <30 ng/mL Sufficient 30-100 ng/mL Performed By: #### C MP, GFR, CBC, ADIFF, ANEU, VIDH, TSH #### [address] [address] #### B12 #### [place] [address] .GFRon 07-06-2024 GFR 37 ml/min/1.73sqm Normal [facility] Comment on above: Result Comment: GFR [...] GFR, CBC, ADIFF, ANEU, VIDH, TSH #### [address] [address] #### B12 #### [address] [address] GFR Non- 31 ml/min/1.73sqm Normal [facility] Comment on above: Result Comment: GFR [...] GFR, CBC, ADIFF, ANEU, VIDH, TSH #### [address] [address] #### B12 #### [address] [address] [facility] 07-06-2024 Albumin Level 3.9 G/dL Normal 3.4-4.8 [facility] Comment on above: Performed By: #### C MP, GFR, CBC, ADIFF, ANEU, VIDH, TSH #### [address] [address] #### B12 #### [address] [address] Albumin/Globulin [Mass ratio] 1.1 {ratio} Normal 1.1-2.5 [facility] Comment on above: Performed By: #### C MP, GFR, CBC, ADIFF, ANEU, VIDH, TSH #### [place] [address] #### B12 #### [address] [address] ALP [Catalytic activity/Vol] 81 U/L Normal 40-135 [facility] Comment on above: Performed By: #### C MP, GFR, CBC, ADIFF, ANEU, VIDH, TSH #### [place] [address] #### B12 #### [place] [address] ALT [Catalytic activity/Vol] 18 U/L Normal 16-63 [facility] Comment on above: Performed By: #### C MP, GFR, CBC, ADIFF, ANEU, VIDH, TSH #### [place] [address] #### B12 #### [place] [address] AST [Catalytic activity/Vol] 12 U/L Normal 10-40 [facility] Comment on above: Performed By: #### C MP, GFR, CBC, ADIFF, ANEU, VIDH, TSH #### [place] [address] #### B12 #### [place] [address] Bili Total 0.8 mg/dL Normal 0.2-1.0 [facility] Comment on above: Result Comment: Use of this assay is not recommended for patients undergoing treatment with eltrombopag due to the potential for falsely elevated results. Performed By: #### C MP, GFR, CBC, ADIFF, ANEU, VIDH, TSH #### [place] [address] #### B12 #### [place] [address] BUN/Creatinine Ratio 24 ratio Normal 7-27 [facility] Comment on above: Performed By: #### C MP, GFR, CBC, ADIFF, ANEU, VIDH, TSH #### [address] [address] #### B12 #### [address] [address] Calcium [Mass/Vol] 9.5 mg/dL Normal 8.4-10.2 [facility] Comment on above: Performed By: #### C MP, GFR, CBC, ADIFF, ANEU, VIDH, TSH #### [place] [address] #### B12 #### [address] [address] Chloride [Moles/Vol] 104 mmol/L Normal 98-107 [facility] Comment on above: Performed By: #### C MP, GFR, CBC, ADIFF, ANEU, VIDH, TSH #### [place] [address] #### B12 #### [address] [address] CO2 [Moles/Vol] 28 mmol/L Normal 23-31 [facility] Comment on above: Performed By: #### C MP, GFR, CBC, ADIFF, ANEU, VIDH, TSH #### [place] [address] #### B12 #### [address] [address] Creatinine [Mass/Vol] 2.09 mg/dL High 0.70-1.30 [facility] Comment on above: Result Comment: Test ing performed on Siemens Dimension EXL analyzer using a modified kinetic Kenyon technique. Performed By: #### C MP, GFR, CBC, ADIFF, ANEU, VIDH, TSH #### [place] [address] #### B12 #### [address] [address] Electrolyte Balance 10.0 mEq/L Normal 4.0-15.0 [facility] Comment on above: Performed By: #### C MP, GFR, CBC, ADIFF, ANEU, VIDH, TSH #### [address] [address] #### B12 #### [address] [address] Globulin 3.6 G/dL Normal [facility] Comment on above: Performed By: #### C MP, GFR, CBC, ADIFF, ANEU, VIDH, TSH #### [address] [address] #### B12 #### [address] [address] Glucose [Mass/Vol] 105 mg/dL Normal 83-110 [facility] Comment on above: Performed By: #### C MP, GFR, CBC, ADIFF, ANEU, VIDH, TSH #### [place] [address] #### B12 #### [address] [address] Potassium [Moles/Vol] 5.2 mmol/L High 3.5-5.1 [facility] Comment on above: Performed By: #### C MP, GFR, CBC, ADIFF, ANEU, VIDH, TSH #### [address] [address] #### B12 #### [address] [address] Sodium [Moles/Vol] 142 mmol/L Normal 136-145 [facility] Comment on above: Performed By: #### C MP, GFR, CBC, ADIFF, ANEU, VIDH, TSH #### [address] [address] #### B12 #### [address] [address] Total Protein 7.5 G/dL Normal 6.4-8.2 [facility] Comment on above: Performed By: #### C MP, GFR, CBC, ADIFF, ANEU, VIDH, TSH #### [place] [address] [place], [place] [address] #### B12 #### [address] [address] Urea nitrogen [Mass/Vol] 50 mg/dL High - [facility] Comment on above: Performed By: #### C MP, GFR, CBC, ADIFF, ANEU, VIDH, TSH #### [place] [address] [place], [place] [address] #### B12 #### [address] [address] LABORATORYOrdered By: SYSTEM SYSTEM on 07-06-2024 Albumin [...] .GFRon 12-22-2023 GFR Non- 34 ml/min/1.73sqm Normal [facility] ([place]) Comment on above: Result Comment: GFR Population [...] By: #### B MP, GFR #### [place]isa [address] [address] GFR 41 ml/min/1.73sqm Normal [facility] ([place]) Comment on above: Result Comment: GFR Population [...] By: #### B MP, GFR #### [place]isa [address] [address] BMPon 12-22-2023 BUN/Creatinine Ratio 17 ratio Normal 7-27 [facility] ([place]) Comment on above: Performed By: #### B MP, GFR #### [address] [address] Calcium [Mass/Vol] 9.5 mg/dL Normal 8.4-10.2 [facility] ([place]) Comment on above: Performed By: #### B MP, GFR #### [address] [address] Chloride [Moles/Vol] 105 mmol/L Normal 98-107 [facility] ([place]) Comment on above: Performed By: #### B MP, GFR #### [address] [address] CO2 [Moles/Vol] 26 mmol/L Normal 23-31 [facility] ([place]) Comment on above: Performed By: #### B MP, GFR #### [address] [address] Creatinine [Mass/Vol] 1.92 mg/dL High 0.70-1.30 [facility] ([place]) Comment on above: Performed By: #### B MP, GFR #### [address] [address] Electrolyte Balance 11.0 mEq/L Normal 4.0-15.0 [facility] ([place]) Comment on above: Performed By: #### B MP, GFR #### [address] [address] Glucose [Mass/Vol] 103 mg/dL Normal 83-110 [facility] ([place]) Comment on above: Performed By: #### B MP, GFR #### [address] [address] Potassium [Moles/Vol] 5.1 mmol/L Normal 3.5-5.1 [facility] ([place] Comment on above: Performed By: #### B MP, GFR #### [address] [address] Sodium [Moles/Vol] 142 mmol/L Normal 136-145 [facility] ([place]) Comment on above: Performed By: #### B MP, GFR #### [address] [place], [place] [address] Urea nitrogen [Mass/Vol] 33 mg/dL High 7-18 [facility] ([place]) Comment on above: Performed By: #### B MP, GFR #### [address] [address] LABORATORYOrdered By: SYSTEM SYSTEM on 12-22-2023 Calcium [...] Basophil, Absolute 0.1 10 3/mcL Normal 0.0-0.2 [facility] ([place]) Comment on above: Performed By: #### A ROME, ADIFF, LIPID, CBC, GFR, CMP #### [address] [address] Basophils/100 WBC (Bld) 1.0 % Normal 0.0-2.5 [facility] ([place]) Comment on above: Performed By: #### A ROME, ADIFF, LIPID, CBC, GFR, CMP #### [address] [address] Eosinophil, Absolute 0.2 10 3/mcL Normal 0.0-0.4 [facility] ([place]) Comment on above: Performed By: #### A ROME, ADIFF, LIPID, CBC, GFR, CMP #### [address] [address] Eosinophils/100 WBC (Bld) 2.9 % Normal 0.0-7.0 [facility] ([place]) Comment on above: Performed By: #### A ROME, ADIFF, LIPID, CBC, GFR, CMP #### [address] [address] Lymphocyte, Absolute 1.7 10 3/mcL Normal 0.8-3.9 [facility] ([place] Comment on above: Performed By: #### A ROME, ADIFF, LIPID, CBC, GFR, CMP #### [address] [address] Lymphocytes/100 WBC (Bld) 20.5 % Normal 10.0-50.0 [facility] ([place]) Comment on above: Performed By: #### A ROME, ADIFF, LIPID, CBC, GFR, CMP #### [address] [address] Monocyte, Absolute 1.1 10 3/mcL High 0.2-1.0 [facility] ([place]) Comment on above: Performed By: #### A ROME, ADIFF, LIPID, CBC, GFR, CMP #### [address] [address] Monocytes/100 WBC (Bld) 13.7 % High 1.7-13.0 [facility] ([place]) Comment on above: Performed By: #### A ROME, ADIFF, LIPID, CBC, GFR, CMP #### [address] [address] Neutrophils/100 WBC (Bld) 61.9 % Normal 37.0-80.0 [facility] ([place]) Comment on above: Performed By: #### A ROME, ADIFF, LIPID, CBC, GFR, CMP #### [address] [address] .GFRon 06-23-2023 GFR 42 ml/min/1.73sqm Normal [facility] ([place]) Comment on above: Result Comment: GFR Population [...] ROME, ADIFF, LIPID, CBC, GFR, CMP #### [address] [address] GFR Non- 34 ml/min/1.73sqm Normal [facility] ([place]) Comment on above: Result Comment: GFR Population [...] ROME, ADIFF, LIPID, CBC, GFR, CMP #### [address] [address] .NEUABSon 06-23-2023 Neutrophil, Absolute 5.0 10 3/mcL Normal 2.9-6.2 [facility] ([place] Comment on above: Performed By: #### A ROME, ADIFF, LIPID, CBC, GFR, CMP #### [address] [address] CBCon 06-23-2023 Erythrocyte distribution width (RBC) [Ratio] 13.9 % Normal 11.5-14.5 [facility] ([place]) Comment on above: Performed By: #### A ROME, ADIFF, LIPID, CBC, GFR, CMP #### [address] [address] Hematocrit (Bld) [Volume fraction] 46.0 % Normal 42.0-52.0 [facility] ([place]) Comment on above: Performed By: #### A ROME, ADIFF, LIPID, CBC, GFR, CMP #### [address] [address] Hgb 15.5 G/dL Normal 14.0-18.0 [facility] ([place]) Comment on above: Performed By: #### A ROME, ADIFF, LIPID, CBC, GFR, CMP #### [place] [id number] MCH (RBC) [Entitic mass] 30.1 pg Normal 27.0-31.2 [facility] ([place]) Comment on above: Performed By: #### A ROME, ADIFF, LIPID, CBC, GFR, CMP #### [place] [id number] MCHC 33.7 G/dL Normal 31.8-35.4 [facility] ([place]) Comment on above: Performed By: #### A ROME, ADIFF, LIPID, CBC, GFR, CMP #### [address] [address] MCV (RBC) [Entitic vol] 89.2 fL Normal 80.0-94.0 [facility] ([place]) Comment on above: Performed By: #### A ROME, ADIFF, LIPID, CBC, GFR, CMP #### [address] [address] Platelet 273 10 3/mcL Normal 130-400 [facility] ([place]) Comment on above: Performed By: #### A ROME, ADIFF, LIPID, CBC, GFR, CMP #### [address] [address] Platelet mean volume (Bld) [Entitic vol] 8.6 fL Normal 7.4-10.4 [facility] ([place]) Comment on above: Performed By: #### A ROME, ADIFF, LIPID, CBC, GFR, CMP #### [address] [address] RBC 5.15 10 6/mcL Normal 4.04-6.13 [facility] ([place]) Comment on above: Performed By: #### A ROME, ADIFF, LIPID, CBC, GFR, CMP #### [address] [address] WBC 8.1 10 3/mcL Normal 4.6-10.8 [facility] ([place]) Comment on above: Performed By: #### A ROME, ADIFF, LIPID, CBC, GFR, CMP #### [address] [address] CMPon 06-23-2023 Albumin Level 4.0 G/dL Normal 3.4-4.8 [facility] ([place]) Comment on above: Performed By: #### A ROME, ADIFF, LIPID, CBC, GFR, CMP #### [address] [address] Albumin/Globulin [Mass ratio] 1.0 {ratio} Low 1.1-2.5 [facility] ([place]) Comment on above: Performed By: #### A ROME, ADIFF, LIPID, CBC, GFR, CMP #### [address] [address] ALP [Catalytic activity/Vol] 87 U/L Normal 40-135 [facility] ([place]) Comment on above: Performed By: #### A ROME, ADIFF, LIPID, CBC, GFR, CMP #### [address] [address] ALT [Catalytic activity/Vol] 20 U/L Normal 16-63 [facility] ([place]) Comment on above: Performed By: #### A ROME, ADIFF, LIPID, CBC, GFR, CMP #### [address] [address] AST [Catalytic activity/Vol] 12 U/L Normal 10-40 [facility] ([place]) Comment on above: Performed By: #### A ROME, ADIFF, LIPID, CBC, GFR, CMP #### [address] [address] Bili Total 0.5 mg/dL Normal 0.2-1.0 [facility] ([place]) Comment on above: Result Comment: Use of this assay is not recommended for patients undergoing treatment with eltrombopag due to the potential for falsely elevated results. Performed By: #### A ROME, ADIFF, LIPID, CBC, GFR, CMP #### [address] [address] BUN/Creatinine Ratio 19 ratio Normal 7-27 [facility] ([place]) Comment on above: Performed By: #### A ROME, ADIFF, LIPID, CBC, GFR, CMP #### [address] [address] Calcium [Mass/Vol] 9.6 mg/dL Normal 8.4-10.2 [facility] ([place]) Comment on above: Performed By: #### A ROME, ADIFF, LIPID, CBC, GFR, CMP #### [address] [address] Chloride [Moles/Vol] 105 mmol/L Normal 98-107 [facility] ([place]) Comment on above: Performed By: #### A ROME, ADIFF, LIPID, CBC, GFR, CMP #### [address] [address] CO2 [Moles/Vol] 28 mmol/L Normal 23-31 [facility] ([place]) Comment on above: Performed By: #### A ROME, ADIFF, LIPID, CBC, GFR, CMP #### [address] [address] Creatinine [Mass/Vol] 1.90 mg/dL High 0.70-1.30 [facility] ([place]) Comment on above: Performed By: #### A ROME, ADIFF, LIPID, CBC, GFR, CMP #### [address] [address] Electrolyte Balance 10.0 mEq/L Normal 4.0-15.0 [facility] ([place]) Comment on above: Performed By: #### A ROME, ADIFF, LIPID, CBC, GFR, CMP #### [address] [address] Globulin 4.1 G/dL Normal [facility] ([place]) Comment on above: Performed By: #### A ROME, ADIFF, LIPID, CBC, GFR, CMP #### [address] [address] Glucose [Mass/Vol] 109 mg/dL Normal 83-110 [facility] ([place]) Comment on above: Performed By: #### A ROME, ADIFF, LIPID, CBC, GFR, CMP #### [address] [address] Potassium [Moles/Vol] 4.9 mmol/L Normal 3.5-5.1 [facility] ([place]) Comment on above: Performed By: #### A ROME, ADIFF, LIPID, CBC, GFR, CMP #### [address] [address] Sodium [Moles/Vol] 143 mmol/L Normal 136-145 [facility] ([place]) Comment on above: Performed By: #### A ROME, ADIFF, LIPID, CBC, GFR, CMP #### [address] [address] Total Protein 8.1 G/dL Normal 6.4-8.2 [facility] ([place]) Comment on above: Performed By: #### A ROME, ADIFF, LIPID, CBC, GFR, CMP #### [address] [address] Urea nitrogen [Mass/Vol] 36 mg/dL High 7-18 [facility] ([place]) Comment on above: Performed By: #### A ROME, ADIFF, LIPID, CBC, GFR, CMP #### [address] [address] LABORATORYOrdered By: Gisselle Baumann on 06-23-2023 Albumin [...] - 10.8 10^3/mcL AO Workflow SS LIPIDon 06-23-2023 Cholesterol [Mass/Vol] 220 mg/dL High 0-200 [facility] ([place]) Comment on above: Result Comment: Chol esterol Reference Interval: Less than 200 Desirable 200-239 Borderline high risk 240 and above High risk Performed By: #### A ROME, ADIFF, LIPID, CBC, GFR, CMP #### [address] [address] Cholesterol in HDL [Mass/Vol] 71 mg/dL High 40-60 [facility] ([place]) Comment on above: Performed By: #### A ROME, ADIFF, LIPID, CBC, GFR, CMP #### [address] [address] Cholesterol in LDL [Mass/Vol] 138 mg/dL High 0-130 [facility] ([place]) Comment on above: Performed By: #### A ROME, ADIFF, LIPID, CBC, GFR, CMP #### [address] [address] Triglyceride [Mass/Vol] 56 mg/dL Normal 0-150 A [facility] ([place]) Comment on above: Result Comment: Trig lyceride Reference Interval: Less than 150 Normal 150-199 Borderline high risk 200-499 High risk 500 or higher Very high risk Performed By: #### A ROME, ADIFF, LIPID, CBC, GFR, CMP #### [address] [address] MALBRon 06-23-2023 U Creatinine 189.8 mg/dL Normal 39.0-259.0 [facility] ([place]) Comment on above: Performed By: #### M ALBR #### [facility] [address] [place], [place] [address] U Microalb 8266 mcg/dL Normal [facility] ([place]) Comment on above: Performed By: #### M ALBR #### [facility] [place] [address] [place], [place] [address] U Ratio Alb/Cre 44 mcg/mg High 0-30 [facility] ([place]) Comment on above: Performed By: #### M ALBR #### [place] [place] [address] [place], [place] [address] LABORATORYOrdered By: Anne Marie Lerner on 03-08-2022 [...] Vital Sign Value Performing Clinician Gómez barton 05-01-2025 15:29-0400 Body temperature 98.5 [degF] Dr. Carol Ann Pittman MD Work Phone: [facility] 05-01-2025 15:29-0400 Diastolic blood pressure 67 mm[Hg] Dr. Carlo Ann Pittman MD Work Phone: [facility] 05-01-2025 15:29-0400 Heart rate 93 /min Dr. Carol Ann Pittman MD Work Phone: [facility] 05-01-2025 15:29-0400 Respiratory rate 18 /min Dr. Carol Ann Pittman MD Work Phone: [facility] 05-01-2025 15:29-0400 SaO2% (BldA) [Mass fraction] 92 % Dr. Carol Ann Pittman MD Work Phone: [facility] 05-01-2025 15:29-0400 Systolic blood pressure 124 mm[Hg] Dr. Carol Ann Pittman MD Work Phone: [facility] 05-01-2025 13:54-0400 Body mass index (BMI) [Ratio] 19.4 kg/m2 Dr. Carol Ann Pittman MD Work Phone: [facility] 05-01-2025 13:49-0400 Inhaled oxygen flow rate 5 L/min Dr. Carol Ann Pittman MD Work Phone: [facility] 05-01-2025 04:39-0400 Body weight 56.[address] Carol Ann Pittman MD Work Phone: [facility] 04-30-2025 15:15-0400 Body height 170.[address] Carol Ann Pittman MD Work Phone: [facility] 04-26-2025 11:34-0400 Body temperature 97.8 [degF] Dr. Carol Ann Pittman MD Work Phone: [facility] 04-26-2025 11:34-0400 Diastolic blood pressure 84 mm[Hg] Dr. Carol Ann Pittman MD Work Phone: [facility] 04-26-2025 11:34-0400 Heart rate 85 /min Dr. Carol Ann Pittman MD Work Phone: [facility] 04-26-2025 11:34-0400 Respiratory rate 17 /min Dr. Carol Ann Pittman MD Work Phone: [facility] 04-26-2025 11:34-0400 SaO2% (BldA) [Mass fraction] 94 % Dr. Carol Ann Pittman MD Work Phone: [facility] 04-26-2025 11:34-0400 Systolic blood pressure 165 mm[Hg] Dr. Carol Ann Pittman MD Work Phone: [facility] 04-26-2025 08:04-0400 Body height 177.[address] Carol Ann Pittman MD Work Phone: [facility] 04-26-2025 08:04-0400 Body mass index (BMI) [Ratio] 19.9 kg/m2 Dr. Carol Ann Pittman MD Work Phone: [facility] 04-26-2025 08:04-0400 Body weight 63.[address] Carol Ann Pittman MD Work Phone: [facility] Encounters Encounter Date Encounter Type Care Provider Facility Start: 05-01-2025 Non-patient / Non-visit Dr. Radha wright MD -[facility] Work Phone: Start: 04-30-2025 Non-patient / Non-visit Dr. Radha wright MD -[facility] Work Phone: Start: 04-29-2025 Non-patient / Non-visit Dr. Ugo Perera MD -[facility] Work Phone: Start: 04-28-2025 Non-patient / Non-visit Dr. Ugo Perera MD -[facility] Work Phone: Start: 04-27-2025 Non-patient / Non-visit Dr. Ugo Perera MD -[facility] Work Phone: Start: 04-27-2025 ambulatory Ugo Perera Facility: [facility] Start: 04-26-2025 ambulatory Ugolydia Perera [place] [facility] [place]: 04-26-2025 End: 05-01-2025 Evaluation and management of inpatient Dr. Ugo Perera MD -[facility] Work Phone: Start: 04-03-2025 End: 04-03-2025 Transcribe Orders Chaitanya Hdez DO Work Phone: Referring Physician Comment on above: Shuffling gait (Prim makenna Dx); Tremor; Lightheadedness Start: 04-01-2025 ambulatory CHAITANYA HDEZ DO Faci lity:[facility] Start: 04-01-2025 End: 04-01-2025 ambulatory CHAITANYA HDEZ DO [facility] Start: 04-01-2025 End: 04-01-2025 Patient encounter procedure CHAITANYA HDEZ DO [facility] Start: 03-29-2025 End: 03-29-2025 ambulatory CHAITANYA HDEZ DO [facility] Start: 03-29-2025 End: 03-29-2025 Patient encounter procedure CHAITANYA HDEZ DO [facility] Start: 03-26-2025 End: 03-30-2025 ambulatory CHAITANYA HDEZ DO [facility] Start: 03-26-2025 End: 03-30-2025 Encounter for general adult medical examination without abnormal findings CHAITANYA HDEZ DO Facility:[facility] Start: 03-26-2025 End: 03-30-2025 Outreach Lab CHAITANYA HDEZ DO [facility] Start: 02-07-2025 ambulatory Chaitanya Hdez [place] [facility] [place] Start: 02-07-2025 Non-patient / Non-visit Dr. Lisandro jaramillo MD -[facility] Start: 02-07-2025 End: 02-07-[address] Carol Ann Pittman MD Work Phone: [facility] Work Phone: Start: 02-07-2025 End: 02-07-[address] Carol Ann Pittman MD -Cardiovascular Services Work Phone: Start: 02-07-2025 End: 02-07-2025 ambulatory Carol Ann Pittman Facility:[facility] Start: 01-03-2025 End: 01-03-[address] CAROL ANN PITTMAN MD Facility:[facility] Start: 01-03-2025 End: 01-03-[address] CAROL ANN PITTMAN MD [facility] Start: 12-14-2024 End: 12-14-2024 ambulatory EDWINA APRIL DO [facility] Start: 12-06-2024 End: 2024 ambulatory EDWINA APRIL DO [facility] Start: 10-31-2024 End: 10-31-2024 ambulatory EDWINA APRIL DO [facility] Start: 10-31-2024 End: 10-31-2024 Patient encounter procedure EDWINA APRIL DO [facility] Start: 07-06-2024 End: 07-06-2024 ambulatory EDWINA APRIL DO [facility] Start: 07-06-2024 End: 07-06-2024 Patient encounter procedure EDWINA APRIL DO [facility] Start: 12-22-2023 End: 12-23-2023 ambulatory EDWINA APRIL DO Facility:[facility] Start: 12-22-2023 End: 12-22-2023 Patient encounter procedure EDWINA APRIL DO [facility] Start: 06-23-2023 End: 06-24-2023 ambulatory EDWINA APRIL DO Facility:[facility] Start: 06-23-2023 End: 06-23-2023 Patient encounter procedure EDWINA APRIL DO [facility] Start: 03-08-2022 End: 03-08-2022 Patient encounter procedure EDWINA CHEN DO [facility] Procedures Date Procedure Procedure Detail Performing Clinician Start: 04-29-[address] Carol Ann Pittman MD Work Phone: Start: 04-28-2025 Urnls dip stick/tabl et reagent auto microscopy Dr. Carol Ann Pittman MD Work Phone: Start: 04-28-[address] Carol Ann Pittman MD Work Phone: Start: 04-26-[address] Carol Ann Pittman MD Work Phone: Start: 04-26-[address] Carol Ann Pittman MD Work Phone: Start: 04-26-2025 MRI of brain without contrast Dr. Carol Ann Pittman MD Work Phone: Start: 04-26-2025 Urnls dip stick/tabl et reagent auto microscopy Dr. Carol Ann Pittman MD Work Phone: Start: 04-26-2025 Carbon dioxide measu rement, partial pressure Dr. Carol Ann Pittman MD Work Phone: Start: 04-26-2025 Gases blood o2 satur ation only direct anna Dr. Carol Ann Pittman MD Work Phone: Start: 04-26-2025 Measurement of parti al pressure of oxygen in blood Dr. Carol Ann Pittman MD Work Phone: Start: 04-26-[address] Carol Ann Pittman MD Work Phone: Start: 04-26-[address] Carol Ann Pittman MD Work Phone: Start: 04-26-2025 CT of head without contrast Dr. Carol Ann Pittman MD Work Phone: Start: 04-26-2025 Plain chest X-ray Dr. Cristi Pittman MD Work Phone: Start: 02-07-2025 Cardiovascular stres s test using pharmacologic stress agent Dr. Carol Ann Pittman MD Work Phone: Start: 09-01-2020 Colonoscopy EDWINA US DO Start: 10-02-2019 Arthroplasty of righ t hip joint EDWINA CHEN DO Dental surgical procedure RO NABEEL CHEN DO Mohs surgery EDWINA CHEN DO Comment on above: right side of nose a nd top of head. Plan of Treatment Date Care Activity Detail Author Start: 05-13-2025 Influenza vaccination Influenza Vaccine (#1) [facility] Start: 05-01-2025 Patient discharge [facility] Start: 04-29-2025 Care planning and problem solving actions [facility] Start: 04-28-2025 Introduction of urinary catheter [facility] Start: 04-28-2025 Referral to service [facility] Start: 04-28-2025 Oxygen therapy [facility] Start: 04-28-2025 Patient referral to dietitian [facility] Start: 04-26-2025 Bacteria identified in Blood by Culture Blood Culture [facility] Start: 04-26-2025 Ambulation without limitation [facility] Start: 04-26-2025 Assessment of risk of venous thromboembolism [facility] Start: 04-26-2025 Insertion of catheter into peripheral vein [facility] Start: 04-26-2025 Measuring intake and output [facility] Start: 04-26-2025 Providing care according to standard [facility] Start: 04-26-2025 Referral to occupational therapist [facility] Start: 04-26-2025 Referral to service [facility] Start: 04-26-2025 End: 04-26-2025 Speech therapy assessment [facility] Start: 04-26-2025 [facility] Start: 04-26-2025 End: 04-26-2025 Speech therapy assessment [facility] Start: 04-26-2025 Following clinical pathway protocol [facility] Start: 04-26-2025 Vital signs measurements [facility] Start: 04-26-2025 Aspiration precautions [facility] Start: 04-26-2025 Cardiac monitoring [facility] Start: 04-26-2025 Catheterization of vein [facility] Start: 04-26-2025 Elevation of head of bed [facility] Start: 04-26-2025 Exercises [facility] Start: 04-26-2025 Notification of physician [facility] Start: 04-26-2025 Patient referral to dietitian [facility] Start: 04-26-2025 Referral to occupational therapist [facility] Start: 04-26-2025 Referral to service [facility] Start: 04-26-2025 Tobacco use cessation education [facility] Start: 04-26-2025 End: 04-26-2025 [facility] Start: 04-26-2025 MRI of brain without contrast Brain without Contrast [facility] Start: 04-26-2025 Verification routine [facility] Start: 04-26-2025 Hospital admission, emergency, from emergency room, medical nature [facility] Start: 04-26-2025 Admission procedure [facility] Start: 04-26-2025 End: 04-26-2025 [facility] Start: 04-26-2025 Patient referral to dietitian [facility] Start: 09-12-2024 Advance Directive Discussion Advance Directive Discussion [facility] Start: 2017 RSV Vaccine (1 - 1-dose 75+ series) RSV Vaccine (1 - 1-dose 75+ series) [facility] Start: 1992 Pneumococcal Vaccine: 50+ (1 of 1 - PCV) Pneumococcal Vaccine: 50+ (1 of 1 - PCV) [facility] Start: 1992 Shingrix Vaccine (1 of 2) Shingrix Vaccine (1 of 2) [facility] Start: 12-08-1987 Diabetes Screening Diabetes Screening [facility] Start: 1961 Urine microalbumin profile DTaP,Tdap,Td Vaccine (1 - Tdap) [facility] Start: 1960 Anxiety Screening Anxiety Screening [facility] Start: 1960 Depression Screening Depression Screening [facility] Magnesium measurement [facility] Immunizations Immunization Date Immunization Notes Care Provider Cody guerda 08-20-2021 SARS-CoV-2 (COVID-19 ) Ad26 vaccine, recombinant [facility] 11-20-2020 SARS-CoV-2 (COVID-19 ) Ad26 vaccine, recombinant EDWINA APRIL DO [facility] Comment on above: Result Comment: 2022: [id number] Payers Date Payer Category Payer Private Health Insurance [id number] 2025 Self-pay 2024 Medicare (Managed Care) PRIMETIM E [id number] 2023 Unknown [id number] 2018 Unknown [id number] 1942 Unknown [id number] 2.840.1.717028.3.579. 2.62 1942 Unknown [id number] 2.840.1.114537.3.579. 2.627 1942 Unknown [id number] 2.840.1.648260.3.579. 2.62 1942 Unknown [id number] 2.16.840.1.521081.3.579. 2.627 1942 Unknown [id number] 2.16.840.1.706540.3.579. 2.627 1942 Unknown [id number] 2.16.840.1.795513.3.579. 2.627 1942 Unknown [id number] 2.16.840.1.559422.3.579. 2.62 1942 Unknown [id number] 2.16.840.1.264414.3.579. 2.62 1942 Unknown [id number] 2.16.840.1.680166.3.579. 2.627 1942 Unknown [id number] 2.16.840.1.423563.3.579. 2.62 1942 Unknown [id number] 2.16.840.1.886096.3.579. 2.627 Unknown [id number] 2.16.840.1.993124.3.579. 2.462 Unknown [id number] 2.16.840.1.174682.3.579. 2.462 Unknown [id number] 2.16.840.1.745800.3.579. 2.462 Unknown [id number] 2.16.840.1.014115.3.579. 2.462 Unknown [id number] 2.16.840.1.158093.3.579. 2.462 Unknown [id number] 2.16.840.1.122247.3.579. 2.462 Unknown [id number] 2.16.840.1.279632.3.579. 2.462 Unknown [id number] 2.16.840.1.741710.3.579. 2.462 Social History Date Type Detail Facility Start: 09-14-2019 Tobacco smoking status Ex-smoker (fi nding) [facility] Tobacco smoking status Never [facility] Start: 1940 Sex Assigned At Male A [facility] Sexual Orientation [place] [address] [facility] Start: 03-07-2019 Sex Male (finding) [facility] Tobacco smoking stat us NHIS Unknown if ever smoked [facility] Work Phone: Start: 1940 Sex assigned at Not on file [facility] Gender identity Not on file [facility] Start: 04-26-2025 End: 05-01-2025 Tobacco smoking status NHIS Never smoked tobacco (finding) [facility] Start: 05-01-2025 Tobacco Use Tobacco Use [facility] Goals Date Patient Goal Desired Activity /State Functional Status Date Assessment Result Facility 05-01-2025 Functional status Chair [facility] Work Phone: Mental Status Date Assessment Result Facility 05-01-2025 Cognitive function Voice/Name [facility] Work Phone: 04-26-2025 Cognitive function Voice/Name [facility] Work Phone: Clinical Notes 03-29-2025 to 05-01-2025 Note Date & Type Note Facility 05-01-2025 Discharge summary Note Date/Time May 01, 2025 3:22pm [facility] Medical Records Department [address] [place] [address] Discharge Summary 05/01/25 1509 MR#: [id number] Acct: [id number] Name: LUL CHRISTINE Rep #:[id number] : 1940 84 From: Radha Valera MD PCP: Dr. Chaitanya Hdez DO Status:ADM IN Location: [place] [address] Providers Date of Admission: 04/26/25 Date of Discharge: 05/01/25 Primary Care Physician: Dr. Chaitanya Hdez DO Reason For Visit: AMS Diagnosis Discharge Diagnosis (1) Altered mental status: Status: Acute Code(s): R41.82 - Altered mental status, unspecified Plan Patient is an 84-year-old gentleman with multiple comorbidities including hypertension dyslipidemia recent CVA in November 2024 who presented with altered mental status with language deficit both receptive and expressive as well as dysarthria 1. 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 Suspected offending medication was withdrawn. Patient was seen by neurology CVA was ruled out with a negative MRI. Neurology also recommended minimal use of benzos opiates as well as anticholinergics and low-dose Risperdal as needed at night ? 05/01/2025; patient seen appears much more restful compared to previous day. Case discussed with patient's Regarding disposition. Plan is for patient to be transferred to a halfway facility pending acceptance by facility and insurance precertification was discharged to [facility] once insurance precertification was obtained 2. Physical deconditioning ? Requested for PT OT eval and social staff worker to assist with discharge planning 3. BPH with lower urinary obstructive symptoms including urinary retention - Patient treated with tamsulosin. Urinalysis rule out UTI patient had been started on ceftriaxone discontinued 4. Hypertension ? Blood pressure controlled, home medications continued with dose adjustment as needed 5. Dyslipidemia ?Patient is on statin therapy, continued at home dose 6. 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 Patient started on antiplatelets as well as statin therapy 7. Chronic kidney disease stage IIIa ? Kidney function at baseline 8. DVT prophylaxis ? Subcu Lovenox Time spent in the patient's overall evaluation,decision-making process, review of diagnostic data, adjustment of management, discussion with other providers, nursing nursing and ancillary staff involved in patient's care, family includingpatient's documentation, 35 minutes Medications at Discharge Home Medications metoprolol succinate 25 mg tablet,extended release 24 hr 25 mg PO DAILY heart 04/26/25 rosuvastatin 5 mg tablet 5 mg PO DAILY cholesterol 04/26/25 Physical Exam Narrative GENERAL: Frail looking HEENT: Atraumatic; normocephalic EYES; Anicteric, Normal Conjunctiva NECK; supple, normal thyroid, RESPIRATORY: Diminished to auscultation CARDIOVASCULAR: Regular S1 S2, GI: soft, normoactive bowel sounds, : No Renal angle tenderness; EXTREMITIES: No edema, no clubbing, MUSCULOSKELETAL: no muscle wasting NEURO: Awake; no lateralizing signs. SKIN: No Rash PSYCH; Flat affect Weight / BMI Weight Weight: 56.2 kg Body Mass Index (BMI) 19.4 ABG / Lab / Microbiology Data 04/29/25 03:38 04/29/25 03:38 Microbiology: Microbiology 04/26/25 08:15 Blood Culture (Wb) - Right Forearm Blood Culture - Final No growth in 5 days. 04/26/25 08:30 Blood Culture (Wb) - Arm Right Blood Culture - Final No growth in 5 days. 04/28/25 17:20 Urine, Catheterized Urine Culture - Final Culture exhibits no growth. 04/26/25 08:24 Urine, Clean Catch Urine Culture - Final Culture exhibits no growth. D/C Instructions DC O2, CPAP, BIPAP Needs Home O2 Discharge instructions: No Meaningful Use Info Meaningful Use Meaningful Use Diagnoses (Choose all that apply): None applicable Discharge Plan Admission Admit Date/Time: 04/26/25 10:44 Attending Provider: Radha Valera Primary Care Provider: Chaitanya Hdez Consulting Providers: Ugo Perera Discharge Orders/Prescriptions Prescriptions: No Action rosuvastatin 5 mg tablet 5 mg PO DAILY metoprolol succinate 25 mg tablet extended release 24 hr 25 mg PO DAILY Referrals / Follow Up: Chaitanya Hdez DO [Primary Care Provider] - Disposition Disposition (needs filled in before D/C Order can be placed): Long-Term Facility Charges/Coding Visit Charges Inpatient E&M: 93006 Disch Hosp >30min 05/01/25 1522 <Electronically signed by Radha Valera MD> Cosigner Signature (if applicable): CC: Dr. Radha Valera MD; Dr. Chaitanya Hdez DO~ Signed [facility] Work Phone: 1(994) 952-239008-20-2025 Discharge summary [facility] Medical Records Department [address] [place] [address] Transfer to [facility] MR#: [id number] Acct: [id number] Name: LUL CHRISTINE Rep #:[id number] : 1940 84 From: Radha Valera MD PCP: Dr. Chaitanya Hdez DO Status:ADM IN Certification of patient admission REQUIRED AT TIME OF ADMISSION. I CERTIFY THAT POST-HOSPITAL ECF SERVICES ARE REQUIRED TO BE GIVEN ON AN IN-PATIENT BASIS BECAUSE OF THE ABOVE NAMED PATIENT'S NEED FOR [facility] CARE ON A CONTINUING BASIS FOR THE CONDITION(S) FOR WHICH HE/SHE WAS RECEIVING IN-PATIENT HOSPITAL SERVICES PRIOR TO HIS/HER TRANSFER TO THE ECF. 05/01/25 1532 Diet Diet Order/Speech Therapy: INPATIENT Hospital Diet / Speech Therapy Order(s) 04/30/25 15:20 Diet: Regular - General Food consistency:: Pureed Liquid Consistency:: Regular/Thin Diet Comments: fortified pudding with lunch and dinner; Oral care provided after solids Speech Therapy Comments: Liquids via tsp only. TOTAL FEED. Swallow Guidelines. feed only when alert DC O2, CPAP, BIPAP needs Home O2 Discharge instructions: No Problem/Diagnosis (1) Altered mental status: Status: Acute Code(s): R41.82 - Altered mental status, unspecified Plan Patient is an 84-year-old gentleman with multiple comorbidities including hypertension dyslipidemiarecent CVA in November 2024 who presented with altered mental status with language deficit both receptive and expressive as well as dysarthria 1. 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 Suspected offending medication was withdrawn. Patient was seen by neurology CVA was ruled out with a negative MRI. Neurology also recommended minimal use of benzos opiates as well as anticholinergics and low-dose Risperdal as needed at night ? 05/01/2025; patient seen appears much more restful compared to previous day. Case discussed with patient's Regarding disposition. Plan is for patient to be transferred to a halfway facility pending acceptance by facility and insurance precertification was discharged to [facility] once insurance precertification was obtained 2. Physical deconditioning ? Requested for PT OT eval and social staff worker to assist with discharge planning 3. BPH with lower urinary obstructive symptoms including urinary retention - Patient treated with tamsulosin. Urinalysis rule out UTI patient had been started on ceftriaxone discontinued 4. Hypertension ? Blood pressure controlled, home medications continued with dose adjustment as needed 5. Dyslipidemia ?Patient is on statin therapy, continued at home dose 6. 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 Patient started on antiplatelets as well as statin therapy 7. Chronic kidney disease stage IIIa ? Kidney function at baseline 8. DVT prophylaxis ? Subcu Lovenox Time spent in the patient's overall evaluation,decision-making process, review of diagnostic data, adjustment of management, discussion with other providers, nursing nursing and ancillary staff involved in patient's care, family includingpatient's documentation, 35 minutes Allergies/Procedures Done in Hospital Allergies doxycycline Allergy (Unknown, Verified 04/26/25 08:08) PT UNABLE TO RESPOND-NEEDS F/U oxycodone Allergy (Unknown, Verified 04/26/25 08:08) PT UNABLE TO RESPOND-NEEDS F/U scopolamine Adverse Reaction (Severe, Verified 04/28/25 11:26) mental status changes Type of Care/Length of Stay Estimated LOS: Convalescent Care Less Than 30 days Type of Care Needed: Skilled Rehab Potential: Good Prognosis: Good Additional Orders/Day of Discharge Day of Discharge: 05/01/25 Dietary and Speech Recommendations Dietitian Recommendations/Changes: Adjust to regular diet with modifications perSLP recommendation. Will order fortified pudding with lunch and dinner. Will continue to monitor weight trends and modify nutrition interventions as needed. Discharge Plan Admission Admit Date/Time: 04/26/25 10:44 Attending Provider: Radha Valera Primary Care Provider: Chaitanya Hdez Consulting Providers: Ugo Perera Discharge Orders/Prescriptions Prescriptions: New sennosides-docusate sodium [Stimulant Laxative Plus] 8.6-50 mg Tablet 2 tab PO BID Qty: 0 0RF risperidone 0.25 mg Tablet 0.25 mg PO BID Qty: 0 0RF tamsulosin 0.4 mg Capsule 0.4 mg PO DAILY@1730 Qty: 0 0RF acetaminophen 325 mg Tablet 650 mg PO Q6H PRN PRN (Reason: Pain 1-10 Or Fever>100.7) Qty: 0 0RF Continued rosuvastatin 5 mg tablet 5 mg PO DAILY metoprolol succinate 25 mg tablet extended release 24 hr 25 mg PO DAILY Referrals / Follow Up: Chaitanya Hdez DO [Primary Care Provider] - Disposition Disposition (needs filled in before D/C Order can be placed): Long-Term Facility 05/01/25 1532 Cosigner Signature (if applicable): CC: Dr. Ugo Perera MD; Dr. Chaitanya Hdez DO ~ [facility]08-20-2025 Discharge summary [facility] Medical Records Department [address] [place] [address] Discharge Summary 05/01/25 1509 MR#: [id number] Acct: [id number] Name: LUL CHRISTINE Rep #:[id number] : 1940 84 From: Radha Valera MD PCP: Dr. Chaitanya Hdez DO Status:ADM IN Location: [place] [address] Providers Date of Admission: 04/26/25 Date of Discharge: 05/01/25 Primary Care Physician: Dr. Chaitanya Hdez, DO Reason For Visit: AMS Diagnosis Discharge Diagnosis (1) Altered mental status: Status: Acute Code(s): R41.82 - Altered mental status, unspecified Plan Patient is an 84-year-old gentleman with multiple comorbidities including hypertension dyslipidemiarecent CVA in November 2024 who presented with altered mental status with language deficit both receptive and expressive as well as dysarthria 1. 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 Suspected offending medication was withdrawn. Patient was seen by neurology CVA was ruled out with a negative MRI. Neurology also recommended minimal use of benzos opiates as well as anticholinergics and low-dose Risperdal as needed at night ? 05/01/2025; patient seen appears much more restful compared to previous day. Case discussed with patient's Regarding disposition. Plan is for patient to be transferred to a halfway facility pending acceptance by facility and insurance precertification was discharged to [facility] once insurance precertification was obtained 2. Physical deconditioning ? Requested for PT OT eval and social staff worker to assist with discharge planning 3. BPH with lower urinary obstructive symptoms including urinary retention - Patient treated with tamsulosin. Urinalysis rule out UTI patient had been started on ceftriaxone discontinued 4. Hypertension ? Blood pressure controlled, home medications continued with dose adjustment as needed 5. Dyslipidemia ?Patient is on statin therapy, continued at home dose 6. 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 Patient started on antiplatelets as well as statin therapy 7. Chronic kidney disease stage IIIa ? Kidney function at baseline 8. DVT prophylaxis ? Subcu Lovenox Time spent in the patient's overall evaluation,decision-making process, review of diagnostic data, adjustment of management, discussion with other providers, nursing nursing and ancillary staff involved in patient's care, family includingpatient's documentation, 35 minutes Medications at Discharge Home Medications metoprolol succinate 25 mg tablet,extended release 24 hr 25 mg PO DAILY heart 04/26/25 rosuvastatin 5 mg tablet 5 mg PO DAILY cholesterol 04/26/25 Physical Exam Narrative GENERAL: Frail looking HEENT: Atraumatic; normocephalic EYES; Anicteric, Normal Conjunctiva NECK; supple, normal thyroid, RESPIRATORY: Diminished to auscultation CARDIOVASCULAR: Regular S1 S2, GI: soft, normoactive bowel sounds, : No Renal angle tenderness; EXTREMITIES: No edema, no clubbing, MUSCULOSKELETAL: no muscle wasting NEURO: Awake; no lateralizing signs. SKIN: No Rash PSYCH; Flat affect Weight / BMI Weight Weight: 56.2 kg Body Mass Index (BMI) 19.4 ABG / Lab / Microbiology Data 04/29/25 03:38 04/29/25 03:38 Microbiology: Microbiology 04/26/25 08:15 Blood Culture (Wb) - Right Forearm Blood Culture - Final No growth in 5 days. 04/26/25 08:30 Blood Culture (Wb) - Arm Right Blood Culture - Final No growth in 5 days. 04/28/25 17:20 Urine, Catheterized Urine Culture - Final Culture exhibits no growth. 04/26/25 08:24 Urine, Clean Catch Urine Culture - Final Culture exhibits no growth. D/C Instructions DC O2, CPAP, BIPAP Needs Home O2 Discharge instructions: No Meaningful Use Info Meaningful Use Meaningful Use Diagnoses (Choose all that apply): None applicable Discharge Plan Admission Admit Date/Time: 04/26/25 10:44 Attending Provider: Radha Valera Primary Care Provider: Chaitanya Hdez Consulting Providers: Ugo Perera Discharge Orders/Prescriptions Prescriptions: No Action rosuvastatin 5 mg tablet 5 mg PO DAILY metoprolol succinate 25 mg tablet extended release 24 hr 25 mg PO DAILY Referrals / Follow Up: Chaitanya Hdez DO [Primary Care Provider] - Disposition Disposition (needs filled in before D/C Order can be placed): Long-Term Facility Charges/Coding Visit Charges Inpatient E&M: 59870 Disch Hosp >30min 05/01/25 1522 Cosigner Signature (if applicable): CC: Dr. Radha Valera MD; Dr. Chaitanya Hdez DO~ Signed [facility]08-20-2025 Hospital Discharge instructionsAdditional Instructions Date of Discharge: 05/01/25[facility] Work Phone: 1(470) 128-145608-20-2025 Progress note Author Radha Valera [facility] Note Date/Time May 01, 2025 10 :49am [facility] Medical Records Department [address] [place] [address] Progress Note - Hospitalist 05/01/25 0758 MR#: [id number] Acct: [id number] Name: LUL CHRISTINE Rep #:[id number] : 1940 84 From: Radha Valera MD PCP: Dr. Chaitanya Hdez, DO Status:ADM IN Location: [place] [address] Reason for Visit Chief Complaint: Altered mental status/speech abnormality today in the morning Subjective Subjective Patient seen resting comfortably. Per nursing staff he had a relatively uneventful night. Objective Data Objective Data Vital Signs: Vital Signs Temp Pulse Resp BP Pulse Ox O2 Del Method O2 Flow Rate 97.2 F L 89 18 159/80 H 85 Nasal Cannula 2 05/01/25 04:17 05/01/25 07:31 05/01/25 04:17 05/01/25 07:31 05/01/25 07:40 05/01/25 07:40 05/01/25 07:40 Oxygen Flow Rate (L/min) 2 Oxygen Delivery Method Nasal Cannula Weight: 56.2 kg Body Mass Index (BMI) 19.4 Intake & Output: Intake and Output for Last 24 Hours 04/29/25 04/30/25 05/01/25 23:59 23:59 23:59 Intake Total 290 / 290 50 / 50 Output Total 450 / 450 600 / 600 Balance -160 / -160 -550 / -550 Lab / Micro Data 04/29/25 03:38 04/29/25 03:38 Micro: Microbiology 04/28/25 17:20 Urine, Catheterized Urine Culture - Final Culture exhibits no growth. 04/26/25 08:24 Urine, Clean Catch Urine Culture - Final Culture exhibits no growth. 04/26/25 08:30 Blood Culture (Wb) - Arm Right Blood Culture - Preliminary No growth in 48 hours. 04/26/25 08:15 Blood Culture (Wb) - Right Forearm Blood Culture - Preliminary No growth in 48 hours. Physical Exam Narrative GENERAL: Frail looking HEENT: Atraumatic; normocephalic EYES; Anicteric, Normal Conjunctiva NECK; supple, normal thyroid, RESPIRATORY: Diminished to auscultation CARDIOVASCULAR: Regular S1 S2, GI: soft, normoactive bowel sounds, : No Renal angle tenderness; EXTREMITIES: No edema, no clubbing, MUSCULOSKELETAL: no muscle wasting NEURO: Awake; no lateralizing signs. 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 Suspected offending medication was withdrawn. Patient was seen by neurology CVA was ruled out with a negative MRI. Neurology also recommended minimal use of benzos opiates as well as anticholinergics and low- dose Risperdal as needed at night ? 05/01/2025; patient seen appears much more restful compared to previous day. Case discussed with patient's Regarding disposition. Plan is for patient to be transferred to a halfway facility pending acceptance by facility and insurance precertification 2. Physical deconditioning ? Requested for PT OT eval and social staff worker to assist with discharge planning 3. BPH with lower urinary obstructive symptoms including urinary retention - Patient treated with tamsulosin. Urinalysis rule out UTI patient had been started on ceftriaxone discontinued 4. Hypertension ? Blood pressure controlled, home medications continued with dose adjustment as needed 5. Dyslipidemia ?Patient is on statin therapy, continued at home dose 6. 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 Patient started on antiplatelets as well as statin therapy 7. Chronic kidney disease stage IIIa ? Kidney function at baseline 8. DVT prophylaxis ? Subcu Lovenox Time spent in the patient's overall evaluation,decision-making process, review of diagnostic data, adjustment of management, discussion with other providers, nursing nursing and ancillary staff involved in patient's care, family includingpatient's documentation, 35 minutes Charges/Coding Visit Charges Inpatient E&M: 72457 Subs Hosp L2 NIHSS NIHSS Nursing Documentation NIHSS Nursing Documentation: NIHSS: Ischemic Stroke/TIA Start: 04/26/25 11:44 Text: For ICU Patients: NIH sroke scale at Status: Complete presentation and every 2 hours or with change in RN caregiver Freq: [id number] Protocol: Activity Type Activity Date Activity User E-sign Co-sign Detail Recorded Client Recorded Date Recorded By Document 04/26/25 12:00 ML [id number] 04/26/25 12:47 ML 04/26/25 12:00 NIH Stroke Scale [NIHSS] A score of 0 is "normal" or asymptomatic . Total possible score is 42. Inpatient: RN or Physician to activate a stroke alert for onset of new stroke symptoms or with NIHSS increase >/= 3 points. Following change in neurological status, NIHSS will be performed per physician order or more frequently PRN. -1a. Level of Consciousness 0 - Alert; keenly responsive -1b. LOC Questions 2 - Answers NEITHER question correctly -1c. LOC Commands 2 - Performs NEITHER task correctly -2. Best Gaze 0 - Normal -3. Visual 0 - No visual loss -4. Facial Palsy 0 - Normal symmetrical movements -5a. Left Arm 3 - No effort against gravity ; arm falls -5b. Right Arm 3 - No effort against gravity ; arm falls -6a. Left Leg 3 - No effort against gravity ; leg falls to bed immediately -6b. Right Leg 3 - No effort against gravity ; leg falls to bed immediately -7. Limb Ataxia 2 - Present in 2 limbs -8. Sensory 2 - Severe to total sensory loss; -9. Best Language 2 - Severe aphasia; -10. Dysarthria 2 - Severe dysarthria; -11. Extinction and Inattention 1 - Visual, tactile, auditory, spatial, or personal inattention; -Total 25 Query Text:A score of 0 is "normal" or asymptomatic. Total possible score is 42 . ED: Notify Physician for NIHSS increase by > / = 3 points. Inpatient: RN or Physician to activate a stroke alert for NIHSS increase of > / = 3 points. Coma Scale [Assess] -Eye Opening Spontaneous -Motor Withdraws to Pain -Verbal Incomprehensibl e [Total] -Coma Scale Total 10 Date medically ready for discharge: 05/01/25 Reason for DC delay: SNF/ECF bed availability 05/01/25 1049 <Electronically signed by Radha Valera MD> Cosigner Signature (if applicable): CC: ~ Signed [facility] Work Phone: 1(893) 278-535208-20-2025 Progress note [facility] Medical Records Department [address] [place] [address] Progress Note - Hospitalist 05/01/25 0758 MR#: [id number] Acct: [id number] Name: LUL CHRISTINE Rep #:[id number] : 1940 84 From: Radha Valera MD PCP: Dr. Chaitanya Hdez, DO Status:ADM IN Location: [place] [address] Reason for Visit Chief Complaint: Altered mental status/speech abnormality today in the morning Subjective Subjective Patient seen resting comfortably. Per nursing staff he had a relatively uneventful night. Objective Data Objective Data Vital Signs: Vital Signs Temp Pulse Resp BP Pulse Ox O2 Del Method O2 Flow Rate 97.2 F L 89 18 159/80 H 85 Nasal Cannula 2 05/01/25 04:17 05/01/25 07:31 05/01/25 04:17 05/01/25 07:31 05/01/25 07:40 05/01/25 07:40 05/01/25 07:40 Oxygen Flow Rate (L/min) 2 Oxygen Delivery Method Nasal Cannula Weight: 56.2 kg Body Mass Index (BMI) 19.4 Intake & Output: Intake and Output for Last 24 Hours 04/29/25 04/30/25 05/01/25 23:59 23:59 23:59 Intake Total 290 / 290 50 / 50 Output Total 450 / 450 600 / 600 Balance -160 / -160 -550 / -550 Lab / Micro Data 04/29/25 03:38 04/29/25 03:38 Micro: Microbiology 04/28/25 17:20 Urine, Catheterized Urine Culture - Final Culture exhibits no growth. 04/26/25 08:24 Urine, Clean Catch Urine Culture - Final Culture exhibits no growth. 04/26/25 08:30 Blood Culture (Wb) - Arm Right Blood Culture - Preliminary No growth in 48 hours. 04/26/25 08:15 Blood Culture (Wb) - Right Forearm Blood Culture - Preliminary No growth in 48 hours. Physical Exam Narrative GENERAL: Frail looking HEENT: Atraumatic; normocephalic EYES; Anicteric, Normal Conjunctiva NECK; supple, normal thyroid, RESPIRATORY: Diminished to auscultation CARDIOVASCULAR: Regular S1 S2, GI: soft, normoactive bowel sounds, : No Renal angle tenderness; EXTREMITIES: No edema, no clubbing, MUSCULOSKELETAL: no muscle wasting NEURO: Awake; no lateralizing signs. SKIN: No Rash PSYCH; Flat affect Assessment & Plan Assessment/Plan (1) Altered mental status: PLAN: Plan Patient is an 84-year-old gentleman with multiple comorbidities including hypertension dyslipidemiarecent CVA in November 2024 who presented with altered mental status with language deficit both receptive and expressive as well as dysarthria 1. 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 Suspected offending medication was withdrawn. Patient was seen by neurology CVA was ruled out with a negative MRI. Neurology also recommended minimal use of benzos opiates as well as anticholinergics and low-dose Risperdal as needed at night ? 05/01/2025; patient seen appears much more restful compared to previous day. Case discussed with patient's Regarding disposition. Plan is for patient to be transferred to a halfway facility pending acceptance by facility and insurance precertification 2. Physical deconditioning ? Requested for PT OT eval and social staff worker to assist with discharge planning 3. BPH with lower urinary obstructive symptoms including urinary retention - Patient treated with tamsulosin. Urinalysis rule out UTI patient had been started on ceftriaxone discontinued 4. Hypertension ? Blood pressure controlled, home medications continued with dose adjustment as needed 5. Dyslipidemia ?Patient is on statin therapy, continued at home dose 6. 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 Patient started on antiplatelets as well as statin therapy 7. Chronic kidney disease stage IIIa ? Kidney function at baseline 8. DVT prophylaxis ? Subcu Lovenox Time spent in the patient's overall evaluation,decision-making process, review of diagnostic data, adjustment of management, discussion with other providers, nursing nursing and ancillary staff involved in patient's care, family includingpatient's documentation, 35 minutes Charges/Coding Visit Charges Inpatient E&M: 41440 Subs Hosp L2 NIHSS NIHSS Nursing Documentation NIHSS Nursing Documentation: NIHSS: Ischemic Stroke/TIA Start: 04/26/25 11:44 Text: For ICU Patients: NIH sroke scale at Status: Complete presentation and every 2 hours or with change in RN caregiver Freq: [id number] Protocol: Activity Type Activity Date Activity User E-sign Co-sign Detail Recorded Client Recorded Date Recorded By Document 04/26/25 12:00 ML [id number] 04/26/25 12:47 ML 04/26/25 12:00 NIH Stroke Scale [NIHSS] A score of 0 is "normal" or asymptomatic . Total possible score is 42. Inpatient: RN or Physician to activate a stroke alert for onset of new stroke symptoms or with NIHSS increase >/= 3 points. Following change in neurological status, NIHSS will be performed per physician order or more frequently PRN. -1a. Level of Consciousness 0 - Alert; keenly responsive -1b. LOC Questions 2 - Answers NEITHER question correctly -1c. LOC Commands 2 - Performs NEITHER task correctly -2. Best Gaze 0 - Normal -3. Visual 0 - No visual loss -4. Facial Palsy 0 - Normal symmetrical movements -5a. Left Arm 3 - No effort against gravity ; arm falls -5b. Right Arm 3 - No effort against gravity ; arm falls -6a. Left Leg 3 - No effort against gravity ; leg falls to bed immediately -6b. Right Leg 3 - No effort against gravity ; leg falls to bed immediately -7. Limb Ataxia 2 - Present in 2 limbs -8. Sensory 2 - Severe to total sensory loss; -9. Best Language 2 - Severe aphasia; -10. Dysarthria 2 - Severe dysarthria; -11. Extinction and Inattention 1 - Visual, tactile, auditory, spatial, or personal inattention; -Total 25 Query Text:A score of 0 is "normal" or asymptomatic. Total possible score is 42 . ED: Notify Physician for NIHSS increase by > / = 3 points. Inpatient: RN or Physician to activate a stroke alert for NIHSS increase of > / = 3 points. Coma Scale [Assess] -Eye Opening Spontaneous -Motor Withdraws to Pain -Verbal Incomprehensibl e [Total] -Coma Scale Total 10 Date medically ready for discharge: 05/01/25 Reason for DC delay: SNF/ECF bed availability 05/01/25 1049 Cosigner Signature (if applicable): CC: ~ Signed [facility]08-19-2025 Progress note Author Radha Valera [facility] Note Date/Time April 30, 2025 10 :44am [facility] Medical Records Department [address] [place] [address] Progress Note - Hospitalist 04/30/25 1038 MR#: [id number] Acct: [id number] Name: LUL CHRSITINE Rep #:[id number] : 1940 84 From: Radha Valera MD PCP: Dr. Chaitanya Hdez, DO Status:ADM IN Location: [place] [address] 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77 / 2739.77 290 / 290 Output Total 525 / 525 450 / 450 400 / 400 Balance 2214.77 / 2214.77 -160 / -160 -400 / -400 Lab / Micro Data 04/29/25 03:38 04/29/25 03:38 Micro: Microbiology 04/28/25 17:20 Urine, Catheterized Urine Culture - Final Culture exhibits no growth. 04/26/25 08:24 Urine, Clean Catch Urine Culture - Final Culture exhibits no growth. 04/26/25 08:30 Blood Culture (Wb) - Arm Right Blood Culture - Preliminary No growth in 48 hours. 04/26/25 08:15 Blood Culture (Wb) - Right Forearm Blood Culture - Preliminary No growth in 48 hours. Physical Exam Narrative GENERAL: Frail looking HEENT: Atraumatic; normocephalic EYES; Anicteric, Normal Conjunctiva NECK; supple, normal thyroid, RESPIRATORY: Diminished to auscultation CARDIOVASCULAR: Regular S1 S2, GI: soft, normoactive bowel sounds, : No Renal angle tenderness; EXTREMITIES: No edema, no clubbing, MUSCULOSKELETAL: no muscle wasting NEURO: Awake; no lateralizing signs. 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 Suspected offending medication was withdrawn. Patient was seen by neurology CVA was ruled out with a negative MRI. Neurology also recommended minimal use of benzos opiates as well as anticholinergics and low- dose Risperdal as needed at night 2. Physical deconditioning ? Requested for PT OT eval and social staff worker to assist with discharge planning 3. BPH with lower urinary obstructive symptoms including urinary retention - Patient treated with tamsulosin. Urinalysis rule out UTI patient had been started on ceftriaxone discontinued 4. Hypertension ? Blood pressure controlled, home medications continued with dose adjustment as needed 5. Dyslipidemia ?Patient is on statin therapy, continued at home dose 6. 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 Patient started on antiplatelets as well as statin therapy 7. Chronic kidney disease stage IIIa ? Kidney function at baseline 8. DVT prophylaxis ? Subcu Lovenox Time spent in the patient's overall evaluation,decision-making process, review of diagnostic data, adjustment of management, discussion with other providers, nursing nursing and ancillary staff involved in patient's care, family includingpatient's documentation, 38 minutes Charges/Coding Visit Charges Inpatient E&M: 64155 Subs Hosp L2 NIHSS NIHSS Nursing Documentation NIHSS Nursing Documentation: NIHSS: Ischemic Stroke/TIA Start: 04/26/25 11:44 Text: For ICU Patients: NIH sroke scale at Status: Complete presentation and every 2 hours or with change in RN caregiver Freq: [id number] Protocol: Activity Type Activity Date Activity User E-sign Co-sign Detail Recorded Client Recorded Date Recorded By Document 04/26/25 12:00 ML [id number] 04/26/25 12:47 ML 04/26/25 12:00 NIH Stroke Scale [NIHSS] A score of 0 is "normal" or asymptomatic . Total possible score is 42. Inpatient: RN or Physician to activate a stroke alert for onset of new stroke symptoms or with NIHSS increase >/= 3 points. Following change in neurological status, NIHSS will be performed per physician order or more frequently PRN. -1a. Level of Consciousness 0 - Alert; keenly responsive -1b. LOC Questions 2 - Answers NEITHER question correctly -1c. LOC Commands 2 - Performs NEITHER task correctly -2. Best Gaze 0 - Normal -3. Visual 0 - No visual loss -4. Facial Palsy 0 - Normal symmetrical movements -5a. Left Arm 3 - No effort against gravity ; arm falls -5b. Right Arm 3 - No effort against gravity ; arm falls -6a. Left Leg 3 - No effort against gravity ; leg falls to bed immediately -6b. Right Leg 3 - No effort against gravity ; leg falls to bed immediately -7. Limb Ataxia 2 - Present in 2 limbs -8. Sensory 2 - Severe to total sensory loss; -9. Best Language 2 - Severe aphasia; -10. Dysarthria 2 - Severe dysarthria; -11. Extinction and Inattention 1 - Visual, tactile, auditory, spatial, or personal inattention; -Total 25 Query Text:A score of 0 is "normal" or asymptomatic. Total possible score is 42 . ED: Notify Physician for NIHSS increase by > / = 3 points. Inpatient: RN or Physician to activate a stroke alert for NIHSS increase of > / = 3 points. Coma Scale [Assess] -Eye Opening Spontaneous -Motor Withdraws to Pain -Verbal Incomprehensibl e [Total] -Coma Scale Total 10 04/30/25 1044 <Electronically signed by Radha Valera MD> Cosigner Signature (if applicable): CC: ~ Signed [facility] Work Phone: [phone]) 657-759908-19-2025 Progress note [facility] Medical Records Department [address] [place] [address] Progress Note - Hospitalist 04/30/25 1038 MR#: [id number] Acct: [id number] Name: LUL CHRISTINE Rep #:[id number] : 1940 84 From: Radha Valera MD PCP: Dr. Chaitanya Hdez, DO Status:ADM IN Location: [place] [address] 1 Reason for Visit Chief Complaint: Altered mental status/speech abnormality today in the morning Subjective Subjective Patient is an 84-year-old gentleman with multiple comorbidities including hypertension dyslipidemiarecent CVA in November 2024 who presented with altered mental status with language deficit both receptive and expressive as well as dysarthria Objective Data Objective Data Vital Signs: Vital Signs Temp Pulse Resp BP Pulse Ox O2 Del Method O2 Flow Rate 97.5 F L 107 H 14 131/89 H 95 Nasal Cannula 2 04/30/25 09:10 04/30/25 10:09 04/30/25 09:10 04/30/25 10:09 04/30/25 09:10 04/30/25 09:10 04/30/25 09:10 Oxygen Flow Rate (L/min) 2 Oxygen Delivery Method Nasal Cannula Weight: 60.3 kg Body Mass Index (BMI) 20.8 Intake & Output: Intake and Output for Last 24 Hours 04/28/25 04/29/25 04/30/25 23:59 23:59 23:59 Intake Total 2739.77 / 2739.77 290 / 290 Output Total 525 / 525 450 / 450 400 / 400 Balance 2214.77 / 2214.77 -160 / -160 -400 / -400 Lab / Micro Data 04/29/25 03:38 04/29/25 03:38 Micro: Microbiology 04/28/25 17:20 Urine, Catheterized Urine Culture - Final Culture exhibits no growth. 04/26/25 08:24 Urine, Clean Catch Urine Culture - Final Culture exhibits no growth. 04/26/25 08:30 Blood Culture (Wb) - Arm Right Blood Culture - Preliminary No growth in 48 hours. 04/26/25 08:15 Blood Culture (Wb) - Right Forearm Blood Culture - Preliminary No growth in 48 hours. Physical Exam Narrative GENERAL: Frail looking HEENT: Atraumatic; normocephalic EYES; Anicteric, Normal Conjunctiva NECK; supple, normal thyroid, RESPIRATORY: Diminished to auscultation CARDIOVASCULAR: Regular S1 S2, GI: soft, normoactive bowel sounds, : No Renal angle tenderness; EXTREMITIES: No edema, no clubbing, MUSCULOSKELETAL: no muscle wasting NEURO: Awake; no lateralizing signs. SKIN: No Rash PSYCH; Flat affect Assessment & Plan Assessment/Plan (1) Altered mental status: PLAN: Plan Patient is an 84-year-old gentleman with multiple comorbidities including hypertension dyslipidemiarecent CVA in November 2024 who presented with altered mental status with language deficit both receptive and expressive as well as dysarthria 1. 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 Suspected offending medication was withdrawn. Patient was seen by neurology CVA was ruled out with a negative MRI. Neurology also recommended minimal use of benzos opiates as well as anticholinergics and low-dose Risperdal as needed at night 2. Physical deconditioning ? Requested for PT OT eval and social staff worker to assist with discharge planning 3. BPH with lower urinary obstructive symptoms including urinary retention - Patient treated with tamsulosin. Urinalysis rule out UTI patient had been started on ceftriaxone discontinued 4. Hypertension ? Blood pressure controlled, home medications continued with dose adjustment as needed 5. Dyslipidemia ?Patient is on statin therapy, continued at home dose 6. 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 Patient started on antiplatelets as well as statin therapy 7. Chronic kidney disease stage IIIa ? Kidney function at baseline 8. DVT prophylaxis ? Subcu Lovenox Time spent in the patient's overall evaluation,decision-making process, review of diagnostic data, adjustment of management, discussion with other providers, nursing nursing and ancillary staff involved in patient's care, family includingpatient's documentation, 38 minutes Charges/Coding Visit Charges Inpatient E&M: 01912 Subs Hosp L2 NIHSS NIHSS Nursing Documentation NIHSS Nursing Documentation: NIHSS: Ischemic Stroke/TIA Start: 04/26/25 11:44 Text: For ICU Patients: NIH sroke scale at Status: Complete presentation and every 2 hours or with change in RN caregiver Freq: [id number] Protocol: Activity Type Activity Date Activity User E-sign Co-sign Detail Recorded Client Recorded Date Recorded By Document 04/26/25 12:00 ML [id number] 04/26/25 12:47 ML 04/26/25 12:00 NIH Stroke Scale [NIHSS] A score of 0 is "normal" or asymptomatic . Total possible score is 42. Inpatient: RN or Physician to activate a stroke alert for onset of new stroke symptoms or with NIHSS increase >/= 3 points. Following change in neurological status, NIHSS will be performed per physician order or more frequently PRN. -1a. Level of Consciousness 0 - Alert; keenly responsive -1b. LOC Questions 2 - Answers NEITHER question correctly -1c. LOC Commands 2 - Performs NEITHER task correctly -2. Best Gaze 0 - Normal -3. Visual 0 - No visual loss -4. Facial Palsy 0 - Normal symmetrical movements -5a. Left Arm 3 - No effort against gravity ; arm falls -5b. Right Arm 3 - No effort against gravity ; arm falls -6a. Left Leg 3 - No effort against gravity ; leg falls to bed immediately -6b. Right Leg 3 - No effort against gravity ; leg falls to bed immediately -7. Limb Ataxia 2 - Present in 2 limbs -8. Sensory 2 - Severe to total sensory loss; -9. Best Language 2 - Severe aphasia; -10. Dysarthria 2 - Severe dysarthria; -11. Extinction and Inattention 1 - Visual, tactile, auditory, spatial, or personal inattention; -Total 25 Query Text:A score of 0 is "normal" or asymptomatic. Total possible score is 42 . ED: Notify Physician for NIHSS increase by > / = 3 points. Inpatient: RN or Physician to activate a stroke alert for NIHSS increase of > / = 3 points. Coma Scale [Assess] -Eye Opening Spontaneous -Motor Withdraws to Pain -Verbal Incomprehensibl e [Total] -Coma Scale Total 10 04/30/25 1044 Cosigner Signature (if applicable): CC: ~ Signed [facility]08-18-2025 Progress note Author Ugo Perera [facility] Note Date/Time April 29, 2025 4: 46pm [facility] Medical Records Department [address] [place] [address] Progress Note - Hospitalist 04/29/25 0821 MR#: [id number] Acct: [id number] Name: LUL CHRISTINE Rep #:[id number] : 1940 84 From: Ugo Guardado PCP: Dr. Chaitanya Hdez, DO Status:ADM IN Location: [id number]- [id number] Reason for Visit Chief Complaint: Altered mental status/speech abnormality today in the morning Objective Data Objective Data Vital Signs: Vital Signs Temp Pulse Resp BP Pulse Ox O2 Del Method O2 Flow Rate 98.5 F 90 16 125/63 H 94 Nasal Cannula 2 04/29/25 02:00 04/29/25 04:00 04/29/25 02:00 04/29/25 02:00 04/29/25 02:00 04/29/25 02:00 04/29/25 02:00 Oxygen Flow Rate (L/min) 2 Oxygen Delivery Method Nasal Cannula Weight: 133 lb 13.129 oz Body Mass Index (BMI) 20.9 Intake & Output: Intake and Output for Last 24 Hours 04/27/25 04/28/25 04/29/25 23:59 23:59 23:59 Intake Total 1039.87 / 1039.87 2739.77 / 2739.77 Output Total 250 / 250 525 / 525 250 / 250 Balance 789.87 / 789.87 2214.77 / 2214.77 -250 / -250 Lab / Micro Data 04/29/25 03:38 04/29/25 03:38 Labs: Laboratory Results - last 24 hr 04/28/25 12:09: POC Glucose 116 H 04/28/25 17:20: Urine Color Yellow, Urine Clarity Cloudy, Urine pH 6.0, Ur Specific [place] 1.015, Urine Protein 100 H, Urine Glucose (UA) Normal, Urine Ketones 5 H, Urine Occult Blood 250 H, Urine Nitrite Negative, Urine Bilirubin Negative, Urine Urobilinogen Normal, Ur Leukocyte Esterase Negative, Urine RBC 50-100 SEEN, Urine WBC 0 SEEN, Ur Squamous Epith Cells 0-5 SEEN, Urine Bacteria 1+, Urine Mucus 0 SEEN 04/29/25 03:38: WBC 11.3 H, RBC 4.64, Hgb 13.9, Hct 41.3, MCV 89.0, MCH 30.0, MCHC 33.7, RDW Std Deviation 43.0, RDW Coeff of Tim 13.2, Plt Count , MPV 10.5, Immature Gran % (Auto) 0.400, Neut % (Auto) 83.5 H, Lymph % (Auto) 8.8 L, Dyer %(Auto) 7.1, Eos % (Auto) 0.0, Baso % (Auto) 0.2, Absolute Neuts (auto) 9.4 H, Absolute Lymphs (auto) 1.00, Nucleated RBC % 0, Differential Comment SCANNED, Platelet Estimate ADEQUATE, Plt Morphology Comment CLUMPED, Anisocytosis 1+, Ovalocytes 1+, Sodium 141, Potassium 3.8, Chloride 109 H, Carbon Dioxide 19.4 L,Anion Gap 13, BUN 25 H, Creatinine 1.59 H, Estim Creat Clear Calc 30.75 L, Est GFR (MDRD) Non-Af 43 L, BUN/Creatinine Ratio 15.5, Glucose 129 H, Calcium 8.8 Micro: Microbiology 04/26/25 08:30 Blood Culture (Wb) - Arm Right Blood Culture - Preliminary No growth in 48 hours. 04/26/25 08:15 Blood Culture (Wb) - Right Forearm Blood Culture - Preliminary No growth in 48 hours. 04/26/25 08:24 Urine, Clean Catch Urine Culture - Preliminary Culture exhibits no growth. Radiography Diagnostic Testing: Radiology Impression Carotid Duplex 04/26/25 11:43 Interpretation Summary Mild (<50%) stenosis right extracranial internal carotid. Mild (<50%) stenosis left extracranial internal carotid. Flow within the vertebral arteries is antegrade bilaterally. Multiple, non-vascular, anechoic structures are noted in the muscle and fascia of the right neck. Clinical correlation is advised. Ordering Physician: Ugo Perera Referring Physician: Chaitanya Hdez Performed By: Jacobo Ventura RVT Physical Exam Narrative Seen and examined Precedemarisabel drpadmini is on hold for more than 24 hours. Patient is more quite but is still confused with his age and the month. He is oriented to date time and place. He keeps his eyes closed until asked to open eyes he open mouth. Was seen by speech therapist yesterday evening about 4:30 PM. 1 L normal saline bolus, straight cath UA with urine culture and was empiricallystarted on IV ceftriaxone and Flomax. Physical exam General: Awake, disoriented, confused and delirious, inattention/hypoactive but not hyperactive HEENT: Atraumatic, PERRLA, EOMI, Normocephalic. Sticky eyelashes. Conjunctiva clear, not red Oral: Oral mucosa very dry. Neck: Supple, No JVD, Negative Carotid Bruits Chest wall/Lungs: Air entry diminished in bilateral lung bases. No crepitation Cardiovascular: Regular rate and rhythm, Normal S1,S2, No M/G/R Abdomen: Bowel Sounds Present, Soft, Non Tender, Non-Distended : No dysuria. No renal angle tenderness. No suprapubic tenderness. Extremities: No edema, Capillary Refill Less than 3 Seconds Skin: No rashes, No breakdown Musculoskeletal: No Tenderness to Palpation of Joints or Extremities. 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 Increased muscle tone/rigidity on knee and hip joints. Plantar downgoing. Psych/Mental Status: Flat affect. Anxious Assessment & Plan Assessment/Plan (1) Altered mental status: PLAN: Plan This is a 84-year-old gentleman being admitted chiefly for altered mental status/language deficit and dysarthria 1. Mental status/language deficit both receptive and motor and dysarthria: Exact etiology unclear but possible metabolic encephalopathy/seizure or stroke. CT head does not show acute change. Usually he does not think it is stroke but most likely due to scopolamine adverse effect. MRI brain ordered. NIH stroke scale until MRI rules out a stroke. PT OT and speech evaluation. Twelve-lead EKG shows NSR 86 bpm. QTc 435 ms. TSH and A1c ordered for tomorrow a.m. 8/16/still disoriented to time and place. Could not sleep last night. Started on low-dose risperidone 0.25 mg twice daily. MRI brain does not show acute infarct with no evidence of ischemia. Motion artifact. Chronic microvascular changes with mild volume loss. EEG ordered. Teleneurology consult. the patient last evening was little agitated but in the morning his agitation got worse and in afternoon worse. About 1:03 PM, 2 mg IV Haldol and 12.5 mg IM Phenergan was given. Prior to that Risperdal 2.5 mg twice daily was started. Patient not able to take oral therefore Klonopin not given. He is not oriented,follows command or redirectable, agitated and extremities gets rigid with thrashing of all 4 extremities. He is being transferred to ICU to start on Precedex drip. Discussed with Dr. Rodriguez 2 times. She recommended Klonopin 0.5 mgtwice daily scheduled agent once it is safe to give oral. 04/28: Reviewed with the nurse. Orientation cues. Precedex drip on hold. Haldol and Phenergan ordered as needed for agitation. Speech therapy relation and when safe, Klonopin and Risperdal. Maintenance IV fluid for nutrition ordered 04/29: Reviewed with the nurse. Patient being transferred to PCU. Advised Klonopin and risperidone as ordered. Neurology follow-up. On pur?ed diet with thin liquid. Neurologist recommended to minimize benzodiazepine. Klonopin 0.5 mg twice daily as needed for agitation. Continue low-dose Risperdal. Anticipate discharge to SNF next few days Urine retention:, Exact etiology unclear. Possible BPH: First urine culture shows no growth. 2 UAs are not indicative of UTI. Blood culture negative for more than 48 hours. Second culture pending. 2. Hypertension: Patient's showed me metoprolol succinate, midodrine. 04/28: Blood pressure elevated systolic in 150s. On IV antihypertensive medication 3. Dyslipidemia: Atorvastatin 40 mg daily. 04/28: Fasting profile within normal limit. TSH normal. 4. Recently stroke in January 04: Surprisingly, patient not on aspirin or Plavix with history of stroke in December 2024. Rectal aspirin and statin ordered. 5. Kidney dysfunction: BUN/creatinine 37/1.72, estimated creatinine clearance about 30 mL/min. Unclear whether it is acute or chronic. 6. Hyperglycemia: Glucose 130. A1c 6.2% DVT prophylaxis: Lovenox 30 mg subcu daily Living will/advanced directive/end of life care: Patient does have living will or advanced directive. His , blossom is power of claims attorney for healthcare. After discussion of benefits/risks procedures involved with full code, DNR CC arrest and DNR CC, the patient side opted for DNR CC arrest with nointubation. Patient doesn't want artificial life support including intubation, tube feed, ventilator and/chest compression, central venous catheter, vasopressor and DC shock if needed Laboratory Results 04/26/25 08:19: Specimen Type ART, Sample Site L Brach, pH 7.48 H, Bicarbonate Actual 28.6 H, Total CO2 30, Base Excess 5 H, O2 Saturation 95, O2 % 2.0, ABG pCO2 38.2, ABG pO2 70 L, O2 Delivery Device Cannula, Vent Mode Not entered 04/26/25 08:24: Urine Color Yellow, Urine Clarity Clear, Urine pH 6.5, Ur Specific [place] 1.015, Urine Protein 30 H, Urine Glucose (UA) Normal, Urine Ketones Negative, Urine Occult Blood 10 H, Urine Nitrite Negative, Urine Bilirubin Negative, Urine Urobilinogen Normal, Ur Leukocyte Esterase Negative, Urine RBC 0 SEEN, Urine WBC 0 SEEN, Ur Squamous Epith Cells 0 SEEN, Urine Bacteria 0 SEEN, Urine Mucus 0 SEEN Microbiology Past 72 Hours 04/26/25 08:30 Blood Culture (Wb) - Arm Right Blood Culture - Preliminary No growth in 48 hours. 04/26/25 08:15 Blood Culture (Wb) - Right Forearm Blood Culture - Preliminary No growth in 48 hours. 04/26/25 08:24 Urine, Clean Catch Urine Culture - Preliminary Culture exhibits no growth. Laboratory Results 04/28/25 12:09: POC Glucose 116 H 04/28/25 17:20: Urine Color Yellow, Urine Clarity Cloudy, Urine pH 6.0, Ur Specific [place] 1.015, Urine Protein 100 H, Urine Glucose (UA) Normal, Urine Ketones 5 H, Urine Occult Blood 250 H, Urine Nitrite Negative, Urine Bilirubin Negative, Urine Urobilinogen Normal, Ur Leukocyte Esterase Negative, Urine RBC 50-100 SEEN, Urine WBC 0 SEEN, Ur Squamous Epith Cells 0-5 SEEN, Urine Bacteria 1+, Urine Mucus 0 SEEN 04/29/25 03:38: WBC 11.3 H, RBC 4.64, Hgb 13.9, Hct 41.3, MCV 89.0, MCH 30.0, MCHC 33.7, RDW Std Deviation 43.0, RDW Coeff of Tim 13.2, Plt Count , MPV 10.5, Immature Gran % (Auto) 0.400, Neut % (Auto) 83.5 H, Lymph % (Auto) 8.8 L, Dyer %(Auto) 7.1, Eos % (Auto) 0.0, Baso % (Auto) 0.2, Absolute Neuts (auto) 9.4 H, Absolute Lymphs (auto) 1.00, Nucleated RBC % 0, Differential Comment SCANNED, Platelet Estimate ADEQUATE, Plt Morphology Comment CLUMPED, Anisocytosis 1+, Ovalocytes 1+, Sodium 141, Potassium 3.8, Chloride 109 H, Carbon Dioxide 19.4 L,Anion Gap 13, BUN 25 H, Creatinine 1.59 H, Estim Creat Clear Calc 30.75 L, Est GFR (MDRD) Non-Af 43 L, BUN/Creatinine Ratio 15.5, Glucose 129 H, Calcium 8.8 Clinical Impression(s) from Imaging Studies Chest X-Ray 04/26/25 08:08 IMPRESSION: No Acute Findings. Reading Location: [facility] 04/26/25 08:09 IMPRESSION: CHRONIC CHANGES. NO ACUTE FINDINGS. Reading Location: [facility] Brain MRI 04/26/25 11:28 IMPRESSION: Motion artifact. No evidence of ischemia at this time. Chronic microvascular ischemic changes, volume loss. Charges/Coding Visit Charges Inpatient E&M: 52507 Subs Hosp L3 NIHSS NIHSS Nursing Documentation NIHSS Nursing Documentation: NIHSS: Ischemic Stroke/TIA Start: 04/26/25 11:44 Text: For ICU Patients: NIH sroke scale at Status: Complete presentation and every 2 hours or with change in RN caregiver Freq: [id number] Protocol: Activity Type Activity Date Activity User E-sign Co-sign Detail Recorded Client Recorded Date Recorded By Document 04/26/25 12:00 ML [id number] 04/26/25 12:47 ML 04/26/25 12:00 NIH Stroke Scale [NIHSS] A score of 0 is "normal" or asymptomatic . Total possible score is 42. Inpatient: RN or Physician to activate a stroke alert for onset of new stroke symptoms or with NIHSS increase >/= 3 points. Following change in neurological status, NIHSS will be performed per physician order or more frequently PRN. -1a. Level of Consciousness 0 - Alert; keenly responsive -1b. LOC Questions 2 - Answers NEITHER question correctly -1c. LOC Commands 2 - Performs NEITHER task correctly -2. Best Gaze 0 - Normal -3. Visual 0 - No visual loss -4. Facial Palsy 0 - Normal symmetrical movements -5a. Left Arm 3 - No effort against gravity ; arm falls -5b. Right Arm 3 - No effort against gravity ; arm falls -6a. Left Leg 3 - No effort against gravity ; leg falls to bed immediately -6b. Right Leg 3 - No effort against gravity ; leg falls to bed immediately -7. Limb Ataxia 2 - Present in 2 limbs -8. Sensory 2 - Severe to total sensory loss; -9. Best Language 2 - Severe aphasia; -10. Dysarthria 2 - Severe dysarthria; -11. Extinction and Inattention 1 - Visual, tactile, auditory, spatial, or personal inattention; -Total 25 Query Text:A score of 0 is "normal" or asymptomatic. Total possible score is 42 . ED: Notify Physician for NIHSS increase by > / = 3 points. Inpatient: RN or Physician to activate a stroke alert for NIHSS increase of > / = 3 points. Coma Scale [Assess] -Eye Opening Spontaneous -Motor Withdraws to Pain -Verbal Incomprehensibl e [Total] -Coma Scale Total 10 04/29/25 1646 <Electronically signed by Ugo Perera MD> Cosigner Signature (if applicable): CC: ~ Signed [facility] Work Phone: [phone] 797-474108-18-2025 Progress note [facility] Medical Records Department [address] [place] [address] Progress Note - Hospitalist 04/29/25 0821 MR#: [id number] Acct: [id number] Name: LUL CHRISTINE Rep #:[id number] : 1940 84 From: Ugo Guardado PCP: Dr. Chaitanya Hdez, DO Status:ADM IN Location: [place] [address] Reason for Visit Chief Complaint: Altered mental status/speech abnormality today in the morning Objective Data Objective Data Vital Signs: Vital Signs Temp Pulse Resp BP Pulse Ox O2 Del Method O2 Flow Rate 98.5 F 90 16 125/63 H 94 Nasal Cannula 2 04/29/25 02:00 04/29/25 04:00 04/29/25 02:00 04/29/25 02:00 04/29/25 02:00 04/29/25 02:00 04/29/25 02:00 Oxygen Flow Rate (L/min) 2 Oxygen Delivery Method Nasal Cannula Weight: 133 lb 13.129 oz Body Mass Index (BMI) 20.9 Intake & Output: Intake and Output for Last 24 Hours 04/27/25 04/28/25 04/29/25 23:59 23:59 23:59 Intake Total 1039.87 / 1039.87 2739.77 / 2739.77 Output Total 250 / 250 525 / 525 250 / 250 Balance 789.87 / 789.87 2214.77 / 2214.77 -250 / -250 Lab / Micro Data 04/29/25 03:38 04/29/25 03:38 Labs: Laboratory Results - last 24 hr 04/28/25 12:09: POC Glucose 116 H 04/28/25 17:20: Urine Color Yellow, Urine Clarity Cloudy, Urine pH 6.0, Ur Specific [place] 1.015, Urine Protein 100 H, Urine Glucose (UA) Normal, Urine Ketones 5 H, Urine Occult Blood 250 H, Urine Nitrite Negative, Urine Bilirubin Negative, Urine Urobilinogen Normal, Ur Leukocyte Esterase Negative, Urine RBC 50-100 SEEN, Urine WBC 0 SEEN, Ur Squamous Epith Cells 0-5 SEEN, Urine Bacteria 1+, Urine Mucus 0 SEEN 04/29/25 03:38: WBC 11.3 H, RBC 4.64, Hgb 13.9, Hct 41.3, MCV 89.0, MCH 30.0, MCHC 33.7, RDW Std Deviation 43.0, RDW Coeff of Tim 13.2, Plt Count , MPV 10.5, Immature Gran % (Auto) 0.400, Neut % (Auto) 83.5 H, Lymph % (Auto) 8.8 L, Dyer %(Auto) 7.1, Eos % (Auto) 0.0, Baso % (Auto) 0.2, Absolute Neuts (auto) 9.4 H, Absolute Lymphs (auto) 1.00, Nucleated RBC % 0, Differential Comment SCANNED, Platelet Estimate ADEQUATE, Plt Morphology Comment CLUMPED, Anisocytosis 1+, Ovalocytes 1+, Sodium 141, Potassium 3.8, Chloride 109 H, Carbon Dioxide 19.4 L,Anion Gap 13, BUN 25 H, Creatinine 1.59 H, EstimCreat Clear Calc 30.75 L, Est GFR (MDRD) Non-Af 43 L, BUN/Creatinine Ratio 15.5, Glucose 129 H, Calcium 8.8 Micro: Microbiology 04/26/25 08:30 Blood Culture (Wb) - Arm Right Blood Culture - Preliminary No growth in 48 hours. 04/26/25 08:15 Blood Culture (Wb) - Right Forearm Blood Culture - Preliminary No growth in 48 hours. 04/26/25 08:24 Urine, Clean Catch Urine Culture - Preliminary Culture exhibits no growth. Radiography Diagnostic Testing: Radiology Impression Carotid Duplex 04/26/25 11:43 Interpretation Summary Mild (<50%) stenosis right extracranial internal carotid. Mild (<50%) stenosis left extracranial internal carotid. Flow within the vertebral arteries is antegrade bilaterally. Multiple, non-vascular, anechoic structuresare noted in the muscle and fascia of the right neck. Clinical correlation is advised. Ordering Physician: Ugo Perera Referring Physician: Chaitanya Hdez Performed By: Jacobo Ventura RVT Physical Exam Narrative Seen and examined Precedex drip is on hold for more than 24 hours. Patient is more quite but is still confused with his age and the month. He is oriented to date time and place. He keeps his eyes closed until asked toopen eyes he open mouth. Was seen by speech therapist yesterday evening about 4:30 PM. 1 L normal saline bolus, straight cath UA with urine culture and was empiricallystarted on IV ceftriaxone and Flomax. Physical exam General: Awake, disoriented, confused and delirious, inattention/hypoactive but not hyperactive HEENT: Atraumatic, PERRLA, EOMI, Normocephalic. Sticky eyelashes. Conjunctiva clear, not red Oral: Oral mucosa very dry. Neck: Supple, No JVD, Negative Carotid Bruits Chest wall/Lungs: Air entry diminished in bilateral lung bases. No crepitation Cardiovascular: Regular rate and rhythm, Normal S1,S2, No M/G/R Abdomen: Bowel Sounds Present, Soft, Non Tender, Non-Distended : No dysuria. No renal angle tenderness. No suprapubic tenderness. Extremities: No edema, Capillary Refill Less than 3 Seconds Skin: No rashes, No breakdown Musculoskeletal: No Tenderness to Palpation of Joints or Extremities. 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 Increased muscle tone/rigidity on knee and hip joints. Plantar downgoing. Psych/Mental Status: Flat affect. Anxious Assessment & Plan Assessment/Plan (1) Altered mental status: PLAN: Plan This is a 84-year-old gentleman being admitted chiefly for altered mental status/language deficit and dysarthria 1. Mental status/language deficit both receptive and motor and dysarthria: Exact etiology unclear but possible metabolic encephalopathy/seizure or stroke. CT head does not show acute change. Usually he does not think it is stroke but most likely due to scopolamine adverse effect. MRI brain ordered.NIH stroke scale until MRI rules out a stroke. PT OT and speech evaluation. Twelve-lead EKG shows NSR 86 bpm. QTc 435 ms. TSH and A1c ordered for tomorrow a.m. 04/27/still disoriented to time and place. Could not sleep last night. Started on low-dose risperidone 0.25 mg twice daily. MRI brain does not show acute infarct with no evidence of ischemia. Motion artifact. Chronic microvascular changes with mild volume loss. EEG ordered. Teleneurology consult. the patient last evening was little agitated but in the morning his agitation got worse and in afternoon worse. About 1:03 PM, 2 mg IV Haldol and 12.5 mg IM Phenergan was given. Prior to that Risperdal 2.5 mg twice daily was started. Patient not able to take oral therefore Klonopin not given. He isnot oriented,follows command or redirectable, agitated and extremities gets rigid with thrashing ofall 4 extremities. He is being transferred to ICU to start on Precedex drip. Discussed with Dr. Rodriguez2 times. She recommended Klonopin 0.5 mgtwice daily scheduled agent once it is safe to give oral. 04/28: Reviewed with the nurse. Orientation cues. Precedex drip on hold. Haldol and Phenergan ordered as needed for agitation. Speech therapy relation and when safe, Klonopin and Risperdal. Maintenance IV fluid for nutrition ordered 04/29: Reviewed with the nurse. Patient being transferred to PCU. Advised Klonopin and risperidone as ordered. Neurology follow-up. On pur?ed diet with thin liquid. Neurologist recommended to minimizebenzodiazepine. Klonopin 0.5 mg twice daily as needed for agitation. Continue low-dose Risperdal. Anticipate discharge to SNF next few days Urine retention:, Exact etiology unclear. Possible BPH: First urine culture shows no growth. 2 UAs are not indicative of UTI. Blood culture negative for more than 48 hours. Second culture pending. 2. Hypertension: Patient's showed me metoprolol succinate, midodrine. 04/28: Blood pressure elevated systolic in 150s. On IV antihypertensive medication 3. Dyslipidemia: Atorvastatin 40 mg daily. 04/28: Fasting profile within normal limit. TSH normal. 4. Recently stroke in January 04: Surprisingly, patient not on aspirin or Plavix with history of stroke in December 2024. Rectal aspirin and statin ordered. 5. Kidney dysfunction: BUN/creatinine 37/1.72, estimated creatinine clearance about 30 mL/min. Unclear whether it is acute or chronic. 6. Hyperglycemia: Glucose 130. A1c 6.2% DVT prophylaxis: Lovenox 30 mg subcu daily Living will/advanced directive/end of life care: Patient does have living will or advanced directive. His , blossom is power of claims attorney for healthcare. After discussion of benefits/risks procedures involved with full code, DNR CC arrest and DNR CC, the patient side opted for DNR CC arrestwith nointubation. Patient doesn't want artificial life support including intubation, tube feed, ventilator and/chest compression, central venous catheter, vasopressor and DC shock if needed Laboratory Results 04/26/25 08:19: Specimen Type ART, Sample Site L Brach, pH 7.48 H, Bicarbonate Actual 28.6 H, TotalCO2 30, Base Excess 5 H, O2 Saturation 95, O2 % 2.0, ABG pCO2 38.2, ABG pO2 70 L, O2 Delivery Device Cannula, Vent Mode Not entered 04/26/25 08:24: Urine Color Yellow, Urine Clarity Clear, Urine pH 6.5, Ur Specific [place] 1.015, Urine Protein 30 H, Urine Glucose (UA) Normal, Urine Ketones Negative, Urine Occult Blood 10 H, UrineNitrite Negative, Urine Bilirubin Negative, Urine Urobilinogen Normal, Ur Leukocyte Esterase Negative, Urine RBC 0 SEEN, Urine WBC 0 SEEN, Ur Squamous Epith Cells 0 SEEN, Urine Bacteria 0 SEEN, UrineMucus 0 SEEN Microbiology Past 72 Hours 04/26/25 08:30 Blood Culture (Wb) - Arm Right Blood Culture - Preliminary No growth in 48 hours. 04/26/25 08:15 Blood Culture (Wb) - Right Forearm Blood Culture - Preliminary No growth in 48 hours. 04/26/25 08:24 Urine, Clean Catch Urine Culture - Preliminary Culture exhibits no growth. Laboratory Results 04/28/25 12:09: POC Glucose 116 H 04/28/25 17:20: Urine Color Yellow, Urine Clarity Cloudy, Urine pH 6.0, Ur Specific [place] 1.015, Urine Protein 100 H, Urine Glucose (UA) Normal, Urine Ketones 5 H, Urine Occult Blood 250 H, Urine Nitrite Negative, Urine Bilirubin Negative, Urine Urobilinogen Normal, Ur Leukocyte Esterase Negative, Urine RBC 50-100 SEEN, Urine WBC 0 SEEN, Ur Squamous Epith Cells 0-5 SEEN, Urine Bacteria 1+, Urine Mucus 0 SEEN 04/29/25 03:38: WBC 11.3 H, RBC 4.64, Hgb 13.9, Hct 41.3, MCV 89.0, MCH 30.0, MCHC 33.7, RDW Std Deviation 43.0, RDW Coeff of Tim 13.2, Plt Count , MPV 10.5, Immature Gran % (Auto) 0.400, Neut % (Auto) 83.5 H, Lymph % (Auto) 8.8 L, Dyer %(Auto) 7.1, Eos % (Auto) 0.0, Baso % (Auto) 0.2, Absolute Neuts (auto) 9.4 H, Absolute Lymphs (auto) 1.00, Nucleated RBC % 0, Differential Comment SCANNED, Platelet Estimate ADEQUATE, Plt Morphology Comment CLUMPED, Anisocytosis 1+, Ovalocytes 1+, Sodium 141, Potassium 3.8, Chloride 109 H, Carbon Dioxide 19.4 L,Anion Gap 13, BUN 25 H, Creatinine 1.59 H, EstimCreat Clear Calc 30.75 L, Est GFR (MDRD) Non-Af 43 L, BUN/Creatinine Ratio 15.5, Glucose 129 H, Calcium 8.8 Clinical Impression(s) from Imaging Studies Chest X-Ray 04/26/25 08:08 IMPRESSION: No Acute Findings. Reading Location: [facility] 04/26/25 08:09 IMPRESSION: CHRONIC CHANGES. NO ACUTE FINDINGS. Reading Location: [facility] Brain MRI 04/26/25 11:28 IMPRESSION: Motion artifact. No evidence of ischemia at this time. Chronic microvascular ischemic changes, volume loss. Charges/Coding Visit Charges Inpatient E&M: 50161 Subs Hosp L3 NIHSS NIHSS Nursing Documentation NIHSS Nursing Documentation: NIHSS: Ischemic Stroke/TIA Start: 04/26/25 11:44 Text: For ICU Patients: NIH sroke scale at Status: Complete presentation and every 2 hours or with change in RN caregiver Freq: [id number] Protocol: Activity Type Activity Date Activity User E-sign Co-sign Detail Recorded Client Recorded Date Recorded By Document 04/26/25 12:00 ML [id number] 04/26/25 12:47 ML 04/26/25 12:00 NIH Stroke Scale [NIHSS] A score of 0 is "normal" or asymptomatic . Total possible score is 42. Inpatient: RN or Physician to activate a stroke alert for onset of new stroke symptoms or with NIHSS increase >/= 3 points. Following change in neurological status, NIHSS will be performed per physician order or more frequently PRN. -1a. Level of Consciousness 0 - Alert; keenly responsive -1b. LOC Questions 2 - Answers NEITHER question correctly -1c. LOC Commands 2 - Performs NEITHER task correctly -2. Best Gaze 0 - Normal -3. Visual 0 - No visual loss -4. Facial Palsy 0 - Normal symmetrical movements -5a. Left Arm 3 - No effort against gravity ; arm falls -5b. Right Arm 3 - No effort against gravity ; arm falls -6a. Left Leg 3 - No effort against gravity ; leg falls to bed immediately -6b. Right Leg 3 - No effort against gravity ; leg falls to bed immediately -7. Limb Ataxia 2 - Present in 2 limbs -8. Sensory 2 - Severe to total sensory loss; -9. Best Language 2 - Severe aphasia; -10. Dysarthria 2 - Severe dysarthria; -11. Extinction and Inattention 1 - Visual, tactile, auditory, spatial, or personal inattention; -Total 25 Query Text:A score of 0 is "normal" or asymptomatic. Total possible score is 42 . ED: Notify Physician for NIHSS increase by > / = 3 points. Inpatient: RN or Physician to activate a stroke alert for NIHSS increase of > / = 3 points. Coma Scale [Assess] -Eye Opening Spontaneous -Motor Withdraws to Pain -Verbal Incomprehensibl e [Total] -Coma Scale Total 10 04/29/25 1646 Cosigner Signature (if applicable): CC: ~ Signed [facility]08-18-2025 Progress note Author Jane Davis [facility] Note Date/Time April 29, 2025 12 :04pm [facility] Medical Records Department [address] [place] [address] Progress Note - Neurology 04/29/25 1152 MR#: [id number] Acct: [id number] Name: LUL CHRISTINE Rep #:[id number] : 1940 84 From: Jane Davis MD PCP: Dr. Chaitanya Hdez, DO Status:ADM IN Location: [place] [address] Assessment and Plan: Neuro Assessment/Plan LUL CHRISTINE is a 84 M with a past medical history of HTN, HLD, and possible baseline movement disorder, also dementia with no official diagnosis, being evaluated by Teleneurology for agitation in setting of just using scopolamine. On history, symptoms very likely from the scopolamine as patient isimproving. On history it seems that there may be a progressive movement issue and cognitive decline that needs to be evaluated and use of the anticholinergic medication may have exacerbated this. Exam is largely non-focal without rigidityor signficiant tremor. Per discussion with , patient has had cognitive decline for a while now, butit wasn't major issues. His MRI brain does show generalized atrophy. I explainedto her that it might be a slower progress back to baseline, which might be a newbaseline compared to his baseline prior to coming into the hospital. 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 - Keep curtains/blinds open during the day to allow natural light and closed at night. - Would recommend reorienting/redirecting patient as much as possible, - Aim for consistent staffing, familiar objects, avoiding bright lights andloud noises, etc. PT/OT I personally attended this patient and spent a total time of 35 minutes evaluating this patient including clinical assessment, review of chart, medical history imaging, and determining appropriate treatment and workup. Subject: Neurology Subjective Per nursing staff, he reportedly alert and oriented x 1-2, no longer combative at bedside reports he seems to be doing okay, he ate a littel bit today, hecontinues to have slow improvement . As far as his mental status, reprots it is okay, he still have some intermittent confusin, haven't noticed worsening at night whatsoever. reports before coming to the hospital, he would have some confusion that has been going on for a while now, he can be confused about the months or the day, some forgetfullnes Exam: He is drowsy laying in bed oriented to self, doesn't' know the year, knows he is at the hospital, recognizes his at bedside raises arm antigravity EEG Results Procedure Details EEG Procedure Details: LUL CHRISTINE is a 84 year old M with a past medical history of , who presents for evaluation of Electroencephalogram on DATE at TIME Objective Data Objective Data Vital Signs: Vital Signs Temp Pulse Resp BP Pulse Ox O2 Del Method O2 Flow Rate 98.3 F 105 H 16 141/79 H 93 Nasal Cannula 2 04/29/25 08:00 04/29/25 08:25 04/29/25 08:00 04/29/25 08:04/29/25 08:00 04/29/25 08:00 04/29/25 08:00 Oxygen Flow Rate (L/min) 2 Oxygen Delivery Method Nasal Cannula Weight: 60.7 kg Body Mass Index (BMI) 20.9 Intake & Output: Intake and Output for Last 24 Hours 04/27/25 04/28/25 04/29/25 23:59 23:59 23:59 Intake Total 1039.87 / 1039.87 2739.77 / 2739.77 50 / 50 Output Total 250 / 250 525 / 525 250 / 250 Balance 789.87 / 789.87 2214.77 / 2214.77 -200 / -200 Lab / Micro Data 04/29/25 03:38 04/29/25 03:38 Labs: Laboratory Results - last 24 hr 04/28/25 12:09: POC Glucose 116 H 04/28/25 17:20: Urine Color Yellow, Urine Clarity Cloudy, Urine pH 6.0, Ur Specific [place] 1.015, Urine Protein 100 H, Urine Glucose (UA) Normal, Urine Ketones 5 H, Urine Occult Blood 250 H, Urine Nitrite Negative, Urine Bilirubin Negative, Urine Urobilinogen Normal, Ur Leukocyte Esterase Negative, Urine RBC 50-100 SEEN, Urine WBC 0 SEEN, Ur Squamous Epith Cells 0-5 SEEN, Urine Bacteria 1+, Urine Mucus 0 SEEN 04/29/25 03:38: WBC 11.3 H, RBC 4.64, Hgb 13.9, Hct 41.3, MCV 89.0, MCH 30.0, MCHC 33.7, RDW Std Deviation 43.0, RDW Coeff of Tim 13.2, Plt Count , MPV 10.5, Immature Gran % (Auto) 0.400, Neut % (Auto) 83.5 H, Lymph % (Auto) 8.8 L, Dyer %(Auto) 7.1, Eos % (Auto) 0.0, Baso % (Auto) 0.2, Absolute Neuts (auto) 9.4 H, Absolute Lymphs (auto) 1.00, Nucleated RBC % 0, Differential Comment SCANNED, Platelet Estimate ADEQUATE, Plt Morphology Comment CLUMPED, Anisocytosis 1+, Ovalocytes 1+, Sodium 141, Potassium 3.8, Chloride 109 H, Carbon Dioxide 19.4 L,Anion Gap 13, BUN 25 H, Creatinine 1.59 H, Estim Creat Clear Calc 30.75 L, Est GFR (MDRD) Non-Af 43 L, BUN/Creatinine Ratio 15.5, Glucose 129 H, Calcium 8.8 Micro: Microbiology 04/26/25 08:30 Blood Culture (Wb) - Arm Right Blood Culture - Preliminary No growth in 48 hours. 04/26/25 08:15 Blood Culture (Wb) - Right Forearm Blood Culture - Preliminary No growth in 48 hours. 04/26/25 08:24 Urine, Clean Catch Urine Culture - Preliminary Culture exhibits no growth. Radiography Diagnostic Testing: Radiology Impression Carotid Duplex 04/26/25 11:43 Interpretation Summary Mild (<50%) stenosis right extracranial internal carotid. Mild (<50%) stenosis left extracranial internal carotid. Flow within the vertebral arteries is antegrade bilaterally. Multiple, non-vascular, anechoic structures are noted in the muscle and fascia of the right neck. Clinical correlation is advised. Ordering Physician: Ugo Perera Referring Physician: Chaitanya Hdez Performed By: Jacobo Ventura RVT S NIHSS Nursing Documentation NIHSS Nursing Documentation: NIHSS: Ischemic Stroke/TIA Start: 04/26/25 11:44 Text: For ICU Patients: NIH sroke scale at Status: Complete presentation and every 2 hours or with change in RN caregiver Freq: [id number] Protocol: Activity Type Activity Date Activity User E-sign Co-sign Detail Recorded Client Recorded Date Recorded By Document 04/26/25 12:00 ML [id number] 04/26/25 12:47 ML 04/26/25 12:00 NIH Stroke Scale [NIHSS] A score of 0 is "normal" or asymptomatic . Total possible score is 42. Inpatient: RN or Physician to activate a stroke alert for onset of new stroke symptoms or with NIHSS increase >/= 3 points. Following change in neurological status, NIHSS will be performed per physician order or more frequently PRN. -1a. Level of Consciousness 0 - Alert; keenly responsive -1b. LOC Questions 2 - Answers NEITHER question correctly -1c. LOC Commands 2 - Performs NEITHER task correctly -2. Best Gaze 0 - Normal -3. Visual 0 - No visual loss -4. Facial Palsy 0 - Normal symmetrical movements -5a. Left Arm 3 - No effort against gravity ; arm falls -5b. Right Arm 3 - No effort against gravity ; arm falls -6a. Left Leg 3 - No effort against gravity ; leg falls to bed immediately -6b. Right Leg 3 - No effort against gravity ; leg falls to bed immediately -7. Limb Ataxia 2 - Present in 2 limbs -8. Sensory 2 - Severe to total sensory loss; -9. Best Language 2 - Severe aphasia; -10. Dysarthria 2 - Severe dysarthria; -11. Extinction and Inattention 1 - Visual, tactile, auditory, spatial, or personal inattention; -Total 25 Query Text:A score of 0 is "normal" or asymptomatic. Total possible score is 42 . ED: Notify Physician for NIHSS increase by > / = 3 points. Inpatient: RN or Physician to activate a stroke alert for NIHSS increase of > / = 3 points. Coma Scale [Assess] -Eye Opening Spontaneous -Motor Withdraws to Pain -Verbal Incomprehensibl e [Total] -Coma Scale Total 10 04/29/25 1204 <Electronically signed by Jane Davis MD> Cosigner Signature (if applicable): CC: ~ Signed [facility] Work Phone: [phone] 800-273208-18-2025 Progress note [facility] Medical Records Department [address] [place] [address] Progress Note - Neurology 04/29/25 1152 MR#: [id number] Acct: [id number] Name: LUL CHRISTINE Rep #:[id number] : 1940 84 From: Jane Davis MD PCP: Dr. Chaitanya Hdez, DO Status:ADM IN Location: [place] [address] Assessment and Plan: Neuro Assessment/Plan LUL CHRISTINE is a 84 M with a past medical history of HTN, HLD, and possible baseline movement disorder, also dementia with no official diagnosis, being evaluated by Teleneurology for agitation in setting of just using scopolamine. On history, symptoms very likely from the scopolamine as patient isimproving. On history it seems that there may be a progressive movement issue and cognitive decline that needs to be evaluated and use of the anticholinergic medication may have exacerbated this. Exam is largely non-focal without rigidityor signficiant tremor. Per discussion with , patient has had cognitive decline for a while now, butit wasn't major issues. His MRI brain does show generalized atrophy. I explainedto her that it might be a slower progress back to baseline, which might be a newbaseline compared to his baseline prior to coming into the hospital. Diagnosis: iatrogenic delirium from scopolamine Recommendations: - Recommend Delirium/Dementia Precautions: - Minimize use of benzos, opiates, anticholinergics, as these may worsen mental status - Would use caution with narcotic pain medications - Would still recommend adequately controlling pain, as uncontrolled pain is also a risk factor fordelirium - Reinforce sleep hygiene; encourage patient to stay awake during the day to encourage normal sleepcycle. - Keep curtains/blinds open during the day to allow natural light and closed at night. - Would recommend reorienting/redirecting patient as much as possible, - Aim for consistent staffing, familiar objects, avoiding bright lights andloud noises, etc. PT/OT I personally attended this patient and spent a total time of 35 minutes evaluating this patient including clinical assessment, review of chart, medical history imaging, and determining appropriate treatment and workup. Subject: Neurology Subjective Per nursing staff, he reportedly alert and oriented x 1-2, no longer combative at bedside reports he seems to be doing okay, he ate a littel bit today, hecontinues to have slow improvement . As far as his mental status, reprots it is okay, he still have some intermittent confusin, haven't noticed worsening at night whatsoever. reports before coming to the hospital, he would have some confusion that has been going on for a while now, he can be confused about the months or the day, some forgetfullnes Exam: He is drowsy laying in bed oriented to self, doesn't' know the year, knows he is at the hospital, recognizes his at bedside raises arm antigravity EEG Results Procedure Details EEG Procedure Details: LUL CHRISTINE is a 84 year old M with a past medical history of , who presents for evaluation of Electroencephalogram on DATE at TIME Objective Data Objective Data Vital Signs: Vital Signs Temp Pulse Resp BP Pulse Ox O2 Del Method O2 Flow Rate 98.3 F 105 H 16 141/79 H 93 Nasal Cannula 2 04/29/25 08:00 04/29/25 08:25 04/29/25 08:00 04/29/25 08:25 04/29/25 08:00 04/29/25 08:00 04/29/25 08:00 Oxygen Flow Rate (L/min) 2 Oxygen Delivery Method Nasal Cannula Weight: 60.7 kg Body Mass Index (BMI) 20.9 Intake & Output: Intake and Output for Last 24 Hours 04/27/25 04/28/25 04/29/25 23:59 23:59 23:59 Intake Total 1039.87 / 1039.87 2739.77 / 2739.77 50 / 50 Output Total 250 / 250 525 / 525 250 / 250 Balance 789.87 / 789.87 2214.77 / 2214.77 -200 / -200 Lab / Micro Data 04/29/25 03:38 04/29/25 03:38 Labs: Laboratory Results - last 24 hr 04/28/25 12:09: POC Glucose 116 H 04/28/25 17:20: Urine Color Yellow, Urine Clarity Cloudy, Urine pH 6.0, Ur Specific [place] 1.015, Urine Protein 100 H, Urine Glucose (UA) Normal, Urine Ketones 5 H, Urine Occult Blood 250 H, Urine Nitrite Negative, Urine Bilirubin Negative, Urine Urobilinogen Normal, Ur Leukocyte Esterase Negative, Urine RBC 50-100 SEEN, Urine WBC 0 SEEN, Ur Squamous Epith Cells 0-5 SEEN, Urine Bacteria 1+, Urine Mucus 0 SEEN 04/29/25 03:38: WBC 11.3 H, RBC 4.64, Hgb 13.9, Hct 41.3, MCV 89.0, MCH 30.0, MCHC 33.7, RDW Std Deviation 43.0, RDW Coeff of Tim 13.2, Plt Count , MPV 10.5, Immature Gran % (Auto) 0.400, Neut % (Auto) 83.5 H, Lymph % (Auto) 8.8 L, Dyer %(Auto) 7.1, Eos % (Auto) 0.0, Baso % (Auto) 0.2, Absolute Neuts (auto) 9.4 H, Absolute Lymphs (auto) 1.00, Nucleated RBC % 0, Differential Comment SCANNED, Platelet Estimate ADEQUATE, Plt Morphology Comment CLUMPED, Anisocytosis 1+, Ovalocytes 1+, Sodium 141, Potassium 3.8, Chloride 109 H, Carbon Dioxide 19.4 L,Anion Gap 13, BUN 25 H, Creatinine 1.59 H, EstimCreat Clear Calc 30.75 L, Est GFR (MDRD) Non-Af 43 L, BUN/Creatinine Ratio 15.5, Glucose 129 H, Calcium 8.8 Micro: Microbiology 04/26/25 08:30 Blood Culture (Wb) - Arm Right Blood Culture - Preliminary No growth in 48 hours. 04/26/25 08:15 Blood Culture (Wb) - Right Forearm Blood Culture - Preliminary No growth in 48 hours. 04/26/25 08:24 Urine, Clean Catch Urine Culture - Preliminary Culture exhibits no growth. Radiography Diagnostic Testing: Radiology Impression Carotid Duplex 04/26/25 11:43 Interpretation Summary Mild (<50%) stenosis right extracranial internal carotid. Mild (<50%) stenosis left extracranial internal carotid. Flow within the vertebral arteries is antegrade bilaterally. Multiple, non-vascular, anechoic structuresare noted in the muscle and fascia of the right neck. Clinical correlation is advised. Ordering Physician: Ugo Perera Referring Physician: Chaitanya Hdez Performed By: Jacobo Ventura RVT S NIHSS Nursing Documentation NIHSS Nursing Documentation: NIHSS: Ischemic Stroke/TIA Start: 04/26/25 11:44 Text: For ICU Patients: NIH sroke scale at Status: Complete presentation and every 2 hours or with change in RN caregiver Freq: [id number] Protocol: Activity Type Activity Date Activity User E-sign Co-sign Detail Recorded Client Recorded Date Recorded By Document 04/26/25 12:00 ML [id number] 04/26/25 12:47 ML 04/26/25 12:00 NIH Stroke Scale [NIHSS] A score of 0 is "normal" or asymptomatic . Total possible score is 42. Inpatient: RN or Physician to activate a stroke alert for onset of new stroke symptoms or with NIHSS increase >/= 3 points. Following change in neurological status, NIHSS will be performed per physician order or more frequently PRN. -1a. Level of Consciousness 0 - Alert; keenly responsive -1b. LOC Questions 2 - Answers NEITHER question correctly -1c. LOC Commands 2 - Performs NEITHER task correctly -2. Best Gaze 0 - Normal -3. Visual 0 - No visual loss -4. Facial Palsy 0 - Normal symmetrical movements -5a. Left Arm 3 - No effort against gravity ; arm falls -5b. Right Arm 3 - No effort against gravity ; arm falls -6a. Left Leg 3 - No effort against gravity ; leg falls to bed immediately -6b. Right Leg 3 - No effort against gravity ; leg falls to bed immediately -7. Limb Ataxia 2 - Present in 2 limbs -8. Sensory 2 - Severe to total sensory loss; -9. Best Language 2 - Severe aphasia; -10. Dysarthria 2 - Severe dysarthria; -11. Extinction and Inattention 1 - Visual, tactile, auditory, spatial, or personal inattention; -Total 25 Query Text:A score of 0 is "normal" or asymptomatic. Total possible score is 42 . ED: Notify Physician for NIHSS increase by > / = 3 points. Inpatient: RN or Physician to activate a stroke alert for NIHSS increase of > / = 3 points. Coma Scale [Assess] -Eye Opening Spontaneous -Motor Withdraws to Pain -Verbal Incomprehensibl e [Total] -Coma Scale Total 10 04/29/25 1204 Cosigner Signature (if applicable): CC: ~ Signed [facility]08-17-2025 Progress note Author Ela Rodriguez [facility] Note Date/Time April 28, 2025 10 :40am [facility] Medical Records Department [address] [place] [address] Progress Note - Neurology 04/28/25 1037 MR#: [id number] Acct: [id number] Name: LUL CHRISTINE Rep #:[id number] : 1940 84 From: Ela Rodriguez MD PCP: Dr. 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 On history, symptoms very likelyfrom the scopolamine as patient is improving. On history it seems that there maybe a progressive movement issue that needs to be evaluated and use of the anticholinergic medication may have exacerbated this. Exam is largely non-focal without rigidity or signficiant tremor. 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 Subject: Neurology Subjective Yest afternoon with significantly worsening agitation, transferred to ICU for precedex ggt. Pt continued to be agitated into the night but slept on the increased precedex. Weaned off this AM and more awake and aware of what is happening now. NEURO: -? Mental Status: The patient is somnolent but arouses and able to stay awake. Aware to place and situation. Normal fund of knowledge. Poor attention and difficulty following ocmplex multistep commands -? Language: speech is slurred .? Naming, repetition, fluency, and comprehension intact. -? Cranial Nerves: PERRL 4mm/brisk. EOMI, visual porras full, no facial asymmetry, facial sensation intact, hearing intact, tongue midline Tremor b/l UE -? Motor: b/l UE and LE antigravity no clear drift -? Sensation- Intact to light touch bilaterally -? Coordination: unable to test d/t poor following EEG Results Procedure Details EEG Procedure Details: LUL CHRISTINE is a 84 year old M with a past medical history of , who presents for evaluation of Electroencephalogram on DATE at TIME Objective Data Objective Data Vital Signs: Vital Signs Temp Pulse Resp BP Pulse Ox O2 Del Method O2 Flow Rate 37.5 F L 87 15 141/94 H 94 Nasal Cannula 2 04/28/25 08:00 04/28/25 10:00 04/28/25 10:00 04/28/25 10:00 04/28/25 10:00 04/28/25 10:00 04/28/25 10:00 Oxygen Flow Rate (L/min) 2 Oxygen Delivery Method Nasal Cannula Weight: 59.8 kg Body Mass Index (BMI) 20.6 Intake & Output: Intake and Output for Last 24 Hours 04/26/25 04/27/25 04/28/25 23:59 23:59 23:59 Intake Total 1000 / 1000 1039.87 / 1039.87 599.77 / 599.77 Output Total 1600 / 1600 250 / 250 150 / 150 Balance -600 / -600 789.87 / 789.87 449.77 / 449.77 Lab / Micro Data 04/28/25 04:48 04/28/25 04:48 Labs: Laboratory Results - last 24 hr 04/27/25 17:50: POC Glucose 96 04/28/25 04:48: WBC 7.4, RBC 4.80, Hgb 14.3, Hct 42.1, MCV 87.7, MCH 29.8, MCHC 34.0, RDW Std Deviation 42.4, RDW Coeff of Tim 13.1, Plt Count 213, MPV 10.5, Immature Gran % (Auto) 0.400, Neut % (Auto) 72.0 H, Lymph % (Auto) 15.1 L, Dyer % (Auto) 10.9 H, Eos % (Auto) 1.2, Baso % (Auto) 0.4, Absolute Neuts (auto) 5.4,Absolute Lymphs (auto) 1.12, Nucleated RBC % 0, Sodium 141, Potassium 3.9, Chloride 106, Carbon Dioxide 23.1, Anion Gap 12, BUN 28 H, Creatinine 1.53 H, Estim Creat Clear Calc 34.54 L, Est GFR (MDRD) Non-Af 45 L, BUN/Creatinine Ratio 18.3, Glucose 132 H, Calcium 9.0 Micro: Microbiology 04/26/25 08:24 Urine, Clean Catch Urine Culture - Preliminary Culture exhibits no growth. NIHSS NIHSS Nursing Documentation NIHSS Nursing Documentation: NIHSS: Ischemic Stroke/TIA Start: 04/26/25 11:44 Text: For ICU Patients: NIH sroke scale at Status: Complete presentation and every 2 hours or with change in RN caregiver Freq: [id number] Protocol: Activity Type Activity Date Activity User E-sign Co-sign Detail Recorded Client Recorded Date Recorded By Document 04/26/25 12:00 ML [id number] 04/26/25 12:47 ML 04/26/25 12:00 NIH Stroke Scale [NIHSS] A score of 0 is "normal" or asymptomatic . Total possible score is 42. Inpatient: RN or Physician to activate a stroke alert for onset of new stroke symptoms or with NIHSS increase >/= 3 points. Following change in neurological status, NIHSS will be performed per physician order or more frequently PRN. -1a. Level of Consciousness 0 - Alert; keenly responsive -1b. LOC Questions 2 - Answers NEITHER question correctly -1c. LOC Commands 2 - Performs NEITHER task correctly -2. Best Gaze 0 - Normal -3. Visual 0 - No visual loss -4. Facial Palsy 0 - Normal symmetrical movements -5a. Left Arm 3 - No effort against gravity ; arm falls -5b. Right Arm 3 - No effort against gravity ; arm falls -6a. Left Leg 3 - No effort against gravity ; leg falls to bed immediately -6b. Right Leg 3 - No effort against gravity ; leg falls to bed immediately -7. Limb Ataxia 2 - Present in 2 limbs -8. Sensory 2 - Severe to total sensory loss; -9. Best Language 2 - Severe aphasia; -10. Dysarthria 2 - Severe dysarthria; -11. Extinction and Inattention 1 - Visual, tactile, auditory, spatial, or personal inattention; -Total 25 Query Text:A score of 0 is "normal" or asymptomatic. Total possible score is 42 . ED: Notify Physician for NIHSS increase by > / = 3 points. Inpatient: RN or Physician to activate a stroke alert for NIHSS increase of > / = 3 points. Coma Scale [Assess] -Eye Opening Spontaneous -Motor Withdraws to Pain -Verbal Incomprehensibl e [Total] -Coma Scale Total 10 04/28/25 1040 <Electronically signed by Ela Rodriguez MD> Cosigner Signature (if applicable): CC: ~ Signed [facility] Work Phone: [phone] 675-923308-17-2025 Progress note [facility] Medical Records Department [address] [place] [address] Progress Note - Neurology 04/28/25 1037 MR#: [id number] Acct: [id number] Name: LUL CHRISTINE Rep #:[id number] : 1940 84 From: Ela Rodriguez MD PCP: Dr. 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 On history, symptoms very likelyfrom the scopolamine as patient is improving. On history it seems that there maybe a progressive movement issue that needs to be evaluated and use of the anticholinergicmedication may have exacerbated this. Exam is largely non- focal without rigidity or signficiant tremor. 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 Subject: Neurology Subjective Yest afternoon with significantly worsening agitation, transferred to ICU for precedex ggt. Pt continued to be agitated into the night but slept on the increased precedex. Weaned off this AM and moreawake and aware of what is happening now. NEURO: -? Mental Status: The patient is somnolent but arouses and able to stay awake. Aware to place and situation. Normal fund of knowledge. Poor attention and difficulty following ocmplex multistep commands -? Language: speech is slurred .? Naming, repetition, fluency, and comprehension intact. -? Cranial Nerves: PERRL 4mm/brisk. EOMI, visual porras full, no facial asymmetry, facial sensation intact, hearing intact, tongue midline Tremor b/l UE -? Motor: b/l UE and LE antigravity no clear drift -? Sensation- Intact to light touch bilaterally -? Coordination: unable to test d/t poor following EEG Results Procedure Details EEG Procedure Details: LUL CHRISTINE is a 84 year old M with a past medical history of , who presents for evaluation of Electroencephalogram on DATE at TIME Objective Data Objective Data Vital Signs: Vital Signs Temp Pulse Resp BP Pulse Ox O2 Del Method O2 Flow Rate 37.5 F L 87 15 141/94 H 94 Nasal Cannula 2 04/28/25 08:00 04/28/25 10:00 04/28/25 10:00 04/28/25 10:00 04/28/25 10:00 04/28/25 10:00 04/28/25 10:00 Oxygen Flow Rate (L/min) 2 Oxygen Delivery Method Nasal Cannula Weight: 59.8 kg Body Mass Index (BMI) 20.6 Intake & Output: Intake and Output for Last 24 Hours 04/26/25 04/27/25 04/28/25 23:59 23:59 23:59 Intake Total 1000 / 1000 1039.87 / 1039.87 599.77 / 599.77 Output Total 1600 / 1600 250 / 250 150 / 150 Balance -600 / -600 789.87 / 789.87 449.77 / 449.77 Lab / Micro Data 04/28/25 04:48 04/28/25 04:48 Labs: Laboratory Results - last 24 hr 04/27/25 17:50: POC Glucose 96 04/28/25 04:48: WBC 7.4, RBC 4.80, Hgb 14.3, Hct 42.1, MCV 87.7, MCH 29.8, MCHC 34.0, RDW Std Deviation 42.4, RDW Coeff of Tim 13.1, Plt Count 213, MPV 10.5, Immature Gran % (Auto) 0.400, Neut % (Auto) 72.0 H, Lymph % (Auto) 15.1 L, Dyer % (Auto) 10.9 H, Eos % (Auto) 1.2, Baso % (Auto) 0.4, Absolute Neuts (auto) 5.4,Absolute Lymphs (auto) 1.12, Nucleated RBC % 0, Sodium 141, Potassium 3.9, Chloride 106, Carbon Dioxide 23.1, Anion Gap 12, BUN 28 H, Creatinine 1.53 H, Estim Creat Clear Calc 34.54L, Est GFR (MDRD) Non-Af 45 L, BUN/Creatinine Ratio 18.3, Glucose 132 H, Calcium 9.0 Micro: Microbiology 04/26/25 08:24 Urine, Clean Catch Urine Culture - Preliminary Culture exhibits no growth. NIHSS NIHSS Nursing Documentation NIHSS Nursing Documentation: NIHSS: Ischemic Stroke/TIA Start: 04/26/25 11:44 Text: For ICU Patients: NIH sroke scale at Status: Complete presentation and every 2 hours or with change in RN caregiver Freq: [id number] Protocol: Activity Type Activity Date Activity User E-sign Co-sign Detail Recorded Client Recorded Date Recorded By Document 04/26/25 12:00 ML [id number] 04/26/25 12:47 ML 04/26/25 12:00 NIH Stroke Scale [NIHSS] A score of 0 is "normal" or asymptomatic . Total possible score is 42. Inpatient: RN or Physician to activate a stroke alert for onset of new stroke symptoms or with NIHSS increase >/= 3 points. Following change in neurological status, NIHSS will be performed per physician order or more frequently PRN. -1a. Level of Consciousness 0 - Alert; keenly responsive -1b. LOC Questions 2 - Answers NEITHER question correctly -1c. LOC Commands 2 - Performs NEITHER task correctly -2. Best Gaze 0 - Normal -3. Visual 0 - No visual loss -4. Facial Palsy 0 - Normal symmetrical movements -5a. Left Arm 3 - No effort against gravity ; arm falls -5b. Right Arm 3 - No effort against gravity ; arm falls -6a. Left Leg 3 - No effort against gravity ; leg falls to bed immediately -6b. Right Leg 3 - No effort against gravity ; leg falls to bed immediately -7. Limb Ataxia 2 - Present in 2 limbs -8. Sensory 2 - Severe to total sensory loss; -9. Best Language 2 - Severe aphasia; -10. Dysarthria 2 - Severe dysarthria; -11. Extinction and Inattention 1 - Visual, tactile, auditory, spatial, or personal inattention; -Total 25 Query Text:A score of 0 is "normal" or asymptomatic. Total possible score is 42 . ED: Notify Physician for NIHSS increase by > / = 3 points. Inpatient: RN or Physician to activate a stroke alert for NIHSS increase of > / = 3 points. Coma Scale [Assess] -Eye Opening Spontaneous -Motor Withdraws to Pain -Verbal Incomprehensibl e [Total] -Coma Scale Total 10 04/28/25 1040 Cosigner Signature (if applicable): CC: ~ Signed [facility]08-17-2025 Progress note Author Ugo Perera [facility] Note Date/Time April 28, 2025 8: 18am [facility] Medical Records Department [address] [place] [address] Progress Note - Hospitalist 04/28/25811 MR#: [id number] Acct: [id number] Name: LUL CHRISTINE Rep #:[id number] : 1940 84 From: Ugo Guardado PCP: Dr. Chaitanya Hdez, DO Status:ADM IN Location: ICU ICU-1 Reason for Visit Chief Complaint: Altered mental status/speech abnormality today in the morning Objective Data Objective Data Vital Signs: Vital Signs Temp Pulse Resp BP Pulse Ox O2 Del Method O2 Flow Rate 98.2 F 41 L 10 L 145/72 H 97 Nasal Cannula 2 04/28/25 04:00 04/28/25 06:00 04/28/25 06:00 04/28/25 06:00 04/28/25 07:54 04/28/25 07:54 04/28/25 07:54 Oxygen Flow Rate (L/min) 2 Oxygen Delivery Method Nasal Cannula Weight: 144 lb 9.972 oz Body Mass Index (BMI) 22.6 Intake & Output: Intake and Output for Last 24 Hours 04/26/25 04/27/25 04/28/25 23:59 23:59 23:59 Intake Total 1000 / 1000 1039.87 / 1039.87 599.77 / 599.77 Output Total 1600 / 1600 250 / 250 0 / 0 Balance -600 / -600 789.87 / 789.87 599.77 / 599.77 Lab / Micro Data 04/28/25 04:48 04/28/25 04:48 Labs: Laboratory Results - last 24 hr 04/27/25 17:50: POC Glucose 96 04/28/25 04:48: WBC 7.4, RBC 4.80, Hgb 14.3, Hct 42.1, MCV 87.7, MCH 29.8, MCHC 34.0, RDW Std Deviation 42.4, RDW Coeff of Tim 13.1, Plt Count 213, MPV 10.5, Immature Gran % (Auto) 0.400, Neut % (Auto) 72.0 H, Lymph % (Auto) 15.1 L, Dyer % (Auto) 10.9 H, Eos % (Auto) 1.2, Baso % (Auto) 0.4, Absolute Neuts (auto) 5.4,Absolute Lymphs (auto) 1.12, Nucleated RBC % 0, Sodium 141, Potassium 3.9, Chloride 106, Carbon Dioxide 23.1, Anion Gap 12, BUN28 H, Creatinine 1.53 H, Estim Creat Clear Calc 34.54 L, Est GFR (MDRD) Non-Af 45 L, BUN/Creatinine Ratio 18.3, Glucose 132 H, Calcium 9.0 Physical Exam Narrative Seen and examined Precedex drip is on hold. Patient is more quite but is still confused. He knows it is daytime and in [facility] but does not tell his age, month. He keeps his eyes closed until asked few times to open it. He started choking and tried to give p.o. meds therefore NPO. Speech therapy evaluation ordered from the beginning Physical exam General: Awake, disoriented, confused and delirious HEENT: Atraumatic, PERRLA, EOMI, Normocephalic. Oral: Oral mucosa very dry. Neck: Supple, No JVD, Negative Carotid Bruits Chest wall/Lungs: Air entry diminished in bilateral lung bases. No crepitation Cardiovascular: Regular rate and rhythm, Normal S1,S2, No M/G/R Abdomen: Bowel Sounds Present, Soft, Non Tender, Non-Distended : No dysuria. No renal angle tenderness. No suprapubic tenderness. Extremities: No edema, Capillary Refill Less than 3 Seconds Skin: No rashes, No breakdown Musculoskeletal: No Tenderness to Palpation of Joints or Extremities. 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 Increased muscle tone/rigidity on knee and hip joints. Plantar downgoing. Psych/Mental Status: Flat affect. Anxious Assessment & Plan Assessment/Plan (1) Altered mental status: PLAN: Plan This is a 84-year-old gentleman being admitted chiefly for altered mental status/language deficit and dysarthria 1. Mental status/language deficit both receptive and motor and dysarthria: Exact etiology unclear but possible metabolic encephalopathy/seizure or stroke. CT head does not show acute change. Usually he does not think it is stroke but most likely due to scopolamine adverse effect. MRI brain ordered. NIH stroke scale until MRI rules out a stroke. PT OT and speech evaluation. Twelve-lead EKG shows NSR 86 bpm. QTc 435 ms. TSH and A1c ordered for tomorrow a.m. 04/27/still disoriented to time and place. Could not sleep last night. Started on low-dose risperidone 0.25 mg twice daily. MRI brain does not show acute infarct with no evidence of ischemia. Motion artifact. Chronic microvascular changes with mild volume loss. EEG ordered. Teleneurology consult. the patient last evening was little agitated but in the morning his agitation got worse and in afternoon worse. About 1:03 PM, 2 mg IV Haldol and 12.5 mg IM Phenergan was given. Prior to that Risperdal 2.5 mg twice daily was started. Patient not able to take oral therefore Klonopin not given. He is not oriented,follows command or redirectable, agitated and extremities gets rigid with thrashing of all 4 extremities. He is being transferred to ICU to start on Precedex drip. Discussed with Dr. Rodriguez 2 times. She recommended Klonopin 0.5 mgtwice daily scheduled agent once it is safe to give oral. 04/28: Reviewed with the nurse. Orientation cues. Precedex drip on hold. Haldol and Phenergan ordered as needed for agitation. Speech therapy relation and when safe, Klonopin and Risperdal. Maintenance IV fluid for nutrition ordered 2. Hypertension: Patient's showed me metoprolol succinate, midodrine. 04/28: Blood pressure elevated systolic in 150s. On IV antihypertensive medication 3. Dyslipidemia: Atorvastatin 40 mg daily. 04/28: Fasting profile within normal limit. TSH normal. 4. Recently stroke in January 04: Surprisingly, patient not on aspirin or Plavix with history of stroke in December 2024. Rectal aspirin and statin ordered. 5. Kidney dysfunction: BUN/creatinine 37/1.72, estimated creatinine clearance about 30 mL/min. Unclear whether it is acute or chronic. 6. Hyperglycemia: Glucose 130. A1c 6.2% DVT prophylaxis: Lovenox 30 mg subcu daily Living will/advanced directive/end of life care: Patient does have living will or advanced directive. His , blossom is power of claims attorney for healthcare. After discussion of benefits/risks procedures involved with full code, DNR CC arrest and DNR CC, the patient side opted for DNR CC arrest with nointubation. Patient doesn't want artificial life support including intubation, tube feed, ventilator and/chest compression, central venous catheter, vasopressor and DC shock if needed Total time spent in [id number] encounter in discussion of advanced directive 17 minutes. Laboratory Results 04/26/25 08:19: Specimen Type ART, Sample Site L Brach, pH 7.48 H, Bicarbonate Actual 28.6 H, Total CO2 30, Base Excess 5 H, O2 Saturation 95, O2 % 2.0, ABG pCO2 38.2, ABG pO2 70 L, O2 Delivery Device Cannula, Vent Mode Not entered 04/26/25 08:24: Urine Color Yellow, Urine Clarity Clear, Urine pH 6.5, Ur Specific [place] 1.015, Urine Protein 30 H, Urine Glucose (UA) Normal, Urine Ketones Negative, Urine Occult Blood 10 H, Urine Nitrite Negative, Urine Bilirubin Negative, Urine Urobilinogen Normal, Ur Leukocyte Esterase Negative, Urine RBC 0 SEEN, Urine WBC 0 SEEN, Ur Squamous Epith Cells 0 SEEN, Urine Bacteria 0 SEEN, Urine Mucus 0 SEEN Laboratory Results 04/27/25 00:29: POC Glucose 108 H 04/27/25 04:14: WBC 9.8, RBC 4.99, Hgb 14.8, Hct 43.1, MCV 86.4, MCH 29.7, MCHC 34.3, RDW Std Deviation 39.7, RDW Coeff of Tim 12.7, Plt Count 223, MPV 10.7, Immature Gran % (Auto) 0.300, Neut % (Auto) 78.4 H, Lymph % (Auto) 11.5 L, Dyer % (Auto) 9.4, Eos % (Auto) 0.1, Baso % (Auto) 0.3, Absolute Neuts (auto) 7.7, Absolute Lymphs (auto) 1.12, Nucleated RBC % 0, Sodium 139, Potassium 3.6, Chloride 104, Carbon Dioxide 18.0 L, Anion Gap 17 H, BUN 24 H, Creatinine 1.44 H, Estim Creat Clear Calc 36.70 L, Est GFR (MDRD) Non-Af 49 L, BUN/Creatinine Ratio 16.5, Glucose 133 H, Hemoglobin A1c 6.2 H, Calcium 9.3, Triglycerides 68, Cholesterol 134, LDL Cholesterol, Calc 59, VLDL Cholesterol 14, HDL Cholesterol 61, Cholesterol/HDL Ratio 2.20, TSH 0.374 04/27/25 06:16: POC Glucose 145 H Clinical Impression(s) from Imaging Studies Chest X-Ray 04/26/25 08:08 IMPRESSION: No Acute Findings. [facility] 04/26/25 08:09 IMPRESSION: CHRONIC CHANGES. NO ACUTE FINDINGS. [facility] MRI 04/26/25 11:28 IMPRESSION: Motion artifact. No evidence of ischemia at this time. Chronic microvascular ischemic changes, volume loss. Charges/Coding Visit Charges Inpatient E&M: 33593 Subs Hosp L3 NIHSS NIHSS Nursing Documentation NIHSS Nursing Documentation: NIHSS: Ischemic Stroke/TIA Start: 04/26/25 11:44 Text: For ICU Patients: NIH sroke scale at Status: Complete presentation and every 2 hours or with change in RN caregiver Freq: [id number] Protocol: Activity Type Activity Date Activity User E-sign Co-sign Detail Recorded Client Recorded Date Recorded By Document 04/26/25 12:00 ML [id number] 04/26/25 12:47 ML 04/26/25 12:00 NIH Stroke Scale [NIHSS] A score of 0 is "normal" or asymptomatic . Total possible score is 42. Inpatient: RN or Physician to activate a stroke alert for onset of new stroke symptoms or with NIHSS increase >/= 3 points. Following change in neurological status, NIHSS will be performed per physician order or more frequently PRN. -1a. Level of Consciousness 0 - Alert; keenly responsive -1b. LOC Questions 2 - Answers NEITHER question correctly -1c. LOC Commands 2 - Performs NEITHER task correctly -2. Best Gaze 0 - Normal -3. Visual 0 - No visual loss -4. Facial Palsy 0 - Normal symmetrical movements -5a. Left Arm 3 - No effort against gravity ; arm falls -5b. Right Arm 3 - No effort against gravity ; arm falls -6a. Left Leg 3 - No effort against gravity ; leg falls to bed immediately -6b. Right Leg 3 - No effort against gravity ; leg falls to bed immediately -7. Limb Ataxia 2 - Present in 2 limbs -8. Sensory 2 - Severe to total sensory loss; -9. Best Language 2 - Severe aphasia; -10. Dysarthria 2 - Severe dysarthria; -11. Extinction and Inattention 1 - Visual, tactile, auditory, spatial, or personal inattention; -Total 25 Query Text:A score of 0 is "normal" or asymptomatic. Total possible score is 42 . ED: Notify Physician for NIHSS increase by > / = 3 points. Inpatient: RN or Physician to activate a stroke alert for NIHSS increase of > / = 3 points. Coma Scale [Assess] -Eye Opening Spontaneous -Motor Withdraws to Pain -Verbal Incomprehensibl e [Total] -Coma Scale Total 10 04/28/25 0818 <Electronically signed by Ugo Perera MD> Cosigner Signature (if applicable): CC: ~ Signed [facility] Work Phone: [phone] 604-863008-17-2025 Progress note [facility] Medical Records Department [address] [place] [address] Progress Note - Hospitalist 04/28/25 0812 MR#: [id number] Acct: [id number] Name: LUL CHRISTINE Rep #:[id number] : 1940 84 From: Ugo Guardado PCP: Dr. Chaitanya Hdez, DO Status:ADM IN Location: ICU ICU04-1 Reason for Visit Chief Complaint: Altered mental status/speech abnormality today in the morning Objective Data Objective Data Vital Signs: Vital Signs Temp Pulse Resp BP Pulse Ox O2 Del Method O2 Flow Rate 98.2 F 41 L 10 L 145/72 H 97 Nasal Cannula 2 04/28/25 04:00 04/28/25 06:00 04/28/25 06:00 04/28/25 06:00 04/28/25 07:54 04/28/25 07:54 04/28/25 07:54 Oxygen Flow Rate (L/min) 2 Oxygen Delivery Method Nasal Cannula Weight: 144 lb 9.972 oz Body Mass Index (BMI) 22.6 Intake & Output: Intake and Output for Last 24 Hours 04/26/25 04/27/25 04/28/25 23:59 23:59 23:59 Intake Total 1000 / 1000 1039.87 / 1039.87 599.77 / 599.77 Output Total 1600 / 1600 250 / 250 0 / 0 Balance -600 / -600 789.87 / 789.87 599.77 / 599.77 Lab / Micro Data 04/28/25 04:48 04/28/25 04:48 Labs: Laboratory Results - last 24 hr 04/27/25 17:50: POC Glucose 96 04/28/25 04:48: WBC 7.4, RBC 4.80, Hgb 14.3, Hct 42.1, MCV 87.7, MCH 29.8, MCHC 34.0, RDW Std Deviation 42.4, RDW Coeff of Tim 13.1, Plt Count 213, MPV 10.5, Immature Gran % (Auto) 0.400, Neut % (Auto) 72.0 H, Lymph % (Auto) 15.1 L, Dyer % (Auto) 10.9 H, Eos % (Auto) 1.2, Baso % (Auto) 0.4, Absolute Neuts (auto) 5.4,Absolute Lymphs (auto) 1.12, Nucleated RBC % 0, Sodium 141, Potassium 3.9, Chloride 106, Carbon Dioxide 23.1, Anion Gap 12, BUN28 H, Creatinine 1.53 H, Estim Creat Clear Calc 34.54 L, Est GFR (MDRD) Non- Af 45 L, BUN/Creatinine Ratio 18.3, Glucose 132 H, Calcium 9.0 Physical Exam Narrative Seen and examined Precedex drip is on hold. Patient is more quite but is still confused. He knows it is daytime and in [facility] but does not tell his age, month. He keeps his eyes closed until asked few times to open it. He started choking and tried to give p.o. meds therefore NPO. Speech therapy evaluation ordered from the beginning Physical exam General: Awake, disoriented, confused and delirious HEENT: Atraumatic, PERRLA, EOMI, Normocephalic. Oral: Oral mucosa very dry. Neck: Supple, No JVD, Negative Carotid Bruits Chest wall/Lungs: Air entry diminished in bilateral lung bases. No crepitation Cardiovascular: Regular rate and rhythm, Normal S1,S2, No M/G/R Abdomen: Bowel Sounds Present, Soft, Non Tender, Non-Distended : No dysuria. No renal angle tenderness. No suprapubic tenderness. Extremities: No edema, Capillary Refill Less than 3 Seconds Skin: No rashes, No breakdown Musculoskeletal: No Tenderness to Palpation of Joints or Extremities. 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 Increased muscle tone/rigidity on knee and hip joints. Plantar downgoing. Psych/Mental Status: Flat affect. Anxious Assessment & Plan Assessment/Plan (1) Altered mental status: PLAN: Plan This is a 84-year-old gentleman being admitted chiefly for altered mental status/language deficit and dysarthria 1. Mental status/language deficit both receptive and motor and dysarthria: Exact etiology unclear but possible metabolic encephalopathy/seizure or stroke. CT head does not show acute change. Usually he does not think it is stroke but most likely due to scopolamine adverse effect. MRI brain ordered.NIH stroke scale until MRI rules out a stroke. PT OT and speech evaluation. Twelve-lead EKG shows NSR 86 bpm. QTc 435 ms. TSH and A1c ordered for tomorrow a.m. 8/16/still disoriented to time and place. Could not sleep last night. Started on low-dose risperidone 0.25 mg twice daily. MRI brain does not show acute infarct with no evidence of ischemia. Motion artifact. Chronic microvascular changes with mild volume loss. EEG ordered. Teleneurology consult. the patient last evening was little agitated but in the morning his agitation got worse and in afternoon worse. About 1:03 PM, 2 mg IV Haldol and 12.5 mg IM Phenergan was given. Prior to that Risperdal 2.5 mg twice daily was started. Patient not able to take oral therefore Klonopin not given. He isnot oriented,follows command or redirectable, agitated and extremities gets rigid with thrashing ofall 4 extremities. He is being transferred to ICU to start on Precedex drip. Discussed with Dr. Rodriguez2 times. She recommended Klonopin 0.5 mgtwice daily scheduled agent once it is safe to give oral. 04/28: Reviewed with the nurse. Orientation cues. Precedex drip on hold. Haldol and Phenergan ordered as needed for agitation. Speech therapy relation and when safe, Klonopin and Risperdal. Maintenance IV fluid for nutrition ordered 2. Hypertension: Patient's showed me metoprolol succinate, midodrine. 04/28: Blood pressure elevated systolic in 150s. On IV antihypertensive medication 3. Dyslipidemia: Atorvastatin 40 mg daily. 04/28: Fasting profile within normal limit. TSH normal. 4. Recently stroke in January 04: Surprisingly, patient not on aspirin or Plavix with history of stroke in December 2024. Rectal aspirin and statin ordered. 5. Kidney dysfunction: BUN/creatinine 37/1.72, estimated creatinine clearance about 30 mL/min. Unclear whether it is acute or chronic. 6. Hyperglycemia: Glucose 130. A1c 6.2% DVT prophylaxis: Lovenox 30 mg subcu daily Living will/advanced directive/end of life care: Patient does have living will or advanced directive. His , blossom is power of claims attorney for healthcare. After discussion of benefits/risks procedures involved with full code, DNR CC arrest and DNR CC, the patient side opted for DNR CC arrestwith nointubation. Patient doesn't want artificial life support including intubation, tube feed, ventilator and/chest compression, central venous catheter, vasopressor and DC shock if needed Total time spent in [id number] encounter in discussion of advanced directive 17 minutes. Laboratory Results 04/26/25 08:19: Specimen Type ART, Sample Site L Brach, pH 7.48 H, Bicarbonate Actual 28.6 H, TotalCO2 30, Base Excess 5 H, O2 Saturation 95, O2 % 2.0, ABG pCO2 38.2, ABG pO2 70 L, O2 Delivery Device Cannula, Vent Mode Not entered 04/26/25 08:24: Urine Color Yellow, Urine Clarity Clear, Urine pH 6.5, Ur Specific [place] 1.015, Urine Protein 30 H, Urine Glucose (UA) Normal, Urine Ketones Negative, Urine Occult Blood 10 H, UrineNitrite Negative, Urine Bilirubin Negative, Urine Urobilinogen Normal, Ur Leukocyte Esterase Negative, Urine RBC 0 SEEN, Urine WBC 0 SEEN, Ur Squamous Epith Cells 0 SEEN, Urine Bacteria 0 SEEN, UrineMucus 0 SEEN Laboratory Results 04/27/25 00:29: POC Glucose 108 H 04/27/25 04:14: WBC 9.8, RBC 4.99, Hgb 14.8, Hct 43.1, MCV 86.4, MCH 29.7, MCHC 34.3, RDW Std Deviation 39.7, RDW Coeff of Tim 12.7, Plt Count 223, MPV 10.7, Immature Gran % (Auto) 0.300, Neut % (Auto) 78.4 H, Lymph % (Auto) 11.5 L, Dyer % (Auto) 9.4, Eos % (Auto) 0.1, Baso % (Auto) 0.3, Absolute Neuts (auto) 7.7, Absolute Lymphs (auto) 1.12, Nucleated RBC % 0, Sodium 139, Potassium 3.6, [id number], Carbon Dioxide 18.0 L, Anion Gap 17 H, BUN 24 H, Creatinine 1.44 H, Estim Creat Clear Calc 36.70 L, Est GFR (MDRD) Non-Af 49 L, BUN/Creatinine Ratio 16.5, Glucose 133 H, Hemoglobin A1c 6.2 H, Calcium 9.3, Triglycerides 68, Cholesterol 134, LDL Cholesterol, Calc 59, VLDL Cholesterol 14, HDL Cholesterol 61, Cholesterol/HDL Ratio 2.20, TSH 0.374 04/27/25 06:16: POC Glucose 145 H Clinical Impression(s) from Imaging Studies Chest X-Ray 04/26/25 08:08 IMPRESSION: No Acute Findings. Reading Location: [facility] 04/26/25 08:09 IMPRESSION: CHRONIC CHANGES. NO ACUTE FINDINGS. Reading Location: [facility] Brain MRI 04/26/25 11:28 IMPRESSION: Motion artifact. No evidence of ischemia at this time. Chronic microvascular ischemic changes, volume loss. Charges/Coding Visit Charges Inpatient E&M: 67402 Subs Hosp L3 NIHSS NIHSS Nursing Documentation NIHSS Nursing Documentation: NIHSS: Ischemic Stroke/TIA Start: 04/26/25 11:44 Text: For ICU Patients: NIH sroke scale at Status: Complete presentation and every 2 hours or with change in RN caregiver Freq: [id number] Protocol: Activity Type Activity Date Activity User E-sign Co-sign Detail Recorded Client Recorded Date Recorded By Document 04/26/25 12:00 ML [id number] 04/26/25 12:47 ML 04/26/25 12:00 NIH Stroke Scale [NIHSS] A score of 0 is "normal" or asymptomatic . Total possible score is 42. Inpatient: RN or Physician to activate a stroke alert for onset of new stroke symptoms or with NIHSS increase >/= 3 points. Following change in neurological status, NIHSS will be performed per physician order or more frequently PRN. -1a. Level of Consciousness 0 - Alert; keenly responsive -1b. LOC Questions 2 - Answers NEITHER question correctly -1c. LOC Commands 2 - Performs NEITHER task correctly -2. Best Gaze 0 - Normal -3. Visual 0 - No visual loss -4. Facial Palsy 0 - Normal symmetrical movements -5a. Left Arm 3 - No effort against gravity ; arm falls -5b. Right Arm 3 - No effort against gravity ; arm falls -6a. Left Leg 3 - No effort against gravity ; leg falls to bed immediately -6b. Right Leg 3 - No effort against gravity ; leg falls to bed immediately -7. Limb Ataxia 2 - Present in 2 limbs -8. Sensory 2 - Severe to total sensory loss; -9. Best Language 2 - Severe aphasia; -10. Dysarthria 2 - Severe dysarthria; -11. Extinction and Inattention 1 - Visual, tactile, auditory, spatial, or personal inattention; -Total 25 Query Text:A score of 0 is "normal" or asymptomatic. Total possible score is 42 . ED: Notify Physician for NIHSS increase by > / = 3 points. Inpatient: RN or Physician to activate a stroke alert for NIHSS increase of > / = 3 points. Coma Scale [Assess] -Eye Opening Spontaneous -Motor Withdraws to Pain -Verbal Incomprehensibl e [Total] -Coma Scale Total 10 04/28/25 0818 Cosigner Signature (if applicable): CC: ~ Signed [facility]08-17-2025 Consult note Author Ela Rodriguez [facility] Note Date/Time April 28, 2025 12 :25am [facility] Medical Records Department [address] [place] [address] Consultation - Neurology 04/27/25 1023 MR#: [id number] Acct: [id number] Name: LUL CHRISTINE Rep #:[id number] : 1940 84 From: Ela Rodriguez MD PCP: Dr. 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 On history, symptoms very likelyfrom the scopolamine as patient is improving. On history it seems that there maybe a progressive movement issue that needs to be evaluated and use of the anticholinergic medication may have exacerbated this. Exam is largely non-focal without rigidity or signficiant tremor. Diagnosis: iatrogenic delirium from scopolamine Plan: continue delirium precautions can use 0.5mg BID of scheduled Klonopin to help with agitation I personally attended this patient and spent a total time of 45minutes evaluating this patient including clinical assessment, review of chart, medical history imaging, and determining appropriate treatment and workup. HPI Consult Data Date of Consult: 04/28/25 HPI Narrative HPI Narrative: LUL CHRISTINE, is a 84 M who is brought to ED with prehospital stroke for altered mental status, unable to speak, incoherent and snoring respirations since morning. Patient has been dizzy since October and prescribed scopolamine patch reported last night. Patient could not understand speech, could not verbalize/vocalize, insensible/incomprehensible words. He also restless. Last night he went to the restroom, had accident/incontinent and felldown. In the morning he was also less responsive. As per he had 1 CT scan in February and 1 MRI in December which did not in our system. MRI revealed 2 strokes probably the cause of his fall in November/December. He said no headache change in vision chest pain shortness of breath abdominal pain or vomiting. He is not able to follow command regarding lifting the hands or legs or answered question of NIHSS but a stroke alert was called off. Neurologic History Pt states he feels ok and not in any pain. Pt states he is not aware where he isright now. No dizziness right now but it will come and go and will feel like dysequilibrium. Patient still confused compared to normal. Th night he had difficulty having a bowel movement and patient had fallen. He slept for a while and was yelling and upset and his speech seemed garbled. He Unclear if he hit his head. Normally does not have issues in the bathroom. He shuffles and does walk slower.Had 2 falls in Oct and November. Patient tried using the patch night and it was the very first time that it happened. He tried the patch for drooling. Patient was agitated all night and had no sleep. Nurse who had him yesterday states he was nonverbal but wide awake and staring catatonic and was jerking andhave myoclonic movements. Eyes stayed open during this time but able to follow commands during the event. Has been having visual hallucinations He has a ho r hip replacement and HTN/HLD. He has been having dizziness since Oct and have been working him up on that. No history of memory issues or dementia. Of note, patient snores a lot and talks in his sleep. Neurologic Exam -? NEURO: -? Mental Status: The patient is somnolent, .not aware to place or time,aware to and person. Normal fund of knowledge. Poor attention and difficulty following ocmplex multistep commands -? Language: speech is slurred .? Naming, repetition, fluency, and comprehension intact. -? Cranial Nerves: PERRL 4mm/brisk. EOMI, visual porras full, no facial asymmetry, facial sensation intact, hearing intact, tongue midline, no evidence of atrophy or fibrillations. Tremor in the LUE -? Motor: No pronator drift or satelliting. Upper and lower extremities equal bilaterally. -? Detailed strength exam as performed by the nurse/RONIT and witnessed by the physician: l R L SA 5 5 EE EF WE WF Handkerchief Sample Clerk 5 5 HF KE KF DF PF -? Tone: high tone but no cogwheeling in b/l UE and LE -? Sensation- Intact to light touch bilaterally -? Coordination: No dysmetria on [id number] b/l -? Gait- deferred [facility] Medical History CVA (cerebral vascular accident) Medical History unable to obtain Home Medications ?Medication ?Instructions ?Recorded ?Last Taken ?Type metoprolol succinate 25 mg 25 mg PO DAILY heart 04/25/25 History tablet,extended release 24 hr rosuvastatin 5 mg tablet 5 mg PO DAILY cholesterol 04/25/25 History Allergy/AdvReac Type Severity Reaction Status Date / Time doxycycline Allergy Unknown PT UNABLE Verified 04/26/25 08:08 TO RESPOND-NEEDS F/U oxycodone Allergy Unknown PT UNABLE Verified 04/26/25 08:08 TO RESPOND-NEEDS F/U Social History household members: spouse Smoking Status: Never smoker Vital Signs Vital Signs Vital Signs: 04/26/25 10:30 04/26/25 11:00 04/26/25 11:34 Temperature 97.6 F L 97.8 F 97.8 F Temperature Source Core Core Pulse Rate 82 85 85 Respiratory Rate 15 17 17 Respiratory Effort Respiratory Depth Respiratory Pattern Blood Pressure 166/81 H 165/84 H 165/84 H Blood Pressure Mean 106 111 111 Blood Pressure Source Blood Pressure Position Blood Pressure Location Pulse Ox 94 94 94 Oxygen Delivery Method 04/26/25 12:00 04/26/25 12:00 04/26/25 16:51 Temperature 97.0 F L Temperature Source Temporal Pulse Rate 82 Respiratory Rate 18 Respiratory Effort Non-Labored Respiratory Depth Normal Respiratory Pattern Normal Blood Pressure 168/83 H Blood Pressure Mean 111 Blood Pressure Source Monitor Blood Pressure Position Semi-Fowlers Blood Pressure Location Right Arm Pulse Ox 95 96 Oxygen Delivery Method Room Air Room Air 04/26/25 17:45 04/26/25 20:20 04/26/25 20:46 Temperature 97.6 F L 98.1 F Temperature Source Temporal Axillary Pulse Rate 78 89 Respiratory Rate 17 18 Respiratory Effort Normal Non-Labored Respiratory Depth Normal Respiratory Pattern Normal Blood Pressure 148/89 H 177/94 H Blood Pressure Mean 108 121 Blood Pressure Source Monitor Monitor Blood Pressure Position Semi-Fowlers Semi-Fowlers Blood Pressure Location Right Arm Right Arm Pulse Ox 96 93 Oxygen Delivery Method Room Air Room Air Room Air 04/26/25 20:57 04/26/25 22:09 04/26/25 22:10 Temperature Temperature Source Pulse Rate 98 98 Respiratory Rate Respiratory Effort Respiratory Depth Respiratory Pattern Blood Pressure 166/108 H 166/108 H Blood Pressure Mean 127 Blood Pressure Source Monitor Blood Pressure Position Semi-Fowlers Blood Pressure Location Right Arm Pulse Ox Oxygen Delivery Method Room Air 04/27/25 00:40 04/27/25 00:59 04/27/25 01:55 Temperature 98.1 F 97.4 F L Temperature Source Temporal Temporal Pulse Rate 97 97 89 Respiratory Rate 16 18 Respiratory Effort Respiratory Depth Respiratory Pattern Blood Pressure 174/81 H 174/81 H 174/84 H Blood Pressure Mean 112 114 Blood Pressure Source Monitor Monitor Blood Pressure Position Semi-Fowlers Semi-Fowlers Blood Pressure Location Right Arm Right Arm Pulse Ox 98 96 Oxygen Delivery Method Room Air Room Air 04/27/25 03:08 04/27/25 03:45 04/27/25 03:48 Temperature 97.5 F L Temperature Source Temporal Pulse Rate 89 93 Respiratory Rate 18 Respiratory Effort Normal Non-Labored Respiratory Depth Normal Respiratory Pattern Normal Blood Pressure 174/84 H 148/70 H Blood Pressure Mean 96 Blood Pressure Source Monitor Blood Pressure Position Semi-Fowlers Blood Pressure Location Right Arm Pulse Ox 96 Oxygen Delivery Method Room Air Room Air 04/27/25 08:00 04/27/25 09:38 Temperature Temperature Source Pulse Rate Respiratory Rate Respiratory Effort Normal Non-Labored Respiratory Depth Normal Respiratory Pattern Normal Blood Pressure Blood Pressure Mean Blood Pressure Source Blood Pressure Position Blood Pressure Location Pulse Ox 96 Oxygen Delivery Method Room Air Room Air Weight Weight: 65.6 kg Body Mass Index (BMI) 22.6 EEG Results Procedure Details EEG Procedure Details: EDWARD ARNOLD BOLMAN is a 84 year old M with a past medical history of , who presents for evaluation of Electroencephalogram on DATE at TIME Lab / Micro Data 04/27/25 04:14 04/27/25 04:14 Labs: Laboratory Results - last 24 hr 04/26/25 08:15: Magnesium 2.1 04/27/25 00:29: POC Glucose 108 H 04/27/25 04:14: WBC 9.8, RBC 4.99, Hgb 14.8, Hct 43.1, MCV 86.4, MCH 29.7, MCHC 34.3, RDW Std Deviation 39.7, RDW Coeff of Tim 12.7, Plt Count 223, MPV 10.7, Immature Gran % (Auto) 0.300, Neut % (Auto) 78.4 H, Lymph % (Auto) 11.5 L, Dyer % (Auto) 9.4, Eos % (Auto) 0.1, Baso % (Auto) 0.3, Absolute Neuts (auto) 7.7, Absolute Lymphs (auto) 1.12, Nucleated RBC % 0, Sodium 139, Potassium 3.6, Chloride 104, Carbon Dioxide 18.0 L, Anion Gap 17 H, BUN 24 H, Creatinine 1.44 H, Estim Creat Clear Calc 36.70 L, Est GFR (MDRD) Non-Af 49 L, BUN/Creatinine Ratio 16.5, Glucose 133 H, Hemoglobin A1c 6.2 H, Calcium 9.3, Triglycerides 68, Cholesterol 134, LDL Cholesterol, Calc 59, VLDL Cholesterol 14, HDL Cholesterol 61, Cholesterol/HDL Ratio 2.20, TSH 0.374 04/27/25 06:16: POC Glucose 145 H Imaging Radiology Impression Brain MRI 04/26/25 11:28 IMPRESSION: Motion artifact. No evidence of ischemia at this time. Chronic microvascular ischemic changes, volume loss. Reading Location: [id number] Active Medications Active Medications Active Medications: Current Medications Generic Name Dose Route Start Last Admin Trade Name Freq PRN Reason Stop Dose Admin Acetaminophen 650 mg 04/26/25 13:48 Acetaminophen 325 Mg Tablet PO Q6H PRN PRN Pain 1-10 Or Fever>100.7 Atorvastatin Calcium 40 mg 08/15/25 22:00 04/26/25 20:54 Atorvastatin Calcium 40 Mg Tablet PO Not Given QHS [facility] Enoxaparin Sodium 40 mg 04/27/25 10:00 Enoxaparin 40 Mg/0.4 Ml Syringe SC DAILY EMMANUEL Hydralazine HCl 5 mg 04/27/25 08:38 Hydralazine 20 Mg/Ml Vial IV Q4H PRN PRN SBP more than 160 mmHg Protocol Sodium Chloride 250 mls @ 15 mls/hr 04/26/25 12:10 IV .[id number] PRN Saline Flush Sodium Chloride 250 mls @ 15 mls/hr 04/26/25 12:10 IV .[id number] PRN Additional IVPB Infusion Labetalol HCl 20 mg 04/27/25 08:38 Labetalol 20 Mg/4 Ml Vial IV Q4H PRN PRN SBP>180 mmhg Ondansetron HCl 4 mg 04/26/25 13:48 Ondansetron 4 Mg/2 Ml Vial IV Q8H PRN PRN NAUSEA/VOMITING Risperidone 0.25 mg 04/27/25 10:00 Risperidone 0.25 Mg Tablet PO BID [facility] Protocol Senna/Docusate Sodium 2 tablet 04/26/25 22:00 04/26/25 20:54 Senna/Docusate Sodium 1 Tablet PO Not Given BID [facility] Sodium Chloride 10 - 40 ml 04/26/25 12:10 04/26/25 22:10 0.9% Saline Lock 10 Ml Syringe IV 10 ml UD PRN Administration SALINE FLUSH NIHSS NIHSS Nursing Documentation NIHSS Nursing Documentation: NIHSS: Ischemic Stroke/TIA Start: 04/26/25 11:44 Text: For ICU Patients: NIH sroke scale at Status: Complete presentation and every 2 hours or with change in RN caregiver Freq: [id number] Protocol: Activity Type Activity Date Activity User E-sign Co-sign Detail Recorded Client Recorded Date Recorded By Document 04/26/25 12:00 ML [id number] 04/26/25 12:47 ML 04/26/25 12:00 NIH Stroke Scale [NIHSS] A score of 0 is "normal" or asymptomatic . Total possible score is 42. Inpatient: RN or Physician to activate a stroke alert for onset of new stroke symptoms or with NIHSS increase >/= 3 points. Following change in neurological status, NIHSS will be performed per physician order or more frequently PRN. -1a. Level of Consciousness 0 - Alert; keenly responsive -1b. LOC Questions 2 - Answers NEITHER question correctly -1c. LOC Commands 2 - Performs NEITHER task correctly -2. Best Gaze 0 - Normal -3. Visual 0 - No visual loss -4. Facial Palsy 0 - Normal symmetrical movements -5a. Left Arm 3 - No effort against gravity ; arm falls -5b. Right Arm 3 - No effort against gravity ; arm falls -6a. Left Leg 3 - No effort against gravity ; leg falls to bed immediately -6b. Right Leg 3 - No effort against gravity ; leg falls to bed immediately -7. Limb Ataxia 2 - Present in 2 limbs -8. Sensory 2 - Severe to total sensory loss; -9. Best Language 2 - Severe aphasia; -10. Dysarthria 2 - Severe dysarthria; -11. Extinction and Inattention 1 - Visual, tactile, auditory, spatial, or personal inattention; -Total 25 Query Text:A score of 0 is "normal" or asymptomatic. Total possible score is 42 . ED: Notify Physician for NIHSS increase by > / = 3 points. Inpatient: RN or Physician to activate a stroke alert for NIHSS increase of > / = 3 points. Coma Scale [Assess] -Eye Opening Spontaneous -Motor Withdraws to Pain -Verbal Incomprehensibl e [Total] -Coma Scale Total 10 04/28/25 0025 <Electronically signed by Ela Rodriguez MD> Cosigner Signature (if applicable): CC: Dr. Chaitanya Hdez, ~ Signed [facility] Work Phone: [phone] Consult note [facility] Medical Records Department [address] [place] [address] Consultation - Neurology 04/27/25 1023 MR#: [id number] Acct: [id number] Name: LUL CHRISTINE Rep #:[id number] : 1940 84 From: Ela Rodriguez MD PCP: Dr. 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 On history, symptoms very likelyfrom the scopolamine as patient is improving. On history it seems that there maybe a progressive movement issue that needs to be evaluated and use of the anticholinergicmedication may have exacerbated this. Exam is largely non- focal without rigidity or signficiant tremor. Diagnosis: iatrogenic delirium from scopolamine Plan: continue delirium precautions can use 0.5mg BID of scheduled Klonopin to help with agitation I personally attended this patient and spent a total time of 45minutes evaluating this patient including clinical assessment, review of chart, medical history imaging, and determining appropriate treatment and workup. HPI Consult Data Date of Consult: 04/28/25 HPI Narrative HPI Narrative: LUL CHRISTINE, is a 84 M who is brought to ED with prehospital stroke for altered mental status, unable to speak, incoherent and snoring respirations since morning. Patient has been dizzy since October and prescribed scopolamine patch reported last night. Patient could not understand speech, couldnot verbalize/vocalize, insensible/incomprehensible words. He also restless. Last night he went to the restroom, had accident/incontinent and felldown. In the morning he was also less responsive. As per he had 1 CT scan in February and 1 MRI in December which did not in our system. MRI revealed 2strokes probably the cause of his fall in November/December. He said no headache change in vision chest pain shortness of breath abdominal pain or vomiting. He is not able to follow command regarding lifting the hands or legs or answered question of NIHSS but a stroke alert was called off. Neurologic History Pt states he feels ok and not in any pain. Pt states he is not aware where he isright now. No dizziness right now but it will come and go and will feel like dysequilibrium. Patient still confused compared to normal. night he had difficulty having a bowel movementand patient had fallen. He slept for a while and was yelling and upset and his speech seemed garbled. He Unclear if he hit his head. Normally does not have issues in the bathroom. He shuffles and does walk slower.Had 2 falls in Oct and November. Patient tried using the patch night and it was the very first time that it happened. He tried the patch for drooling. Patient was agitated all night and had no sleep. Nurse who had him yesterday states he was nonverbal but wide awake and staring catatonic and was jerking andhave myoclonic movements. Eyes stayed open during this time but able to follow commands during the event. Has been having visual hallucinations He has a ho r hip replacement and HTN/HLD. He has been having dizziness since Oct and have been working him up on that. No history of memory issues or dementia. Of note, patient snores a lot and talks in his sleep. Neurologic Exam -? NEURO: -? Mental Status: The patient is somnolent, .not aware to place or time,aware to and person. Normal fund of knowledge. Poor attention and difficulty following ocmplex multistep commands -? Language: speech is slurred .? Naming, repetition, fluency, and comprehension intact. -? Cranial Nerves: PERRL 4mm/brisk. EOMI, visual porras full, no facial asymmetry, facial sensation intact, hearing intact, tongue midline, no evidence of atrophy or fibrillations. Tremor in the LUE -? Motor: No pronator drift or satelliting. Upper and lower extremities equal bilaterally. -? Detailed strength exam as performed by the nurse/RONIT and witnessed by the physician: l R L SA 5 5 EE EF WE WF Handkerchief Sample Clerk 5 5 HF KE KF DF PF -? Tone: high tone but no cogwheeling in b/l UE and LE -? Sensation- Intact to light touch bilaterally -? Coordination: No dysmetria on [id number] b/l -? Gait- deferred [facility] Medical History CVA (cerebral vascular accident) Medical History unable to obtain Home Medications ?Medication ?Instructions ?Recorded ?Last Taken ?Type metoprolol succinate 25 mg 25 mg PO DAILY heart 04/25/25 History tablet,extended release 24 hr rosuvastatin 5 mg tablet 5 mg PO DAILY cholesterol 04/25/25 History Allergy/AdvReac Type Severity Reaction Status Date / Time doxycycline Allergy Unknown PT UNABLE Verified 04/26/25 08:08 TO RESPOND-NEEDS F/U oxycodone Allergy Unknown PT UNABLE Verified 04/26/25 08:08 TO RESPOND-NEEDS F/U Social History household members: spouse Smoking Status: Never smoker Vital Signs Vital Signs Vital Signs: 04/26/25 10:30 04/26/25 11:00 04/26/25 11:34 Temperature 97.6 F L 97.8 F 97.8 F Temperature Source Core Core Pulse Rate 82 85 85 Respiratory Rate 15 17 17 Respiratory Effort Respiratory Depth Respiratory Pattern Blood Pressure 166/81 H 165/84 H 165/84 H Blood Pressure Mean 106 111 111 Blood Pressure Source Blood Pressure Position Blood Pressure Location Pulse Ox 94 94 94 Oxygen Delivery Method 04/26/25 12:00 04/26/25 12:00 04/26/25 16:51 Temperature 97.0 F L Temperature Source Temporal Pulse Rate 82 Respiratory Rate 18 Respiratory Effort Non-Labored Respiratory Depth Normal Respiratory Pattern Normal Blood Pressure 168/83 H Blood Pressure Mean 111 Blood Pressure Source Monitor Blood Pressure Position Semi-Fowlers Blood Pressure Location Right Arm Pulse Ox 95 96 Oxygen Delivery Method Room Air Room Air 04/26/25 17:45 04/26/25 20:20 04/26/25 20:46 Temperature 97.6 F L 98.1 F Temperature Source Temporal Axillary Pulse Rate 78 89 Respiratory Rate 17 18 Respiratory Effort Normal Non-Labored Respiratory Depth Normal Respiratory Pattern Normal Blood Pressure 148/89 H 177/94 H Blood Pressure Mean 108 121 Blood Pressure Source Monitor Monitor Blood Pressure Position Semi-Fowlers Semi-Fowlers Blood Pressure Location Right Arm Right Arm Pulse Ox 96 93 Oxygen Delivery Method Room Air Room Air Room Air 04/26/25 20:57 04/26/25 22:09 04/26/25 22:10 Temperature Temperature Source Pulse Rate 98 98 Respiratory Rate Respiratory Effort Respiratory Depth Respiratory Pattern Blood Pressure 166/108 H 166/108 H Blood Pressure Mean 127 Blood Pressure Source Monitor Blood Pressure Position Semi-Fowlers Blood Pressure Location Right Arm Pulse Ox Oxygen Delivery Method Room Air 04/27/25 00:40 04/27/25 00:59 04/27/25 01:55 Temperature 98.1 F 97.4 F L Temperature Source Temporal Temporal Pulse Rate 97 97 89 Respiratory Rate 16 18 Respiratory Effort Respiratory Depth Respiratory Pattern Blood Pressure 174/81 H 174/81 H 174/84 H Blood Pressure Mean 112 114 Blood Pressure Source Monitor Monitor Blood Pressure Position Semi-Fowlers Semi-Fowlers Blood Pressure Location Right Arm Right Arm Pulse Ox 98 96 Oxygen Delivery Method Room Air Room Air 04/27/25 03:08 04/27/25 03:45 04/27/25 03:48 Temperature 97.5 F L Temperature Source Temporal Pulse Rate 89 93 Respiratory Rate 18 Respiratory Effort Normal Non-Labored Respiratory Depth Normal Respiratory Pattern Normal Blood Pressure 174/84 H 148/70 H Blood Pressure Mean 96 Blood Pressure Source Monitor Blood Pressure Position Semi-Fowlers Blood Pressure Location Right Arm Pulse Ox 96 Oxygen Delivery Method Room Air Room Air 04/27/25 08:00 04/27/25 09:38 Temperature Temperature Source Pulse Rate Respiratory Rate Respiratory Effort Normal Non-Labored Respiratory Depth Normal Respiratory Pattern Normal Blood Pressure Blood Pressure Mean Blood Pressure Source Blood Pressure Position Blood Pressure Location Pulse Ox 96 Oxygen Delivery Method Room Air Room Air Weight Weight: 65.6 kg Body Mass Index (BMI) 22.6 EEG Results Procedure Details EEG Procedure Details: LUL CHRISTINE is a 84 year old M with a past medical history of , who presents for evaluation of Electroencephalogram on DATE at TIME Lab / Micro Data 04/27/25 04:14 04/27/25 04:14 Labs: Laboratory Results - last 24 hr 04/26/25 08:15: Magnesium 2.1 04/27/25 00:29: POC Glucose 108 H 04/27/25 04:14: WBC 9.8, RBC 4.99, Hgb 14.8, Hct 43.1, MCV 86.4, MCH 29.7, MCHC 34.3, RDW Std Deviation 39.7, RDW Coeff of Tim 12.7, Plt Count 223, MPV 10.7, Immature Gran % (Auto) 0.300, Neut % (Auto) 78.4 H, Lymph % (Auto) 11.5 L, Dyer % (Auto) 9.4, Eos % (Auto) 0.1, Baso % (Auto) 0.3, Absolute Neuts (auto) 7.7, Absolute Lymphs (auto) 1.12, Nucleated RBC % 0, Sodium 139, Potassium 3.6, [id number], Carbon Dioxide 18.0 L, Anion Gap 17 H, BUN 24 H, Creatinine 1.44 H, Estim Creat Clear Calc 36.70 L, Est GFR (MDRD) Non-Af 49 L, BUN/Creatinine Ratio 16.5, Glucose 133 H, Hemoglobin A1c 6.2 H, Calcium 9.3, Triglycerides 68, Cholesterol 134, LDL Cholesterol, Calc 59, VLDL Cholesterol 14, HDL Cholesterol 61, Cholesterol/HDL Ratio 2.20, TSH 0.374 04/27/25 06:16: POC Glucose 145 H Imaging Radiology Impression Brain MRI 04/26/25 11:28 IMPRESSION: Motion artifact. No evidence of ischemia at this time. Chronic microvascular ischemic changes, volume loss. Reading Location: [id number] Active Medications Active Medications Active Medications: Current Medications Generic Name Dose Route Start Last Admin Trade Name Freq PRN Reason Stop Dose Admin Acetaminophen 650 mg 04/26/25 13:48 Acetaminophen 325 Mg Tablet PO Q6H PRN PRN Pain 1-10 Or Fever>100.7 Atorvastatin Calcium 40 mg 04/26/25 22:00 04/26/25 20:54 Atorvastatin Calcium 40 Mg Tablet PO Not Given QHS EMMANUEL Enoxaparin Sodium 40 mg 04/27/25 10:00 Enoxaparin 40 Mg/0.4 Ml Syringe SC DAILY [facility] Hydralazine HCl 5 mg 04/27/25 08:38 Hydralazine 20 Mg/Ml Vial IV Q4H PRN PRN SBP more than 160 mmHg Protocol Sodium Chloride 250 mls @ 15 mls/hr 04/26/25 12:10 IV .[id number] PRN Saline Flush Sodium Chloride 250 mls @ 15 mls/hr 04/26/25 12:10 IV .[id number] PRN Additional IVPB Infusion Labetalol HCl 20 mg 04/27/25 08:38 Labetalol 20 Mg/4 Ml Vial IV Q4H PRN PRN SBP>180 mmhg Ondansetron HCl 4 mg 04/26/25 13:48 Ondansetron 4 Mg/2 Ml Vial IV Q8H PRN PRN NAUSEA/VOMITING Risperidone 0.25 mg 04/27/25 10:00 Risperidone 0.25 Mg Tablet PO BID [facility] Protocol Senna/Docusate Sodium 2 tablet 04/26/25 22:00 04/26/25 20:54 Senna/Docusate Sodium 1 Tablet PO Not Given BID [facility] Sodium Chloride 10 - 40 ml 04/26/25 12:10 04/26/25 22:10 0.9% Saline Lock 10 Ml Syringe IV 10 ml UD PRN Administration SALINE FLUSH NIHSS NIHSS Nursing Documentation NIHSS Nursing Documentation: NIHSS: Ischemic Stroke/TIA Start: 04/26/25 11:44 Text: For ICU Patients: NIH sroke scale at Status: Complete presentation and every 2 hours or with change in RN caregiver Freq: [id number] Protocol: Activity Type Activity Date Activity User E-sign Co-sign Detail Recorded Client Recorded Date Recorded By Document 04/26/25 12:00 ML [id number] 04/26/25 12:47 ML 04/26/25 12:00 NIH Stroke Scale [NIHSS] A score of 0 is "normal" or asymptomatic . Total possible score is 42. Inpatient: RN or Physician to activate a stroke alert for onset of new stroke symptoms or with NIHSS increase >/= 3 points. Following change in neurological status, NIHSS will be performed per physician order or more frequently PRN. -1a. Level of Consciousness 0 - Alert; keenly responsive -1b. LOC Questions 2 - Answers NEITHER question correctly -1c. LOC Commands 2 - Performs NEITHER task correctly -2. Best Gaze 0 - Normal -3. Visual 0 - No visual loss -4. Facial Palsy 0 - Normal symmetrical movements -5a. Left Arm 3 - No effort against gravity ; arm falls -5b. Right Arm 3 - No effort against gravity ; arm falls -6a. Left Leg 3 - No effort against gravity ; leg falls to bed immediately -6b. Right Leg 3 - No effort against gravity ; leg falls to bed immediately -7. Limb Ataxia 2 - Present in 2 limbs -8. Sensory 2 - Severe to total sensory loss; -9. Best Language 2 - Severe aphasia; -10. Dysarthria 2 - Severe dysarthria; -11. Extinction and Inattention 1 - Visual, tactile, auditory, spatial, or personal inattention; -Total 25 Query Text:A score of 0 is "normal" or asymptomatic. Total possible score is 42 . ED: Notify Physician for NIHSS increase by > / = 3 points. Inpatient: RN or Physician to activate a stroke alert for NIHSS increase of > / = 3 points. Coma Scale [Assess] -Eye Opening Spontaneous -Motor Withdraws to Pain -Verbal Incomprehensibl e [Total] -Coma Scale Total 10 04/28/25 0025 Cosigner Signature (if applicable): CC: Dr. Chaitanya Hdez, DO~ Signed [facility]08-16-2025 Progress note Author Ugo Perera [facility] Note Date/Time April 27, 2025 2: 56pm [facility] Medical Records Department [address] [place] [id number] Progress Note - Hospitalist 04/27/25 1456 MR#: [id number] Acct: [id number] Name: LUL CHRISTINE Rep #:[id number] : 1940 84 From: Ugo Guardado PCP: Dr. Chaitanya Hdez, Status:ADM IN Location: ICU ICU04-1 Reason for Visit Chief Complaint: Altered mental status/speech abnormality today in the morning Objective Data Objective Data Vital Signs: Vital Signs Temp Pulse Resp BP Pulse Ox O2 Del Method 97.5 F L 93 18 148/70 H 96 Room Air 04/27/25 03:45 04/27/25 03:45 04/27/25 03:45 04/27/25 03:45 04/27/25 03:45 04/27/25 08:00 Oxygen Delivery Method Room Air Weight: 144 lb 9.972 oz Body Mass Index (BMI) 22.6 Intake & Output: Intake and Output for Last 24 Hours 04/25/25 04/26/25 04/27/25 23:59 23:59 23:59 Intake Total 1000 / 1000 1000 / 1000 Output Total 1600 / 1600 250 / 250 Balance -600 / -600 750 / 750 Lab / Micro Data 04/27/25 04:14 04/27/25 04:14 Labs: Laboratory Results - last 24 hr 04/26/25 08:15: Magnesium 2.1 04/27/25 00:29: POC Glucose 108 H 04/27/25 04:14: WBC 9.8, RBC 4.99, Hgb 14.8, Hct 43.1, MCV 86.4, MCH 29.7, MCHC 34.3, RDW Std Deviation 39.7, RDW Coeff of Tim 12.7, Plt Count 223, MPV 10.7, Immature Gran % (Auto) 0.300, Neut % (Auto) 78.4 H, Lymph % (Auto) 11.5 L, Dyer % (Auto) 9.4, Eos % (Auto) 0.1, Baso % (Auto) 0.3, Absolute Neuts (auto) 7.7, Absolute Lymphs (auto) 1.12, Nucleated RBC % 0, Sodium 139, Potassium 3.6, Chloride 104, Carbon Dioxide 18.0 L, Anion Gap 17 H, BUN 24 H, Creatinine 1.44 H, Estim Creat Clear Calc 36.70 L, Est GFR (MDRD) Non-Af 49 L, BUN/Creatinine Ratio 16.5, Glucose 133 H, Hemoglobin A1c 6.2 H, Calcium 9.3, Triglycerides 68, Cholesterol 134, LDL Cholesterol, Calc 59, VLDL Cholesterol 14, HDL Cholesterol 61, Cholesterol/HDL Ratio 2.20, TSH 0.374 04/27/25 06:16: POC Glucose 145 H Radiography Diagnostic Testing: Radiology Impression Brain MRI 04/26/25 11:28 IMPRESSION: Motion artifact. No evidence of ischemia at this time. Chronic microvascular ischemic changes, volume loss. Reading Location: [id number] Physical Exam Narrative Seen and examined twice in the morning and then afternoon Patient was restless and agitated pulled his Betancourt catheter yesterday. No fever. Dry mouth and his speech is better. Patient is more comprehendible withregards to his speech. Still disoriented to time and place. Still sees his 74 but his home address correct. In the afternoon around 1:45 PM: Patient was very agitated, thrashing his all 4 extremities and rotating on the bed. Physical exam General: Awake, restless, disoriented to time place. Mildly agitated and restless HEENT: Atraumatic, PERRLA, EOMI, Normocephalic. Oral: Oral mucosa very dry. Neck: Supple, No JVD, Negative Carotid Bruits Chest wall/Lungs: Air entry diminished in bilateral lung bases. Mild coarse crepitations Cardiovascular: Regular rate and rhythm, Normal S1,S2, No M/G/R Abdomen: Bowel Sounds Present, Soft, Non Tender, Non-Distended : No dysuria. No renal angle tenderness. No suprapubic tenderness. Extremities: No edema, Capillary Refill Less than 3 Seconds Skin: No rashes, No breakdown Musculoskeletal: No Tenderness to Palpation of Joints or Extremities. 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 Thrashing movement does not look like seizure. Language deficit and dysarthria improved. No stroke Psych/Mental Status: Flat affect Assessment & Plan Assessment/Plan (1) Altered mental status: PLAN: Plan This is a 84-year-old gentleman being admitted chiefly for altered mental status/language deficit and dysarthria 1. Mental status/language deficit both receptive and motor and dysarthria: Exact etiology unclear but possible metabolic encephalopathy/seizure or stroke. CT head does not show acute change. Usually he does not think it is stroke but most likely due to scopolamine adverse effect. MRI brain ordered. NIH stroke scale until MRI rules out a stroke. PT OT and speech evaluation. Twelve-lead EKG shows NSR 86 bpm. QTc 435 ms. TSH and A1c ordered for tomorrow a.m. 16/still disoriented to time and place. Could not sleep last night. Started on low-dose risperidone 0.25 mg twice daily. MRI brain does not show acute infarct with no evidence of ischemia. Motion artifact. Chronic microvascular changes with mild volume loss. EEG ordered. Teleneurology consult. the patient last evening was little agitated but in the morning his agitation got worse and in afternoon worse. About 1:03 PM, 2 mg IV Haldol and 12.5 mg IM Phenergan was given. Prior to that Risperdal 2.5 mg twice daily was started. Patient not able to take oral therefore Klonopin not given. He is not oriented,follows command or redirectable, agitated and extremities gets rigid with thrashing of all 4 extremities. He is being transferred to ICU to start on Precedex drip. Discussed with Dr. Rodriguez 2 times. She recommended Klonopin 0.5 mgtwice daily scheduled agent once it is safe to give oral. 2. Hypertension: Patient's showed me metoprolol succinate, midodrine. 3. Dyslipidemia: Atorvastatin 40 mg daily. Fasting lipid profile tomorrow. 4. Recently stroke in January 04: Surprisingly, patient not on aspirin or Plavix with history of stroke in December 2024. Rectal aspirin and statin ordered. 5. Kidney dysfunction: BUN/creatinine 37/1.72, estimated creatinine clearance about 30 mL/min. Unclear whether it is acute or chronic. 6. Hyperglycemia: Glucose 130. A1c tomorrow a.m. DVT prophylaxis: Lovenox 30 mg subcu daily Living will/advanced directive/end of life care: Patient does have living will or advanced directive. His , blossom is power of claims attorney for healthcare. After discussion of benefits/risks procedures involved with full code, DNR CC arrest and DNR CC, the patient side opted for DNR CC arrest with nointubation. Patient doesn't want artificial life support including intubation, tube feed, ventilator and/chest compression, central venous catheter, vasopressor and DC shock if needed Total time spent in [id number] encounter in discussion of advanced directive 17 minutes. Laboratory Results 04/26/25 08:19: Specimen Type ART, Sample Site L Brach, pH 7.48 H, Bicarbonate Actual 28.6 H, Total CO2 30, Base Excess 5 H, O2 Saturation 95, O2 % 2.0, ABG pCO2 38.2, ABG pO2 70 L, O2 Delivery Device Cannula, Vent Mode Not entered 04/26/25 08:24: Urine Color Yellow, Urine Clarity Clear, Urine pH 6.5, Ur Specific [place] 1.015, Urine Protein 30 H, Urine Glucose (UA) Normal, Urine Ketones Negative, Urine Occult Blood 10 H, Urine Nitrite Negative, Urine Bilirubin Negative, Urine Urobilinogen Normal, Ur Leukocyte Esterase Negative, Urine RBC 0 SEEN, Urine WBC 0 SEEN, Ur Squamous Epith Cells 0 SEEN, Urine Bacteria 0 SEEN, Urine Mucus 0 SEEN Laboratory Results 04/27/25 00:29: POC Glucose 108 H 04/27/25 04:14: WBC 9.8, RBC 4.99, Hgb 14.8, Hct 43.1, MCV 86.4, MCH 29.7, MCHC 34.3, RDW Std Deviation 39.7, RDW Coeff of Tim 12.7, Plt Count 223, MPV 10.7, Immature Gran % (Auto) 0.300, Neut % (Auto) 78.4 H, Lymph % (Auto) 11.5 L, Dyer % (Auto) 9.4, Eos % (Auto) 0.1, Baso % (Auto) 0.3, Absolute Neuts (auto) 7.7, Absolute Lymphs (auto) 1.12, Nucleated RBC % 0, Sodium 139, Potassium 3.6, Chloride 104, Carbon Dioxide 18.0 L, Anion Gap 17 H, BUN 24 H, Creatinine 1.44 H, Estim Creat Clear Calc 36.70 L, Est GFR (MDRD) Non-Af 49 L, BUN/Creatinine Ratio 16.5, Glucose 133 H, Hemoglobin A1c 6.2 H, Calcium 9.3, Triglycerides 68, Cholesterol 134, LDL Cholesterol, Calc 59, VLDL Cholesterol 14, HDL Cholesterol 61, Cholesterol/HDL Ratio 2.20, TSH 0.374 04/27/25 06:16: POC Glucose 145 H Clinical Impression(s) from Imaging Studies Chest X-Ray 04/26/25 08:08 IMPRESSION: No Acute Findings. Reading Location: [facility] 04/26/25 08:09 IMPRESSION: CHRONIC CHANGES. NO ACUTE FINDINGS. Reading Location: [facility] Brain MRI 04/26/25 11:28 IMPRESSION: Motion artifact. No evidence of ischemia at this time. Chronic microvascular ischemic changes, volume loss. Charges/Coding Addendum Addendum: Total time of the visit including total time spent in counseling or coordinationof care, (more than 50% of the total time, spent in obtaining medical information from nurses and other ancillary care providers ,explaining to the patient about labs, imaging, diagnosis and management of active complex medical conditions), involuntary musculoskeletal movement, agitation, examined twice, review of labs and imaging and discussion with patient's and neurologist is 45 minutes. Patient transferred to ICU Visit Charges Inpatient E&M: [id number] Subs Hosp L3 NIHSS NIHSS Nursing Documentation NIHSS Nursing Documentation: NIHSS: Ischemic Stroke/TIA Start: 04/26/25 11:44 Text: For ICU Patients: NIH sroke scale at Status: Complete presentation and every 2 hours or with change in RN caregiver Freq: [id number] Protocol: Activity Type Activity Date Activity User E-sign Co-sign Detail Recorded Client Recorded Date Recorded By Document 04/26/25 12:00 ML [id number] 04/26/25 12:47 ML 04/26/25 12:00 NIH Stroke Scale [NIHSS] A score of 0 is "normal" or asymptomatic . Total possible score is 42. Inpatient: RN or Physician to activate a stroke alert for onset of new stroke symptoms or with NIHSS increase >/= 3 points. Following change in neurological status, NIHSS will be performed per physician order or more frequently PRN. -1a. Level of Consciousness 0 - Alert; keenly responsive -1b. LOC Questions 2 - Answers NEITHER question correctly -1c. LOC Commands 2 - Performs NEITHER task correctly -2. Best Gaze 0 - Normal -3. Visual 0 - No visual loss -4. Facial Palsy 0 - Normal symmetrical movements -5a. Left Arm 3 - No effort against gravity ; arm falls -5b. Right Arm 3 - No effort against gravity ; arm falls -6a. Left Leg 3 - No effort against gravity ; leg falls to bed immediately -6b. Right Leg 3 - No effort against gravity ; leg falls to bed immediately -7. Limb Ataxia 2 - Present in 2 limbs -8. Sensory 2 - Severe to total sensory loss; -9. Best Language 2 - Severe aphasia; -10. Dysarthria 2 - Severe dysarthria; -11. Extinction and Inattention 1 - Visual, tactile, auditory, spatial, or personal inattention; -Total 25 Query Text:A score of 0 is "normal" or asymptomatic. Total possible score is 42 . ED: Notify Physician for NIHSS increase by > / = 3 points. Inpatient: RN or Physician to activate a stroke alert for NIHSS increase of > / = 3 points. Coma Scale [Assess] -Eye Opening Spontaneous -Motor Withdraws to Pain -Verbal Incomprehensibl e [Total] -Coma Scale Total 10 04/27/25 0545 <Electronically signed by Ugo Perera MD> Cosigner Signature (if applicable): CC: ~ Signed [facility] Work Phone: [phone] 480-533608-16-2025 Progress note [facility] Medical Records Department [address] [place] [address] Progress Note - Hospitalist 04/27/25 7291 MR#: [id number] Acct: [id number] Name: LUL CHRISTINE Rep #:[id number] : 1940 84 From: Ugo Guardado PCP: Dr. Chaitanya Hdez, DO Status:ADM IN Location: ICU ICU04-1 Reason for Visit Chief Complaint: Altered mental status/speech abnormality today in the morning Objective Data Objective Data Vital Signs: Vital Signs Temp Pulse Resp BP Pulse Ox O2 Del Method 97.5 F L 93 18 148/70 H 96 Room Air 04/27/25 03:45 04/27/25 03:45 04/27/25 03:45 04/27/25 03:45 04/27/25 03:45 04/27/25 08:00 Oxygen Delivery Method Room Air Weight: 144 lb 9.972 oz Body Mass Index (BMI) 22.6 Intake & Output: Intake and Output for Last 24 Hours 04/25/25 04/26/25 04/27/25 23:59 23:59 23:59 Intake Total 1000 / 1000 1000 / 1000 Output Total 1600 / 1600 250 / 250 Balance -600 / -600 750 / 750 Lab / Micro Data 04/27/25 04:14 04/27/25 04:14 Labs: Laboratory Results - last 24 hr 04/26/25 08:15: Magnesium 2.1 04/27/25 00:29: POC Glucose 108 H 04/27/25 04:14: WBC 9.8, RBC 4.99, Hgb 14.8, Hct 43.1, MCV 86.4, MCH 29.7, MCHC 34.3, RDW Std Deviation 39.7, RDW Coeff of Tim 12.7, Plt Count 223, MPV 10.7, Immature Gran % (Auto) 0.300, Neut % (Auto) 78.4 H, Lymph % (Auto) 11.5 L, Dyer % (Auto) 9.4, Eos % (Auto) 0.1, Baso % (Auto) 0.3, Absolute Neuts (auto) 7.7, Absolute Lymphs (auto) 1.12, Nucleated RBC % 0, Sodium 139, Potassium 3.6, [id number], Carbon Dioxide 18.0 L, Anion Gap 17 H, BUN 24 H, Creatinine 1.44 H, Estim Creat Clear Calc 36.70 L, Est GFR (MDRD) Non-Af 49 L, BUN/Creatinine Ratio 16.5, Glucose 133 H, Hemoglobin A1c 6.2 H, Calcium 9.3, Triglycerides 68, Cholesterol 134, LDL Cholesterol, Calc 59, VLDL Cholesterol 14, HDL Cholesterol 61, Cholesterol/HDL Ratio 2.20, TSH 0.374 04/27/25 06:16: POC Glucose 145 H Radiography Diagnostic Testing: Radiology Impression Brain MRI 04/26/25 11:28 IMPRESSION: Motion artifact. No evidence of ischemia at this time. Chronic microvascular ischemic changes, volume loss. Reading Location: [id number] Physical Exam Narrative Seen and examined twice in the morning and then afternoon Patient was restless and agitated pulled his Betancourt catheter yesterday. No fever. Dry mouth and his speech is better. Patient is more comprehendible withregards to his speech. Still disoriented to time and place. Still sees his 74 but his home address correct. In the afternoon around 1:45 PM: Patient was very agitated, thrashing his all 4 extremities and rotating on the bed. Physical exam General: Awake, restless, disoriented to time place. Mildly agitated and restless HEENT: Atraumatic, PERRLA, EOMI, Normocephalic. Oral: Oral mucosa very dry. Neck: Supple, No JVD, Negative Carotid Bruits Chest wall/Lungs: Air entry diminished in bilateral lung bases. Mild coarse crepitations Cardiovascular: Regular rate and rhythm, Normal S1,S2, No M/G/R Abdomen: Bowel Sounds Present, Soft, Non Tender, Non-Distended : No dysuria. No renal angle tenderness. No suprapubic tenderness. Extremities: No edema, Capillary Refill Less than 3 Seconds Skin: No rashes, No breakdown Musculoskeletal: No Tenderness to Palpation of Joints or Extremities. 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 Thrashing movement does not look like seizure. Language deficit and dysarthria improved. No stroke Psych/Mental Status: Flat affect Assessment & Plan Assessment/Plan (1) Altered mental status: PLAN: Plan This is a 84-year-old gentleman being admitted chiefly for altered mental status/language deficit and dysarthria 1. Mental status/language deficit both receptive and motor and dysarthria: Exact etiology unclear but possible metabolic encephalopathy/seizure or stroke. CT head does not show acute change. Usually he does not think it is stroke but most likely due to scopolamine adverse effect. MRI brain ordered.NIH stroke scale until MRI rules out a stroke. PT OT and speech evaluation. Twelve-lead EKG shows NSR 86 bpm. QTc 435 ms. TSH and A1c ordered for tomorrow a.m. 04/27/still disoriented to time and place. Could not sleep last night. Started on low-dose risperidone 0.25 mg twice daily. MRI brain does not show acute infarct with no evidence of ischemia. Motion artifact. Chronic microvascular changes with mild volume loss. EEG ordered. Teleneurology consult. the patient last evening was little agitated but in the morning his agitation got worse and in afternoon worse. About 1:03 PM, 2 mg IV Haldol and 12.5 mg IM Phenergan was given. Prior to that Risperdal 2.5 mg twice daily was started. Patient not able to take oral therefore Klonopin not given. He isnot oriented,follows command or redirectable, agitated and extremities gets rigid with thrashing ofall 4 extremities. He is being transferred to ICU to start on Precedex drip. Discussed with Dr. Rodriguez2 times. She recommended Klonopin 0.5 mgtwice daily scheduled agent once it is safe to give oral. 2. Hypertension: Patient's showed me metoprolol succinate, midodrine. 3. Dyslipidemia: Atorvastatin 40 mg daily. Fasting lipid profile tomorrow. 4. Recently stroke in January 04: Surprisingly, patient not on aspirin or Plavix with history of stroke in December 2024. Rectal aspirin and statin ordered. 5. Kidney dysfunction: BUN/creatinine 37/1.72, estimated creatinine clearance about 30 mL/min. Unclear whether it is acute or chronic. 6. Hyperglycemia: Glucose 130. A1c tomorrow a.m. DVT prophylaxis: Lovenox 30 mg subcu daily Living will/advanced directive/end of life care: Patient does have living will or advanced directive. His , blossom is power of claims attorney for healthcare. After discussion of benefits/risks procedures involved with full code, DNR CC arrest and DNR CC, the patient side opted for DNR CC arrestwith nointubation. Patient doesn't want artificial life support including intubation, tube feed, ventilator and/chest compression, central venous catheter, vasopressor and DC shock if needed Total time spent in [id number] encounter in discussion of advanced directive 17 minutes. Laboratory Results 04/26/25 08:19: Specimen Type ART, Sample Site L Brach, pH 7.48 H, Bicarbonate Actual 28.6 H, TotalCO2 30, Base Excess 5 H, O2 Saturation 95, O2 % 2.0, ABG pCO2 38.2, ABG pO2 70 L, O2 Delivery Device Cannula, Vent Mode Not entered 04/26/25 08:24: Urine Color Yellow, Urine Clarity Clear, Urine pH 6.5, Ur Specific [place] 1.015, Urine Protein 30 H, Urine Glucose (UA) Normal, Urine Ketones Negative, Urine Occult Blood 10 H, UrineNitrite Negative, Urine Bilirubin Negative, Urine Urobilinogen Normal, Ur Leukocyte Esterase Negative, Urine RBC 0 SEEN, Urine WBC 0 SEEN, Ur Squamous Epith Cells 0 SEEN, Urine Bacteria 0 SEEN, UrineMucus 0 SEEN Laboratory Results 04/27/25 00:29: POC Glucose 108 H 04/27/25 04:14: WBC 9.8, RBC 4.99, Hgb 14.8, Hct 43.1, MCV 86.4, MCH 29.7, MCHC 34.3, RDW Std Deviation 39.7, RDW Coeff of Tim 12.7, Plt Count 223, MPV 10.7, Immature Gran % (Auto) 0.300, Neut % (Auto) 78.4 H, Lymph % (Auto) 11.5 L, Dyer % (Auto) 9.4, Eos % (Auto) 0.1, Baso % (Auto) 0.3, Absolute Neuts (auto) 7.7, Absolute Lymphs (auto) 1.12, Nucleated RBC % 0, Sodium 139, Potassium 3.6, [id number], Carbon Dioxide 18.0 L, Anion Gap 17 H, BUN 24 H, Creatinine 1.44 H, Estim Creat Clear Calc 36.70 L, Est GFR (MDRD) Non-Af 49 L, BUN/Creatinine Ratio 16.5, Glucose 133 H, Hemoglobin A1c 6.2 H, Calcium 9.3, Triglycerides 68, Cholesterol 134, LDL Cholesterol, Calc 59, VLDL Cholesterol 14, HDL Cholesterol 61, Cholesterol/HDL Ratio 2.20, TSH 0.374 04/27/25 06:16: POC Glucose 145 H Clinical Impression(s) from Imaging Studies Chest X-Ray 04/26/25 08:08 IMPRESSION: No Acute Findings. [facility] 04/26/25 08:09 IMPRESSION: CHRONIC CHANGES. NO ACUTE FINDINGS. Reading Location: [facility]-IR-1 Brain MRI 04/26/25 11:28 IMPRESSION: Motion artifact. No evidence of ischemia at this time. Chronic microvascular ischemic changes, volume loss. Charges/Coding Addendum Addendum: Total time of the visit including total time spent in counseling or coordinationof care, (more than50% of the total time, spent in obtaining medical information from nurses and other ancillary care providers ,explaining to the patient about labs, imaging, diagnosis and management of active complexmedical conditions), involuntary musculoskeletal movement, agitation, examined twice, review of labs and imaging and discussion with patient's and neurologist is 45 minutes. Patient transferred to ICU Visit Charges Inpatient E&M: 07010 Subs Hosp L3 NIHSS NIHSS Nursing Documentation NIHSS Nursing Documentation: NIHSS: Ischemic Stroke/TIA Start: 04/26/25 11:44 Text: For ICU Patients: NIH sroke scale at Status: Complete presentation and every 2 hours or with change in RN caregiver Freq: [id number] Protocol: Activity Type Activity Date Activity User E-sign Co-sign Detail Recorded Client Recorded Date Recorded By Document 04/26/25 12:00 ML [id number] 04/26/25 12:47 ML 04/26/25 12:00 NIH Stroke Scale [NIHSS] A score of 0 is "normal" or asymptomatic . Total possible score is 42. Inpatient: RN or Physician to activate a stroke alert for onset of new stroke symptoms or with NIHSS increase >/= 3 points. Following change in neurological status, NIHSS will be performed per physician order or more frequently PRN. -1a. Level of Consciousness 0 - Alert; keenly responsive -1b. LOC Questions 2 - Answers NEITHER question correctly -1c. LOC Commands 2 - Performs NEITHER task correctly -2. Best Gaze 0 - Normal -3. Visual 0 - No visual loss -4. Facial Palsy 0 - Normal symmetrical movements -5a. Left Arm 3 - No effort against gravity ; arm falls -5b. Right Arm 3 - No effort against gravity ; arm falls -6a. Left Leg 3 - No effort against gravity ; leg falls to bed immediately -6b. Right Leg 3 - No effort against gravity ; leg falls to bed immediately -7. Limb Ataxia 2 - Present in 2 limbs -8. Sensory 2 - Severe to total sensory loss; -9. Best Language 2 - Severe aphasia; -10. Dysarthria 2 - Severe dysarthria; -11. Extinction and Inattention 1 - Visual, tactile, auditory, spatial, or personal inattention; -Total 25 Query Text:A score of 0 is "normal" or asymptomatic. Total possible score is 42 . ED: Notify Physician for NIHSS increase by > / = 3 points. Inpatient: RN or Physician to activate a stroke alert for NIHSS increase of > / = 3 points. Coma Scale [Assess] -Eye Opening Spontaneous -Motor Withdraws to Pain -Verbal Incomprehensibl e [Total] -Coma Scale Total 10 04/27/25 1456 Cosigner Signature (if applicable): CC: ~ Signed [facility]08-15-2025 History and physical note Author Ugo Perera [facility] Note Date/Time April 26, 2025 4: 14pm [facility] Medical Records Department [address] [place] [address] H&P Exam - Hospitalist 04/26/25 1043 MR#: [id number] Acct: [id number] Name: LUL CHRISTINE Rep #:[id number] : 1940 84 From: Ugo Guardado PCP: Dr. Chaitanya Hdez, DO Status:ADM IN Location: [address] 1 HPI - General General Date of Admission: 04/26/25 Date of Service: 04/26/25 Chief Complaint: Altered mental status/speech abnormality today in the morning HPI Narrative LUL CHRISTINE, is a 84 M who is brought to ED with prehospital stroke for altered mental status, unable to speak, incoherent and snoring respirations since morning. Patient has been dizzy since October and prescribed scopolamine patch reported last night. Patient could not understand speech, could not verbalize/vocalize, insensible/incomprehensible words. He also restless. Last night he went to the restroom, had accident/incontinent and felldown. In the morning he was also less responsive. As per he had 1 CT scan in February and 1 MRI in December which did not in our system. MRI revealed 2 strokes probably the cause of his fall in November/December. He said no headache change in vision chest pain shortness of breath abdominal pain or vomiting. He is not able to follow command regarding lifting the hands or legs or answered question of NIHSS but a stroke alert was called off. [facility] Medical History CVA (cerebral vascular accident) Medical History unable to obtain Allergy/AdvReac Type Severity Reaction Status Date / Time doxycycline Allergy Unknown PT UNABLE Verified 04/26/25 08:08 TO RESPOND-NEEDS F/U oxycodone Allergy Unknown PT UNABLE Verified 04/26/25 08:08 TO RESPOND-NEEDS F/U Social History household members: spouse Smoking Status: Never smoker ROS ROS Narrative 14 system ROS unobtainable due to altered mental status Review of Systems ROS Unobtainable: due to encephalopathy and due to mental status Vital Signs Vital Signs Vital Signs: 04/26/25 08:04 04/26/25 08:12 04/26/25 [...] 92 93 Oxygen Delivery Method Room Air Weight Weight: 139 lb 1.787 oz Body Mass Index (BMI) 19.9 Physical Exam Narrative General: Awake, restless, disoriented to time place and person. Mildly agitated HEENT: Atraumatic, PERRLA, EOMI, Normocephalic. Oral: Oral mucosa very dry. Neck: Supple, No JVD, Negative Carotid Bruits Chest wall/Lungs: Air entry diminished in bilateral lung bases. Mild coarse crepitations Cardiovascular: Regular rate and rhythm, Normal S1,S2, No M/G/R Abdomen: Bowel Sounds Present, Soft, Non Tender, Non-Distended : No dysuria. No renal angle tenderness. No suprapubic tenderness. Extremities: No edema, Capillary Refill Less than 3 Seconds Skin: No rashes, No breakdown Musculoskeletal: No Tenderness to Palpation of Joints or Extremities. 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 Detailed neuroexam unobtainable. Language deficits. Dysarthria Psych/Mental Status: Flat affect Results Lab / Micro Data 04/26/25 08:15 04/26/25 08:15 Labs: Laboratory Results - last 24 hr 04/26/25 08:15: WBC 7.9, RBC 4.84, Hgb 14.4, Hct 42.3, MCV 87.4, MCH 29.8, MCHC 34.0, RDW Std Deviation 41.0, RDW Coeff of Tim 12.9, Plt Count 217, MPV 10.4, Immature Gran % (Auto) 0.400, Neut % (Auto) 64.0, Lymph % (Auto) 21.8, Dyer % (Auto) 11.0 H, Eos % (Auto) 2.3, Baso % (Auto) 0.5, Absolute Neuts (auto) 5.1, Absolute Lymphs (auto) 1.73, Nucleated RBC % 0, PT 14.2, INR 1.1, APTT 24.5, Sodium 140, Potassium 4.1, Chloride 104, Carbon Dioxide 23.3, Anion Gap 13, BUN 37 H, Creatinine 1.72 H, Estim Creat Clear Calc 29.55 L, Est GFR (MDRD) Non-Af 39 L, BUN/Creatinine Ratio 21.4 H, Glucose 113 H, Lactic Acid 1.1, Calcium 9.7, Total Bilirubin 0.60, AST 24, ALT 19, Alkaline Phosphatase 71, Total Protein 7.2, Albumin 4.1, Globulin 3.2, Albumin/Globulin Ratio 1.3 04/26/25 08:24: Urine Color Yellow, Urine Clarity Clear, Urine pH 6.5, Ur Specific [place] 1.015, Urine Protein 30 H, Urine Glucose (UA) Normal, Urine Ketones Negative, Urine Occult Blood 10 H, Urine Nitrite Negative, Urine Bilirubin Negative, Urine Urobilinogen Normal, Ur Leukocyte Esterase Negative, Urine RBC 0 SEEN, Urine WBC 0 SEEN, Ur Squamous Epith Cells 0 SEEN, Urine Bacteria 0 SEEN, Urine Mucus 0 SEEN ABG Data ABG results: ABG 04/26/25 08:19 Specimen Type ART Sample Site L Brach pH 7.48 H Bicarbonate Actual 28.6 H Total CO2 30 Base Excess 5 H O2 Saturation 95 O2 % 2.0 ABG pCO2 38.2 ABG pO2 70 L O2 Delivery Device Cannula Vent Mode Not entered Imaging Radiology Impression Chest X-Ray 04/26/25 08:08 IMPRESSION: No Acute Findings. Reading Location: [facility]--[address] 04/26/25 08:09 IMPRESSION: CHRONIC CHANGES. NO ACUTE FINDINGS. Reading Location: [facility]IR-1 Assessment & Plan Assessment/Plan (1) Altered mental status: PLAN: Plan This is a 84-year-old gentleman being admitted chiefly for altered mental status/language deficit and dysarthria 1. Mental status/language deficit both receptive and motor and dysarthria: Exact etiology unclear but possible metabolic encephalopathy/seizure or stroke. CT head does not show acute change. Usually he does not think it is stroke but most likely due to scopolamine adverse effect. MRI brain ordered. NIH stroke scale until MRI rules out a stroke. PT OT and speech evaluation. Twelve-lead EKG shows NSR 86 bpm. QTc 435 ms. TSH and A1c ordered for tomorrow a.m. 2. Hypertension: Patient's showed me metoprolol succinate, midodrine. 3. Dyslipidemia: Atorvastatin 40 mg daily. Fasting lipid profile tomorrow. 4. Recently stroke in January 04: Surprisingly, patient not on aspirin or Plavix with history of stroke in December 2024. Rectal aspirin and statin ordered. 5. Kidney dysfunction: BUN/creatinine 37/1.72, estimated creatinine clearance about 30 mL/min. Unclear whether it is acute or chronic. 6. Hyperglycemia: Glucose 130. A1c tomorrow a.m. DVT prophylaxis: Lovenox 30 mg subcu daily Living will/advanced directive/end of life care: Patient does have living will or advanced directive. His , blossom is power of claims attorney for healthcare. After discussion of benefits/risks procedures involved with full code, DNR CC arrest and DNR CC, the patient side opted for DNR CC arrest with nointubation. Patient doesn't want artificial life support including intubation, tube feed, ventilator and/chest compression, central venous catheter, vasopressor and DC shock if needed Total time spent in endv-ld-xsps encounter in discussion of advanced directive 17 minutes. Laboratory Results 04/26/25 08:15: WBC 7.9, RBC 4.84, Hgb 14.4, Hct 42.3, MCV 87.4, MCH 29.8, MCHC 34.0, RDW Std Deviation 41.0, RDW Coeff of Tim 12.9, Plt Count 217, MPV 10.4, Immature Gran % (Auto) 0.400, Neut % (Auto) 64.0, Lymph % (Auto) 21.8, Dyer % (Auto) 11.0 H, Eos % (Auto) 2.3, Baso % (Auto) 0.5, Absolute Neuts (auto) 5.1, Absolute Lymphs (auto) 1.73, Nucleated RBC % 0, PT 14.2, INR 1.1, APTT 24.5, Sodium 140, Potassium 4.1, Chloride 104, Carbon Dioxide 23.3, Anion Gap 13, BUN 37 H, Creatinine 1.72 H, Estim Creat Clear Calc 29.55 L, Est GFR (MDRD) Non-Af 39 L, BUN/Creatinine Ratio 21.4 H, Glucose 113 H, Lactic Acid 1.1, Calcium 9.7, Magnesium Pending, Total Bilirubin 0.60, AST 24, ALT 19, Alkaline Phosphatase 71, Total Protein 7.2, Albumin 4.1, Globulin 3.2, Albumin/Globulin Ratio 1.3 04/26/25 08:19: Specimen Type ART, Sample Site L Brach, pH 7.48 H, Bicarbonate Actual 28.6 H, Total CO2 30, Base Excess 5 H, O2 Saturation 95, O2 % 2.0, ABG pCO2 38.2, ABG pO2 70 L, O2 Delivery Device Cannula, Vent Mode Not entered 04/26/25 08:24: Urine Color Yellow, Urine Clarity Clear, Urine pH 6.5, Ur Specific [place] 1.015, Urine Protein 30 H, Urine Glucose (UA) Normal, Urine Ketones Negative, Urine Occult Blood 10 H, Urine Nitrite Negative, Urine Bilirubin Negative, Urine Urobilinogen Normal, Ur Leukocyte Esterase Negative, Urine RBC 0 SEEN, Urine WBC 0 SEEN, Ur Squamous Epith Cells 0 SEEN, Urine Bacteria 0 SEEN, Urine Mucus 0 SEEN Charges/Coding Visit Charges Inpatient E&M: 67175 Init Hosp L3 Procedures Hospitalists Procedures: 10885 Advncd Care Plan 30 Min 04/26/25 1205 <Electronically signed by Ugo Perera MD> Cosigner Signature (if applicable): CC: Dr. Ugo Perera MD; Dr. Chaitanya Hdez, DO~ Signed ADDENDUM by Dr. Ugo Perera MD on 04/26/25 at 1614 Addendum MRI brain shows no evidence of ischemia but chronic microvascular ischemic changes and volume loss. EEG. Neurology consult. Laboratory Results 04/26/25 08:15: WBC 7.9, RBC 4.84, Hgb 14.4, Hct 42.3, MCV 87.4, MCH 29.8, MCHC 34.0, RDW Std Deviation 41.0, RDW Coeff of Tim 12.9, Plt Count 217, MPV 10.4, Immature Gran % (Auto) 0.400, Neut % (Auto) 64.0, Lymph % (Auto) 21.8, Dyer % (Auto) 11.0 H, Eos % (Auto) 2.3, Baso % (Auto) 0.5, Absolute Neuts (auto) 5.1, Absolute Lymphs (auto) 1.73, Nucleated RBC % 0, PT 14.2, INR 1.1, APTT 24.5, Sodium 140, Potassium 4.1, Chloride 104, Carbon Dioxide 23.3, Anion Gap 13, BUN 37 H, Creatinine 1.72 H, Estim Creat Clear Calc 29.55 L, Est GFR (MDRD) Non-Af 39 L, BUN/Creatinine Ratio 21.4 H, Glucose 113 H, Lactic Acid 1.1, Calcium 9.7, Magnesium 2.1, Total Bilirubin 0.60, AST 24, ALT 19, Alkaline Phosphatase 71, Total Protein 7.2, Albumin 4.1, Globulin 3.2, Albumin/Globulin Ratio 1.3 04/26/25 08:19: Specimen Type ART, Sample Site L Brach, pH 7.48 H, Bicarbonate Actual 28.6 H, Total CO2 30, Base Excess 5 H, O2 Saturation 95, O2 % 2.0, ABG pCO2 38.2, ABG pO2 70 L, O2 Delivery Device Cannula, Vent Mode Not entered 04/26/25 08:24: Urine Color Yellow, Urine Clarity Clear, Urine pH 6.5, Ur Specific [place] 1.015, Urine Protein 30 H, Urine Glucose (UA) Normal, Urine Ketones Negative, Urine Occult Blood 10 H, Urine Nitrite Negative, Urine Bilirubin Negative, Urine Urobilinogen Normal, Ur Leukocyte Esterase Negative, Urine RBC 0 SEEN, Urine WBC 0 SEEN, Ur Squamous Epith Cells 0 SEEN, Urine Bacteria 0 SEEN, Urine Mucus 0 SEEN Clinical Impression(s) from Imaging Studies Chest X-Ray 04/26/25 08:08 IMPRESSION: No Acute Findings. Reading Location: [place] [address] 04/26/25 08:09 IMPRESSION: CHRONIC CHANGES. NO ACUTE FINDINGS. Reading Location: [place] [address] Brain MRI 04/26/25 11:28 IMPRESSION: Motion artifact. No evidence of ischemia at this time. Chronic microvascular ischemic changes, volume loss. Reading Location: [facility] 04/26/25 1614<Electronically signed by Ugo Perera MD> Cosigner Signature (if applicable): cc: Dr. Ugo Perera MD; Dr. Chaitanya Hdez, DO ~* Signed [facility] Work Phone: [phone] 379-864608-15-2025 History and physical note [facility] Medical Records Department [address] [place] [id number] H&P Exam - Hospitalist 04/26/25 1043 MR#: [id number] Acct: [id number] Name: LUL CHRISTINE Rep #:[id number] : 1940 84 From: Ugo Guardado PCP: Dr. Chaitanya Hdez, DO Status:ADM IN Location: [facility]- 1 HPI - General General Date of Admission: 04/26/25 Date of Service: 04/26/25 Chief Complaint: Altered mental status/speech abnormality today in the morning HPI Narrative LUL CHRISTINE, is a 84 M who is brought to ED with prehospital stroke for altered mental status, unable to speak, incoherent and snoring respirations since morning. Patient has been dizzy since October and prescribed scopolamine patch reported last night. Patient could not understand speech, couldnot verbalize/vocalize, insensible/incomprehensible words. He also restless. Last night he went to the restroom, had accident/incontinent and felldown. In the morning he was also less responsive. As per he had [address] scan in February and 1 MRI in December which did not in our system. MRI revealed 2strokes probably the cause of his fall in November/December. He said no headache change in vision chest pain shortness of breath abdominal pain or vomiting. He is not able to follow command regarding lifting the hands or legs or answered question of NIHSS but a stroke alert was called off. [facility] Medical History CVA (cerebral vascular accident) Medical History unable to obtain Allergy/AdvReac Type Severity Reaction Status Date / Time doxycycline Allergy Unknown PT UNABLE Verified 04/26/25 08:08 TO RESPOND-NEEDS F/U oxycodone Allergy Unknown PT UNABLE Verified 04/26/25 08:08 TO RESPOND-NEEDS F/U Social History household members: spouse Smoking Status: Never smoker ROS ROS Narrative 14 system ROS unobtainable due to altered mental status Review of Systems ROS Unobtainable: due to encephalopathy and due to mental status Vital Signs Vital Signs Vital Signs: 04/26/25 08:04 04/26/25 08:12 04/26/25 [...] Oxygen Delivery Method Room Air 04/26/25 09:16 08/15/25 09:30 04/26/25 09:45 Temperature 96.9 F L [...] 92 93 Oxygen Delivery Method Room Air Weight Weight: 139 lb 1.787 oz Body Mass Index (BMI) 19.9 Physical Exam Narrative General: Awake, restless, disoriented to time place and person. Mildly agitated HEENT: Atraumatic, PERRLA, EOMI, Normocephalic. Oral: Oral mucosa very dry. Neck: Supple, No JVD, Negative Carotid Bruits Chest wall/Lungs: Air entry diminished in bilateral lung bases. Mild coarse crepitations Cardiovascular: Regular rate and rhythm, Normal S1,S2, No M/G/R Abdomen: Bowel Sounds Present, Soft, Non Tender, Non-Distended : No dysuria. No renal angle tenderness. No suprapubic tenderness. Extremities: No edema, Capillary Refill Less than 3 Seconds Skin: No rashes, No breakdown Musculoskeletal: No Tenderness to Palpation of Joints or Extremities. 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 Detailed neuroexam unobtainable. Language deficits. Dysarthria Psych/Mental Status: Flat affect Results Lab / Micro Data 04/26/25 08:15 04/26/25 08:15 Labs: Laboratory Results - last 24 hr 04/26/25 08:15: WBC 7.9, RBC 4.84, Hgb 14.4, Hct 42.3, MCV 87.4, MCH 29.8, MCHC 34.0, RDW Std Deviation 41.0, RDW Coeff of Tim 12.9, Plt Count 217, MPV 10.4, Immature Gran % (Auto) 0.400, Neut % (Auto) 64.0, Lymph % (Auto) 21.8, Dyer % (Auto) 11.0 H, Eos % (Auto) 2.3, Baso % (Auto) 0.5, Absolute Neuts (auto) 5.1, Absolute Lymphs (auto) 1.73, Nucleated RBC % 0, PT 14.2, INR 1.1, APTT 24.5, Sodium 140, Potassium 4.1, Chloride 104, Carbon Dioxide 23.3, Anion Gap 13, BUN 37 H, Creatinine 1.72 H, Estim Creat Clear Calc 29.55 L, Est GFR (MDRD) Non-Af 39 L, BUN/Creatinine Ratio 21.4 H, Glucose 113 H, Lactic Acid 1.1, Calcium 9.7, Total Bilirubin 0.60, AST 24, ALT 19, Alkaline Phosphatase 71, TotalProtein 7.2, Albumin 4.1, Globulin 3.2, Albumin/Globulin Ratio 1.3 04/26/25 08:24: Urine Color Yellow, Urine Clarity Clear, Urine pH 6.5, Ur Specific [place] 1.015, Urine Protein 30 H, Urine Glucose (UA) Normal, Urine Ketones Negative, Urine Occult Blood 10 H, UrineNitrite Negative, Urine Bilirubin Negative, Urine Urobilinogen Normal, Ur Leukocyte Esterase Negative, Urine RBC 0 SEEN, Urine WBC 0 SEEN, Ur Squamous Epith Cells 0 SEEN, Urine Bacteria 0 SEEN, UrineMucus 0 SEEN ABG Data ABG results: ABG 04/26/25 08:19 Specimen Type ART Sample Site L Brach pH 7.48 H Bicarbonate Actual 28.6 H Total CO2 30 Base Excess 5 H O2 Saturation 95 O2 % 2.0 ABG pCO2 38.2 ABG pO2 70 L O2 Delivery Device Cannula Vent Mode Not entered Imaging Radiology Impression Chest X-Ray 04/26/25 08:08 IMPRESSION: No Acute Findings. Reading Location: [facility] 04/26/25 08:09 IMPRESSION: CHRONIC CHANGES. NO ACUTE FINDINGS. Reading Location: [facility] Assessment & Plan Assessment/Plan (1) Altered mental status: PLAN: Plan This is a 84-year-old gentleman being admitted chiefly for altered mental status/language deficit and dysarthria 1. Mental status/language deficit both receptive and motor and dysarthria: Exact etiology unclear but possible metabolic encephalopathy/seizure or stroke. CT head does not show acute change. Usually he does not think it is stroke but most likely due to scopolamine adverse effect. MRI brain ordered.NIH stroke scale until MRI rules out a stroke. PT OT and speech evaluation. Twelve-lead EKG shows NSR 86 bpm. QTc 435 ms. TSH and A1c ordered for tomorrow a.m. 2. Hypertension: Patient's showed me metoprolol succinate, midodrine. 3. Dyslipidemia: Atorvastatin 40 mg daily. Fasting lipid profile tomorrow. 4. Recently stroke in January 04: Surprisingly, patient not on aspirin or Plavix with history of stroke in December 2024. Rectal aspirin and statin ordered. 5. Kidney dysfunction: BUN/creatinine 37/1.72, estimated creatinine clearance about 30 mL/min. Unclear whether it is acute or chronic. 6. Hyperglycemia: Glucose 130. A1c tomorrow a.m. DVT prophylaxis: Lovenox 30 mg subcu daily Living will/advanced directive/end of life care: Patient does have living will or advanced directive. His , blossom is power of claims attorney for healthcare. After discussion of benefits/risks procedures involved with full code, DNR CC arrest and DNR CC, the patient side opted for DNR CC arrestwith nointubation. Patient doesn't want artificial life support including intubation, tube feed, ventilator and/chest compression, central venous catheter, vasopressor and DC shock if needed Total time spent in [id number] encounter in discussion of advanced directive 17 minutes. Laboratory Results 04/26/25 08:15: WBC 7.9, RBC 4.84, Hgb 14.4, Hct 42.3, MCV 87.4, MCH 29.8, MCHC 34.0, RDW Std Deviation 41.0, RDW Coeff of Tim 12.9, Plt Count 217, MPV 10.4, Immature Gran % (Auto) 0.400, Neut % (Auto) 64.0, Lymph % (Auto) 21.8, Dyer % (Auto) 11.0 H, Eos % (Auto) 2.3, Baso % (Auto) 0.5, Absolute Neuts (auto) 5.1, Absolute Lymphs (auto) 1.73, Nucleated RBC % 0, PT 14.2, INR 1.1, APTT 24.5, Sodium 140, Potassium 4.1, Chloride 104, Carbon Dioxide 23.3, Anion Gap 13, BUN 37 H, Creatinine 1.72 H, Estim Creat Clear Calc 29.55 L, Est GFR (MDRD) Non-Af 39 L, BUN/Creatinine Ratio 21.4 H, Glucose 113 H, Lactic Acid 1.1, Calcium 9.7, Magnesium Pending, Total Bilirubin 0.60, AST 24, ALT 19, Alkaline Phosphatase 71, Total Protein 7.2, Albumin 4.1, Globulin 3.2, Albumin/Globulin Ratio 1.3 04/26/25 08:19: Specimen Type ART, Sample Site L Brach, pH 7.48 H, Bicarbonate Actual 28.6 H, TotalCO2 30, Base Excess 5 H, O2 Saturation 95, O2 % 2.0, ABG pCO2 38.2, ABG pO2 70 L, O2 Delivery Device Cannula, Vent Mode Not entered 04/26/25 08:24: Urine Color Yellow, Urine Clarity Clear, Urine pH 6.5, Ur Specific [place] 1.015, Urine Protein 30 H, Urine Glucose (UA) Normal, Urine Ketones Negative, Urine Occult Blood 10 H, UrineNitrite Negative, Urine Bilirubin Negative, Urine Urobilinogen Normal, Ur Leukocyte Esterase Negative, Urine RBC 0 SEEN, Urine WBC 0 SEEN, Ur Squamous Epith Cells 0 SEEN, Urine Bacteria 0 SEEN, UrineMucus 0 SEEN Charges/Coding Visit Charges Inpatient E&M: 18646 Init Hosp L3 Procedures Hospitalists Procedures: 22989 Advncd Care Plan 30 Min 04/26/25 1205 Cosigner Signature (if applicable): CC: Dr. Ugo Perera MD; Dr. Chaitanya Hdez, DO~ Signed ADDENDUM by Dr. Ugo Perera MD on 04/26/25 at 1614 Addendum MRI brain shows no evidence of ischemia but chronic microvascular ischemic changes and volume loss.EEG. Neurology consult. Laboratory Results 04/26/25 08:15: WBC 7.9, RBC 4.84, Hgb 14.4, Hct 42.3, MCV 87.4, MCH 29.8, MCHC 34.0, RDW Std Deviation 41.0, RDW Coeff of Tim 12.9, Plt Count 217, MPV 10.4, Immature Gran % (Auto) 0.400, Neut % (Auto) 64.0, Lymph % (Auto) 21.8, Dyer % (Auto) 11.0 H, Eos % (Auto) 2.3, Baso % (Auto) 0.5, Absolute Neuts (auto) 5.1, Absolute Lymphs (auto) 1.73, Nucleated RBC % 0, PT 14.2, INR 1.1, APTT 24.5, Sodium 140, Potassium 4.1, Chloride 104, Carbon Dioxide 23.3, Anion Gap 13, BUN 37 H, Creatinine 1.72 H, Estim Creat Clear Calc 29.55 L, Est GFR (MDRD) Non-Af 39 L, BUN/Creatinine Ratio 21.4 H, Glucose 113 H, Lactic Acid 1.1, Calcium 9.7, Magnesium 2.1, Total Bilirubin 0.60, AST 24, ALT 19, Alkaline Phosphatase 71, Total Protein 7.2, Albumin 4.1, Globulin 3.2, Albumin/Globulin Ratio 1.3 04/26/25 08:19: Specimen Type ART, Sample Site L Brach, pH 7.48 H, Bicarbonate Actual 28.6 H, TotalCO2 30, Base Excess 5 H, O2 Saturation 95, O2 % 2.0, ABG pCO2 38.2, ABG pO2 70 L, O2 Delivery Device Cannula, Vent Mode Not entered 04/26/25 08:24: Urine Color Yellow, Urine Clarity Clear, Urine pH 6.5, Ur Specific [place] 1.015, Urine Protein 30 H, Urine Glucose (UA) Normal, Urine Ketones Negative, Urine Occult Blood 10 H, UrineNitrite Negative, Urine Bilirubin Negative, Urine Urobilinogen Normal, Ur Leukocyte Esterase Negative, Urine RBC 0 SEEN, Urine WBC 0 SEEN, Ur Squamous Epith Cells 0 SEEN, Urine Bacteria 0 SEEN, UrineMucus 0 SEEN Clinical Impression(s) from Imaging Studies Chest X-Ray 04/26/25 08:08 IMPRESSION: No Acute Findings. Reading Location: [facility]--[address] 04/26/25 08:09 IMPRESSION: CHRONIC CHANGES. NO ACUTE FINDINGS. Reading Location: [facility] Brain MRI 04/26/25 11:28 IMPRESSION: Motion artifact. No evidence of ischemia at this time. Chronic microvascular ischemic changes, volume loss. Reading Location: [id number] 04/26/25 1614 Cosigner Signature (if applicable): cc: Dr. Ugo Perera MD; Dr. Chaitanya Hdez DO ~* Signed [facility]08-15-2025 Discharge summary Author Wing Simmons [facility] Note Date/Time April 26, 2025 10 :49am [facility] Medical Records Department [address] [place] [address] Emergency Department Summary 04/26/25 MR#: [id number] Acct: [id number] Name: LUL CHRISTINE Rep #:[id number] : 1940 84 From: Wing Simmons MD PCP: Dr. Chaitanya Hdez DO Status:REG ER Location: ED ADDENDUM by Dr. Wing iSmmons MD on 04/26/25 at 1049 EKG reveals a normal sinus rhythm rate 86. There is nonseptic changes which is artifact due to his tremors. FL interval is 148 ms. QRS duration 76 ms. QT duration 304 ms. [place] is normal. 04/26/25 1049<Electronically signed by Wing Simmons MD> Cosigner Signature (if applicable): cc: Dr. Chaitanya Hdez DO ~* Signed HPI History of Present [...] similar symptoms: No Recent Illness/Hospitalization: No PFSH PFSH Medical History (Updated 04/26/25 @ 10:47 by [...] % (Auto) 64.0 Lymph % (Auto) 21.8 Dyer % (Auto) 11.0 H Eos % (Auto) [...] Clarity Clear Urine pH 6.5 Ur Specific [place] 1.015 Urine Protein 30 H Urine Glucose [...] 08:08 IMPRESSION: No Acute Findings. Reading Location: [facility]- Brain CT 04/26/25 08:09 IMPRESSION: CHRONIC CHANGES. NO ACUTE FINDINGS. Reading Location: [facility]--1 CT was reviewed by me after interpretation [...] of stroke in adulthood Primary Care Provider: Chaitanya Hdez Referrals: Chaitanya Hdez DO [Primary Care Provider] - Print Language: [place] Citizen Disposition Disposition: Acute Care Hospital [facility] What to do if you have Problems For any increased pain, shortness of breath, bleeding, nausea or vomiting, chestpain, or any unexpected problems, contact your Primary Care Provider. Call [facility] ([phone]) or report to the closest Emergency Room. Call 911 if necessary. 04/26/25 1047 <Electronically signed by Wing Simmons MD> Cosigner Signature (if applicable): CC: Dr. Chaitanya Hdez DO ~ Signed [facility] Work Phone: 1(708) 355-832308-15-2025 Evaluation note* Diagnosis Onset Date Resolution Status Admit Date Agitation acute April 26, 2 025 10:44am Altered mental status acute Aug ust 2024 10:44am Elevated blood pressure read ing with diagnosis of hypertension acute A ugust 2024 10:44am History of stroke in adulthood acute April 26, 2025 10:44am Metabolic alkalemia acute Augus t 2024 10:44am Chronic kidney insufficiency chronic April 26, 2025 10:44am [facility] Work Phone: 1(674) 656-207608-15-2025 Discharge summary [facility] Medical Records Department [address] [place] [address] Emergency Department Summary 04/26/25 MR#: [id number] Acct: [id number] Name: LUL CHRISTINE Rep #:[id number] : 1940 84 From: Wing Simmons MD PCP: Dr. Chaitanya Hdez DO Status:REG ER Location: ED ADDENDUM by Dr. Wing Simmons MD on 04/26/25 at 1049 EKG reveals a normal sinus rhythm rate 86. There is nonseptic changes which is artifact due to his tremors. FL interval is 148 ms. QRS duration 76 ms. QT duration 304 ms. [place] is normal. 04/26/25 1049 Cosigner Signature (if applicable): cc: Dr. Chaitanya Hdez, ~* Signed HPI History of Present Illness [...] patient is following commands has no obvious focalneurologic symptoms and the fact that he has [...] other (Informed of results and concern this isall due to the scopolamine patch. Since he is agitated he did receive IV Ativan. Hospitalist was paged for admission) Lab Data Attestation: I reviewed the patient's lab results. Lab results narrative: White count is normal. Comprehensive metabolic panel reveals an elevated BUN/creatinine at 37 and 1.72 with an estimated GFR of 39 and a BUN to creatinine ratio of 21:1. Glucose slightly elevated 113with a normal CO2 aniongap. Liver enzymes are [...] % (Auto) 64.0 Lymph % (Auto) 21.8 Dyer % (Auto) 11.0 H Eos % (Auto) [...] Clarity Clear Urine pH 6.5 Ur Specific [place] 1.015 Urine Protein 30 H Urine Glucose [...] chronic changes. Osseous structures reveal no obvious acuteabnormality. There is evidence of degenerative disc disease.) Diagnostic Testing: Clinical Impression(s) from Imaging Studies Chest X-Ray 04/26/25 08:08 IMPRESSION: No Acute Findings. Reading Location: [facility] 04/26/25 08:09 IMPRESSION: CHRONIC CHANGES. NO ACUTE FINDINGS. Reading Location: [facility]1 CT was reviewed by me after interpretation by radiologist. There is no acute findings i.e. subduralhematoma, epidural hematoma, traumatic subarachnoid hemorrhage or intraparenchymal contusion. Thereis no obvious stroke noted either. There is [...] of stroke in adulthood Primary Care Provider: Chaitanya Hdez Referrals: Chaitanya Hdez DO [Primary Care Provider] - Print Language: [place] Citizen Disposition Disposition: Acute Care Hospital [facility] What to do if you have Problems For any increased pain, shortness of breath, bleeding, nausea or vomiting, chestpain, or any unexpected problems, contact your Primary Care Provider. Call [facility] ([phone]) or report tothe closest Emergency Room. Call 911 if necessary. 04/26/25 1047 Cosigner Signature (if applicable): CC: Dr. Chaitanya Hdez DO ~ Signed [facility]08-15-2025 Radiology Diagnostic study note [facility] Imaging Services [address] [place], [place] [id number] Brain/Head without Contrast MR#: [id number] Acct: [id number] Name: LUL CHRISTINE Rep #: [id number] : 1940 M 84 From: Rich Nichols MD PCP: Dr. Chaitanya Hdez DO Status: REG ER Study:Brain/Head without Contrast Date of Exa m: 04/26/25 Exam# [id number] Ordering Dr: Riley Simmons MD PROCEDURE: BRAIN/HEAD [...] CHRONIC CHANGES. NO ACUTE FINDINGS. Reading Location: [place] [address] CC: Dr. Chaitanya Hdez DO; Dr. Wing Simmons MD ~ Editor Magazine: Signed [facility]08-15-2025 Radiology Diagnostic study note [facility] Imaging Services [address] [place] [id number] Chest 1 View (Portable) MR#: [id number] Acct: [id number] Name: LUL CHRISTINE Rep #: [id number] : 1940 M 84 From: Rich Nichols MD PCP: Dr. Chaitanya Hdez DO Status: REG ER Study:Chest 1 View (Portable) Date of Exam: 04/26/25 Exam# [id number] Ordering Dr: Riley Simmons MD PROCEDURE: CHEST 1 VIEW (PORTABLE) 04/26/2025 REASON FOR EXAM: TACHYPNEA TECHNIQUE: Frontal view of the chest. COMPARISON: None FINDINGS: Hardware: EKG electrodes are seen. Heart: The heart size is upper limits of normal. Lungs: The lungs are clear. Bones: Degenerative changes are identified within the thoracic spine. Other: RAD/Chest 1 View (Portable) IMPRESSION: No Acute Findings. Reading Location: [facility]-1 CC: Dr. Chaitanya Hdez DO; Dr. Wing Simmons MD ~ Editor Magazine: Signed [facility]07-21-2025 Note* Exam Date Time Procedure Performing Provider Status 04/01/25 10:15 AM BD Bone Density DEXA Axial Skeleton RADHA BOWEN DO; Auth (Verified) [id number] ORIGINAL EXAMINATION: BONE DENSITOMETRY 04/01/2025 10:15 am [...] fracture risk by FRAX. Interpreted by: Radha Bowen DO Preliminary Report By: Radha Bowen DO Electronically signed By Radha Bowen DO Dictated Date: 04/01/2025 11:27:21 AM Prelim Date: 04/01/2025 11:27:47 AM Sign Date: 04/01/2025 11:27:47 AM Ordering Provider: [facility]07-18-2025 Note* Exam Date Time Procedure Performing Provider Status 03/29/25 12:[address] Spine Cervical w/Contrast Raven HUFFMAN MD; Auth (Verified) [id number] ORIGINAL EXAMINATION: CT OF THE CERVICAL SPINE [...] for soft tissue evaluation. Interpreted by: Xiang Huffman Preliminary Report By: Xiang Huffman Electronically signed By Xiang Huffman Dictated Date: 03/29/2025 12:56:54 PM Prelim Date: 03/29/2025 12:59:08 PM Sign Date: 03/29/2025 12:59:08 PM Ordering Provider: [facility] Author Wing Simmons [facility] Note Date/Time April 26, 2025 10 :49am [facility] Medical Records Department [address] [place] [address] Emergency Department Summary 04/26/25 MR#: [id number] Acct: [id number] Name: LUL CHRISTINE Rep #:[id number] : 1940 84 From: Wing Simmons MD PCP: Dr. Chaitanya Hdez DO Status:REG ER Location: ED ADDENDUM by Dr. Wing Simmons MD on 04/26/25 at 1049 EKG reveals a normal sinus rhythm rate 86. There is nonseptic changes which is artifact due to his tremors. FL interval is 148 ms. QRS duration 76 ms. QT duration 304 ms. [place] is normal. 04/26/25 1049<Electronically signed by Wing Simmons MD> Cosigner Signature (if applicable): cc: Dr. Chaitanya Hdez, ~* Signed HPI History of Present Illness Chief Complaint: Alt LOC Detail of Chief Complaint: Prehospital stroke alert. Informant: patient, spouse/S.O. and EMS Onset/Context/Timing Onset: - (Last known well 2199, April 25) Context: - (Detailed in the HPI [...] similar symptoms: No Recent Illness/Hospitalization: No PFSH PFSH Medical History (Updated 04/26/25 @ 10:47 by [...] % (Auto) 64.0 Lymph % (Auto) 21.8 Dyer % (Auto) 11.0 H Eos % (Auto) [...] Clarity Clear Urine pH 6.5 Ur Specific [place] 1.015 Urine Protein 30 H Urine Glucose [...] 08:08 IMPRESSION: No Acute Findings. Reading Location: [facility] 04/26/25 08:09 IMPRESSION: CHRONIC CHANGES. NO ACUTE FINDINGS. Reading Location: [facility]1 CT was reviewed by me after [...] of stroke in adulthood Primary Care Provider: Chaitanya Hdez Referrals: Chaitanya Hdez DO [Primary Care Provider] - Print Language: [place] Citizen Disposition Disposition: Acute Care [facility] What to do if you have Problems For any increased pain, shortness of breath, bleeding, nausea or vomiting, chestpain, or any unexpected problems, contact your Primary Care Provider. Call [facility] ([phone]) or report to the closest Emergency Room. Call 911 if necessary. 04/26/25 1047 <Electronically signed by Wing Simmons MD> Cosigner Signature (if applicable): CC: Dr. Chaitanya Hdez DO ~ Signed [facility] Work Phone: Discharge summary Author Radha [facility] Note Date/Time May 01, 2025 3: [address] [place] [address] System Medical Records Department [address] [place] [address] Transfer to [facility] MR#: [id number] Acct: [id number] Name: LUL CHRISTINE Rep #:[id number] : 1940 84 From: Radha Valera MD PCP: Dr. Chaitanya Hdez DO Status:ADM IN Certification of patient admission REQUIRED AT TIME OF ADMISSION. I CERTIFY THAT POST-HOSPITAL [facility] SERVICES ARE REQUIRED TO BE GIVEN ON AN IN-PATIENT BASIS BECAUSE OF THE ABOVE NAMED PATIENT'S NEED FOR [facility] CARE ON A CONTINUING BASIS FOR THE CONDITION(S) FOR WHICH HE/SHE WAS RECEIVING IN-PATIENT HOSPITAL SERVICES PRIOR TO HIS/HER TRANSFER TO THE [facility]. 05/01/25 1532<Electronically signed by Radha Valera MD> Diet Diet Order/Speech Therapy: INPATIENT Hospital Diet / Speech Therapy Order(s) 04/30/25 15:20 Diet: Regular - General Food consistency:: Pureed Liquid Consistency:: Regular/Thin Diet Comments: fortified pudding with lunch and dinner; Oral care provided after solids Speech Therapy Comments: Liquids via tsp only. TOTAL FEED. Swallow Guidelines. 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 Suspected offending medication was withdrawn. Patient was seen by neurology CVA was ruled out with a negative MRI. Neurology also recommended minimal use of benzos opiates as well as anticholinergics and low- dose Risperdal as needed at night ? 05/01/2025; patient seen appears much more restful compared to previous day. Case discussed with patient's Regarding disposition. Plan is for patient to be transferred to a halfway facility pending acceptance by facility and insurance precertification was discharged to [facility] once insurance precertification was obtained 2. Physical deconditioning ? Requested for PT OT eval and social staff worker to assist with discharge planning 3. BPH with lower urinary obstructive symptoms including urinary retention - Patient treated with tamsulosin. Urinalysis rule out UTI patient had been started on ceftriaxone discontinued 4. Hypertension ? Blood pressure controlled, home medications continued with dose adjustment as needed 5. Dyslipidemia ?Patient is on statin therapy, continued at home dose 6. 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 Patient started on antiplatelets as well as statin therapy 7. Chronic kidney disease stage IIIa ? Kidney function at baseline 8. DVT prophylaxis ? Subcu Lovenox Time spent in the patient's overall evaluation,decision-making process, review of diagnostic data, adjustment of management, discussion with other providers, nursing nursing and ancillary staff involved in patient's care, family includingpatient's documentation, 35 minutes Allergies/Procedures Done in Hospital Allergies doxycycline Allergy (Unknown, Verified 04/26/25 08:08) PT UNABLE TO RESPOND-NEEDS F/U oxycodone Allergy (Unknown, Verified 04/26/25 08:08) PT UNABLE TO RESPOND-NEEDS F/U scopolamine Adverse Reaction (Severe, Verified 04/28/25 11:26) mental status changes Type of Care/Length of Stay Estimated LOS: Convalescent Care Less Than 30 days Type of Care Needed: Skilled Rehab Potential: Good Prognosis: Good Additional Orders/Day of Discharge Day of Discharge: 05/01/25 Dietary and Speech Recommendations Dietitian Recommendations/Changes: Adjust to regular diet with modifications perSLP recommendation. Will order fortified pudding with lunch and dinner. Will continue to monitor weight trends and modify nutrition interventions as needed. Discharge Plan Admission Admit Date/Time: 04/26/25 10:44 Attending Provider: Radha Valera Primary Care Provider: Chaitanya Hdez Consulting Providers: Ugo Perera Discharge Orders/Prescriptions Prescriptions: New sennosides-docusate sodium [Stimulant Laxative Plus] 8.6-50 mg Tablet 2 tab PO BID Qty: 0 0RF risperidone 0.25 mg Tablet 0.25 mg PO BID Qty: 0 0RF tamsulosin 0.4 mg Capsule 0.4 mg PO DAILY@1730 Qty: 0 0RF acetaminophen 325 mg Tablet 650 mg PO Q6H PRN PRN (Reason: Pain 1-10 Or Fever>100.7) Qty: 0 0RF Continued rosuvastatin 5 mg tablet 5 mg PO DAILY metoprolol succinate 25 mg tablet extended release 24 hr 25 mg PO DAILY Referrals / Follow Up: Chaitanya Hdez DO [Primary Care Provider] - Disposition Disposition (needs filled in before D/C Order can be placed): Long-Term Facility 05/01/25 1532 <Electronically signed by Radha Valera MD> Cosigner Signature (if applicable): CC: Dr. Ugo Perera MD; Dr. Chaitanya Hdez DO ~ [facility] Work Phone: Evaluation + Plan note No data available for this section [facility] Evaluation + Plan note Future Appointments Appointment Date:06/21/2024 09:30:00 AM Scheduled Provider:EDWINA CHEN DO Location:[facility] Appointment Type: OV [facility] Evaluation + Plan note Future Appointments Appointment Date:01/03/2025 10:30:00 AM Scheduled Provider:EDWINA CHEN DO Location:[facility] Appointment Type: OV Future Scheduled Tests Laboratory* Albumin/Creatinine Ratio, Random Urine 07/05/24 [facility] Evaluation + Plan note Future Appointments Appointment Date:01/03/2025 10:30:00 AM Scheduled Provider:EDWINA CHEN DO Location:[facility] Appointment Type:PC Wellness [facility] Enhanced Future Scheduled Tests Laboratory* Albumin/Creatinine Ratio, Random Urine 07/05/24 Radiology* MRI Brain w/o Contrast 10/30/24 [facility] Evaluation + Plan note Future Appointments Appointment Date:03/08/2025 10:30:00 AM Scheduled Provider:CHAITANYA HDEZ DO Location:[facility] Appointment Type:PC OV Future Scheduled Tests Laboratory* Albumin/Creatinine Ratio, Random Urine 07/05/24 Radiology* NM Myocardial Spect Rest/Stress 01/02/25 [facility] evaluation + Plan note Future Appointments Appointment Date:04/01/2025 10:00:00 AM Scheduled Provider: Location:[facility] Appointment Type:BD Bone Density DEXA Axial Skeleton Appointment Date:04/01/2025 03:00:00 PM Scheduled Provider:Viraj Sylvester PT Location:[facility] Appointment Type:PT Outpatient Evaluation Appointment Date:05/07/2025 10:00:00 AM Scheduled Provider:CHAITANYA HDEZ DO Location:[facility] Appointment Type:PC OV Follow Up Future Scheduled Tests Laboratory* Lipid Profile 06/26/25 * Albumin/Creatinine Ratio, Random Urine 07/05/24 * Complete Metabolic Panel 06/26/25 * N-Terminal proBNP 09/29/25 Radiology* BD Bone Density DEXA Axial Skeleton Adult (21 yrs or older) 04/01/25 * NM Myocardial Spect Rest/Stress 01/02/25 [facility] evaluation + Plan note Future Appointments Appointment Date:04/08/2025 08:30:00 AM Scheduled Provider:Viraj Sylvester PT Location:[facility] Appointment Type:PT [facility] Appointment Date:04/16/2025 09:30:00 AM Scheduled Provider:Viraj Sylvester PT Location:[facility] Appointment Type:PT Treatment [facility] Appointment Date:04/23/2025 09:30:00 AM Scheduled Provider:Viraj Sylvester PT Location:[facility] Appointment Type:PT Treatment [facility] Appointment Date:04/30/2025 01:30:00 PM Scheduled Provider:Viraj Sylvester PT Location:[facility] Appointment Type:PT Treatment [facility] Appointment Date:05/07/2025 10:00:00 AM Scheduled Provider:CHAITANYA HDEZ DO Location:[facility] Appointment Type:PC OV Follow Up Future Scheduled Tests Laboratory* Lipid Profile 06/26/25 * Albumin/Creatinine Ratio, Random Urine 07/05/24 * Complete Metabolic Panel 06/26/25 * N-Terminal proBNP 09/29/25 Radiology* NM Myocardial Spect Rest/Stress 01/02/25 [facility] Evaluation noteNo assessment information available [facility] Work Phone: Evaluation note* Diagnosis Shuffling gait- Primary Abnormality of gait Tremor Abnormal involuntary movements Lightheadedness Dizziness and giddiness documented in this encounter [facility] Diagnosis Onset Date Resolution Status Admit Date Agitation acute April 26 10:44am Elevated blood pressure read ing with diagnosis of hypertension acute A ugust 2024 10:44am History of stroke in adulthood acute April 26, 2025 10:44am Metabolic alkalemia acute Augus t 2024 10:44am Chronic kidney insufficiency chronic April 26, 2025 10:44am [facility] Work Phone: Hospital Discharge instructions No data available for this section [facility] Progress note No data available for this section [facility] Reason for referral (narrative)No reason for referral [facility] Work Phone: Summary Purpose Family History No Family History Records Found Advance Directives Advance Directive Response Recorded Date/ Time Do you have a Healthcare Power of Manager Data? No April 26, 2025 8:04am Advance Directive Response Recorded Date/ Time Do you have a Healthcare Power of Manager Data? No April 26, 2025 12:04pm Chief Complaint and Reason for Visit Chief [...] 10 :44am Chronic kidney insufficiency April 10:44am Chief Complaint Admit Date LEXISCAN SYNCOPE February 07, 2025 6:44a m AMS April 26, 2025 10 :44am AMS April 27, 2025 2: 56pm AMS April 28, 2025 8: 12am AMS April 29, 2025 8: 21am AMS April 30, 2025 10 :38am AMS May 01, 2025 7: 58am Reason for Visit Admit Date Agitation April 26, 2025 10 :44am Altered mental status April 26, 2025 10:44am Elevated blood pressure read ing with diagnosis of hypertension April 26, 2025 10:44am History of stroke in adulthood April 262024 10:44am Metabolic alkalemia April 26, 2025 10 :44am Chronic kidney insufficiency April 10:44am Additional Source Comments Care Team (unrecognized sect ion and content) Personnel Name: EDWINA CHEN DO Address: Address: [address] [place] [id number]- [place] Name: Hayden Armando PT Patient Care team informatio n (unrecognized section and content) Team Status: Active Member Role Status Dates Dr. Chaitanya Hdez DO Primary Care Provider Active Team Status: Inactive Member Role Status Dates Dr. Carol Ann Pittman MD Attending Provider Active Start: February 07, 2025 End: February 07, 2025 Dr. Carol Ann Pittman MD Referring Provider Active Start: February 07, 2025 End: February 07, 2025 Dr. Chaitanya Hdez DO Primary Care Provider Active Start: February 07, 2025 End: February 07, 2025 Team Status: Active Member Role Status Dates Dr. Chaitanya Hdez DO Primary Care Provider Active Start: February 07, 2025 Dr. Lisandro Virk MD Attending Provider Active Start: February 07, 2025 [employer] Relationship Specialty Start Date End Date Angel Villalobos PCP - General Genetics 02/14/12 Chaitanya Hdez DO [address] [place] [address] Referring Family Medicine 04/03/25 Team Status: Active Member Role/Relationship Status Dates Dr. Chaitanya Hdez DO Primary Care Provider Active Team Status: Inactive Member Role/Relationship Status Dates Dr. Carol Ann Pittman MD Attending Provider Active Start: February 07, 2025 End: February 07, 2025 Dr. Carol Ann Pittman MD Referring Provider Active Start: February 07, 2025 End: February 07, 2025 Dr. Chaitanya Hdez DO Primary Care Provider Active Start: February 07, 2025 End: February 07, 2025 Team Status: Active Member Role/Relationship Status Dates Dr. Chaitanya Hdez DO Primary Care Provider Active Start: February 07, 2025 Dr. Lisandro Virk MD Attending Provider Active Start: February 07, 2025 Team Status: Active Member Role/Relationship Status Dates Dr. Chaitanya Hdez DO Primary Care Provider Active Start: April 26, 2025 Dr. Wing Simmons MD Emergency Provider Active Sta rt: April 26, 2025 Dr. Ugo Perera MD Admit Provider Active Sta rt: April 26, 2025 Dr. Ugo Perera MD Attending Provider Active Start: April 26, 2025 Team Status: Inactive Member Role/Relationship Status Dates Dr. Chaitanya Hdez DO Primary Care Provider Active Start: April 26, 2025 End: May 01, 2025 Dr. Wing Simmons MD Emergency Provider Active Sta rt: April 26, 2025 End: May 01, 2025 Dr. Ugo Perera MD Admit Provider Active Sta rt: April 26, 2025 End: May 01, 2025 Dr. Ugo Perera MD Other Provider Active Sta rt: April 26, 2025 End: May 01, 2025 Dr. Radha Valera MD Attending Provider Active Start: April 26, 2025 End: May 01, 2025 Team Status: Active Member Role/Relationship Status Dates Dr. Chaitanya Hdez DO Primary Care Provider Active Start: April 27, 2025 Dr. Wing Simmons MD Emergency Provider Active Sta rt: April 27, 2025 Dr. Ugo Perera MD Admit Provider Active Sta rt: April 27, 2025 Dr. Ugo Perera MD Attending Provider Active Start: April 27, 2025 Dr. Ugo Perera MD Other Provider Active Sta rt: April 27, 2025 Dr. Shara Steiner MD Other Provider Active Start: April 27, 2025 Dr. Ela Rodriguez MD Other Provider Active Start: April 27, 2025 Dr. Rob Tilley MD Other Provider Active Sta rt: April 27, 2025 Ute Noriega MD Other Provider Active Start : April 27, 2025 Dr. Obdulia Daly MD Other Provider Active Start : April 27, 2025 Thanh Paez MD Other Provider Active Start: 2024 Roxy Jimenes MD Other Provider Active Start : April 27, 2025 Dr. Saida Vaughan DO Other Provider Active St art: April 27, 2025 Dr. Dayo Arzate MD Other Provider Active Sta rt: April 27, 2025 Dr. Lakia Martínez MD Other Provider Active Start : April 27, 2025 Dr. Lionel Polanco MD Other Provider Active Start: April 27, 2025 Dr. Umair Lehman MD Other Provider Active Start : April 27, 2025 Dr. Hudson Fraga MD Other Provider Active St art: April 27, 2025 Dr. Phillip Joshi MD Other Provider Active Sta rt: April 27, 2025 Dr. Corine Hays MD Other Provider Active Start: April 27, 2025 Dr. Carol Ann Kimble MD Other Provider Active St art: April 27, 2025 Dr. Jane Davis MD Other Provider Active Star t: April 27, 2025 Dr. Hua Salas MD Other Provider Active St art: April 27, 2025 Dr. Arabella Mcelroy MD Other Provider Active Start: April 27, 2025 Eri Rizvi MD Other Provider Active Start: April 27, 2025 Lisa Stack MD Other Provider Active Start : April 27, 2025 Darinel Shea MS Other Provider Active Start: A ugust 2024 Kristopher Benito MD Other Provider Active Start: April 27, 2025 JOSE SANCHEZ MD Other Provider Active Start: A ugust 2024 Deejay Fernandez MD Other Provider Active Start: April 27, 2025 Consuelo Mckenna MD Other Provider Active Start: April 27, 2025 Team Status: Active Member Role/Relationship Status Dates Dr. Chaitanya Hdez DO Primary Care Provider Active Start: April 28, 2025 Dr. Wing Simmons MD Emergency Provider Active Sta rt: April 28, 2025 Dr. Ugo Perera MD Admit Provider Active Sta rt: April 28, 2025 Dr. Ugo Perera MD Attending Provider Active Start: April 28, 2025 Dr. Ugo Perera MD Other Provider Active Sta rt: April 28, 2025 Dr. Shara Steiner MD Other Provider Active Start: April 28, 2025 Dr. Ela Rodriguez MD Other Provider Active Start: April 28, 2025 Dr. Rob Tilley MD Other Provider Active Sta rt: April 28, 2025 Ute Noriega MD Other Provider Active Start : April 28, 2025 Dr. Obdulia Daly MD Other Provider Active Start : April 28, 2025 Thanh Paez MD Other Provider Active Start: 2024 Roxy Jimenes MD Other Provider Active Start : April 28, 2025 Dr. Saida Vaughan DO Other Provider Active St art: April 28, 2025 Dr. Dayo Arzate MD Other Provider Active Sta rt: April 28, 2025 Dr. Lakia Martínez MD Other Provider Active Start : April 28, 2025 Dr. Lionel Polanco MD Other Provider Active Start: April 28, 2025 Dr. Umair Lehman MD Other Provider Active Start : April 28, 2025 Dr. Hudson Fraga MD Other Provider Active St art: April 28, 2025 Dr. Phillip Joshi MD Other Provider Active Sta rt: April 28, 2025 Dr. Corine Hays MD Other Provider Active Start: April 28, 2025 Dr. Carol Ann Kimble MD Other Provider Active St art: April 28, 2025 Dr. Jane Davis MD Other Provider Active Star t: April 28, 2025 Dr. Hua Salas MD Other Provider Active St art: April 28, 2025 Dr. Arabella Mcelroy MD Other Provider Active Start: April 28, 2025 Eri Rizvi MD Other Provider Active Start: April 28, 2025 Lisa Stack MD Other Provider Active Start : April 28, 2025 Darinel Shea MS Other Provider Active Start: A ugust 2024 Kristopher Benito MD Other Provider Active Start: April 28, 2025 JOSE SANCHEZ MD Other Provider Active Start: A ugust 2024 Deejay Fernandez MD Other Provider Active Start: April 28, 2025 Consuelo Mckenna MD Other Provider Active Start: April 28, 2025 Team Status: Active Member Role/Relationship Status Dates Dr. Chaitanya Hdez DO Primary Care Provider Active Start: April 29, 2025 Dr. Wing Simmons MD Emergency Provider Active Sta rt: April 29, 2025 Dr. Ugo Perera MD Admit Provider Active Sta rt: April 29, 2025 Dr. Ugo Perera MD Attending Provider Active Start: April 29, 2025 Dr. Ugo Perera MD Other Provider Active Sta rt: April 29, 2025 Dr. Shara Steiner MD Other Provider Active Start: April 29, 2025 Dr. Ela Rodriguez MD Other Provider Active Start: April 29, 2025 Dr. Rob Tilley MD Other Provider Active Sta rt: April 29, 2025 Ute Noriega MD Other Provider Active Start : April 29, 2025 Dr. Obdulia Daly MD Other Provider Active Start : April 29, 2025 Thanh Paez MD Other Provider Active Start: [facility] 2024 Roxy Jimenes MD Other Provider Active Start : April 29, 2025 Dr. Saida Vaughan DO Other Provider Active St art: April 29, 2025 Dr. Dayo Arzate MD Other Provider Active Sta rt: April 29, 2025 Dr. Lakia Martínez MD Other Provider Active Start : April 29, 2025 Dr. Lionel Polanco MD Other Provider Active Start: April 29, 2025 Dr. Umair Lehman MD Other Provider Active Start : April 29, 2025 Dr. Hudson Fraga MD Other Provider Active St art: April 29, 2025 Dr. Phillip Joshi MD Other Provider Active Sta rt: April 29, 2025 Dr. Corine Hays MD Other Provider Active Start: April 29, 2025 Dr. Carol Ann Kimble MD Other Provider Active St art: April 29, 2025 Dr. Jane Davis MD Other Provider Active Star t: April 29, 2025 Dr. Hua Salas MD Other Provider Active St art: April 29, 2025 Dr. Arabella Mcelroy MD Other Provider Active Start: April 29, 2025 Eri Rizvi MD Other Provider Active Start: April 29, 2025 Lisa Stack MD Other Provider Active Start : April 29, 2025 Darinel Shea MS Other Provider Active Start: A ugust 2024 Kristopher Benito MD Other Provider Active Start: April 29, 2025 JOSE SANCHEZ MD Other Provider Active Start: A ugust 2024 Deejay Fernandez MD Other Provider Active Start: April 29, 2025 Consuelo Mckenna MD Other Provider Active Start: April 29, 2025 Team Status: Active Member Role/Relationship Status Dates Dr. Chaitanya Hdez DO Primary Care Provider Active Start: April 30, 2025 Dr. Wing Simmons MD Emergency Provider Active Sta rt: April 30, 2025 Dr. Ugo Perera MD Admit Provider Active Sta rt: April 30, 2025 Dr. Ugo Perera MD Other Provider Active Sta rt: April 30, 2025 Dr. Radha Valera MD Attending Provider Active Start: April 30, 2025 Dr. Radha Valera MD Other Provider Active Star t: April 30, 2025 Team Status: Active Member Role/Relationship Status Dates Dr. Chaitanya Hdez DO Primary Care Provider Active Start: May 01, 2025 Dr. Wing Simmons MD Emergency Provider Active Sta rt: May 01, 2025 Dr. Ugo Perera MD Admit Provider Active Sta rt: May 01, 2025 Dr. Ugo Perera MD Other Provider Active Sta rt: May 01, 2025 Dr. Radha Valera MD Attending Provider Active Start: May 01, 2025 Dr. Radha Valera MD Other Provider Active Star t: May 01, 2025 (unrecognized sect ion and content) No Status Records FoundNo Status Records FoundNo Status Records Found INFORMATION SOURCE (unrecogn ized section and content) DATE CREATED AUTHOR 12/23/2023 [facility] ([place]) DATE CREATED AUTHOR AUTHOR'S ORGANIZ ATION 04/07/2025 [facility] DATE CREATED AUTHOR AUTHOR'S ORGANIZ ATION 04/30/2025 [facility] Goals (unrecognized section and content) Goals may be documented in a n alternate section Source Comments (unrecognize d section and content) In the event this informatio n is protected by the Federal Confidentiality of Alcohol and Drug Abuse Patient Records regulations: The Federal rules restrict any use of the information to criminally investigate or prosecute any alcohol or drug abuse patient.[facility] FOR RECORDS PERTAINING TO PATIENTS WHO ARE [...] BE BASED ON THE PRIMARY CLINICAL RECORDS. [facility]. provides no warranty or guarantee of the accuracy or completeness of information in this document.
[2025-05-02 09:49] LABS: Hematocrit 45.9 % (40-54); Hemoglobin 15.4 g/dL (13.0-16.5); Immature Granulocytes Count 0.040 X10^3/uL (0.0-0.0); Mean Corp Hgb Conc 33.6 g/dL (32-36); Mean Corpuscular Volume 89.1 fL (80-94); Mean Platelet Vol. 11.2 fl (6.2-12.0); NRBC Flagged by Analyzer 0 % (0-5); Platelet Count 270 K/mm3 (150-450); RBC Distribution Width CV 13.4 % (11.6-14.6); RBC Distribution Width SD 44.2 fl (35.1-43.9); Red Blood Count 5.15 M/mm3 (4.6-6.2); White Blood Count 8.5 K/mm3 (4.4-11.0)
[2025-05-02 10:04] LABS: AST(SGOT) 30 U/L (<=37); Alanine Aminotransfer ALT/SGPT 17 U/L (<=46); Albumin, Serum 3.7 g/dL (3.4-4.8); Alkaline Phosphatase 91 U/L (40-129); Anion Gap 18 (5-15); BUN 44 mg/dL (4-19); BUN/Creat Ratio 28.6 RATIO (10-20); Calcium,Total 10.1 mg/dL (7.6-11.0); Carbon Dioxide 20.1 mmol/L (21.0-32.0); Chloride 110 mmol/L (98-108); Globulin 4.0 g/dL (2.2-4.2); Glucose 101 mg/dL (70-99); Potassium 4.0 mmol/L (3.3-5.1)
== END ==
LOC: OLS.SW 05:00
PROVIDERS: Visit Provider Family Medicine
DX: Z02.2 Encounter for examination for admission to residential institution (principal); F03.90 Unspecified dementia, unspecified severity, without behavioral disturbance, psychotic disturbance, mood disturbance, and anxiety
CPT/HCPCS: 36415; 80053; 85025